=== PATIENT | female | born 1935 | race Caucasian/White ===

== ENCOUNTER 2021-04-06 20:44 | Inpatient (IN) ==
--- NOTE | 2021-04-06 21:02 | Emergency Department Note ---
History of Present Illness General Chief complaint: Cardiac Assessment Stated complaint: SHAKING,STOMACH PAINS,WEIGHT ON CHEST,ARMS TINGLIN Time Seen by Provider: 04/06/21 21:01 Source: patient Mode of arrival: ambulatory Limitations: no limitations History of Present Illness Provider Complaint: + generalized weakness (Associated chest pressure) Onset (ago): day(s) Duration: + constant Migration: + none Severity: moderate Current Pain Intensity: 5 Quality: + other (Pressure) Relieved By: + none Exacerbated By: + none Context: + new medication (Lexapro started 3 days prior) and + depression (Patient has been feeling slightly depressed and it is almost the anniversary of her eldest son passing away last April.) Associated symptoms: + chest pain and + nausea/vomiting; no dark stools, no diaphoresis, no fever/chills or no shortness of breath Home Medications Medication Instructions Recorded Confirmed Type aspirin 81 mg tablet,delayed 81 mg PO 03/13/21 04/06/21 History release (Aspirin Low Dose) calcium carbonate 600 mg calcium 600 mg PO [facility] 03/13/21 04/06/21 History (1,500 mg) tablet (Calcium) cholecalciferol (vitamin D3) 25 25 mcg PO DAILY 03/13/21 04/06/21 History mcg (1,000 unit) tablet (Vitamin D3) cyanocobalamin (vitamin B-12) 1,000 mcg PO DAILY 03/13/21 04/06/21 History 1,000 mcg tablet (Vitamin B-12) fenofibrate micronized 134 mg 134 mg PO DAILY 03/13/21 04/06/21 History capsule hydralazine 50 mg tablet 75 mg PO TID 03/13/21 04/06/21 History hydrochlorothiazide 25 mg tablet 25 mg PO DAILY 03/13/21 04/06/21 History magnesium oxide 400 mg PO DAILY 03/13/21 04/06/21 History omega 6-vjw-cnu-fish oil 1,000 mg 1 cap PO DAILY 03/13/21 04/06/21 History (120 mg-180 mg) capsule (Fish Oil) psyllium seed (sugar) oral powder 1 ea PO DAILY 03/13/21 04/06/21 History (Metamucil (sugar)) olopatadine 0.2 % eye drops 1 drp OPHTHALMIC (EYE) 03/15/21 04/06/21 History escitalopram oxalate 10 mg tablet 10 mg PO DAILY 04/06/21 04/06/21 History levothyroxine 137 mcg tablet 137 mcg PO DAILYBB 04/06/21 04/06/21 History Allergies Allergy/AdvReac Type Severity Reaction Status Date / Time oxycodone Allergy Unknown UKN Verified 04/06/21 21:05 simvastatin Allergy Unknown UKN Verified 04/06/21 21:05 rosuvastatin AdvReac Unknown upset Verified 04/06/21 21:05 stomach Past Med/Surg History Medical History (Updated 04/07/21 @ 00:35 by Eliseo Lopez MD) Deep venous thrombosis (11/15/12) Hx of blood clots Hypertension Hypothyroidism (11/15/12) Hysterectomy (11/15/12) Social History Smoking Status: Never smoker Preferred Language: Ivorian Feels Safe at Home: Yes Review of Systems See HPI for pertinent positives & negatives. and A total of 10 systems reviewed and were otherwise negative Physical Exam Vital Signs Vital Signs - 24 hr 04/06/21 20:48 04/06/21 21:16 04/06/21 21:22 Temperature 36.5 C Temperature Source Temporal Artery Scan Pulse Rate 78 76 Pulse Rate [Apical] 71 Pulse Rate from SpO2 Sensor 72 Pulse Rhythm Pulse Rhythm [Apical] Regular Pulse Strength [Apical] Normal Respiratory Rate 18 18 18 Respiratory Effort / Characteristics Non-Labored Spontaneous Respiratory Depth Normal Respiratory Pattern Regular Blood Pressure 162/82 H 174/77 H Blood Pressure [Left Arm] 174/77 H Blood Pressure Mean 108 109 Blood Pressure Mean [Left Arm] 109 Blood Pressure Position [Left Arm] Lying Pulse Oximetry 94 96 97 Oxygen Delivery Method Room Air Room Air Sepsis Recent Fever Within 48 Hours No Sepsis New/Unexplained Change in Mental Status No Sepsis Action Taken by Nursing No Action Required 04/06/21 21:30 04/06/21 21:35 04/06/21 21:47 Temperature Temperature Source Pulse Rate 71 71 74 Pulse Rate [Apical] Pulse Rate from SpO2 Sensor 70 72 Pulse Rhythm Regular Pulse Rhythm [Apical] Pulse Strength [Apical] Respiratory Rate 16 18 20 Respiratory Effort / Characteristics Respiratory Depth Respiratory Pattern Blood Pressure 171/81 H 157/84 H Blood Pressure [Left Arm] Blood Pressure Mean 111 108 Blood Pressure Mean [Left Arm] Blood Pressure Position [Left Arm] Pulse Oximetry 96 96 95 Oxygen Delivery Method Room Air Sepsis Recent Fever Within 48 Hours Sepsis New/Unexplained Change in Mental Status Sepsis Action Taken by Nursing 04/06/21 21:51 04/06/21 22:00 04/06/21 22:30 Temperature Temperature Source Pulse Rate 74 66 72 Pulse Rate [Apical] Pulse Rate from SpO2 Sensor 73 71 72 Pulse Rhythm Pulse Rhythm [Apical] Pulse Strength [Apical] Respiratory Rate 20 20 19 Respiratory Effort / Characteristics Respiratory Depth Respiratory Pattern Blood Pressure 151/98 H 165/74 H 172/101 H Blood Pressure [Left Arm] Blood Pressure Mean 115 104 124 Blood Pressure Mean [Left Arm] Blood Pressure Position [Left Arm] Pulse Oximetry 95 95 96 Oxygen Delivery Method Sepsis Recent Fever Within 48 Hours Sepsis New/Unexplained Change in Mental Status Sepsis Action Taken by Nursing 04/06/21 23:00 04/07/21 00:10 Temperature Temperature Source Pulse Rate 66 60 Pulse Rate [Apical] Pulse Rate from SpO2 Sensor 67 66 Pulse Rhythm Pulse Rhythm [Apical] Pulse Strength [Apical] Respiratory Rate 19 14 Respiratory Effort / Characteristics Respiratory Depth Respiratory Pattern Blood Pressure 171/83 H 142/73 H Blood Pressure [Left Arm] Blood Pressure Mean 112 96 Blood Pressure Mean [Left Arm] Blood Pressure Position [Left Arm] Pulse Oximetry 96 96 Oxygen Delivery Method Sepsis Recent Fever Within 48 Hours Sepsis New/Unexplained Change in Mental Status Sepsis Action Taken by Nursing GENERAL: Wearing a mask. NAD, non-toxic. EYE EXAM: Normal conjunctiva. PERRL, no anisocoria and EOM's grossly intact w/o pain. NECK: Supple, no nuchal rigidity, no adenopathy, non-tender. No signs of meni ngismus. LUNGS: Clear to auscultation. Normal chest wall mechanics. HEART: NSR, no MRG. ABDOMEN: Abdomen soft, non-tender, normo-active bowel sounds, no masses, no rebound or guarding. BACK: No CVA TTP. SKIN: No rashes and no bruising. UPPER EXTREMITIES: Upper extremities are grossly normal. LOWER EXTREMITIES: Grossly normal, no edema. Negative Homans' sign bilaterally. NEURO EXAM: A&O x3, cranial nerves II-XII grossly intact, normal speech, moves all 4 extremities on command w/o issue. Course Course Cardiac monitoring: An order was placed for continuous cardiac monitoring. The monitor shows a rate of 60 with sinus rhythm. Administered Medications Discontinued Medications Acetaminophen (Acetaminophen 325 Mg Tab) 650 mg PO NOW STA Stop: 04/06/21 21:19 Last Admin: 04/06/21 21:36 Dose: 650 mg Documented by: [id number] Aspirin (Aspirin Chew 324 Mg) 324 mg PO NOW STA Stop: 04/06/21 21:19 Last Admin: 04/06/21 21:36 Dose: 324 mg Documented by: [id number] Hydralazine HCl (Hydralazine Hcl 25 Mg Tab) 75 mg PO NOW STA Stop: 04/06/21 22:58 Last Admin: 04/06/21 23:46 Dose: 75 mg Documented by: [id number] Sodium Chloride (Nss) 500 mls @ 999 mls/hr IV .Q31M SHILOH Stop: 04/06/21 22:00 Last Infusion: 04/06/21 22:09 Dose: 0 mls/hr Documented by: [id number] Admin: 04/06/21 21:37 Dose: 999 mls/hr Documented by: [id number] Lorazepam (Ativan) 0.25 mg in 0.5 mls @ 0.5 mls/min IV NOW STA Stop: 04/06/21 22:58 Last Admin: 04/06/21 23:45 Dose: 0.5 mls/min Documented by: [id number] Ioversol (Optiray 320 100ml) 93 ml IV ONCE ONE Stop: 04/06/21 23:23 Last Admin: 04/06/21 23:22 Dose: 93 ml Documented by: [id number] Nitroglycerin (Nitroglycerin Sl 0.4 Mg/Tab Tab) 0.4 mg SL NOW STA Stop: 04/06/21 21:19 Last Admin: 04/06/21 21:37 Dose: 0.4 mg Documented by: [id number] Medical Decision Making Differential Diagnosis Cardiac ischemia, aortic dissection, pulmonary embolism, pneumothorax, pneumonia, pericarditis, myocarditis, esophageal rupture, GERD, cholecystitis, pancreatitis, musculoskeletal, as well as other pathologies. Medical Records Attestation: I reviewed the patient's medical records. Home Medications Current Medication List: was personally reviewed by me Laboratory Data Attestation: I reviewed the patient's lab results. Result diagrams: 04/06/21 21:35 04/06/21 21:35 Lab Results 04/06/21 04/06/21 04/06/21 Range/Units 21:35 21:35 21:35 WBC 7.08 (4.8-10.8) K/uL RBC 4.80 (4.2-5.4) M/uL Hgb 14.9 (12.0-16.0) g/dL Hct 43.0 (37-47) % MCV 89.6 (80-100) fL MCH 31.0 (25-34) pg MCHC 34.7 (32-36) g/dL RDW Std Deviation 41.4 (36.4-46.3) fL RDW Coeff of Valdo 12.7 (11.5-14.5) % Plt Count 277 (130-400) K/uL MPV 9.3 (7.4-10.4) fL Immature Gran % (Auto) 0.1 % Neut % (Auto) 65.2 % Lymph % (Auto) 23.6 % [place] % (Auto) 10.0 % Eos % (Auto) 0.7 % Baso % (Auto) 0.4 % Neut # (Auto) 4.61 (1.4-6.5) K/uL Lymph # (Auto) 1.67 (1.2-3.4) K/uL [place] # (Auto) 0.71 H (0.11-0.59) K/uL Eos # (Auto) 0.05 (0-0.5) K/uL Baso # (Auto) 0.03 (0-0.2) K/uL Immature Gran # (Auto) 0.01 (0.00-0.02) K/uL PT 10.3 (9.0-12.0) Seconds INR 1.0 (0.9-1.1) Sodium 129 L (136-145) mmol/L Potassium (3.5-5.1) mmol/L Chloride 94 L (98-107) mmol/L Carbon Dioxide 28 (21-32) mmol/L Anion Gap 7.0 (3-11) BUN 14 (7-18) mg/dl Creatinine 0.68 (0.6-1.2) mg/dl Est Cr Clr Drug Dosing 55.5 ml/min Est GFR ( Amer) 93.1 ml/min Est GFR (Non-Af Amer) 80.3 ml/min BUN/Creatinine Ratio 21.1 H (10-20) Glucose 93 (70-99) mg/dl Calcium 9.3 (8.5-10.1) mg/dl Magnesium (1.8-2.4) mg/dl Total Bilirubin 0.8 (0.2-1) mg/dl AST (15-37) U/L ALT 22 (12-78) U/L Alkaline Phosphatase 33 L (45-117) U/L Troponin I < 0.015 (0-0.045) ng/ml Total Protein 7.4 (6.4-8.2) gm/dl Albumin 3.9 (3.4-5.0) gm/dl Globulin 3.5 (2.5-4.0) gm/dl Albumin/Globulin Ratio 1.1 (0.9-2) TSH 11.000 H (0.300-4.500) uIu/ml Free T4 1.67 H (0.8-1.6) ng/dl Imaging Data Radiologist's Impression: Abdomen/Pelvis CT 04/06/21 21:18 CT SCAN OF THE ABDOMEN AND PELVIS WITH IV CONTRAST CLINICAL HISTORY: Upper abdominal pain. COMPARISON STUDY: Abdominal CT dated 11/15/2012. TECHNIQUE: Following the IV administration of 93 cc of Optiray 320, CT scan of the abdomen and pelvis is performed from the lung bases to the proximal femora. Images are reviewed in the axial, sagittal, and coronal planes. IV contrast was administered without complication. A dose lowering technique was utilized adhering to the principles of ALARA. CT DOSE: 683.71 mGycm FINDINGS: Lung bases: The heart is enlarged and without pericardial effusion. There are coronary artery calcifications. The lung bases are clear noting bibasilar scarring/atelectasis. There is a small to moderate hiatal hernia. Liver: The contrast-enhanced liver is normal in size, contour, and attenuation. There is no intrahepatic biliary ductal dilatation. The hepatic veins and portal veins are patent. Calcifications are noted in the right lobe at the site of previously characterized hepatic cysts. The cysts have resolved. Calcified granulomas noted in the left lobe. Gallbladder: Unremarkable. Spleen: Normal in size and attenuation. 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 Pancreas: Moderately atrophic and grossly unremarkable. Adrenal glands: Unremarkable. Kidneys: The contrast enhanced kidneys demonstrate cortical atrophy and are w ithout hydronephrosis. The kidneys enhance symmetrically. Bilateral renal cysts measure up to 6.6 cm. Additional subcentimeter cortical hypodensities likely represent cysts but are too small for definitive characterization. There is a 1.0 cm indeterminant and possibly enhancing lesion in the right lower pole and image #181. Abdominal vasculature: The abdominal aorta is normal in course and caliber noting moderate atherosclerotic calcification. Bowel: There is mild colonic diverticulosis without CT evidence of acute diverticulitis. No bowel obstruction is seen. There is a tiny duodenal dive rticulum. The appendix is well-visualized and normal. Peritoneum: No intraperitoneal free air is identified. There is trace pelvic ascites. Lymphadenopathy: None. Pelvic viscera: The bladder is normal as visualized. The uterus is surgically absent. No adnexal lesion is seen. Skeletal structures: The skeletal structures are osteopenic. There is moderate lumbosacral spondylosis. Arthritic change is seen in the hips. No lytic or blastic lesions are seen. IMPRESSION: 1. There is trace nonspecific free fluid in the pelvis. 2. Cardiomegaly. 3. There is a 1.0 cm indeterminant and possibly enhancing lesion in the lower pole of the right kidney, which is new from the 2013 examination. Although this could represent a complex cyst, a small renal neoplasm is not excluded. Nonemergent follow-up with a contrast-enhanced renal protocol CT or MRI is recommended for further assessment. 4. Hiatal hernia. 5. Additional findings as above. ACT 112: Positive. There are findings on this exam that require communication between the performing entity and the patient following Patient Test Result Information Act ([place] Act 112) guidelines. Electronically signed by: Nuno Bennett M.D. 04/06/2021 11:47 PM Chest X-Ray 04/06/21 21:18 SINGLE VIEW CHEST CLINICAL HISTORY: Generalized weakness. FINDINGS: An AP, portable, upright chest radiograph is compared to study dated 03/15/2021 and correlated with chest CT dated 11/17/2012. The heart is enlarged noting atherosclerotic calcification of the thoracic aorta. The pulmonary vasculature is noncongested. There is mild bibasilar atelectasis. The lungs and pleural spaces are otherwise clear. No pneumothorax is seen. The skeletal structures are osteopenic. The bony thorax is grossly intact. Calcified joint bodies are seen in both shoulders. IMPRESSION: Cardiomegaly with no active disease in the chest. ACT 112: Negative or not required by law. Electronically signed by: Nuno Bennett M.D. 04/06/2021 10:32 PM ECG Data Additional Comments: Sinus, rate of 72, normal intervals, normal axis, slight de pression in 1 and aVL, PVC noted. Q-wave anteriorly and inferiorly. MDM Narrative Patient was seen due to concern for chest pressure which she describes going to the neck and was 5-10 in nature. The patient also did have some shakiness and strange feeling to the bilateral upper extremities. No recent falls or trauma. The patient has felt increasingly anxious as well as depressed over the anniversary of her son's eldest son which is within the next month. The patient was recently started on Lexapro 3 days prior. Blood work was obtained. The patient did have upper abdominal pain so CT abdomen pelvis was ordered. Patient does have a normal white count H&H and platelet count. Kidney function is unremarkable but the patient does have hyponatremia. TSH and free T4 are elevated. Patient does have a known history of hypothyroidism. Patient CT shows possible indeterminate renal lesion but is otherwise unremarkable. Given the patient's atypical chest pain and associated hyponatremia I did speak the on-call hospitalist. The patient was admitted by Dr. Stover. Patient was ordered her home blood pressure medications as well as nitro. Impression & Plan Hyponatremia, Atypical chest pain Discharge Plan Visit Data Chief Complaint: Cardiac Assessment Stated Complaint: SHAKING,STOMACH PAINS,WEIGHT ON CHEST,ARMS TINGLIN ED Provider: Eliseo Lopez Discharge Problem: Hyponatremia, Atypical chest pain Patient Disposition: Admitted As Inpatient Forms Stand Alone Forms: My [facility] Prescriptions Prescriptions: No Action fenofibrate micronized 134 mg capsule 134 mg PO DAILY RF: 0 hydralazine 50 mg tablet 75 mg PO TID RF: 0 hydrochlorothiazide 25 mg tablet 25 mg PO DAILY RF: 0 aspirin [Aspirin Low Dose] 81 mg Tablet,Delayed Release (Dr/Ec) 81 mg PO HS RF: 0 calcium carbonate [Calcium 600] 600 mg calcium (1,500 mg) Tablet 600 mg PO QAM RF: 0 cholecalciferol (vitamin D3) [Vitamin D3] 25 mcg (1,000 unit) Tablet 25 mcg PO DAILY RF: 0 omega 6-nsr-atc-fish oil [Fish Oil] 1,000 mg (120 mg-180 mg) Capsule 1 cap PO DAILY RF: 0 cyanocobalamin (vitamin B-12) [Vitamin B-12] 1,000 mcg Tablet 1,000 mcg PO DAILY RF: 0 Metamucil (sugar) Powder 1 ea PO DAILY RF: 0 magnesium oxide 400 mg magnesium Tablet 400 mg PO DAILY RF: 0 olopatadine [Pataday] 0.2 % Drops 1 drp OPHTHALMIC (EYE) HS RF: 0 levothyroxine 137 mcg tablet 137 mcg PO DAILYBB RF: 0 escitalopram oxalate 10 mg tablet 10 mg PO DAILY RF: 0 Referrals Referrals: Nighat Philip MD [Primary Care Provider] -
[2021-04-06] MEDS ORDERED: NITROGLYCERIN SL 0.4 MG/TAB TAB SL STA (21:18)
[2021-04-06] MEDS ORDERED: ACETAMINOPHEN 325 MG TAB PO STA (21:18)
[2021-04-06] MEDS ORDERED: ASPIRIN CHEW 324 MG PO STA (21:18)
[2021-04-06] MEDS ORDERED: SODIUM CHLORIDE 0.9% 500 ML IV SCH (21:30)
[2021-04-06 22:00] LABS: Basophils # (auto) 0.03 K/uL (0-0.2); Basophils % (auto) 0.4 %; Eosinophils # (auto) 0.05 K/uL (0-0.5); Eosinophils % (auto) 0.7 %; Hemoglobin 14.9 g/dL (12.0-16.0); Immature Granulocytes # (auto) 0.01 K/uL (0.00-0.02); Immature Granulocytes % (auto) 0.1 %; Lymphocytes # (auto) 1.67 K/uL (1.2-3.4); Lymphocytes % (auto) 23.6 %; Mean Corpuscular Hgb Conc 34.7 g/dL (32-36); Mean Corpuscular Volume 89.6 fL (80-100); Mean Platelet Volume 9.3 fL (7.4-10.4); Monocytes # (auto) 0.71 K/uL (0.11-0.59); Neutrophils # (auto) 4.61 K/uL (1.4-6.5); Neutrophils % (auto) 65.2 %; Platelet Count 277 K/uL (130-400); RDW Coefficient of Variation 12.7 % (11.5-14.5); RDW Standard Deviation 41.4 fL (36.4-46.3); White Blood Count 7.08 K/uL (4.8-10.8)
[2021-04-06 22:09] LABS: Prothrombin Time 10.3 Seconds (9.0-12.0)
--- NOTE | 2021-04-06 22:33 | XRay Report ---
SINGLE VIEW CHEST CLINICAL HISTORY: Generalized weakness. FINDINGS: An AP, portable, upright chest radiograph is compared to study dated 03/15/2021 and correlate d with chest CT dated 11/17/2012. The heart is enlarged noting atherosclerotic calcification of the th oracic aorta. The pulmonary vasculature is noncongested. There is mild bibasilar atelectasis. The devorah gs and pleural spaces are otherwise clear. No pneumothorax is seen. The skeletal structures are osteo penic. The bony thorax is grossly intact. Calcified joint bodies are seen in both shoulders. IMPRESSION: Cardiomegaly with no active disease in the chest. ACT 112: Negative or not required by law. Electronically signed by: Nuno Bennett M.D. 04/06/2021 10:32 PM
[2021-04-06 22:48] LABS: Alanine Aminotransferase 22 U/L (12-78); Albumin Globulin Ratio 1.1 (0.9-2); Albumin Level 3.9 gm/dl (3.4-5.0); Alkaline Phosphatase 33 U/L (45-117); BUN Creatinine Ratio 21.1 (10-20); Bilirubin,Total 0.8 mg/dl (0.2-1); Blood Urea Nitrogen 14 mg/dl (7-18); Calcium 9.3 mg/dl (8.5-10.1); Carbon Dioxide 28 mmol/L (21-32); Chloride 94 mmol/L (98-107); Creatinine Clr Calc Pharmacy 55.5 ml/min; Est GFR (African American) 93.1 ml/min; Est GFR (Non-African American) 80.3 ml/min; Globulin 3.5 gm/dl (2.5-4.0); Glucose 93 mg/dl (70-99); Sodium 129 mmol/L (136-145); Total Protein 7.4 gm/dl (6.4-8.2); Troponin I < 0.015 ng/ml (0-0.045)
[2021-04-06] MEDS ORDERED: hydrALAZINE HCL 25 MG TAB PO STA (22:57)
[2021-04-06] MEDS ORDERED: LORazepam 0.25 MG/0.5 ML VIAL IV STA (22:57)
[2021-04-06 23:02] LABS: T4 Free Thyroxine 1.67 ng/dl (0.8-1.6)
[2021-04-06] MEDS ORDERED: OPTIRAY 320 100ml IV ONE (23:22)
--- NOTE | 2021-04-06 23:48 | CT Scan Report ---
CT SCAN OF THE ABDOMEN AND PELVIS WITH IV CONTRAST CLINICAL HISTORY: Upper abdominal pain. COMPARISON STUDY: Abdominal CT dated 11/15/2012. TECHNIQUE: Following the IV administration of 93 cc of Optiray 320, CT scan of the abdomen and pelvi s is performed from the lung bases to the proximal femora. Images are reviewed in the axial, sagittal , and coronal planes. IV contrast was administered without complication. A dose lowering technique wa s utilized adhering to the principles of ALARA. CT DOSE: 683.71 mGycm FINDINGS: Lung bases: The heart is enlarged and without pericardial effusion. There are coronary artery calcifi cations. The lung bases are clear noting bibasilar scarring/atelectasis. There is a small to moderat e hiatal hernia. Liver: The contrast-enhanced liver is normal in size, contour, and attenuation. There is no intrahepa tic biliary ductal dilatation. The hepatic veins and portal veins are patent. Calcifications are note d in the right lobe at the site of previously characterized hepatic cysts. The cysts have resolved. C alcified granulomas noted in the left lobe. Gallbladder: Unremarkable. Spleen: Normal in size and attenuation. There are least 2 peripherally calcified splenic artery aneur ysms which measure up to 9 mm. Pancreas: Moderately atrophic and grossly unremarkable. Adrenal glands: Unremarkable. Kidneys: The contrast enhanced kidneys demonstrate cortical atrophy and are without hydronephrosis. T he kidneys enhance symmetrically. Bilateral renal cysts measure up to 6.6 cm. Additional subcentimete r cortical hypodensities likely represent cysts but are too small for definitive characterization. Th ere is a 1.0 cm indeterminant and possibly enhancing lesion in the right lower pole and image #181. Abdominal vasculature: The abdominal aorta is normal in course and caliber noting moderate atheroscle rotic calcification. Bowel: There is mild colonic diverticulosis without CT evidence of acute diverticulitis. No bowel obs truction is seen. There is a tiny duodenal diverticulum. The appendix is well-visualized and normal. Peritoneum: No intraperitoneal free air is identified. There is trace pelvic ascites. Lymphadenopathy: None. Pelvic viscera: The bladder is normal as visualized. The uterus is surgically absent. No adnexal lesi on is seen. Skeletal structures: The skeletal structures are osteopenic. There is moderate lumbosacral spondylosi s. Arthritic change is seen in the hips. No lytic or blastic lesions are seen. IMPRESSION: 1. There is trace nonspecific free fluid in the pelvis. 2. Cardiomegaly. 3. There is a 1.0 cm indeterminant and possibly enhancing lesion in the lower pole of the right kidne y, which is new from the 2013 examination. Although this could represent a complex cyst, a small blas l neoplasm is not excluded. Nonemergent follow-up with a contrast-enhanced renal protocol CT or MRI i s recommended for further assessment. 4. Hiatal hernia. 5. Additional findings as above. ACT 112: Positive. There are findings on this exam that require communication between the performing entity and the patient following Patient Test Result [place] Act ([place] Act 112) guidelines. Electronically signed by: Nuno Bennett M.D. 04/06/2021 11:47 PM
--- NOTE | 2021-04-07 01:16 | History & Physical Report ---
Date of Service April 07, 2021 Assessment & Plan (1) Chest pain: Plan: Multifactorial : Uncontrolled hypertension Anxiety contributory, suboptimal depression Musculoskeletal component given reproducibility Hyponatremia secondary to diarrheal illness, HCTZ Abdominal pain secondary to gastroenteritis rule out C. difficile Possible UTI, patient not septic Incidental finding of complex R kidney cyst hyperlipidemia, statin intolerance hx PVD as per records hypothyroidism, abnormal TFTs noted hx APRIL (CPAP intolerant) hx post of DVT as per records status post anticoagulation PCU Add lisinopril to current Hydralazine Rx Follow troponin TTE, Cardiology consult Re: Chest pain Aspirin for CAD prevention until ACS ruled out Psychiatry consult Re: Anxiety/depression Careful correction of sodium Hyponatremia work-up Appropriate to hold HCTZ for now Stool C. difficile Urine CS, cefepime Outpatient urology work-up for complex right kidney cyst Recheck TFTs next month DVT prophylaxis. Lovenox subcu Full code Patient requesting updates from providers. Mr. Silas Andres, contact #[phone] Text document was generated using [employer] voice recognition software. It may contain grammatical or spelling errors. Kindly contact undersigned for clarification of any documentation item in question. History of Present Illness Chief Complaint: Chest pain Primary Care Provider: Nighat Philip MD History obtained from patient, family, and records. Medical history significant for hypertension, hyperlipidemia, PVD, moderate mitral regurgitation, hypothyroidism, APRIL (CPAP intolerant), history post of DVT as per records status post anticoagulation. 2 ER visits 3 weeks ago for uncontrolled blood pressure with anxiety component. Approaching 1st year anniversary of a son who from cancer in [place], [place]. Patient unable to travel last year due to pandemic as per . Patient has been depressed since. Lost interest in most things and with decreased appetite. Fleeting statements made to that she " was better off ." Patient has always been a worrier as per . Patient compliant with home BP medications. PCP started Lexapro 2 days ago on follow-up visit. Patient also had a video appointment with a psychologist. Patient was doing well as per until yesterday morning when she started being depressed and anxious again. Patient noted chest tightness going to her neck without shortness of breath, nonpleuritic, not shooting to the back. No unusual cough symptoms. Achy abdominal discomfort with mushy stools and nausea symptoms. No recent antibiotic Rx /sick contacts. No headache symptoms. Blood pressure not checked at home recently. SBP 170s upon arrival at the ER. Chest pain relieved after aspirin, nitroglycerin and Ativan administration at the ER. 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, lives with Allergies Allergy/AdvReac Type Severity Reaction Status Date / Time oxycodone Allergy Unknown UKN Verified 04/06/21 21:05 simvastatin Allergy Unknown UKN Verified 04/06/21 21:05 rosuvastatin AdvReac Unknown upset Verified 04/06/21 21:05 stomach Home Medications Medication Instructions Recorded Confirmed Type aspirin 81 mg tablet,delayed 81 mg PO 03/13/21 04/06/21 History release (Aspirin Low Dose) calcium carbonate 600 mg calcium 600 mg PO QA 03/13/21 04/06/21 History (1,500 mg) tablet (Calcium) cholecalciferol (vitamin D3) 25 25 mcg PO DAILY 03/13/21 04/06/21 History mcg (1,000 unit) tablet (Vitamin D3) cyanocobalamin (vitamin B-12) 1,000 mcg PO DAILY 03/13/21 04/06/21 History 1,000 mcg tablet (Vitamin B-12) fenofibrate micronized 134 mg 134 mg PO DAILY 03/13/21 04/06/21 History capsule hydralazine 50 mg tablet 75 mg PO TID 03/13/21 04/06/21 History hydrochlorothiazide 25 mg tablet 25 mg PO DAILY 03/13/21 04/06/21 History magnesium oxide 400 mg PO DAILY 03/13/21 04/06/21 History omega 3-ldt-hnn-fish oil 1,000 mg 1 cap PO DAILY 03/13/21 04/06/21 History (120 mg-180 mg) capsule (Fish Oil) psyllium seed (sugar) oral powder 1 ea PO DAILY 03/13/21 04/06/21 History (Metamucil (sugar)) olopatadine 0.2 % eye drops 1 drp OPHTHALMIC (EYE) 03/15/21 04/06/21 History escitalopram oxalate 10 mg tablet 10 mg PO DAILY 04/06/21 04/06/21 History levothyroxine 137 mcg tablet 137 mcg PO DAILYBB 04/06/21 04/06/21 History Past Med/Surg History Medical History Deep venous thrombosis (11/15/12) Hx of blood clots Hypertension Hypothyroidism (11/15/12) Hysterectomy (11/15/12) Social History Smoking Status: Never smoker Hx Alcohol Use: Yes Alcohol type: wine Hx Substance Use: No Preferred Language: Ukrainian Communication Ability: Effective Beliefs That Will Affect Care: None marital status: Current Living Situation: Spouse How many Children do You have: 2 Other Information That Helps Us Care for You: No Feels Safe at Home: Yes Safety Concerns: Feels Safe At This Time Assistive Devices: Glasses Review of Systems Review of Systems: As per HPI, all 10 systems reviewed, all other ROS negative Physical Exam Physical Exam: GENERAL: Comfortable, depressed, occasionally tearful no respiratory distress SKIN: Normal color, warm HEENT: [place] palpebral conjunctivae, no ptosis, dry buccal mucosa NECK : Supple, short neck, no tenderness CHEST : CTA, anterior chest wall tenderness HEART : RRR, systolic murmur ABDOMEN: Some distention, minimal hypogastric tenderness EXTREMITIES : Minimal LE swelling, no LE tenderness, no other conspicuous deformities noted NEUROLOGIC : Coherent, no facial asymmetry, no other gross focality Results & Data Results & Data ([facility]) Vital Signs (Past 12 Hours) Vital Signs Temp Pulse Pulse Resp BP BP Pulse Ox 04/07/21 00:30 67 16 150/75 H 97 04/07/21 00:10 60 14 142/73 H 96 04/06/21 23:00 66 19 171/83 H 96 04/06/21 22:30 72 19 172/101 H 96 04/06/21 22:00 66 20 165/74 H 95 04/06/21 21:51 74 20 151/98 H 95 04/06/21 21:47 74 20 157/84 H 95 04/06/21 21:35 71 18 96 04/06/21 21:30 71 16 171/81 H 96 04/06/21 21:22 76 18 174/77 H 97 04/06/21 21:16 71 18 174/77 H 96 04/06/21 20:48 36.5 C 78 18 162/82 H 94 Laboratory Results Laboratory Results WBC 7.08 K/uL (4.8-10.8) 04/06/21 21:35 RBC 4.80 M/uL (4.2-5.4) 04/06/21 21:35 Hgb 14.9 g/dL (12.0-16.0) 04/06/21 21:35 Hct 43.0 % (37-47) 04/06/21 21:35 MCV 89.6 fL (80-100) 04/06/21 21: MCH 31.0 pg (25-34) 04/06/21 21: MCHC 34.7 g/dL (32-36) 04/06/21 21:35 RDW Std Deviation 41.4 fL (36.4-46.3) 04/06/21 21:35 RDW Coeff of Valdo 12.7 % (11.5-14.5) 04/06/21 21:35 Plt Count 277 K/uL (130-400) 04/06/21 21:35 MPV 9.3 fL (7.4-10.4) 04/06/21 21:35 Immature Gran % (Auto) 0.1 % 04/06/21 21:35 Neut % (Auto) 65.2 % 04/06/21 21:35 Lymph % (Auto) 23.6 % 04/06/21 21:35 [place] % (Auto) 10.0 % 04/06/21 21:35 Eos % (Auto) 0.7 % 04/06/21 21:35 Baso % (Auto) 0.4 % 04/06/21 21:35 Neut # (Auto) 4.61 K/uL (1.4-6.5) 04/06/21 21:35 Lymph # (Auto) 1.67 K/uL (1.2-3.4) 04/06/21 21:35 [place] # (Auto) 0.71 K/uL (0.11-0.59) H 04/06/21 21:35 Eos # (Auto) 0.05 K/uL (0-0.5) 04/06/21 21:35 Baso # (Auto) 0.03 K/uL (0-0.2) 04/06/21 21:35 Immature Gran # (Auto) 0.01 K/uL (0.00-0.02) 04/06/21 21:35 PT 10.3 Seconds (9.0-12.0) 04/06/21 21:35 INR 1.0 (0.9-1.1) 04/06/21 21:35 Sodium 129 mmol/L (136-145) L 04/06/21 21:35 Potassium mmol/L (3.5-5.1) 04/06/21 21:35 Chloride 94 mmol/L (98-107) L 04/06/21 21:35 Carbon Dioxide 28 mmol/L (21-32) 04/06/21 21:35 Anion Gap 7.0 (3-11) 04/06/21 21:35 BUN 14 mg/dl (7-18) 04/06/21 21:35 Creatinine 0.68 mg/dl (0.6-1.2) 04/06/21 21:35 Est Cr Clr Drug Dosing 55.5 ml/min 04/06/21 21:35 Est GFR ( Amer) 93.1 ml/min 04/06/21 21:35 Est GFR (Non-Af Amer) 80.3 ml/min 04/06/21 21:35 BUN/Creatinine Ratio 21.1 (10-20) H 04/06/21 21:35 Glucose 93 mg/dl (70-99) 04/06/21 21:35 Osmolality 267 mOsm/kg (280-300) L 04/06/21 21:35 Calcium 9.3 mg/dl (8.5-10.1) 04/06/21 21:35 Magnesium mg/dl (1.8-2.4) 04/06/21 21:35 Total Bilirubin 0.8 mg/dl (0.2-1) 04/06/21 21:35 AST U/L (15-37) 04/06/21 21:35 ALT 22 U/L (12-78) 04/06/21 21:35 Alkaline Phosphatase 33 U/L (45-117) L 04/06/21 21:35 Troponin I < 0.015 ng/ml (0-0.045) 04/06/21 21:35 Total Protein 7.4 gm/dl (6.4-8.2) 04/06/21 21:35 Albumin 3.9 gm/dl (3.4-5.0) 04/06/21 21:35 Globulin 3.5 gm/dl (2.5-4.0) 04/06/21 21:35 Albumin/Globulin Ratio 1.1 (0.9-2) 04/06/21 21:35 TSH 11.000 uIu/ml (0.300-4.500) H 04/06/21 21:35 Free T4 1.67 ng/dl (0.8-1.6) H 04/06/21 21:35 COVID-19 Eval Order Covid19 at [facility] 04/07/21 00:35 Impressions Abdomen/Pelvis CT 04/06/21 21:18 CT SCAN OF THE ABDOMEN AND PELVIS WITH IV CONTRAST CLINICAL HISTORY: Upper abdominal pain. COMPARISON STUDY: Abdominal CT dated 11/15/2012. TECHNIQUE: Following the IV administration of 93 cc of Optiray 320, CT scan of the abdomen and pelvis is performed from the lung bases to the proximal femora. Images are reviewed in the axial, sagittal, and coronal planes. IV contrast was administered without complication. A dose lowering technique was utilized adhering to the principles of ALARA. CT DOSE: 683.71 mGycm FINDINGS: Lung bases: The heart is enlarged and without pericardial effusion. There are coronary artery calcifications. The lung bases are clear noting bibasilar scarring/atelectasis. There is a small to moderate hiatal hernia. Liver: The contrast-enhanced liver is normal in size, contour, and attenuation. There is no intrahepatic biliary ductal dilatation. The hepatic veins and portal veins are patent. Calcifications are noted in the right lobe at the site of previously characterized hepatic cysts. The cysts have resolved. Calcified granulomas noted in the left lobe. Gallbladder: Unremarkable. Spleen: Normal in size and attenuation. 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 Pancreas: Moderately atrophic and grossly unremarkable. Adrenal glands: Unremarkable. Kidneys: The contrast enhanced kidneys demonstrate cortical atrophy and are without hydronephrosis. The kidneys enhance symmetrically. Bilateral renal cysts measure up to 6.6 cm. Additional subcentimeter cortical hypodensities likely represent cysts but are too small for definitive characterization. There is a 1.0 cm indeterminant and possibly enhancing lesion in the right lower pole and image #181. Abdominal vasculature: The abdominal aorta is normal in course and caliber noting moderate atherosclerotic calcification. Bowel: There is mild colonic diverticulosis without CT evidence of acute diverticulitis. No bowel obstruction is seen. There is a tiny duodenal diverticulum. The appendix is well-visualized and normal. Peritoneum: No intraperitoneal free air is identified. There is trace pelvic ascites. Lymphadenopathy: None. Pelvic viscera: The bladder is normal as visualized. The uterus is surgically absent. No adnexal lesion is seen. Skeletal structures: The skeletal structures are osteopenic. There is moderate lumbosacral spondylosis. Arthritic change is seen in the hips. No lytic or blastic lesions are seen. IMPRESSION: 1. There is trace nonspecific free fluid in the pelvis. 2. Cardiomegaly. 3. There is a 1.0 cm indeterminant and possibly enhancing lesion in the lower pole of the right kidney, which is new from the 2013 examination. Although this could represent a complex cyst, a small renal neoplasm is not excluded. Nonemergent follow-up with a contrast-enhanced renal protocol CT or MRI is recommended for further assessment. 4. Hiatal hernia. 5. Additional findings as above. ACT 112: Positive. There are findings on this exam that require communication between the performing entity and the patient following Patient Test Result Information Act ([place] Act 112) guidelines. Electronically signed by: Nuno Bennett M.D. 04/06/2021 11:47 PM Chest X-Ray 04/06/21 21:18 SINGLE VIEW CHEST CLINICAL HISTORY: Generalized weakness. FINDINGS: An AP, portable, upright chest radiograph is compared to study dated 03/15/2021 and correlated with chest CT dated 11/17/2012. The heart is enlarged noting atherosclerotic calcification of the thoracic aorta. The pulmonary vasculature is noncongested. There is mild bibasilar atelectasis. The lungs and pleural spaces are otherwise clear. No pneumothorax is seen. The skeletal structures are osteopenic. The bony thorax is grossly intact. Calcified joint bodies are seen in both shoulders. IMPRESSION: Cardiomegaly with no active disease in the chest. ACT 112: Negative or not required by law. Electronically signed by: Nuno Bennett M.D. 04/06/2021 10:32 PM Diagnostic Findings EKG as per my interpretation rate 70, NSR, 1 AVB, anteroseptal infarct
[2021-04-07 01:55] LABS: Appearance Urine Clear (Clear); Bacteria Urine Automated 2+ (Negative); Bilirubin Urine Negative (Negative); Blood Urine Negative (Negative); Color Urine Yellow; Epithelial Cell Urine Auto 0-5 /lpf (0-5); Glucose Urine UA Negative (Negative); Ketones Urine Negative (Negative); Leukocyte Esterase Urine 2+ (Negative); Nitrite Urine Negative (Negative); Protein Urine Negative (Negative); RBC Urine Automated 0-4 /hpf (0-4); Specific Gravity Urine 1.028 (1.000-1.030); Urobilinogen Urine Negative (Negative); WBC Urine Automated >30 /hpf (0-5)
[2021-04-07 02:33] LABS: BUN Creatinine Ratio 19.6 (10-20); Calcium 8.5 mg/dl (8.5-10.1); Creatinine Clr Calc Pharmacy 62.9 ml/min; Est GFR (Non-African American) 83.7 ml/min; Potassium 3.3 mmol/L (3.5-5.1)
[2021-04-07] MEDS ORDERED: lisinopril 2.5 MG TAB PO ONE (02:34)
[2021-04-07 02:37] LABS: Troponin I 0.02 ng/ml (0-0.045)
[2021-04-07] MEDS ORDERED: POTASSIUM CHLORIDE CRTAB 20 MEQ TABCR PO STA (02:37)
[2021-04-07] MEDS ORDERED: POTASSIUM CHLORIDE 40 MEQ in SODIUM CHLORIDE 0.9% 1000ML 1,000 ML IV STA (02:44)
[2021-04-07] MEDS ORDERED: LORazepam 0.25 MG/0.5 ML VIAL IV PRN (02:51)
[2021-04-07] MEDS ORDERED: ACETAMINOPHEN 325 MG TAB PO PRN ×2 (02:51)
[2021-04-07] MEDS ORDERED: MoRPHine SULFATE 4 MG/ML 1 ML CARP\\VIAL IV PRN (02:51)
[2021-04-07] MEDS ORDERED: NITROGLYCERIN SL 0.4 MG/TAB TAB SL PRN (02:51)
[2021-04-07] MEDS ORDERED: PROMETHAZINE HCL 12.5 MG in SODIUM CHLORIDE 0.9% 50 ML IV PRN (02:51)
[2021-04-07] MEDS ORDERED: ACETAMINOPHEN W/CODEINE #3 1 TAB PO PRN (02:51)
[2021-04-07] MEDS: LEVOTHYROXINE SODIUM 137 MCG TABLET PO SCH (04:19)
[2021-04-07] MEDS: CYANOCOBALAMIN 500 MCG TABLET (VITAMIN B-12) PO SCH (08:05)
[2021-04-07] MEDS: hydrALAZINE HCL 25 MG TAB PO SCH ×3 (08:05→20:34)
[2021-04-07] MEDS: FENOFIBRATE NANOCRYSTALLIZED 145 MG TABLET PO SCH (08:05)
[2021-04-07] MEDS: ENOXAPARIN INJ 40 MG/0.4 ML SYR SQ SCH (08:06)
[2021-04-07] MEDS ORDERED: ESCITALOPRAM OXALATE 10 MG TAB PO SCH (09:00)
[2021-04-07] MEDS ORDERED: CEFEPIME CONSULT ACTIVE SCH (09:28)
[2021-04-07 09:30] LABS: Basophils # (auto) 0.03 K/uL (0-0.2); Basophils % (auto) 0.5 %; Eosinophils # (auto) 0.04 K/uL (0-0.5); Eosinophils % (auto) 0.7 %; Hematocrit (blood only) 42.6 % (37-47); Hemoglobin 14.5 g/dL (12.0-16.0); Immature Granulocytes # (auto) 0.02 K/uL (0.00-0.02); Immature Granulocytes % (auto) 0.3 %; Lymphocytes # (auto) 1.04 K/uL (1.2-3.4); Mean Corpuscular Hemoglobin 30.7 pg (25-34); Mean Corpuscular Volume 90.1 fL (80-100); Mean Platelet Volume 9.1 fL (7.4-10.4); Monocytes # (auto) 0.46 K/uL (0.11-0.59); Neutrophils # (auto) 4.18 K/uL (1.4-6.5); Neutrophils % (auto) 72.5 %; Platelet Count 272 K/uL (130-400); RDW Coefficient of Variation 12.9 % (11.5-14.5); RDW Standard Deviation 42.2 fL (36.4-46.3); Red Blood Count 4.73 M/uL (4.2-5.4); White Blood Count 5.77 K/uL (4.8-10.8)
[2021-04-07 09:39] LABS: Partial Thromboplastin Ratio 1.1; Partial Thromboplastin Time 29.1 Seconds (21.0-31.0)
[2021-04-07 10:06] LABS: BUN Creatinine Ratio 16.9 (10-20); Blood Urea Nitrogen 10 mg/dl (7-18); Calcium 8.8 mg/dl (8.5-10.1); Carbon Dioxide 28 mmol/L (21-32); Chloride 96 mmol/L (98-107); Creatinine Clr Calc Pharmacy 61.8 ml/min; Est GFR (African American) 96.5 ml/min; Est GFR (Non-African American) 83.2 ml/min; Glucose 121 mg/dl (70-99); Potassium 3.7 mmol/L (3.5-5.1); Sodium 130 mmol/L (136-145)
[2021-04-07 10:11] LABS: Troponin I < 0.015 ng/ml (0-0.045)
[2021-04-07] MEDS: CEFEPIME 2,000 MG/20 ML VIAL IV SCH ×2 (10:45→21:25)
--- NOTE | 2021-04-07 11:20 | Cardiology Consultation ---
Date of Consultation April 07, 2021 Assessment & Plan (1) Atypical chest pain: 85-year-old female admitted with hypertension chest pressure and multiple complaints in association with recent medication changes for emotional lability and depression. Initial evaluations do not reflect acute coronary syndrome and chest discomfort atypical for angina. EKG without change cardiac enzymes negative for injury. Echocardiogram is pending. Would continue usual medications and I agree adding low-dose lisinopril to her regimen for further blood pressure control given marked lability recently. Will need to follow hyponatremia We will continue to track in hospital (2) Hypertension: History of Present Illness Reason for Consultation: Atypical chest pain, hypertensive urgency Requesting Physician: Dr. Arredondo Attending Physician: Benton Bills MD History of Present Illness Patient is an 85-year-old female with complex history which includes 1. Long-standing labile hypertension. 2. Hyperlipidemia with statin intolerance. On fenofibrate 3. Mild aortic root dilatation. 4. Chronic venous insufficiency remotely status post left greater vein saphenous vein ablation with complicated DVT. 5. Hypothyroidism 6. Obstructive sleep apnea 7. Mild carotid artery disease. Patient is referred for evaluation. Clinical history is notable for difficulties with labile hypertension and emotional lability/depression over the past several weeks. She has had 2 ER visits for elevated blood pressures in early March. Recently was placed on Lexapro due to worsening depression and emotional lability. Patient notes complaints of chest tightness and shoulder tightness nausea vomiting and diarrhea. Blood pressure is elevated on ER presentation. No fevers or chills. No bleeding difficulties. No overall change in exercise capacity. No headaches or visual changes. Initial evaluation reveals no acute changes on EKG and no cardiac enzyme evolution. Echocardiogram is pending. Blood pressures improved this morning Allergies Allergy/AdvReac Type Severity Reaction Status Date / Time oxycodone Allergy Unknown UKN Verified 04/06/21 21:05 simvastatin Allergy Unknown UKN Verified 04/06/21 21:05 rosuvastatin AdvReac Unknown upset Verified 04/06/21 21:05 stomach Home Medications Medication Instructions Recorded Confirmed Type aspirin 81 mg tablet,delayed 81 mg PO HS 03/13/21 04/06/21 History release (Aspirin Low Dose) calcium carbonate 600 mg calcium 600 mg PO QAM 03/13/21 04/06/21 History (1,500 mg) tablet (Calcium) cholecalciferol (vitamin D3) 25 25 mcg PO DAILY 03/13/21 04/06/21 History mcg (1,000 unit) tablet (Vitamin D3) cyanocobalamin (vitamin B-12) 1,000 mcg PO DAILY 03/13/21 04/06/21 History 1,000 mcg tablet (Vitamin B-12) fenofibrate micronized 134 mg 134 mg PO DAILY 03/13/21 04/06/21 History capsule hydralazine 50 mg tablet 75 mg PO TID 03/13/21 04/06/21 History hydrochlorothiazide 25 mg tablet 25 mg PO DAILY 03/13/21 04/06/21 History magnesium oxide 400 mg PO DAILY 03/13/21 04/06/21 History omega 4-qlo-jgj-fish oil 1,000 mg 1 cap PO DAILY 03/13/21 04/06/21 History (120 mg-180 mg) capsule (Fish Oil) psyllium seed (sugar) oral powder 1 ea PO DAILY 03/13/21 04/06/21 History (Metamucil (sugar)) olopatadine 0.2 % eye drops 1 drp OPHTHALMIC (EYE) HS 03/15/21 04/06/21 History escitalopram oxalate 10 mg tablet 10 mg PO DAILY 04/06/21 04/06/21 History levothyroxine 137 mcg tablet 137 mcg PO DAILYBB 04/06/21 04/06/21 History Patient History Medical History (Updated 04/07/21 @ 09:33 by Rommel Jimenez MD) Deep venous thrombosis (11/15/12) Hx of blood clots Hypertension Hypothyroidism (11/15/12) Hysterectomy (11/15/12) Social History Smoking Status: Never smoker Hx Alcohol Use: Yes Alcohol type: wine Hx Substance Use: No Preferred Language: Serbian Communication Ability: Effective Beliefs That Will Affect Care: None marital status: Current Living Situation: Spouse How many Children do You have: 2 Other Information That Helps Us Care for You: No Feels Safe at Home: Yes Safety Concerns: Feels Safe At This Time Assistive Devices: Glasses Physical Exam Constitutional: WD/WN, vitals as above no acute distress Eyes: PERRL, conjunctivae normal, anicteric sclerae ENMT: external ear and nose normal, oropharynx normal Neck: trachea midline, no thyromegaly Respiratory: normal respiratory effort, lungs clear to auscultation Cardiovascular: Rate/Rhythm: regular rate and regular rhythm Heart Sounds: normal S1, normal S2 and + murmur (Grade 1/6 systolic murmur); no gallop Palpation: normal PMI Vessels: normal carotid upstroke and radial pulses present; no JVD and no carotid bruit Extremities: no edema Gastrointestinal (Abdomen): normal bowel sounds, soft, nontender, no hepatosplenomegaly Musculoskeletal: no cyanosis or clubbing, extremities motor strength 5/5 Skin: no rashes, warm and dry Neurologic: PERRL, EOMI, accommodation nl, no face palsy, no dysarthria Psychiatric: A+Ox3, euthymic affect Results & Data ([facility]) Vital Signs (Past 12 Hours) Vital Signs Temp Pulse Pulse Resp BP BP BP 04/07/21 10:30 36.6 C 63 20 128/64 04/07/21 08:00 56 L 04/07/21 06:58 36.5 C 57 L 18 147/72 H 04/07/21 04:23 36.8 C 58 L 20 156/90 H 04/07/21 04:15 56 L 04/07/21 02:30 36.7 C 58 L 63 20 152/65 H 181/75 H 04/07/21 02:00 58 L 14 165/73 H 04/07/21 01:31 63 14 157/68 H 04/07/21 01:00 63 15 147/77 H 04/07/21 00:30 67 16 150/75 H 04/07/21 00:10 60 14 142/73 H Pulse Ox 04/07/21 10:30 95 04/07/21 08:00 04/07/21 06:58 96 04/07/21 04:23 96 04/07/21 04:15 04/07/21 02:30 95 04/07/21 02:00 95 04/07/21 01:31 96 04/07/21 01:00 97 04/07/21 00:30 97 04/07/21 00:10 96 Laboratory Results Laboratory Results - last 24 hr 04/06/21 04/06/21 04/06/21 21:35 21:35 21:35 WBC 7.08 RBC 4.80 Hgb 14.9 Hct 43.0 MCV 89.6 MCH 31.0 MCHC 34.7 RDW Std Deviation 41.4 RDW Coeff of Valdo 12.7 Plt Count 277 MPV 9.3 Immature Gran % (Auto) 0.1 Neut % (Auto) 65.2 Lymph % (Auto) 23.6 [place] % (Auto) 10.0 Eos % (Auto) 0.7 Baso % (Auto) 0.4 Neut # (Auto) 4.61 Lymph # (Auto) 1.67 [place] # (Auto) 0.71 H Eos # (Auto) 0.05 Baso # (Auto) 0.03 Immature Gran # (Auto) 0.01 PT 10.3 INR 1.0 APTT PTT Ratio Sodium 129 L Potassium Chloride 94 L Carbon Dioxide 28 Anion Gap 7.0 BUN 14 Creatinine 0.68 Est Cr Clr Drug Dosing 55.5 Est GFR ( Amer) 93.1 Est GFR (Non-Af Amer) 80.3 BUN/Creatinine Ratio 21.1 H Glucose 93 Osmolality Calcium 9.3 Magnesium Total Bilirubin 0.8 AST ALT 22 Alkaline Phosphatase 33 L Troponin I < 0.015 Total Protein 7.4 Albumin 3.9 Globulin 3.5 Albumin/Globulin Ratio 1.1 Lipase TSH 11.000 H Free T4 1.67 H Urine Color Urine Appearance Urine pH Ur Specific [place] Urine Protein Urine Glucose (UA) Urine Ketones Urine Blood Urine Nitrite Urine Bilirubin Urine Urobilinogen Ur Leukocyte Esterase Urine WBC (Auto) Urine RBC (Auto) U Hyaline Cast (Auto) U Epithel Cells (Auto) Urine Bacteria (Auto) Urine Osmolality Ur Random Sodium COVID-19 Eval Order SARS-CoV-2 (PCR) 04/06/21 04/07/21 04/07/21 21:35 00:35 00:35 WBC RBC Hgb Hct MCV MCH MCHC RDW Std Deviation RDW Coeff of Valdo Plt Count MPV Immature Gran % (Auto) Neut % (Auto) Lymph % (Auto) [place] % (Auto) Eos % (Auto) Baso % (Auto) Neut # (Auto) Lymph # (Auto) [place] # (Auto) Eos # (Auto) Baso # (Auto) Immature Gran # (Auto) PT INR APTT PTT Ratio Sodium Potassium Chloride Carbon Dioxide Anion Gap BUN Creatinine Est Cr Clr Drug Dosing Est GFR ( Amer) Est GFR (Non-Af Amer) BUN/Creatinine Ratio Glucose Osmolality 267 L Calcium Magnesium Total Bilirubin AST ALT Alkaline Phosphatase Troponin I Total Protein Albumin Globulin Albumin/Globulin Ratio Lipase TSH Free T4 Urine Color Urine Appearance Urine pH Ur Specific [place] Urine Protein Urine Glucose (UA) Urine Ketones Urine Blood Urine Nitrite Urine Bilirubin Urine Urobilinogen Ur Leukocyte Esterase Urine WBC (Auto) Urine RBC (Auto) U Hyaline Cast (Auto) U Epithel Cells (Auto) Urine Bacteria (Auto) Urine Osmolality Ur Random Sodium COVID-19 Eval Order Covid19 at [facility] SARS-CoV-2 (PCR) NEGATIVE 04/07/21 04/07/21 04/07/21 01:33 01:33 01:33 WBC RBC Hgb Hct MCV MCH MCHC RDW Std Deviation RDW Coeff of Valdo Plt Count MPV Immature Gran % (Auto) Neut % (Auto) Lymph % (Auto) [place] % (Auto) Eos % (Auto) Baso % (Auto) Neut # (Auto) Lymph # (Auto) [place] # (Auto) Eos # (Auto) Baso # (Auto) Immature Gran # (Auto) PT INR APTT PTT Ratio Sodium Potassium Chloride Carbon Dioxide Anion Gap BUN Creatinine Est Cr Clr Drug Dosing Est GFR ( Amer) Est GFR (Non-Af Amer) BUN/Creatinine Ratio Glucose Osmolality Calcium Magnesium Total Bilirubin AST ALT Alkaline Phosphatase Troponin I Total Protein Albumin Globulin Albumin/Globulin Ratio Lipase TSH Free T4 Urine Color Yellow Urine Appearance Clear Urine pH 7.0 Ur Specific [place] 1.028 Urine Protein Negative Urine Glucose (UA) Negative Urine Ketones Negative Urine Blood Negative Urine Nitrite Negative Urine Bilirubin Negative Urine Urobilinogen Negative Ur Leukocyte Esterase 2+ H Urine WBC (Auto) >30 H Urine RBC (Auto) 0-4 U Hyaline Cast (Auto) 1-5 U Epithel Cells (Auto) 0-5 Urine Bacteria (Auto) 2+ H Urine Osmolality 367 L Ur Random Sodium 86 COVID-19 Eval Order SARS-CoV-2 (PCR) 04/07/21 04/07/21 04/07/21 01:59 08:50 08:50 WBC 5.77 RBC 4.73 Hgb 14.5 Hct 42.6 MCV 90.1 MCH 30.7 MCHC 34.0 RDW Std Deviation 42.2 RDW Coeff of Valdo 12.9 Plt Count 272 MPV 9.1 Immature Gran % (Auto) 0.3 Neut % (Auto) 72.5 Lymph % (Auto) 18.0 [place] % (Auto) 8.0 Eos % (Auto) 0.7 Baso % (Auto) 0.5 Neut # (Auto) 4.18 Lymph # (Auto) 1.04 L [place] # (Auto) 0.46 Eos # (Auto) 0.04 Baso # (Auto) 0.03 Immature Gran # (Auto) 0.02 PT INR APTT PTT Ratio Sodium 128 L 130 L Potassium 3.3 L 3.7 Chloride 96 L 96 L Carbon Dioxide 28 28 Anion Gap 4.0 6.0 BUN 12 10 Creatinine 0.60 0.61 Est Cr Clr Drug Dosing 62.9 61.8 Est GFR ( Amer) 97.0 96.5 Est GFR (Non-Af Amer) 83.7 83.2 BUN/Creatinine Ratio 19.6 16.9 Glucose 97 121 H Osmolality Calcium 8.5 8.8 Magnesium Total Bilirubin AST ALT Alkaline Phosphatase Troponin I 0.020 < 0.015 Total Protein Albumin Globulin Albumin/Globulin Ratio Lipase 168 TSH Free T4 Urine Color Urine Appearance Urine pH Ur Specific [place] Urine Protein Urine Glucose (UA) Urine Ketones Urine Blood Urine Nitrite Urine Bilirubin Urine Urobilinogen Ur Leukocyte Esterase Urine WBC (Auto) Urine RBC (Auto) U Hyaline Cast (Auto) U Epithel Cells (Auto) Urine Bacteria (Auto) Urine Osmolality Ur Random Sodium COVID-19 Eval Order SARS-CoV-2 (PCR) 04/07/21 08:50 WBC RBC Hgb Hct MCV MCH MCHC RDW Std Deviation RDW Coeff of Valdo Plt Count MPV Immature Gran % (Auto) Neut % (Auto) Lymph % (Auto) [place] % (Auto) Eos % (Auto) Baso % (Auto) Neut # (Auto) Lymph # (Auto) [place] # (Auto) Eos # (Auto) Baso # (Auto) Immature Gran # (Auto) PT INR APTT 29.1 PTT Ratio 1.1 Sodium Potassium Chloride Carbon Dioxide Anion Gap BUN Creatinine Est Cr Clr Drug Dosing Est GFR ( Amer) Est GFR (Non-Af Amer) BUN/Creatinine Ratio Glucose Osmolality Calcium Magnesium Total Bilirubin AST ALT Alkaline Phosphatase Troponin I Total Protein Albumin Globulin Albumin/Globulin Ratio Lipase TSH Free T4 Urine Color Urine Appearance Urine pH Ur Specific [place] Urine Protein Urine Glucose (UA) Urine Ketones Urine Blood Urine Nitrite Urine Bilirubin Urine Urobilinogen Ur Leukocyte Esterase Urine WBC (Auto) Urine RBC (Auto) U Hyaline Cast (Auto) U Epithel Cells (Auto) Urine Bacteria (Auto) Urine Osmolality Ur Random Sodium COVID-19 Eval Order SARS-CoV-2 (PCR) Diagnostic Findings Echocardiogram 04/03/2020 The left ventricular cavity size is normal. The LV wall thickness is borderline increased (concentric). There is isolated basal septal hypertrophy with maximal thickness of 1.2 cm. The left ventricular wall motion is normal. The qualitative LV ejection fraction is 60-64% (normal). The left ventricular diastolic function is moderately abnormal (grade II). Moderate aortic valve sclerosis is present. There is trace aortic insufficiency Moderate mitral regurgitation is present. The left atrium is severely enlarged. The proximal ascending thoracic aorta is mildly enlarged., (4.3 cm) Possible persistent left SVC Medications Administered Current Medications Acetaminophen (Acetaminophen 325 Mg Tab) 650 mg PO Q4H PRN PRN Reason: Pain or Fever Stop: 05/07/21 02:50 Acetaminophen/Codeine Phosphate (Acetaminophen W/Codeine #3 1 Tab) 1 tab PO QID PRN PRN Reason: pain not relieved by tylenol Stop: 05/07/21 02:50 Aspirin (Aspirin 81 Mg Ectab) 81 mg PO QAM [facility] Stop: 05/08/21 08:59 Aspirin (Aspirin 81 Mg Ectab) 81 mg PO HS [facility] Stop: 05/07/21 20:59 Cyanocobalamin (Cyanocobalamin 500 Mcg Tablet (Vitamin B-12)) 1,000 mcg PO DAILY [facility] Stop: 05/07/21 08:59 Last Admin: 04/07/21 08:05 Dose: 1,000 mcg Documented by: Enoxaparin Sodium (Enoxaparin Inj 40 Mg/0.4 Ml Syr) 40 mg SQ QAM [facility] Stop: 05/07/21 08:59 Last Admin: 04/07/21 08:06 Dose: 40 mg Documented by: Fenofibrate (Fenofibrate Nanocrystallized 145 Mg Tablet) 145 mg PO DAILY [facility] Stop: 05/07/21 08:59 Last Admin: 04/07/21 08:05 Dose: 145 mg Documented by: Hydralazine HCl (Hydralazine Hcl 25 Mg Tab) 75 mg PO TID [facility] Stop: 05/07/21 08:59 Last Admin: 04/07/21 08:05 Dose: 75 mg Documented by: Potassium Chloride 40 meq/ (Sodium Chloride) 1,020 mls @ 40 mls/hr IV .Q24H STA Stop: 04/08/21 02:43 Last Admin: 04/07/21 04:55 Dose: 40 mls/hr Documented by: Lorazepam (Ativan) 0.25 mg in 0.5 mls @ 0.5 mls/min IV Q4H PRN PRN Reason: Anxiety Stop: 05/07/21 02:50 Promethazine HCl 12.5 mg/ (Sodium Chloride) 50.5 mls @ 202 mls/hr IV Q6H PRN PRN Reason: Nausea And Vomiting Stop: 05/07/21 02:50 Cefepime HCl (Maxipime) 2,000 mg in 20 mls @ 5 mls/min IV Q12H [facility]; Protocol Stop: 04/17/21 10:29 Last Admin: 04/07/21 10:45 Dose: 5 mls/min Documented by: Levothyroxine Sodium (Levothyroxine Sodium 137 Mcg Tablet) 137 mcg PO DAILYBB [facility] Stop: 05/07/21 06:29 Last Admin: 04/07/21 04:19 Dose: 137 mcg Documented by: Lisinopril (Lisinopril 2.5 Mg Tab) 2.5 mg PO QAM [facility] Stop: 05/08/21 08:59 Miscellaneous (Oloptodine~Order Awaiting Action) 1 ea N/A QS [facility] Stop: 05/07/21 07:59 Last Admin: 04/07/21 08:05 Dose: 1 ea Documented by: Miscellaneous Information (Cefepime Consult Active) 1 ea N/A UD [facility] Stop: 05/07/21 09:27 Morphine Sulfate (Morphine Sulfate 4 Mg/Ml 1 Ml Carp\Vial) 4 mg IV Q4H PRN PRN Reason: Pain Stop: 04/21/21 02:50 Nitroglycerin (Nitroglycerin Sl 0.4 Mg/Tab Tab) 0.4 mg SL UD PRN PRN Reason: Chest Pain Stop: 05/07/21 02:50 ECG Additional Comments: 13-MAR-2021 20:25:35 [facility]-EDSTAT ROUTINE RETRIEVAL Sinus rhythm with 1st degree A-V block with Premature atrial complexes Anteroseptal infarct , age undetermined Abnormal ECG When compared to outpatient study of 04/23/2020, no change
--- NOTE | 2021-04-07 12:13 | Psychiatric Consultation ---
Date of Consultation April 07, 2021 Impression / Recommendations Impression 85 yo female, seems to have some generalized anxiety at baseline, has always coped well until pandemic. Appropriate grief reaction to loss of son. Imp: adjustment disorder with mixed anxious and depressed mood Plan: I do not see an immediate need to restart Lexapro given hyponatremia, she is agreeable to follow up as planned with [facility] and will be given additional resources for grief. When hyponatremia resolved, could restart Lexapro 5 mg as an outpatient and repeat Na after 1-2 weeks before retitrating (if mood dx warrant). Risk Factors Assessment Do You Have Access To A Gun?: No Psych History Identifying Data 85 yo female admit from [place], seen with at bedside. On panel monitor for cardiac w/u, presented with CP and HTN. Consult is by Dr. Roberto for depression. Chief Complaint "just so much as happened, I wasn't feeling the same". History of Present Illness lots of changes for them since 10/27 when they moved from their home abruptly. Soon after COVID pandemic limited their ability to socialize and by April 2020 their son . He was living in [place] and they were unable to travel/attend the services. He had been in the [employer] so another child recording the honors at the service has been some comfort to them. With the anniversary of his coming, hadn't been as interested in things like eating, wearing makeup, or sewing and was started on Lexapro 10 mg just 3 days prior to admission. This is first trial of an antidepressant. She denies anything she would attribute to a side effect of medication. She denies prior issues with hyponatremia. Feels better on tinaa days. PHQ-9 score 4 , mainly scored for difficulties staying asleep. when she felt acutely ill she had a fleeting passive wish (scored 1 on #9). She is clear that these thoughts have never persisted and "would never do anything to harm myself". confirmed patient's report. She is up and ready to eat lunch and has earrings and make up done. Past Psychiatric History Previous Psych History: no formal Outpatient Services: is referred to [facility] psychiatry Do You Have Access To A Gun?: No Past Medication Trials: none Allergies Allergy/AdvReac Type Severity Reaction Status Date / Time oxycodone Allergy Unknown UKN Verified 04/06/21 21:05 simvastatin Allergy Unknown UKN Verified 04/06/21 21:05 rosuvastatin AdvReac Unknown upset Verified 04/06/21 21:05 stomach Home Medications Medication Instructions Recorded Confirmed Type aspirin 81 mg tablet,delayed 81 mg PO HS 03/13/21 04/06/21 History release (Aspirin Low Dose) calcium carbonate 600 mg calcium 600 mg PO QAM 03/13/21 04/06/21 History (1,500 mg) tablet (Calcium) cholecalciferol (vitamin D3) 25 25 mcg PO DAILY 03/13/21 04/06/21 History mcg (1,000 unit) tablet (Vitamin D3) cyanocobalamin (vitamin B-12) 1,000 mcg PO DAILY 03/13/21 04/06/21 History 1,000 mcg tablet (Vitamin B-12) fenofibrate micronized 134 mg 134 mg PO DAILY 03/13/21 04/06/21 History capsule hydralazine 50 mg tablet 75 mg PO TID 03/13/21 04/06/21 History hydrochlorothiazide 25 mg tablet 25 mg PO DAILY 03/13/21 04/06/21 History magnesium oxide 400 mg PO DAILY 03/13/21 04/06/21 History omega 7-cfr-hsd-fish oil 1,000 mg 1 cap PO DAILY 03/13/21 04/06/21 History (120 mg-180 mg) capsule (Fish Oil) psyllium seed (sugar) oral powder 1 ea PO DAILY 03/13/21 04/06/21 History (Metamucil (sugar)) olopatadine 0.2 % eye drops 1 drp OPHTHALMIC (EYE) HS 03/15/21 04/06/21 History escitalopram oxalate 10 mg tablet 10 mg PO DAILY 04/06/21 04/06/21 History levothyroxine 137 mcg tablet 137 mcg PO DAILYBB 04/06/21 04/06/21 History Family History denies family hx of psych issues or suicide Substance Abuse History denied Personal History Living Arrangements Comments: with Employment Status: Retired Marital Status: Beliefs That Will Affect Care: None History of Legal Problems: denied Psychological Trauma History Comment: loss of son Patient History Medical History Deep venous thrombosis (11/15/12) Hx of blood clots Hypertension Hypothyroidism (11/15/12) Hysterectomy (11/15/12) Social History Smoking Status: Never smoker Hx Alcohol Use: Yes Alcohol type: wine Hx Substance Use: No Preferred Language: Malay Communication Ability: Effective Beliefs That Will Affect Care: None marital status: Current Living Situation: Spouse How many Children do You have: 2 Other Information That Helps Us Care for You: No Feels Safe at Home: Yes Safety Concerns: Feels Safe At This Time Assistive Devices: Glasses Physical Exam Psychiatric: Orientation: alert and oriented x 3 Apperance: appropriately dressed and appropriately groomed Eye Contact: good eye contact Motor Behavior: no abnormal motor movements Speech: normal rate/rhythm/volume of speech Affect: euthymic affect Mood: + depressed mood Thought Process: goal directed thought process Thought Content: reality based without delusions Suicidal Thoughts: denies suicidal thoughts Homicidal Thoughts: denies homicidal thoughts Hallucinations: no auditory hallucinations and no visual hallucinations Cognition: attention grossly intact and language grossly intact Estimated Intelligence: consistent with education level Insight: + limited insight Judgement: + limited judgement Vital Signs (Past 24 Hours): Last Vital Signs Temp 36.6 C 04/07/21 10:30 Pulse 63 04/07/21 10:30 Resp 20 04/07/21 10:30 BP 128/64 04/07/21 10:30 Pulse Ox 95 04/07/21 10:30 Review of Systems All systems reviewed & are unremarkable except as noted in HPI & below Results & Data (PSY) Medications Administered Cyanocobalamin (Cyanocobalamin 500 Mcg Tablet (Vitamin B-12)) 1,000 mcg PO DAILY [facility] Stop: 05/07/21 08:59 Last Admin: 04/07/21 08:05 Dose: 1,000 mcg Documented by: [id number] Enoxaparin Sodium (Enoxaparin Inj 40 Mg/0.4 Ml Syr) 40 mg SQ QAM [facility] Stop: 05/07/21 08:59 Last Admin: 04/07/21 08:06 Dose: 40 mg Documented by: [id number] Fenofibrate (Fenofibrate Nanocrystallized 145 Mg Tablet) 145 mg PO DAILY [facility] Stop: 05/07/21 08:59 Last Admin: 04/07/21 08:05 Dose: 145 mg Documented by: [id number] Hydralazine HCl (Hydralazine Hcl 25 Mg Tab) 75 mg PO TID [facility] Stop: 05/07/21 08:59 Last Admin: 04/07/21 08:05 Dose: 75 mg Documented by: [id number] Potassium Chloride 40 meq/ (Sodium Chloride) 1,020 mls @ 40 mls/hr IV .Q24H STA Stop: 04/08/21 02:43 Last Admin: 04/07/21 04:55 Dose: 40 mls/hr Documented by: [id number] Cefepime HCl (Maxipime) 2,000 mg in 20 mls @ 5 mls/min IV Q12H [facility]; Protocol Stop: 04/17/21 10:29 Last Admin: 04/07/21 10:45 Dose: 5 mls/min Documented by: [id number] Levothyroxine Sodium (Levothyroxine Sodium 137 Mcg Tablet) 137 mcg PO DAILYBB [facility] Stop: 05/07/21 06:29 Last Admin: 04/07/21 04:19 Dose: 137 mcg Documented by: [id number] Miscellaneous (Oloptodine~Order Awaiting Action) 1 ea N/A QS [facility] Stop: 05/07/21 07:59 Last Admin: 04/07/21 08:05 Dose: 1 ea Documented by: [id number] Coding Level of Care Code 82805 [facility] Intl Hosp Care Lvl 2
--- NOTE | 2021-04-07 14:53 | Hospitalist Progress Note ---
Date of Service April 07, 2021 Assessment & Plan (1) Chest pain: Plan: Atypical Chest Pain -CXR:Cardiomegaly with no active disease in the chest. -EKG:Nonspecific T wave changes -ECHO pending -Negative Troponin Currently chest pain resolved Continue Aspirin Uncontrolled hypertension Anxiety/Grief contributory Continue hydralazine Started on low-dose lisinopril Monitor Hyponatremia secondary to diarrheal illness, HCTZ DD: SIADH, Due to Hypothyroidism Hold HCTZ Received IV fluids Monitor Sodium levels Diarrhea Obtain stool studies if recurrent Abnormal UA Suspected UTI Urine Cx pending Empirically on Cefepime Adjustment disorder with mixed anxious and depressed mood Grief Consider starting Lexapro if Hyponatremia resolves Appreciate Psychiatry Input Right kidney lesion Incidental finding on CT -CT ABD:There is a 1.0 cm indeterminant and possibly enhancing lesion in the lower pole of the right kidney, which is new from the 2012 examination. Although this could represent a complex cyst, a small renal neoplasm is not excluded. Nonemergent follow-up with a contrast-enhanced renal protocol CT or MRI is recommended for further assessment. -Advised to follow up as outpatient Hyperlipidemia H/O statin intolerance H/O PVD Continue aspirin, fenofibrate Hypothyroidism Elevated TSH Near normal free T4 Continue levothyroxine Needs repeat thyroid function tests as outpatient H/O APRIL H/O Intolerance to CPAP H/O DVT Completed anticoagulation therapy DVT Px: Lovenox SQ Code Status Full code Admission and Anticipated Discharge Date Admission Date: April 07, 2021 Subjective Patient is seen and examined at bedside Chest pain, dizziness resolved Denies shortness of breath, dysuria, nausea, vomiting, abdominal pain States feeling better today Offers no other complaints Review of Systems Review of Systems: All systems reviewed & are unremarkable except as noted in Subjective Physical Exam Physical Exam: Physical Exam: Vitals signs as noted above General Appearance:Moderately built and nourished, no apparent distress Head: normocephalic, Atraumatic Eyes: normal inspection, EOMI Neck: supple, Trachea midline Respiratory/Chest: Normal breath sounds, CTA Cardiovascular: S1, S2, + murmur Abdomen/GI:Soft, Non tender, Bowel sounds present Extremities/Musculoskeletal:normal inspection, Trace pedal edema Neurologic/Psych:AAOX3, grossly no focal neurological deficits Skin: normal color, warm Results & Data Results & Data ([facility]) Vital Signs (Past 12 Hours) Vital Signs Temp Pulse Pulse Resp BP BP Pulse Ox 04/07/21 10:30 36.6 C 63 20 128/64 95 04/07/21 08:00 56 L 04/07/21 06:58 36.5 C 57 L 18 147/72 H 96 04/07/21 04:23 36.8 C 58 L 20 156/90 H 96 04/07/21 04:15 56 L Laboratory Results Short CBC 04/06/21 04/07/21 Range/Units 21:35 08:50 WBC 7.08 5.77 (4.8-10.8) K/uL Hgb 14.9 14.5 (12.0-16.0) g/dL Hct 43.0 42.6 (37-47) % Plt Count 277 272 (130-400) K/uL BMP 04/06/21 04/07/21 04/07/21 21:35 01:59 08:50 Sodium 129 L 128 L 130 L Potassium 3.3 L 3.7 Chloride 94 L 96 L 96 L Carbon Dioxide 28 28 28 BUN 14 12 10 Creatinine 0.68 0.60 0.61 Glucose 93 97 121 H Calcium 9.3 8.5 8.8 04/07/21 11:59 Sodium 129 L Potassium Chloride Carbon Dioxide BUN Creatinine Glucose Calcium Cardiac Enzymes 04/06/21 04/07/21 04/07/21 Range/Units 21:35 01:59 08:50 Troponin I < 0.015 0.020 < 0.015 (0-0.045) ng/ml Liver Function 04/06/21 Range/Units 21:35 Total Bilirubin 0.8 (0.2-1) mg/dl AST (15-37) U/L ALT 22 (12-78) U/L Alkaline Phosphatase 33 L (45-117) U/L Albumin 3.9 (3.4-5.0) gm/dl Urine 04/07/21 Range/Units 01:33 Urine Color Yellow Urine Appearance Clear (Clear) Urine pH 7.0 (4.5-7.5) Ur Specific [employer] 1.028 (1.000-1.030) Urine Protein Negative (Negative) Urine Glucose (UA) Negative (Negative)
[2021-04-07] MEDS: ASPIRIN 81 MG ECTAB PO SCH (20:35)
[2021-04-08] MEDS: LEVOTHYROXINE SODIUM 137 MCG TABLET PO SCH (04:26)
[2021-04-08 06:07] LABS: Hematocrit (blood only) 39.4 % (37-47); Hemoglobin 13.6 g/dL (12.0-16.0); Mean Corpuscular Hemoglobin 31.1 pg (25-34); Mean Corpuscular Hgb Conc 34.5 g/dL (32-36); Mean Platelet Volume 8.8 fL (7.4-10.4); Platelet Count 239 K/uL (130-400); RDW Standard Deviation 42.3 fL (36.4-46.3); Red Blood Count 4.38 M/uL (4.2-5.4); White Blood Count 5.91 K/uL (4.8-10.8)
[2021-04-08 06:45] LABS: BUN Creatinine Ratio 21.4 (10-20); Calcium 8.4 mg/dl (8.5-10.1); Creatinine Clr Calc Pharmacy 55.6 ml/min; Est GFR (African American) 93.1 ml/min; Est GFR (Non-African American) 80.3 ml/min; Magnesium 1.8 mg/dl (1.8-2.4); Potassium 4.1 mmol/L (3.5-5.1)
[2021-04-08] MEDS: ASPIRIN 81 MG ECTAB PO SCH ×2 (07:40→20:49)
[2021-04-08] MEDS: FENOFIBRATE NANOCRYSTALLIZED 145 MG TABLET PO SCH (07:40)
[2021-04-08] MEDS: ENOXAPARIN INJ 40 MG/0.4 ML SYR SQ SCH (07:40)
[2021-04-08] MEDS: hydrALAZINE HCL 25 MG TAB PO SCH ×3 (07:40→20:50)
[2021-04-08] MEDS: CYANOCOBALAMIN 500 MCG TABLET (VITAMIN B-12) PO SCH (07:40)
--- NOTE | 2021-04-08 08:28 | Electrocardiogram Report ---
Test Reason : Blood Pressure : / mmHG Vent. 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
[2021-04-08] MEDS ORDERED: lisinopril 2.5 MG TAB PO SCH (09:00)
[2021-04-08] MEDS ORDERED: lisinopril 2.5 MG TAB PO ONE (09:15)
[2021-04-08] MEDS: CEFEPIME 2,000 MG/20 ML VIAL IV SCH ×2 (09:20→22:17)
--- NOTE | 2021-04-08 13:18 | Cardiology Progress Note ---
Date of Service April 08, 2021 Assessment & Plan (1) Atypical chest pain: Plan: 85-year-old female admitted with hypertension chest pressure and multiple complaints in association with recent medication changes for emotional lability and depression. Initial evaluations do not reflect acute coronary syndrome and chest discomfort atypical for angina. EKG without change cardiac enzymes negative for injury. Echocardiogram left hypertrophy with normal left her function and no wall motion abnormalities or significant valvular disease. Plan: Increase lisinopril to 5 mg/day continue all other medications. Current complaints do not appear cardiac in nature (2) Hypertension: Admission and Anticipated Discharge Date Admission Date: April 07, 2021 Subjective Patient was seen and examined, chart, medications, telemetry reviewed. Patient feels well this morning. No chest pains or shortness of breath. Blood pressure trending toward slightly better control No headache or visual changes. Review of Systems Review of Systems: All systems reviewed & are unremarkable except as noted in Subjective Physical Exam Constitutional: WD/WN, vitals as above no acute distress Eyes: PERRL, conjunctivae normal, anicteric sclerae ENMT: external ear and nose normal, oropharynx normal Neck: trachea midline, no thyromegaly Respiratory: normal respiratory effort, lungs clear to auscultation Cardiovascular: Rate/Rhythm: regular rate and regular rhythm Heart Sounds: normal S1, normal S2 and + murmur (Grade 1/6 systolic murmur); no gallop Palpation: normal PMI Vessels: normal carotid upstroke and radial pulses present; no JVD and no carotid bruit Extremities: no edema Gastrointestinal (Abdomen): normal bowel sounds, soft, nontender, no hepatosplenomegaly Musculoskeletal: no cyanosis or clubbing, extremities motor strength 5/5 Skin: no rashes, warm and dry Neurologic: PERRL, EOMI, accommodation nl, no face palsy, no dysarthria Psychiatric: A+Ox3, euthymic affect Results & Data ([facility]) Vital Signs (Past 12 Hours) Vital Signs Temp Pulse Pulse Resp BP BP Pulse Ox 04/08/21 11:28 36.5 C 64 15 159/67 H 95 04/08/21 08:00 54 L 04/08/21 07:46 36.5 C 63 19 165/83 H 97 04/08/21 04:25 36.7 C 58 L 18 140/57 L 96 Laboratory Results Laboratory Results - last 24 hr 04/07/21 04/08/21 04/08/21 17:55 05:53 05:53 WBC 5.91 RBC 4.38 Hgb 13.6 Hct 39.4 MCV 90.0 MCH 31.1 MCHC 34.5 RDW Std Deviation 42.3 RDW Coeff of Valdo 13.0 Plt Count 239 MPV 8.8 Sodium 131 L 131 L Potassium 4.1 Chloride 100 Carbon Dioxide 26 Anion Gap 5.0 BUN 15 Creatinine 0.68 Est Cr Clr Drug Dosing 55.6 Est GFR ( Amer) 93.1 Est GFR (Non-Af Amer) 80.3 BUN/Creatinine Ratio 21.4 H Glucose 92 Calcium 8.4 L Magnesium 1.8
--- NOTE | 2021-04-08 14:55 | Hospitalist Progress Note ---
Date of Service April 08, 2021 Assessment & Plan (1) Chest pain: Plan: Atypical Chest Pain -CXR:Cardiomegaly with no active disease in the chest. -EKG:Nonspecific T wave changes -ECHO: Mild concentric LVH. Basal septum is thickened and angulated consistent with sigmoid septum. Left ventricle wall motion is normal. EF 65 to 70%. -Negative Troponin Chest pain resolved Continue Aspirin Appreciate Cardiology Input Uncontrolled hypertension Anxiety/Grief contributory Continue hydralazine Increased lisinopril 5mg daily Monitor Hyponatremia secondary to diarrheal illness, HCTZ DD: SIADH, Due to Hypothyroidism Hold HCTZ Received IV fluids Monitor Sodium levels Sodium:131 Likely to DC HCTZ upon discharge due to hyponatremia Diarrhea Obtain stool studies if recurrent UTI-POA Urine Cx: Gram Negative bacilli Continue Cefepime for now Adjustment disorder with mixed anxious and depressed mood Grief Consider starting Lexapro if Hyponatremia resolves Appreciate Psychiatry Input Right kidney lesion Incidental finding on CT -CT ABD:There is a 1.0 cm indeterminant and possibly enhancing lesion in the lower pole of the right kidney, which is new from the 2012 examination. Although this could represent a complex cyst, a small renal neoplasm is not excluded. Nonemergent follow-up with a contrast-enhanced renal protocol CT or MRI is recommended for further assessment. -Advised to follow up as outpatient Hyperlipidemia H/O statin intolerance H/O PVD Continue aspirin, fenofibrate Hypothyroidism Elevated TSH Near normal free T4 Continue levothyroxine Needs repeat thyroid function tests as outpatient H/O APRIL H/O Intolerance to CPAP H/O DVT Completed anticoagulation therapy DVT Px: Lovenox SQ Code Status Full code Admission and Anticipated Discharge Date Admission Date: April 07, 2021 Subjective Patient is seen and examined at bedside States feeling well No new complaints Denies chest pain, dizziness, dyspnea, dysuria, nausea, vomiting, abdominal pain Urine Culture pending Review of Systems Review of Systems: All systems reviewed & are unremarkable except as noted in Subjective Physical Exam Physical Exam: Physical Exam: Vitals signs as noted above General Appearance:Moderately built and nourished, no apparent distress Head: normocephalic, Atraumatic Eyes: normal inspection, EOMI Neck: supple, Trachea midline Respiratory/Chest: Normal breath sounds, CTA Cardiovascular: S1, S2, + murmur Abdomen/GI:Soft, Non tender, Bowel sounds present Extremities/Musculoskeletal:normal inspection, Trace pedal edema Neurologic/Psych:AAOX3, grossly no focal neurological deficits Skin: normal color, warm Results & Data Results & Data ([facility]) Vital Signs (Past 12 Hours) Vital Signs Temp Pulse Pulse Resp BP BP Pulse Ox 04/08/21 11:28 36.5 C 64 15 159/67 H 95 04/08/21 08:00 54 L 04/08/21 07:46 36.5 C 63 19 165/83 H 97 04/08/21 04:25 36.7 C 58 L 18 140/57 L 96 Laboratory Results Short CBC 04/08/21 Range/Units 05:53 WBC 5.91 (4.8-10.8) K/uL Hgb 13.6 (12.0-16.0) g/dL Hct 39.4 (37-47) % Plt Count 239 (130-400) K/uL BMP 04/07/21 04/08/21 17:55 05:53 Sodium 131 L 131 L Potassium 4.1 Chloride 100 Carbon Dioxide 26 BUN 15 Creatinine 0.68 Glucose 92 Calcium 8.4 L
[2021-04-09] MEDS: LEVOTHYROXINE SODIUM 137 MCG TABLET PO SCH (05:53)
[2021-04-09 06:55] LABS: BUN Creatinine Ratio 25.8 (10-20); Calcium 8.8 mg/dl (8.5-10.1); Est GFR (African American) 95.5 ml/min; Est GFR (Non-African American) 82.4 ml/min; Magnesium 1.8 mg/dl (1.8-2.4)
[2021-04-09] MEDS: hydrALAZINE HCL 25 MG TAB PO SCH ×2 (08:22→13:30)
[2021-04-09] MEDS: ASPIRIN 81 MG ECTAB PO SCH (08:22)
[2021-04-09] MEDS: ENOXAPARIN INJ 40 MG/0.4 ML SYR SQ SCH (08:23)
[2021-04-09] MEDS: FENOFIBRATE NANOCRYSTALLIZED 145 MG TABLET PO SCH (08:23)
[2021-04-09] MEDS: CYANOCOBALAMIN 500 MCG TABLET (VITAMIN B-12) PO SCH (08:23)
[2021-04-09] MEDS ORDERED: lisinopril 5 MG TAB PO SCH (09:00)
[2021-04-09] MEDS: CEFEPIME 2,000 MG/20 ML VIAL IV SCH (10:57)
--- NOTE | 2021-04-09 14:17 | Hospitalist Progress Note ---
Date of Service April 09, 2021 Assessment & Plan (1) Chest pain: Plan: Atypical Chest Pain -CXR:Cardiomegaly with no active disease in the chest. -EKG:Nonspecific T wave changes -ECHO: Mild concentric LVH. Basal septum is thickened and angulated consistent with sigmoid septum. Left ventricle wall motion is normal. EF 65 to 70%. -Negative Troponin Chest pain resolved Continue Aspirin Appreciate Cardiology Input Uncontrolled hypertension Anxiety/Grief contributory Continue hydralazine Continue lisinopril 5mg daily Monitor Hyponatremia secondary to diarrheal illness, HCTZ DD: SIADH, Due to Hypothyroidism Hold HCTZ Received IV fluids Monitor Sodium levels Sodium:132 Likely to DC HCTZ upon discharge due to hyponatremia Diarrhea Obtain stool studies if recurrent UTI-POA Urine Cx: E.Coli Cefepime transitioned to Keflex to complete the course Adjustment disorder with mixed anxious and depressed mood Grief Consider starting Lexapro if Hyponatremia resolves Appreciate Psychiatry Input Advised to follow-up with psychiatry as outpatient Right kidney lesion Incidental finding on CT -CT ABD:There is a 1.0 cm indeterminant and possibly enhancing lesion in the lower pole of the right kidney, which is new from the 2013 examination. Although this could represent a complex cyst, a small renal neoplasm is not excluded. Nonemergent follow-up with a contrast-enhanced renal protocol CT or MRI is recommended for further assessment. -Advised to follow up as outpatient Hyperlipidemia H/O statin intolerance H/O PVD Continue aspirin, fenofibrate Hypothyroidism Elevated TSH Near normal free T4 Continue levothyroxine Needs repeat thyroid function tests as outpatient H/O APRIL H/O Intolerance to CPAP H/O DVT Completed anticoagulation therapy DVT Px: Lovenox SQ Code Status Full code Admission and Anticipated Discharge Date Admission Date: April 07, 2021 Subjective Patient is seen and examined at bedside Discussed with patient's family in detail at bedside Eager to get discharged No new complaints Urine culture growing E.Coli Denies chest pain, dizziness, dyspnea, dysuria, nausea, vomiting, abdominal pain Review of Systems Review of Systems: All systems reviewed & are unremarkable except as noted in Subjective Physical Exam Physical Exam: Physical Exam: Vitals signs as noted above General Appearance:Moderately built and nourished, no apparent distress Head: normocephalic, Atraumatic Eyes: normal inspection, EOMI Neck: supple, Trachea midline Respiratory/Chest: Normal breath sounds, CTA Cardiovascular: S1, S2, + murmur Abdomen/GI:Soft, Non tender, Bowel sounds present Extremities/Musculoskeletal:normal inspection, Trace pedal edema Neurologic/Psych:AAOX3, grossly no focal neurological deficits Skin: normal color, warm Results & Data Results & Data ([facility]) Vital Signs (Past 12 Hours) Vital Signs Temp Pulse Resp BP Pulse Ox 04/09/21 08:12 36.5 C 61 17 168/76 H 96 Laboratory Results [facility] 04/09/21 06:16 Sodium 132 L Potassium 4.0 Chloride 100 Carbon Dioxide 27 BUN 16 Creatinine 0.63 Glucose 92 Calcium 8.8
--- NOTE | 2021-04-09 14:22 | Discharge Summary ---
Date of Service April 09, 2021 Admission HPI Per Admitting Provider History obtained from patient, family, and records. Medical history significant for hypertension, hyperlipidemia, PVD, moderate mitral regurgitation, hypothyroidism, APRIL (CPAP intolerant), history post of DVT as per records status post anticoagulation. 2 ER visits 3 weeks ago for uncontrolled blood pressure with anxiety component. Approaching 1st year anniversary of a son who from cancer in [place], [place]. Patient unable to travel last year due to pandemic as per . Patient has been depressed since. Lost interest in most things and with decreased appetite. Fleeting statements made to that she " was better off ." Patient has always been a worrier as per . Patient compliant with home BP medications. PCP started Lexapro 2 days ago on follow-up visit. Patient also had a video appointment with a psychologist. Patient was doing well as per until yesterday morning when she started being depressed and anxious again. Patient noted chest tightness going to her neck without shortness of breath, nonpleuritic, not shooting to the back. No unusual cough symptoms. Achy abdominal discomfort with mushy stools and nausea symptoms. No recent antibiotic Rx /sick contacts. No headache symptoms. Blood pressure not checked at home recently. SBP 170s upon arrival at the ER. Chest pain relieved after aspirin, nitroglycerin and Ativan administration at the ER. 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, lives with Admission Exam Per Admitting Provider Physical Exam Physical Exam: GENERAL: Comfortable, depressed, occasionally tearful no respiratory distress SKIN: Normal color, warm HEENT: [place] palpebral conjunctivae, no ptosis, dry buccal mucosa NECK : Supple, short neck, no tenderness CHEST : CTA, anterior chest wall tenderness HEART : RRR, systolic murmur ABDOMEN: Some distention, minimal hypogastric tenderness EXTREMITIES : Minimal LE swelling, no LE tenderness, no other conspicuous deformities noted NEUROLOGIC : Coherent, no facial asymmetry, no other gross focality Principal Diagnosis Atypical Chest Pain Hypertension Urinary tract infection Hyponatremia Adjustment disorder Discharge Data Allergies Allergy/AdvReac Type Severity Reaction Status Date / Time oxycodone Allergy Unknown UKN Verified 07/31/21 21:05 simvastatin Allergy Unknown UKN Verified 04/06/21 21:05 rosuvastatin AdvReac Unknown upset Verified 04/06/21 21:05 stomach Consultations 04/07/21 00:27 ED Decision to Admit Stat 04/07/21 02:51 Consult Cardiology Routine Consult Psychiatry Routine Ordered Studies 04/06/21 21:18 CT abd pelvis IV con only Stat Hospital Course (1) Chest pain: Atypical Chest Pain -CXR:Cardiomegaly with no active disease in the chest. -EKG:Nonspecific T wave changes -ECHO: Mild concentric LVH. Basal septum is thickened and angulated consistent with sigmoid septum. Left ventricle wall motion is normal. EF 65 to 70%. -Negative Troponin Chest pain resolved Continue Aspirin Appreciate Cardiology Input Uncontrolled hypertension Anxiety/Grief contributory Continue hydralazine Continue lisinopril 5mg daily Monitor Hyponatremia secondary to diarrheal illness, HCTZ DD: SIADH, Due to Hypothyroidism Hold HCTZ Received IV fluids Monitor Sodium levels Sodium:132 Likely to DC HCTZ upon discharge due to hyponatremia Diarrhea Obtain stool studies if recurrent UTI-POA Urine Cx: E.Coli Cefepime transitioned to Keflex to complete the course Adjustment disorder with mixed anxious and depressed mood Grief Consider starting Lexapro if Hyponatremia resolves Appreciate Psychiatry Input Advised to follow-up with psychiatry as outpatient Right kidney lesion Incidental finding on CT -CT ABD:There is a 1.0 cm indeterminant and possibly enhancing lesion in the lower pole of the right kidney, which is new from the 2013 examination. Although this could represent a complex cyst, a small renal neoplasm is not excluded. Nonemergent follow-up with a contrast-enhanced renal protocol CT or MRI is recommended for further assessment. -Advised to follow up as outpatient Hyperlipidemia H/O statin intolerance H/O PVD Continue aspirin, fenofibrate Hypothyroidism Elevated TSH Near normal free T4 Continue levothyroxine Needs repeat thyroid function tests as outpatient H/O APRIL H/O Intolerance to CPAP H/O DVT Completed anticoagulation therapy DVT Px: Lovenox SQ Code Status Full code Total Time Total Time Spent Total Time Spent (In Minutes): 40 minutes Discharge Plan Discharge Items Patient Disposition: Home - Self-Care Reason For Visit: CP, HYPONATREMIA Discharge Diagnosis: Atypical Chest Pain Hypertension Urinary tract infection Hyponatremia Adjustment disorder Activity: Per Instructions section Exercise/Sports: Gradually increase as tolerated Non-emergency contact: Primary Care Provider and Psychiatrist Call non-emergency contact if: you have any medication questions, your symptoms worsen, your pain is concerning for you and you have a fever Follow-up/Referrals: [facility] [Outside] - 04/20/21 10:40 am (psychology appt via telehealth with Matilde Cyr) Nighat Philip MD [Primary Care Provider] - Diet: Heart Healthy Addtl Attending Provider Instructions: Follow-up with your primary care physician on April 16, 2021 at 11:20 AM Follow-up with your psychiatrist as recommended Complete the course of antibiotic Keflex as prescribed for urinary tract infection Seek immediate medical attention if your symptoms reoccur or worsen Please take all medications as instructed on discharge list below. Please call if you have any questions or problems. You can reach a [facility] hospitalist on duty at [facility] 24 hours a day by calling [phone] Pending Studies at Discharge: No Stand-Alone Forms: [facility], Smoking Cessation Medications and DC Order Prescriptions: New cephalexin 500 mg Capsule 500 mg PO Q12H Qty: 10 RF: 0 lisinopril [Zestril] 5 mg Tablet 5 mg PO QAM Qty: 30 RF: 1 Continued fenofibrate micronized 134 mg capsule 134 mg PO DAILY RF: 0 hydralazine 50 mg tablet 75 mg PO TID RF: 0 aspirin [Aspirin Low Dose] 81 mg Tablet,Delayed Release (Dr/Ec) 81 mg PO HS RF: 0 calcium carbonate [Calcium 600] 600 mg calcium (1,500 mg) Tablet 600 mg PO QAM RF: 0 cholecalciferol (vitamin D3) [Vitamin D3] 25 mcg (1,000 unit) Tablet 25 mcg PO DAILY RF: 0 omega [id number] oil [Fish Oil] 1,000 mg (120 mg-180 mg) Capsule 1 cap PO DAILY RF: 0 cyanocobalamin (vitamin B-12) [Vitamin B-12] 1,000 mcg Tablet 1,000 mcg PO DAILY RF: 0 Metamucil (sugar) Powder 1 ea PO DAILY RF: 0 magnesium oxide 400 mg magnesium Tablet 400 mg PO DAILY RF: 0 olopatadine 0.2 % Drops 1 drp OPHTHALMIC (EYE) HS RF: 0 levothyroxine 137 mcg tablet 137 mcg PO DAILYBB RF: 0 escitalopram oxalate 10 mg tablet 10 mg PO DAILY RF: 0 Discontinued hydrochlorothiazide 25 mg tablet 25 mg PO DAILY RF: 0 Discharge Orders: Discharge Order (Routine); Ordered 04/09/21 Ordered By: Benton Seaman/Other Patient Handouts: ED Hyponatremia Admission Data Admit Date/Time: 04/07/21 02:00 Attending Provider: Benton Bills Admit Provider: Rommel Jimenez Primary Care Provider: Nighat Philip Other Providers: Rommel Jimenez ; Billy Bangura ; Siva García ; Gene Gómez ; Collin Kennedy ; Jason Bolanos ; Mika Harris ; Jocelyn De Los Santos ; Paola Shore ; Matilde Goins ; Pelon Waddell ; Katrin Weiss ; Dr Casa ; Janelle Holland ; Haris Tenorio Other Interventions: Discharge Summary Assessment (RN) Last Done: 04/09/21 14:37
[2021-04-09] MEDS ORDERED: cephALEXin 500 MG CAP PO SCH (21:00)
--- NOTE | 2021-04-10 10:41 | Electrocardiogram Report ---
Test Reason : Blood Pressure : / mmHG Vent. Rate : 072 BPM Atrial Rate : 072 BPM P-R Int : 190 ms QRS Dur : 100 ms QT Int : 368 ms P-R-T Axes : 065 -04 094 degrees QTc Int : 402 ms Sinus rhythm with occasional Premature ventricular complexes and Premature atrial complexes Septal infarct (cited on or before 06-APR-2021) Nonspecific T wave abnormality Abnormal ECG When compared with ECG of 15-MAR-2021 19:29, Premature ventricular complexes are now Present Confirmed by Kenyon Ford ([id number]) on 04/10/2021 10:40:56 AM Referred By: REFERRED SELF Confirmed By:Kenyon Ford
== END 2021-04-09 15:58 | disposition home or self-care (01) | DRG 313 ==
LOC: ED 20:44 → 2E 04-07 02:00 → 3W 04-08 14:46

== ENCOUNTER 2022-05-09 16:18 | Inpatient (IN) ==
[2022-05-09 17:27] LABS: Basophils # (auto) 0.04 K/uL (0-0.2); Basophils % (auto) 0.6 %; Eosinophils # (auto) 0.02 K/uL (0-0.50); Eosinophils % (auto) 0.3 %; Hematocrit (blood only) 37.7 % (34.1-44.9); Hemoglobin 12.6 g/dl (12.0-16.0); Immature Granulocytes # (auto) 0.04 K/uL (0.00-0.02); Immature Granulocytes % (auto) 0.6 %; Lymphocytes # (auto) 0.84 K/uL (1.2-3.4); Lymphocytes % (auto) 12.1 %; Mean Corpuscular Hemoglobin 28.8 pg (25.0-34.0); Mean Corpuscular Hgb Conc 33.4 g/dL (32.0-36.0); Mean Corpuscular Volume 86.1 fL (80.0-100.0); Mean Platelet Volume 9.2 fL (9.4-12.3); Monocytes # (auto) 0.41 K/uL (0.24-0.82); Monocytes % (auto) 5.9 %; Neutrophils % (auto) 80.5 %; Platelet Count 217 K/uL (130-400); RDW Coefficient of Variation 13.2 % (11.5-14.5); RDW Standard Deviation 41.6 fL (36.4-46.3); Red Blood Count 4.38 M/uL (3.93-5.22); White Blood Count 6.95 K/ul (4.8-10.8)
[2022-05-09 17:47] LABS: INR 1.1 (0.9-1.1); Partial Thromboplastin Ratio 1.2; Partial Thromboplastin Time 34.2 Seconds (21.0-31.0); Prothrombin Time 11.9 Seconds (9.0-12.0)
[2022-05-09 17:55] LABS: Alanine Aminotransferase 13 U/L (7-52); Albumin Globulin Ratio 1.2 (0.9-2); Albumin Level 3.5 gm/dl (3.4-5.0); Alkaline Phosphatase 39 U/L (34-104); Anion Gap 8 (3-11); Aspartate Aminotransferase 33 U/L (13-39); BUN Creatinine Ratio 20.7 (10-20); Bilirubin,Total 0.7 mg/dl (0.2-1.0); Blood Urea Nitrogen 18 mg/dl (6-23); Calcium 8.9 mg/dl (8.5-10.1); Carbon Dioxide 25 mmol/L (21-32); Chloride 94 mmol/L (98-107); Est GFR (African American) 70.4 ml/min; Est GFR (Non-African American) 60.7 ml/min; Glucose 95 mg/dl (70-99(Fasting)); Potassium 4.2 mmol/L (3.5-5.1); Sodium 127 mmol/L (136-145); Total Protein 6.5 gm/dl (6.0-8.3)
[2022-05-09 18:01] LABS: Troponin I High Sensitivity 20.2 pg/ml (0-14)
--- NOTE | 2022-05-09 19:17 | XRay Report ---
XR chest 1V portable CLINICAL HISTORY: chest pain TECHNIQUE: Single frontal radiograph of the chest was obtained. Comparison: Comparison is made to chest radiograph 04/06/2021 FINDINGS: No lines and tubes are seen. Cardiomegaly is noted. Crossfire aortic knob is seen. The lungs are johanne r. No evidence of pleural effusion or pneumothorax. IMPRESSION: No acute chest disease. ACT 112: Negative or not required by law. Electronically signed by: Scott Nur M.D. 05/09/2022 7:16 PM
[2022-05-09] MEDS ORDERED: ASPIRIN CHEW 324 MG PO STA (19:19)
[2022-05-09] MEDS ORDERED: NITROGLYCERIN 2% OINTMENT 30GM TUBE EXT STA (19:19)
[2022-05-09] MEDS ORDERED: ACETAMINOPHEN 325 MG TAB PO PRN (20:22)
[2022-05-09] MEDS ORDERED: NITROGLYCERIN SL 0.4 MG/TAB TAB SL PRN (20:22)
--- NOTE | 2022-05-09 20:26 | Emergency Department Note ---
Impression & Plan Substernal chest pain, Elevated troponin, Acute hyponatremia ED Provider Note INFORMANT: Patient and ED PROVIDER(S): Rodrick Jeff MD CHIEF COMPLAINT: Chest pain PLAN: Disposition: Admitted Condition: Good Outpatient prescription management: none Referral: None MEDICAL DECISION MAKING: patient presented with complaints of chest pain. Work-up was initiated. Patient's ECG did not show any ST elevation or depression. Her CBC and chemistry panel revealed hyponatremia. The patient did have a mildly elevated troponin. The patient noted improvement before medications. Aspirin and Nitropaste was ordered. Chest x-ray did not reveal any acute findings. Further management in the hospital be necessary due to the hyponatremia and elevated troponin. Consultation was made with the [facility] service. Patient was evaluated in the ER and admitted for further management. Triage Nursing notes reviewed and agree them. Vital Signs: reviewed and remarkable for no significant abnormalities Differential diagnosis: Cardiac ischemia, aortic dissection, pulmonary embolism, pneumothorax, pneumonia, pericarditis, myocarditis, esophageal rupture, GERD, cholecystitis, pancreatitis, musculoskeletal, as well as other pathologies. Diagnostics interpreted by me: ECG: Lead ECG reveals a normal sinus rhythm at 4 bpm. There is septal Q wave present. No ST elevation or depression. Normal axis Cardiac Monitoring: Cardiac monitoring ordered by me: The patient was placed on continuous cardiac monitoring and observed. It revealed a normal sinus rhythm at 76 beats per minute without ectopy or evidence of dysrhythmia. Imaging studies: Chest x-ray HPI: The patient is a 86year old female who presents to the Emergency Room with complaints of chest pain. This started last and is fluctuating. The patient also notes the following associated symptoms, shortness of breath, poor p.o. intake occasional chills. The patient has found no relieving factors. Patient noted pain on arrival was 7/10. Current pain is rated as 3/10. Pt denies LOC, headache, fevers, diaphoresis, visual changes, neck pain, nausea, vomiting, abdominal pain, back pain, melena, hematochezia, urinary symptoms, numbness, weakness, lymphadenopathy, rash, or other complaints. ROS: See above HPI for pertinent positives & negatives. A total of 10 systems reviewed and were otherwise negative. PAST MEDICAL HISTORY:See Below , hypertension PAST SURGICAL HISTORY:See Below, FAMILY HISTORY:See Below SOCIAL HISTORY:See Below, HOME MEDICATIONS:See Below ALLERGIES:See Below VITALS:See Below PHYSICAL EXAMINATION: GENERAL: Awake, alert, mildly anxious-appearing, in no distress HENT: Normocephalic, atraumatic. Oropharynx unremarkable. EYES: Normal conjunctiva. Sclera non-icteric. NECK: Inspection normal. Non-tender. Supple. No nuchal rigidity. FROM. No masses. RESPIRATORY: Clear to auscultation. No wheezes. No rales. Normal respiratory effort. CARDIAC: Normal rate. Normal rhythm. No murmurs. No rubs. Extremities warm and well perfused. Pulses equal. No JVD. GI: Soft, non-distended. No tenderness to palpation. No rebound or guarding. No masses. RECTAL: Deferred. MUSCULOSKELETAL: Atraumatic. Chest examination reveals no tenderness. The back is symmetrical on inspection without obvious abnormality. There is no CVA tenderness to palpation. No joint edema. LOWER EXTREMITIES: Calves are equal size bilaterally and non-tender. Trace edema. No discoloration. NEURO: Normal sensorium. No sensory or motor deficits noted. SKIN: No rash or jaundice noted. Rodrick Jeff MD Past Med/Surg History Medical History Deep venous thrombosis (11/15/12) Hx of blood clots Hypertension Hypothyroidism (11/15/12) Hysterectomy (11/15/12) Social History Smoking Status: Never smoker Hx Alcohol Use: Yes Alcohol type: wine Hx Substance Use: No Preferred Language: [place] Communication Ability: Effective Beliefs That Will Affect Care: None marital status: Current Living Situation: Spouse How many Children do You have: 2 Feels Safe at Home: Yes Assistive Devices: Glasses Allergies Allergies Allergy/AdvReac Type Severity Reaction Status Date / Time oxycodone Allergy Unknown UKN Verified 04/06/21 21:05 simvastatin Allergy Unknown UKN Verified 04/06/21 21:05 rosuvastatin AdvReac Unknown upset Verified 04/06/21 21:05 stomach Home Meds Home Medications Medication Instructions Recorded Confirmed aspirin 81 mg tablet,delayed 81 mg PO HS 03/13/21 04/06/21 release (Marciano Low Dose Aspirin) calcium carbonate 600 mg calcium 600 mg PO QAM 03/13/21 04/06/21 (1,500 mg) tablet (Calcium) cholecalciferol (vitamin D3) 25 25 mcg PO DAILY 03/13/21 04/06/21 mcg (1,000 unit) tablet (Vitamin D3) cyanocobalamin (vitamin B-12) 1,000 mcg PO DAILY 03/13/21 04/06/21 1,000 mcg tablet (Vitamin B-12) fenofibrate micronized 134 mg 134 mg PO DAILY 03/13/21 04/06/21 capsule hydralazine 50 mg tablet 75 mg PO TID 03/13/21 04/06/21 magnesium oxide 400 mg PO DAILY 03/13/21 04/06/21 omega 4-rjm-bkz-fish oil 1,000 mg 1 cap PO DAILY 03/13/21 04/06/21 (120 mg-180 mg) capsule (Fish Oil) psyllium seed (sugar) oral powder 1 ea PO DAILY 03/13/21 04/06/21 (Metamucil (sugar) oral powder) olopatadine 0.2 % eye drops 1 drp ophthalmic (eye) HS 03/15/21 04/06/21 escitalopram oxalate 10 mg tablet 10 mg PO DAILY 04/06/21 04/06/21 levothyroxine 137 mcg tablet 137 mcg PO DAILYBB 04/06/21 04/06/21 Previous Rx's Medication Instructions Recorded cephalexin 500 mg capsule 500 mg PO Q12H #10 caps 04/09/21 lisinopril 5 mg tablet (Zestril) 5 mg PO QAM #30 tabs 04/09/21 Results & Data (ED) Vital Signs Vital Signs - 24 hr 05/09/22 16:23 05/09/22 19:11 05/09/22 19:13 Temperature 37.1 C Temperature Source Oral Pulse Rate 83 76 Pulse Rate [Apical] 76 Pulse Rhythm Regular Pulse Strength Normal Respiratory Rate 16 22 24 Respiratory Effort / Characteristics Non-Labored Spontaneous Respiratory Depth Normal Respiratory Pattern Regular Blood Pressure 170/89 H Blood Pressure [Right Arm] 160/83 H Blood Pressure Mean 116 Blood Pressure Mean [Right Arm] 108 Blood Pressure Position Sitting Pulse Oximetry 98 95 95 Oxygen Delivery Method Room Air Room Air Room Air Sepsis Recent Fever Within 48 Hours No Sepsis New/Unexplained Change in Mental Status No Sepsis Action Taken by Nursing No Action Required Laboratory Data Result diagrams: 05/09/22 17:10 05/09/22 17:10 Lab Results 05/09/22 05/09/22 05/09/22 Range/Units 17:10 17:10 17:10 WBC 6.95 (4.8-10.8) K/ul RBC 4.38 (3.93-5.22) M/uL Hgb 12.6 (12.0-16.0) g/dl Hct 37.7 (34.1-44.9) % MCV 86.1 (80.0-100.0) fL MCH 28.8 (25.0-34.0) pg MCHC 33.4 (32.0-36.0) g/dL RDW Std Deviation 41.6 (36.4-46.3) fL RDW Coeff of Valdo 13.2 (11.5-14.5) % Plt Count 217 (130-400) K/uL MPV 9.2 L (9.4-12.3) fL Immature Gran % (Auto) 0.6 % Neut % (Auto) 80.5 % Lymph % (Auto) 12.1 % Calhoun % (Auto) 5.9 % Eos % (Auto) 0.3 % Baso % (Auto) 0.6 % Neut # (Auto) 5.60 (1.4-6.5) K/uL Lymph # (Auto) 0.84 L (1.2-3.4) K/uL Calhoun # (Auto) 0.41 (0.24-0.82) K/uL Eos # (Auto) 0.02 (0-0.50) K/uL Baso # (Auto) 0.04 (0-0.2) K/uL Immature Gran # (Auto) 0.04 H (0.00-0.02) K/uL PT 11.9 (9.0-12.0) Seconds INR 1.1 (0.9-1.1) APTT 34.2 H (21.0-31.0) Seconds PTT Ratio 1.2 Sodium 127 L (136-145) mmol/L Potassium 4.2 (3.5-5.1) mmol/L Chloride 94 L (98-107) mmol/L Carbon Dioxide 25 (21-32) mmol/L Anion Gap 8 (3-11) BUN 18 (6-23) mg/dl Creatinine 0.87 (0.6-1.2) mg/dl Est Cr Clr Drug Dosing Not Reportable Est GFR ( Amer) 70.4 ml/min Est GFR (Non-Af Amer) 60.7 ml/min BUN/Creatinine Ratio 20.7 H (10-20) Glucose 95 (70-99(Fasting)) mg/dl Calcium 8.9 (8.5-10.1) mg/dl Total Bilirubin 0.7 (0.2-1.0) mg/dl AST 33 (13-39) U/L ALT 13 (7-52) U/L Alkaline Phosphatase 39 (34-104) U/L Troponin I High Sens 20.2 H (0-14) pg/ml Total Protein 6.5 (6.0-8.3) gm/dl Albumin 3.5 (3.4-5.0) gm/dl Globulin 3.0 (2.5-4.0) gm/dl Albumin/Globulin Ratio 1.2 (0.9-2) TSH (0.300-4.500) uIu/ml Free T4 (0.61-1.60) ng/dl SARS-CoV-2, RNA, NAAT (NEGATIVE) 05/09/22 05/09/22 05/09/22 Range/Units 17:10 19:15 21:18 WBC (4.8-10.8) K/ul RBC (3.93-5.22) M/uL Hgb (12.0-16.0) g/dl Hct (34.1-44.9) % MCV (80.0-100.0) fL MCH (25.0-34.0) pg MCHC (32.0-36.0) g/dL RDW Std Deviation (36.4-46.3) fL RDW Coeff of Valdo (11.5-14.5) % Plt Count (130-400) K/uL MPV (9.4-12.3) fL Immature Gran % (Auto) % Neut % (Auto) % Lymph % (Auto) % Calhoun % (Auto) % Eos % (Auto) % Baso % (Auto) % Neut # (Auto) (1.4-6.5) K/uL Lymph # (Auto) (1.2-3.4) K/uL Calhoun # (Auto) (0.24-0.82) K/uL Eos # (Auto) (0-0.50) K/uL Baso # (Auto) (0-0.2) K/uL Immature Gran # (Auto) (0.00-0.02) K/uL PT (9.0-12.0) Seconds INR (0.9-1.1) APTT (21.0-31.0) Seconds PTT Ratio Sodium (136-145) mmol/L Potassium (3.5-5.1) mmol/L Chloride (98-107) mmol/L Carbon Dioxide (21-32) mmol/L Anion Gap (3-11) BUN (6-23) mg/dl Creatinine (0.6-1.2) mg/dl Est Cr Clr Drug Dosing Est GFR ( Amer) ml/min Est GFR (Non-Af Amer) ml/min BUN/Creatinine Ratio (10-20) Glucose (70-99(Fasting)) mg/dl Calcium (8.5-10.1) mg/dl Total Bilirubin (0.2-1.0) mg/dl AST (13-39) U/L ALT (7-52) U/L Alkaline Phosphatase (34-104) U/L Troponin I High Sens 36.6 H D (0-14) pg/ml Total Protein (6.0-8.3) gm/dl Albumin (3.4-5.0) gm/dl Globulin (2.5-4.0) gm/dl Albumin/Globulin Ratio (0.9-2) TSH 4.532 H (0.300-4.500) uIu/ml Free T4 1.50 (0.61-1.60) ng/dl SARS-CoV-2, RNA, NAAT NEGATIVE (NEGATIVE) Administered Medications Sodium Chloride (Nss 1000ml) 1,000 mls @ 100 mls/hr IV .Q10H SHILOH Stop: 05/10/22 06:29 Last Admin: 05/09/22 21:54 Dose: 100 mls/hr Documented By: MED Discontinued Medications Aspirin (Aspirin Chew 324 Mg) 324 mg PO NOW STA Stop: 05/09/22 19:20 Last Admin: 05/09/22 19:46 Dose: 324 mg Documented By: MED Atorvastatin Calcium (Atorvastatin 40 Mg Tab) 40 mg PO NOW ONE Stop: 05/09/22 20:32 Last Admin: 05/09/22 21:54 Dose: 40 mg Documented By: ANUJA Nitroglycerin (Nitroglycerin 2% Ointment 30gm Tube) 0.5 inch EXT NOW STA Stop: 05/09/22 19:20 Last Admin: 05/09/22 19:46 Dose: 0.5 inch Documented By: MED Imaging Data Radiologist's Impression: Chest X-Ray 05/09/22 18:41 XR chest 1V portable CLINICAL HISTORY: chest pain TECHNIQUE: Single frontal radiograph of the chest was obtained. Comparison: Comparison is made to chest radiograph 04/06/2021 FINDINGS: No lines and tubes are seen. Cardiomegaly is noted. Crossfire aortic knob is seen. The lungs are clear. No evidence of pleural effusion or pneumothorax. IMPRESSION: No acute chest disease. ACT 112: Negative or not required by law. Electronically signed by: Scott Nur M.D. 05/09/2022 7:16 PM Discharge Plan Visit Data Chief Complaint: Chest Pain Stated Complaint: CHEST PAINS, SOB ED Provider: Rodrick Jeff Discharge Problem: Substernal chest pain, Elevated troponin, Acute hyponatremia Forms Stand Alone Forms: My [facility] [place] [facility] Prescriptions Prescriptions: No Action fenofibrate micronized 134 mg capsule 134 mg PO DAILY hydralazine 50 mg tablet 75 mg PO TID aspirin [Marciano Low Dose Aspirin] 81 mg Tablet,Delayed Release (Dr/Ec) 81 mg PO HS calcium carbonate [Calcium 600] 600 mg calcium (1,500 mg) Tablet 600 mg PO QAM cholecalciferol (vitamin D3) [Vitamin D3] 25 mcg (1,000 unit) Tablet 25 mcg PO DAILY omega 2-lsc-gje-fish oil [Fish Oil] 1,000 mg (120 mg-180 mg) Capsule 1 cap PO DAILY cyanocobalamin (vitamin B-12) [Vitamin B-12] 1,000 mcg Tablet 1,000 mcg PO DAILY Metamucil (sugar) Powder 1 ea PO DAILY Rx Instructions: mix 1 scoop in 8 oz of fluid and drink magnesium oxide 400 mg magnesium Tablet 400 mg PO DAILY olopatadine 0.2 % Drops 1 drp OPHTHALMIC (EYE) HS levothyroxine 137 mcg tablet 137 mcg PO DAILYBB escitalopram oxalate 10 mg tablet 10 mg PO DAILY cephalexin 500 mg Capsule 500 mg PO Q12H Qty: 10 0RF lisinopril [Zestril] 5 mg Tablet 5 mg PO QAM Qty: 30 1RF Referrals Referrals: Saturnino Keene, [Primary Care Provider] -
[2022-05-09] MEDS ORDERED: SODIUM CHLORIDE 0.9% 1000ML 1,000 ML IV SCH (20:30)
[2022-05-09] MEDS ORDERED: ATORVASTATIN 40 MG TAB PO ONE (20:31)
--- NOTE | 2022-05-09 20:57 | History & Physical Report ---
Date of Service May 09, 2022 Assessment & Plan (1) Substernal chest pain: Plan: - not associated with exertion, described as pressure, no LOC, shortness of breath, n/v - denies personal history of MO, CVA - troponin mildly elevated at 20, ECG without ischemic changes - cycle troponin and ECG - s/p ASA in ED, will continue 81mg daily - continue statin, fenofibrate (home med) - telemetry monitoring - if ACS negative, can likely follow up with Managing Manager as outpatient for further work up (2) Dizziness: Plan: - present for several months, does not appear to be cardiac related - no LOC but presyncopal feelings - not room spinning - has adjusted BP meds outpatient - will hold for now as patient is normotensive - IVF resusication in setting of hyponatremia to 127 - monitor Na - possibly related to ?thyroid - TSH pending - orthostatics mildly positive per BP criteria - telemetry monitoring - ACS rule out as above - CTH without contrast - consider neurology consult if unrevealing (3) Hypothyroidism: Plan: - recent medication adjustment about 1 week ago - reports cold intolerance for past several months which prompted investigation and reportedly abnormal TSH causing increase in dose - TSH pending - continue home dose - will likely not make adjustments to meds as her dose was just recently changed (~1 week) (4) Hyponatremia: Plan: - unclear etiology but patient reports poor intake - also with recent thyroid medication adjustment - if patient was hypothyroid, could be cause - also on SSRI - has had similar Na levels 1 year ago here 04/2021 - HCTZ was discontinued at that time - 1L NS overnight - monitor Na on morning labs (5) Hypertension: Plan: - BP was elevated on admission but on my exam was 120s-130s/80s - takes lisinopril 5mg and hydralazine at home reportedly - will hold given dizziness and being normotensive at this time - add home medications as needed (6) Anxiety: Plan: - holding SSRI for now - if low Na levels determined to be related and patient is symptomatic, will need medication adjustment Plan DVT ppx: Lovenox Code Status: Full Code Dispo: aleta Murcia MD Hospital Medicine Admission and Anticipated Discharge Date Admission Date: 05/09/2022 History of Present Illness Chief Complaint: chest pain, dizziness Primary Care Provider: Saturnino Keene, DO The patient is an 86 year old woman with pmh anxiety, HTN, hypothyroidism who presents with 1 day of chest discomfort and several months of dizziness and feeling light headed on standing. She reports that over the past several months, she has had issues of feeling dizzy almost constantly, but esepecially on standing from lying/sitting and prolonged standing. She does not describe the dizziness as the room spinning but more light headed. During these times she inconsistently feels chest discomfort. Denies n/v, LOC, cough, shortness of b reath. She reports loss of appetite over the last several months as well and says that food just does not taste good. She has tried reducing her blood pressure medications in conjunction with her PCP with minimal improvement. She reports having an abnormal TSH recently and there were recent adjustments to her levothyroxine about 1 week ago. She also reports cold intolerance over this period. In regards to the chest pain, she reports chest heaviness. It is not associated with exertion and comes and goes spontaneously. She denies shortness of breath, n/v with these episodes. She is usually dizzy throughout the day and so it is difficult to determine if these are related as she was having dizziness prior to her chest discomfort complaints by several months. Denies personal history of MO or CVA. Denies history of tobacco use, alcohol use, drug use. In the ED, vitals were stable. Labs were significant for Na 127, Cl 94, trop 20. ECG without ischemic changes. CXR unremarkable. She was given aspirin and admitted to medicine. Allergies Allergy/AdvReac Type Severity Reaction Status Date / Time oxycodone Allergy Unknown UKN Verified 04/06/21 21:05 simvastatin Allergy Unknown UKN Verified 04/06/21 21:05 rosuvastatin AdvReac Unknown upset Verified 04/06/21 21:05 stomach Home Medications Medication Instructions Recorded Confirmed Type aspirin 81 mg tablet,delayed 81 mg PO HS 03/13/21 04/06/21 History release (Marciano Low Dose Aspirin) calcium carbonate 600 mg calcium 600 mg PO QAM 03/13/21 04/06/21 History (1,500 mg) tablet (Calcium) cholecalciferol (vitamin D3) 25 25 mcg PO DAILY 03/13/21 04/06/21 History mcg (1,000 unit) tablet (Vitamin D3) cyanocobalamin (vitamin B-12) 1,000 mcg PO DAILY 03/13/21 04/06/21 History 1,000 mcg tablet (Vitamin B-12) fenofibrate micronized 134 mg 134 mg PO DAILY 03/13/21 04/06/21 History capsule hydralazine 50 mg tablet 75 mg PO TID 03/13/21 04/06/21 History magnesium oxide 400 mg PO DAILY 03/13/21 04/06/21 History omega 8-hiq-ugi-fish oil 1,000 mg 1 cap PO DAILY 03/13/21 04/06/21 History (120 mg-180 mg) capsule (Fish Oil) psyllium seed (sugar) oral powder 1 ea PO DAILY 03/13/21 04/06/21 History (Metamucil (sugar) oral powder) olopatadine 0.2 % eye drops 1 drp ophthalmic (eye) HS 03/15/21 04/06/21 History escitalopram oxalate 10 mg tablet 10 mg PO DAILY 04/06/21 04/06/21 History levothyroxine 137 mcg tablet 137 mcg PO DAILYBB 04/06/21 04/06/21 History cephalexin 500 mg capsule 500 mg PO Q12H #10 caps 04/09/21 Rx lisinopril 5 mg tablet (Zestril) 5 mg PO QAM #30 tabs 04/09/21 Rx Past Med/Surg History Medical History Deep venous thrombosis (11/15/12) Hx of blood clots Hypertension Hypothyroidism (11/15/12) Hysterectomy (11/15/12) Social History Smoking Status: Never smoker Hx Alcohol Use: Yes Alcohol type: wine Hx Substance Use: No Preferred Language: [place] Communication Ability: Effective Beliefs That Will Affect Care: None marital status: Current Living Situation: Spouse How many Children do You have: 2 Feels Safe at Home: Yes Assistive Devices: Glasses Review of Systems Review of Systems: All systems reviewed & are unremarkable except as noted in Subjective Physical Exam Constitutional: WD/WN, vitals as above well developed and well nourished; no acute distress and not ill appearing Eyes: PERRL, conjunctivae normal, anicteric sclerae ENMT: external ear and nose normal, oropharynx normal Neck: trachea midline, no thyromegaly Respiratory: normal respiratory effort, lungs clear to auscultation Cardiovascular: RRR, no murmur, no edema orthostatics performed at bedside with HR from 74-->85, BP from 132/80s -->121/80s. Gastrointestinal (Abdomen): normal bowel sounds, soft, nontender, no hepatosplenomegaly Musculoskeletal: no cyanosis or clubbing, extremities motor strength 5/5 Skin: no rashes, warm and dry Neurologic: patellar DTR's 2+ bilat, sensation intact and PERRL, EOMI, accommodation nl, no face palsy, no dysarthria Psychiatric: A+Ox3, euthymic affect Results & Data Results & Data ([facility]) Vital Signs (Past 12 Hours) Vital Signs Temp Pulse Pulse Resp BP BP Pulse Ox 05/09/22 19:13 76 24 95 05/09/22 19:11 76 22 160/83 H 95 05/09/22 16:23 37.1 C 83 16 170/89 H 98 O2 Del Method 05/09/22 19:13 Room Air 05/09/22 19:11 Room Air 05/09/22 16:23 Room Air Laboratory Results Short CBC 05/09/22 Range/Units 17:10 WBC 6.95 (4.8-10.8) K/ul Hgb 12.6 (12.0-16.0) g/dl Hct 37.7 (34.1-44.9) % Plt Count 217 (130-400) K/uL BMP 05/09/22 17:10 Sodium 127 L Potassium 4.2 Chloride 94 L Carbon Dioxide 25 BUN 18 Creatinine 0.87 Glucose 95 Calcium 8.9 Liver Function 05/09/22 Range/Units 17:10 Total Bilirubin 0.7 (0.2-1.0) mg/dl AST 33 (13-39) U/L ALT 13 (7-52) U/L Alkaline Phosphatase 39 (34-104) U/L Albumin 3.5 (3.4-5.0) gm/dl Diagnostic Findings Chest X-Ray 05/09/22 18:41 XR chest 1V portable CLINICAL HISTORY: chest pain TECHNIQUE: Single frontal radiograph of the chest was obtained. Comparison: Comparison is made to chest radiograph 04/06/2021 FINDINGS: No lines and tubes are seen. Cardiomegaly is noted. Crossfire aortic knob is seen. The lungs are clear. No evidence of pleural effusion or pneumothorax. IMPRESSION: No acute chest disease. ACT 112: Negative or not required by law. Electronically signed by: Scott Nur M.D. 05/09/2022 7:16 PM Medications Administered Current Inpatient Medications Acetaminophen (Acetaminophen 325 Mg Tab) 650 mg PO Q4H PRN PRN Reason: Pain or Fever Stop: 06/08/22 20:21 Aspirin (Aspirin 81 Mg Ectab) 81 mg PO QAM SHILOH Stop: 06/09/22 08:59 Atorvastatin Calcium (Atorvastatin 40 Mg Tab) 40 mg PO QAM SHILOH Stop: 06/09/22 08:59 Enoxaparin Sodium (Enoxaparin Inj 40 Mg/0.4 Ml Syr) 40 mg SQ Q24H SHILOH Stop: 06/08/22 20:29 Sodium Chloride (Nss 1000ml) 1,000 mls @ 100 mls/hr IV .Q10H SHILOH Stop: 05/10/22 06:29 Nitroglycerin (Nitroglycerin Sl 0.4 Mg/Tab Tab) 0.4 mg SL UD PRN PRN Reason: Chest Pain Stop: 06/08/22 20:21 Code Status & VTE Plan Code Status Full Code VTE Prophylaxis Plan VTE Prophylaxis will be ordered: Yes
[2022-05-09 21:24] LABS: Thyroid Stimulating Hormone 4.532 uIu/ml (0.300-4.500)
[2022-05-09 21:54] LABS: T4 Free Thyroxine 1.5 ng/dl (0.61-1.60)
--- NOTE | 2022-05-09 22:16 | CT Scan Report ---
CT head/brain wo con CLINICAL HISTORY: dizziness Technique: Contiguous axial CT images of the head were acquired from the base of the skull to the jose maye without intravenous contrast administration. Images were viewed in brain, subdural and bone [facility]. Automated dose lowering techniques and/or adjustment according to patient size were utilized for this exam. Comparison: None available at the time of this dictation. Findings: The ventricles, basal cisterns, and cerebral sulci are normal. There is no acute intracranial hemorrh age or evidence of acute territorial infarction. Neither mass effect, shift of the midline structures , nor abnormal extra-axial fluid collections are shown. Imaged portions of the paranasal sinuses and mastoid air cells are clear. The orbits appear normal. There are no acute fractures of the calvaria or scalp swelling. Impression: No acute intracranial hemorrhage, no evidence of acute territorial infarction or other acute intracra nial disease process. ACT 112: Negative or not required by law. Electronically signed by: Scott Nur M.D. 05/09/2022 10:13 PM
[2022-05-10] MEDS: ASPIRIN 81 MG ECTAB PO SCH ×2 (01:31→20:00)
[2022-05-10 02:25] LABS: Basophils # (auto) 0.03 K/uL (0-0.2); Basophils % (auto) 0.6 %; Eosinophils # (auto) 0.02 K/uL (0-0.50); Eosinophils % (auto) 0.4 %; Hematocrit (blood only) 37.2 % (34.1-44.9); Hemoglobin 12.3 g/dl (12.0-16.0); Immature Granulocytes # (auto) 0.02 K/uL (0.00-0.02); Immature Granulocytes % (auto) 0.4 %; Lymphocytes # (auto) 0.85 K/uL (1.2-3.4); Lymphocytes % (auto) 16.3 %; Mean Corpuscular Hemoglobin 28.4 pg (25.0-34.0); Mean Corpuscular Hgb Conc 33.1 g/dL (32.0-36.0); Mean Corpuscular Volume 85.9 fL (80.0-100.0); Mean Platelet Volume 8.9 fL (9.4-12.3); Monocytes # (auto) 0.39 K/uL (0.24-0.82); Monocytes % (auto) 7.5 %; Neutrophils # (auto) 3.91 K/uL (1.4-6.5); Neutrophils % (auto) 74.8 %; Platelet Count 203 K/uL (130-400); RDW Standard Deviation 40.7 fL (36.4-46.3); Red Blood Count 4.33 M/uL (3.93-5.22); White Blood Count 5.22 K/ul (4.8-10.8)
[2022-05-10 02:51] LABS: Alanine Aminotransferase 12 U/L (7-52); Albumin Globulin Ratio 1.1 (0.9-2); Albumin Level 3.1 gm/dl (3.4-5.0); Alkaline Phosphatase 29 U/L (34-104); Anion Gap 7 (3-11); Aspartate Aminotransferase 30 U/L (13-39); BUN Creatinine Ratio 20.5 (10-20); Bilirubin,Total 0.8 mg/dl (0.2-1.0); Blood Urea Nitrogen 16 mg/dl (6-23); Calcium 8.4 mg/dl (8.5-10.1); Carbon Dioxide 26 mmol/L (21-32); Chloride 96 mmol/L (98-107); Est GFR (African American) 80.3 ml/min; Est GFR (Non-African American) 69.3 ml/min; Globulin 2.7 gm/dl (2.5-4.0); Glucose 94 mg/dl (70-99(Fasting)); Magnesium 1.6 mg/dl (1.7-2.4); Phosphorus 2.8 mg/dl (2.5-4.9); Sodium 129 mmol/L (136-145); Total Protein 5.8 gm/dl (6.0-8.3)
[2022-05-10] MEDS: Patient's HEIGHT &/or WEIGHT Needed SCH ×2 (04:46→05:05)
[2022-05-10] MEDS ORDERED: Patient's HEIGHT &/or WEIGHT Needed STA (05:02)
[2022-05-10] MEDS: LEVOTHYROXINE SODIUM 137 MCG TABLET PO SCH (06:45)
[2022-05-10] MEDS: ATORVASTATIN 40 MG TAB PO SCH (07:45)
[2022-05-10] MEDS: CHOLECALCIFEROL 1,000 UNITS 25 MCG TAB PO SCH (07:45)
[2022-05-10] MEDS: CYANOCOBALAMIN (B-12) 500 MCG TABLET PO SCH (07:45)
[2022-05-10] MEDS: CALCIUM 600MG + VIT D 400 IU TAB PO SCH (07:45)
[2022-05-10] MEDS: FENOFIBRATE NANOCRYSTALLIZED 145 MG TABLET PO SCH (07:45)
[2022-05-10] MEDS: MAGNESIUM OXIDE 400 MG TAB PO SCH (07:46)
[2022-05-10] MEDS: ENOXAPARIN INJ 40 MG/0.4 ML SYR SQ SCH (07:52)
[2022-05-10] MEDS ORDERED: MAGNESIUM SULFATE / D5W 1 GM/100 ML BAG IV ONE (07:57)
[2022-05-10] MEDS: MAGNESIUM SULFATE / D5W 1 GM/100 ML BAG IV SCH ×2 (07:59→10:16)
[2022-05-10] MEDS ORDERED: ASPIRIN 81 MG ECTAB PO SCH (09:00)
--- NOTE | 2022-05-10 09:16 | Cardiology Consultation ---
Date of Consultation May 10, 2022 Assessment & Plan (1) Dizziness: (2) Anxiety: (3) Elevated troponin: (4) Acute hyponatremia: (5) Substernal chest pain: Plan I think the patient's chest pain is atypical. I am going to order a resting echocardiogram on this patient. If that does not show any significant wall motion abnormalities then I believe that can be the extent of our inpatient work-up from a cardiac standpoint. According to our office records the patient is very anxious and may have contributed to her symptoms. I would correct her electrolytes as you are doing. So far telemetry she has had no arrhythmias. History of Present Illness Attending Physician: Hien Baig MD History of Present Illness This is an anxious 86-year-old female who is followed through our clinic by Mika Harris. She has a previous history as outlined below. 2 days ago she had some chest pressure and did not really think much of it and then yesterday she felt dizzy and weak. She decided to present to the emergency department where she has been admitted. She has some electrolyte abnormalities including hyponatremia and hypomagnesemia which are being corrected by the medicine service. Her high-sensitivity troponins are borderline elevated with no significant delta. EKG on admission shows nonspecific changes and poor R wave progression due to lead placement. She currently is pain-free and has no cardiac complaints. Past medical history: 1.Longstanding hypertension. Blood pressure acceptably controlled today. 2.Diastolic dysfunction. History of mitral regurgitation. Chronic venous insufficiency status post left greater saphenous vein ablation in October 2016 complicated by DVT. Volume status: Compensated. 3.Enlarged proximal ascending thoracic aorta. 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 5.Carotid artery disease, asymptomatic, followed by [facility]. 6.Hyperlipidemia with statin intolerance. On fenofibrate 7.History of hepatic abscess, status post percutaneous drain and prolonged IV antibiotics. 8.Sleep apnea, untreated 9.Hypothyroidism Allergies Allergy/AdvReac Type Severity Reaction Status Date / Time oxycodone Allergy Unknown UKN Verified 04/06/21 21:05 simvastatin Allergy Unknown UKN Verified 04/06/21 21:05 rosuvastatin AdvReac Unknown upset Verified 04/06/21 21:05 stomach Home Medications Medication Instructions Recorded Confirmed Type aspirin 81 mg tablet,delayed 81 mg PO HS 03/13/21 04/06/21 History release (Marciano Low Dose Aspirin) calcium carbonate 600 mg calcium 600 mg PO QAM 03/13/21 04/06/21 History (1,500 mg) tablet (Calcium) cholecalciferol (vitamin D3) 25 25 mcg PO DAILY 03/13/21 04/06/21 History mcg (1,000 unit) tablet (Vitamin D3) cyanocobalamin (vitamin B-12) 1,000 mcg PO DAILY 03/13/21 04/06/21 History 1,000 mcg tablet (Vitamin B-12) fenofibrate micronized 134 mg 134 mg PO DAILY 03/13/21 04/06/21 History capsule hydralazine 50 mg tablet 75 mg PO TID 03/13/21 04/06/21 History magnesium oxide 400 mg PO DAILY 03/13/21 04/06/21 History omega 0-xbg-sxt-fish oil 1,000 mg 1 cap PO DAILY 03/13/21 04/06/21 History (120 mg-180 mg) capsule (Fish Oil) psyllium seed (sugar) oral powder 1 ea PO DAILY 03/13/21 04/06/21 History (Metamucil (sugar) oral powder) olopatadine 0.2 % eye drops 1 drp ophthalmic (eye) HS 03/15/21 04/06/21 History escitalopram oxalate 10 mg tablet 10 mg PO DAILY 04/06/21 04/06/21 History levothyroxine 137 mcg tablet 137 mcg PO DAILYBB 04/06/21 04/06/21 History cephalexin 500 mg capsule 500 mg PO Q12H #10 caps 04/09/21 Rx lisinopril 5 mg tablet (Zestril) 5 mg PO QAM #30 tabs 04/09/21 Rx Patient History Medical History Deep venous thrombosis (11/15/12) Hx of blood clots Hypertension Hypothyroidism (11/15/12) Hysterectomy (11/15/12) Social History Smoking Status: Never smoker Hx Alcohol Use: Yes Alcohol type: wine Hx Substance Use: No Preferred Language: Kinyarwanda Communication Ability: Effective Inside Sales Trainer Required: No Beliefs That Will Affect Care: None marital status: Current Living Situation: Spouse How many Children do You have: 2 Other Information That Helps Us Care for You: No Feels Safe at Home: Yes Safety Concerns: Feels Safe At This Time Assistive Devices: None Review of Systems Review of Systems: Review of Systems: See HPI for pertinent positives. All other 10 point review of systems are negative. Physical Exam Physical Exam: General: no acute distress and stated age Head: normocephalic, no masses, lesions, tenderness or abnormalities Eyes: conjunctiva are pink and non-injected, sclera clear Neck: supple, no adenopathy, no bruits, normal jugular venous pulse, no hepatojugular reflux Chest: normal shape and normal respiratory effort Lungs: clear to auscultation and percussion Cardiac Exam: - regular rate & rhythm, no murmurs gallops or rubs - normal S1, normal S2 Pulses: 2(+) throughout Abdomen: abdomen soft, non-tender, no abnormal masses and no hepatosplenomegaly Musculoskeletal: no gait disturbance, no joint inflammation, no deforming arthritis Extremities: no edema and no cyanosis Neuro: grossly normal exam Results & Data ([facility]) Vital Signs (Past 12 Hours) Vital Signs Temp Pulse Pulse Resp BP Pulse Ox O2 Del Method 05/10/22 07:34 37.7 C H 77 143/70 H 91 Room Air 05/10/22 07:24 67 05/10/22 00:25 73 05/10/22 03:48 37 C 75 16 157/69 H 93 Room Air 05/10/22 00:10 Room Air 05/10/22 00:10 36.3 C L 69 18 174/72 H 93 Room Air 05/10/22 00:15 20 122/63 95 Room Air Laboratory Results Laboratory Results - last 24 hr 05/09/22 05/09/22 05/09/22 17:10 17:10 17:10 WBC 6.95 RBC 4.38 Hgb 12.6 Hct 37.7 MCV 86.1 MCH 28.8 MCHC 33.4 RDW Std Deviation 41.6 RDW Coeff of Valdo 13.2 Plt Count 217 MPV 9.2 L Immature Gran % (Auto) 0.6 Neut % (Auto) 80.5 Lymph % (Auto) 12.1 [place] % (Auto) 5.9 Eos % (Auto) 0.3 Baso % (Auto) 0.6 Neut # (Auto) 5.60 Lymph # (Auto) 0.84 L [place] # (Auto) 0.41 Eos # (Auto) 0.02 Baso # (Auto) 0.04 Immature Gran # (Auto) 0.04 H PT 11.9 INR 1.1 APTT 34.2 H PTT Ratio 1.2 Sodium 127 L Potassium 4.2 Chloride 94 L Carbon Dioxide 25 Anion Gap 8 BUN 18 Creatinine 0.87 Est Cr Clr Drug Dosing Not Reportable Est GFR ( Amer) 70.4 Est GFR (Non-Af Amer) 60.7 BUN/Creatinine Ratio 20.7 H Glucose 95 Osmolality Calcium 8.9 Phosphorus Magnesium Total Bilirubin 0.7 AST 33 ALT 13 Alkaline Phosphatase 39 Troponin I High Sens 20.2 H Total Protein 6.5 Albumin 3.5 Globulin 3.0 Albumin/Globulin Ratio 1.2 TSH Free T4 Urine Osmolality Ur Random Sodium SARS-CoV-2, RNA, NAAT 05/09/22 05/09/22 05/09/22 17:10 19:15 21:18 WBC RBC Hgb Hct MCV MCH MCHC RDW Std Deviation RDW Coeff of Valdo Plt Count MPV Immature Gran % (Auto) Neut % (Auto) Lymph % (Auto) [place] % (Auto) Eos % (Auto) Baso % (Auto) Neut # (Auto) Lymph # (Auto) [place] # (Auto) Eos # (Auto) Baso # (Auto) Immature Gran # (Auto) PT INR APTT PTT Ratio Sodium Potassium Chloride Carbon Dioxide Anion Gap BUN Creatinine Est Cr Clr Drug Dosing Est GFR ( Amer) Est GFR (Non-Af Amer) BUN/Creatinine Ratio Glucose Osmolality Calcium Phosphorus Magnesium Total Bilirubin AST ALT Alkaline Phosphatase Troponin I High Sens 36.6 H D Total Protein Albumin Globulin Albumin/Globulin Ratio TSH 4.532 H Free T4 1.50 Urine Osmolality Ur Random Sodium SARS-CoV-2, RNA, NAAT NEGATIVE 05/10/22 05/10/22 05/10/22 02:08 02:08 02:08 WBC 5.22 RBC 4.33 Hgb 12.3 Hct 37.2 MCV 85.9 MCH 28.4 MCHC 33.1 RDW Std Deviation 40.7 RDW Coeff of Valdo 13.0 Plt Count 203 MPV 8.9 L Immature Gran % (Auto) 0.4 Neut % (Auto) 74.8 Lymph % (Auto) 16.3 [place] % (Auto) 7.5 Eos % (Auto) 0.4 Baso % (Auto) 0.6 Neut # (Auto) 3.91 Lymph # (Auto) 0.85 L [place] # (Auto) 0.39 Eos # (Auto) 0.02 Baso # (Auto) 0.03 Immature Gran # (Auto) 0.02 PT INR APTT PTT Ratio Sodium 129 L Potassium 4.0 Chloride 96 L Carbon Dioxide 26 Anion Gap 7 BUN 16 Creatinine 0.78 Est Cr Clr Drug Dosing Not Reportable Est GFR ( Amer) 80.3 Est GFR (Non-Af Amer) 69.3 BUN/Creatinine Ratio 20.5 H Glucose 94 Osmolality Calcium 8.4 L Phosphorus 2.8 Magnesium 1.6 L Total Bilirubin 0.8 AST 30 ALT 12 Alkaline Phosphatase 29 L Troponin I High Sens 33.9 H Total Protein 5.8 L Albumin 3.1 L Globulin 2.7 Albumin/Globulin Ratio 1.1 TSH Free T4 Urine Osmolality Ur Random Sodium SARS-CoV-2, RNA, NAAT 05/10/22 05/10/22 05/10/22 08:17 Unknown Unknown WBC RBC Hgb Hct MCV MCH MCHC RDW Std Deviation RDW Coeff of Valdo Plt Count MPV Immature Gran % (Auto) Neut % (Auto) Lymph % (Auto) [place] % (Auto) Eos % (Auto) Baso % (Auto) Neut # (Auto) Lymph # (Auto) [place] # (Auto) Eos # (Auto) Baso # (Auto) Immature Gran # (Auto) PT INR APTT PTT Ratio Sodium Potassium Chloride Carbon Dioxide Anion Gap BUN Creatinine Est Cr Clr Drug Dosing Est GFR ( Amer) Est GFR (Non-Af Amer) BUN/Creatinine Ratio Glucose Osmolality 269 L Calcium Phosphorus Magnesium Total Bilirubin AST ALT Alkaline Phosphatase Troponin I High Sens Total Protein Albumin Globulin Albumin/Globulin Ratio TSH Free T4 Urine Osmolality Pending Ur Random Sodium 64 SARS-CoV-2, RNA, NAAT Medications Administered Current Inpatient Medications Acetaminophen (Acetaminophen 325 Mg Tab) 650 mg PO Q4H PRN PRN Reason: Pain or Fever Stop: 06/08/22 20:21 Aspirin (Aspirin 81 Mg Ectab) 81 mg PO HS SHILOH Stop: 06/09/22 00:17 Last Admin: 05/10/22 01:31 Dose: 81 mg Atorvastatin Calcium (Atorvastatin 40 Mg Tab) 40 mg PO QAM SHILOH Stop: 06/09/22 08:59 Last Admin: 05/10/22 07:45 Dose: 40 mg Cyanocobalamin (Cyanocobalamin (B-12) 500 Mcg Tablet) 1,000 mcg PO DAILY SHILOH Stop: 06/09/22 08:59 Last Admin: 05/10/22 07:45 Dose: 1,000 mcg Enoxaparin Sodium (Enoxaparin Inj 40 Mg/0.4 Ml Syr) 40 mg SQ Q24H SHILOH Stop: 06/09/22 08:59 Last Admin: 05/10/22 07:52 Dose: 40 mg Fenofibrate (Fenofibrate Nanocrystallized 145 Mg Tablet) 145 mg PO DAILY SHILOH Stop: 06/09/22 08:59 Last Admin: 05/10/22 07:45 Dose: 145 mg Levothyroxine Sodium (Levothyroxine Sodium 137 Mcg Tablet) 137 mcg PO DAILYBB SHILOH Stop: 06/09/22 06:29 Last Admin: 05/10/22 06:45 Dose: 137 mcg Magnesium Oxide (Magnesium Oxide 400 Mg Tab) 400 mg PO DAILY SHILOH Stop: 06/09/22 08:59 Last Admin: 05/10/22 07:46 Dose: 400 mg Miscellaneous (Olopatadine 0.2 % Op: Order Awaiting Action) 1 each N/A QS [facility] Stop: 06/09/22 07:59 Last Admin: 05/10/22 07:47 Dose: Not Given Multivitamins/Minerals (Calcium 600mg + Vit D 400 Iu Tab) 1 tab PO QAM SHILOH Stop: 06/09/22 08:59 Last Admin: 05/10/22 07:45 Dose: 1 tab Nitroglycerin (Nitroglycerin Sl 0.4 Mg/Tab Tab) 0.4 mg SL UD PRN PRN Reason: Chest Pain Stop: 06/08/22 20:21 Vitamin D (Cholecalciferol 1,000 Units 25 Mcg Tab) 1,000 units PO DAILY SHILOH Stop: 06/09/22 08:59 Last Admin: 05/10/22 07:45 Dose: 1,000 units
--- NOTE | 2022-05-10 13:03 | Electrocardiogram Report ---
Test Reason : Blood Pressure : / mmHG Vent. Rate : 084 BPM Atrial Rate : 084 BPM P-R Int : 200 ms QRS Dur : 086 ms QT Int : 308 ms P-R-T Axes : 075 030 079 degrees QTc Int : 363 ms Normal sinus rhythm with 1st degree AV block Abnormal ECG When compared with ECG of 08-APR-2021 04:30, Premature ventricular complexes are no longer Present Confirmed by Denver Prajapati ([id number]) on 05/10/2022 1:03:27 PM Referred By: Saturnino Keene Confirmed By:Lorenzo Prajapati
--- NOTE | 2022-05-10 13:05 | Electrocardiogram Report ---
Test Reason : Blood Pressure : / mmHG Vent. Rate : 063 BPM Atrial Rate : 063 BPM P-R Int : 216 ms QRS Dur : 090 ms QT Int : 376 ms P-R-T Axes : 047 -08 086 degrees QTc Int : 384 ms Sinus rhythm with marked sinus arrhythmia with 1st degree A-V block Nonspecific ST abnormality Abnormal ECG Confirmed by Denver Prajapati ([id number]) on 05/10/2022 1:04:46 PM Referred By: Saturnino Keene Confirmed By:Lorenzo Prajapati
--- NOTE | 2022-05-10 15:22 | Hospitalist Progress Note ---
Date of Service May 10, 2022 Assessment & Plan (1) Substernal chest pain: Plan: Not associated with exertion, described as pressure, no LOC, shortness of breath, n/v Mildly elevated troponin ECG without ischemic changes Chest pain is atypical Discussed with Warp Trucker. Get TTE (2) Dizziness: Plan: This is chronic Denied vertigo PCP has adjusted BP meds outpatient Continue to hold antihypertensive for now Orthostatics VS today - Supine 150/71, 71; Sitting 160/66, 79; Standing 145/69, 81 Hyponatremia may be contributing to this (3) Hypothyroidism: Plan: Recent medication adjustment about 1 week ago Reports cold intolerance for past several months which prompted investigation and reportedly abnormal TSH causing increase in dose TSH 4.532 (Better than one from 1 year ago which was 11) Since med was adjusted recently. PCP can repeat thyroid function test in 6-8 weeks from adjustment Continue home dose (4) Hyponatremia: Plan: Serum osmolality 269 Uosm 390 Eda 64 Hypotonic hyponatremia Likely due excessive fluid intake and low solute diet Counseled regarding diet Fluid restriction Stop IVF Monitor Na (5) Hypertension: Plan: Takes lisinopril 5mg and hydralazine at home reportedly Hold for now and monitor (6) Anxiety: Plan: Continue home lexapro Plan DVT ppx: Lovenox Code Status: Full Code Dispo: tele Admission and Anticipated Discharge Date Admission Date: May 09, 2022 Subjective Patient seen and examined Reported substernal chest pressure on presentation. None now Reports chronic dizziness that worsened over the past few days with her chest pressure Reports chronic exertional dyspnea. Denied cough, orthopnea, PND, leg swelling Denied fevers, chills, nausea, vomiting, abd pain Reports poor appetite Denied dysuria, hematuria, urgency. Reports chronic freq and reported she drinks a good amount of water. Physical Exam Constitutional: + well hydrated; no acute distress Eyes: PERRL, conjunctivae normal, anicteric sclerae ENMT: external ear and nose normal, oropharynx normal Respiratory: normal respiratory effort, lungs clear to auscultation Cardiovascular: Rate/Rhythm: regular rate and regular rhythm S1 S2 Gastrointestinal (Abdomen): normal bowel sounds, soft, nontender, no hepatosplenomegaly Musculoskeletal: no cyanosis or clubbing, extremities motor strength 5/5 Neurologic: PERRL, EOMI, accommodation nl, no face palsy, no dysarthria Psychiatric: A+Ox3, euthymic affect Results & Data Results & Data ([facility]) Vital Signs (Past 12 Hours) Vital Signs Temp Pulse Pulse Resp BP Pulse Ox O2 Del Method 05/10/22 11:50 36.6 C 66 18 127/72 95 Room Air 05/10/22 07:34 37.7 C H 77 143/70 H 91 Room Air 05/10/22 07:24 67 05/10/22 03:48 37 C 75 16 157/69 H 93 Room Air Laboratory Results Abnormal lab results 05/09/22 05/09/22 05/09/22 Range/Units 17:10 17:10 17:10 MPV 9.2 L (9.4-12.3) fL Lymph # (Auto) 0.84 L (1.2-3.4) K/uL Immature Gran # (Auto) 0.04 H (0.00-0.02) K/uL APTT 34.2 H (21.0-31.0) Seconds Sodium 127 L (136-145) mmol/L Chloride 94 L (98-107) mmol/L BUN/Creatinine Ratio 20.7 H (10-20) Osmolality (280-300) mOsm/kg Calcium (8.5-10.1) mg/dl Magnesium (1.7-2.4) mg/dl Alkaline Phosphatase (34-104) U/L Troponin I High Sens 20.2 H (0-14) pg/ml Total Protein (6.0-8.3) gm/dl Albumin (3.4-5.0) gm/dl TSH (0.300-4.500) uIu/ml Urine Osmolality (500-800) mOsm/kg 05/09/22 05/09/22 05/10/22 Range/Units 17:10 21:18 02:08 MPV 8.9 L (9.4-12.3) fL Lymph # (Auto) 0.85 L (1.2-3.4) K/uL Immature Gran # (Auto) (0.00-0.02) K/uL APTT (21.0-31.0) Seconds Sodium (136-145) mmol/L Chloride (98-107) mmol/L BUN/Creatinine Ratio (10-20) Osmolality (280-300) mOsm/kg Calcium (8.5-10.1) mg/dl Magnesium (1.7-2.4) mg/dl Alkaline Phosphatase (34-104) U/L Troponin I High Sens 36.6 H D (0-14) pg/ml Total Protein (6.0-8.3) gm/dl Albumin (3.4-5.0) gm/dl TSH 4.532 H (0.300-4.500) uIu/ml Urine Osmolality (500-800) mOsm/kg 05/10/22 05/10/22 05/10/22 Range/Units 02:08 02:08 08:17 MPV (9.4-12.3) fL Lymph # (Auto) (1.2-3.4) K/uL Immature Gran # (Auto) (0.00-0.02) K/uL APTT (21.0-31.0) Seconds Sodium 129 L (136-145) mmol/L Chloride 96 L (98-107) mmol/L BUN/Creatinine Ratio 20.5 H (10-20) Osmolality 269 L (280-300) mOsm/kg Calcium 8.4 L (8.5-10.1) mg/dl Magnesium 1.6 L (1.7-2.4) mg/dl Alkaline Phosphatase 29 L (34-104) U/L Troponin I High Sens 33.9 H (0-14) pg/ml Total Protein 5.8 L (6.0-8.3) gm/dl Albumin 3.1 L (3.4-5.0) gm/dl TSH (0.300-4.500) uIu/ml Urine Osmolality (500-800) mOsm/kg 05/10/22 Range/Units Unknown MPV (9.4-12.3) fL Lymph # (Auto) (1.2-3.4) K/uL Immature Gran # (Auto) (0.00-0.02) K/uL APTT (21.0-31.0) Seconds Sodium (136-145) mmol/L Chloride (98-107) mmol/L BUN/Creatinine Ratio (10-20) Osmolality (280-300) mOsm/kg Calcium (8.5-10.1) mg/dl Magnesium (1.7-2.4) mg/dl Alkaline Phosphatase (34-104) U/L Troponin I High Sens (0-14) pg/ml Total Protein (6.0-8.3) gm/dl Albumin (3.4-5.0) gm/dl TSH (0.300-4.500) uIu/ml Urine Osmolality 390 L (500-800) mOsm/kg
[2022-05-11] MEDS: LEVOTHYROXINE SODIUM 137 MCG TABLET PO SCH (05:30)
[2022-05-11] MEDS: ESCITALOPRAM OXALATE 10 MG TAB PO SCH (07:34)
[2022-05-11] MEDS: CYANOCOBALAMIN (B-12) 500 MCG TABLET PO SCH (07:34)
[2022-05-11] MEDS: CHOLECALCIFEROL 1,000 UNITS 25 MCG TAB PO SCH (07:34)
[2022-05-11] MEDS: CALCIUM 600MG + VIT D 400 IU TAB PO SCH (07:35)
[2022-05-11] MEDS: ENOXAPARIN INJ 40 MG/0.4 ML SYR SQ SCH (07:35)
[2022-05-11] MEDS: MAGNESIUM OXIDE 400 MG TAB PO SCH ×2 (07:35→19:59)
[2022-05-11 07:52] LABS: Hematocrit (blood only) 33.7 % (34.1-44.9); Hemoglobin 11.2 g/dl (12.0-16.0); Mean Corpuscular Hemoglobin 28.4 pg (25.0-34.0); Mean Corpuscular Hgb Conc 33.2 g/dL (32.0-36.0); Mean Corpuscular Volume 85.5 fL (80.0-100.0); Mean Platelet Volume 9.2 fL (9.4-12.3); Platelet Count 224 K/uL (130-400); RDW Coefficient of Variation 12.9 % (11.5-14.5); Red Blood Count 3.94 M/uL (3.93-5.22); White Blood Count 5.81 K/ul (4.8-10.8)
[2022-05-11 08:23] LABS: BUN Creatinine Ratio 18.6 (10-20); Calcium 8.1 mg/dl (8.5-10.1); Creatinine Clr Calc Pharmacy 50.9 ml/min; Est GFR (African American) 91.6 ml/min; Potassium 4.1 mmol/L (3.5-5.1)
[2022-05-11] MEDS: FENOFIBRATE NANOCRYSTALLIZED 145 MG TABLET PO SCH (08:35)
[2022-05-11] MEDS: ATORVASTATIN 40 MG TAB PO SCH (08:35)
[2022-05-11] MEDS ORDERED: lisinopril 5 MG TAB PO SCH (09:00)
[2022-05-11 09:02] LABS: Magnesium 1.5 mg/dl (1.7-2.4); Phosphorus 2.6 mg/dl (2.5-4.9)
--- NOTE | 2022-05-11 10:00 | Hospitalist Progress Note ---
Date of Service May 11, 2022 Assessment & Plan (1) Substernal chest pain: Plan: Not associated with exertion, described as pressure, no LOC, shortness of breath, n/v Mildly elevated troponin ECG without ischemic changes Chest pain is atypical Discussed with French Folder. Get TTE (2) Dizziness: Plan: This is chronic Denied vertigo PCP had adjusted BP meds outpatient BP meds had been on hold. May be beneficial to allow BP to trend a bit higher than normal considering age Continue to hold hydralazine Resume home lisinopril and change to HS since patient reported her dizziness gets worse usually after taking her AM lisinopril and hydralazine Hyponatremia may be contributing to this as well (3) Hypothyroidism: Plan: Recent medication adjustment about 1 week ago Reports cold intolerance for past several months which prompted investigation and reportedly abnormal TSH causing increase in dose TSH 4.532 (Better than one from 1 year ago which was 11) Since med was adjusted recently. 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 He recommends continuing fluid restriction and add salt tabs while inpatient Fluid restriction 1200cc/day NaCl 1g bid Monitor Na Hypomagnesemia. Replete and monitor (5) Hypertension: Plan: Takes lisinopril 5mg and hydralazine at home reportedly Had been on hold Resume lisinopril and change to HS dosing (6) Anxiety: Plan: Continue home lexapro Plan DVT ppx: Lovenox Code Status: Full Code Dispo: tele Called and updated Admission and Anticipated Discharge Date Admission Date: May 09, 2022 Subjective Patient seen and examined Reports chest pain is resolved Reports chronic dizziness is mildly improved Denied cough, orthopnea, PND, leg swelling Denied fevers, chills, nausea, vomiting, abd pain Reports poor appetite Denied dysuria, hematuria, urgency. Physical Exam Constitutional: + well hydrated; no acute distress Eyes: PERRL, conjunctivae normal, anicteric sclerae ENMT: external ear and nose normal, oropharynx normal Respiratory: normal respiratory effort, lungs clear to auscultation Cardiovascular: Rate/Rhythm: regular rate and regular rhythm S1 S2 Gastrointestinal (Abdomen): normal bowel sounds, soft, nontender, no hepatosplenomegaly Musculoskeletal: no cyanosis or clubbing, extremities motor strength 5/5 Neurologic: PERRL, EOMI, accommodation nl, no face palsy, no dysarthria Psychiatric: A+Ox3, euthymic affect Results & Data Results & Data ([facility]) Vital Signs (Past 12 Hours) Vital Signs Temp Pulse Pulse Resp BP Pulse Ox O2 Del Method 05/11/22 08:53 65 05/11/22 07:25 36.4 C L 83 16 159/73 H 93 Room Air 05/11/22 03:49 36.6 C 69 16 153/68 H 93 Room Air 05/11/22 01:41 66 05/10/22 23:32 37 C 66 18 135/67 92 Room Air Laboratory Results Abnormal lab results 05/10/22 05/10/22 05/11/22 Range/Units 21:03 Unknown 07:11 Hgb 11.2 L (12.0-16.0) g/dl Hct 33.7 L (34.1-44.9) % MPV 9.2 L (9.4-12.3) fL Sodium 126 L (136-145) mmol/L Chloride (98-107) mmol/L Calcium (8.5-10.1) mg/dl Magnesium (1.7-2.4) mg/dl Urine Osmolality 390 L (500-800) mOsm/kg 05/11/22 05/11/22 Range/Units 07:11 07:11 Hgb (12.0-16.0) g/dl Hct (34.1-44.9) % MPV (9.4-12.3) fL Sodium 127 L (136-145) mmol/L Chloride 96 L (98-107) mmol/L Calcium 8.1 L (8.5-10.1) mg/dl Magnesium 1.5 L (1.7-2.4) mg/dl Urine Osmolality (500-800) mOsm/kg
[2022-05-11] MEDS ORDERED: MAGNESIUM SULFATE / D5W 1 GM/100 ML BAG IV ONE (10:05)
[2022-05-11] MEDS: SODIUM CHLORIDE 1 GM TABLET PO SCH ×2 (11:57→19:59)
[2022-05-11] MEDS: ASPIRIN 81 MG ECTAB PO SCH (19:58)
[2022-05-11] MEDS: lisinopril 5 MG TAB PO SCH (20:00)
[2022-05-12] MEDS: LEVOTHYROXINE SODIUM 137 MCG TABLET PO SCH (05:31)
--- NOTE | 2022-05-12 06:48 | XRay Report ---
XR chest 1V portable CLINICAL HISTORY: Fever. COMPARISON STUDY: Chest radiograph May 09, 2022. FINDINGS: There is no pneumothorax. Suspected small bilateral pleural effusions. Left basilar opacity has developed. Cardiomegaly is unchanged. There is no evidence for overt pulmonary edema. IMPRESSION: 1. Increase in left basilar opacity. This could reflect pneumonia or atelectasis. Radiographic follow -up is recommended. 2. Small bilateral pleural effusions. 3. Cardiomegaly. ACT 112: Negative or not required by law. Electronically signed by: Rogelio Prescott M.D. 05/12/2022 6:46 AM
[2022-05-12 06:54] LABS: Hematocrit (blood only) 34.2 % (34.1-44.9); Hemoglobin 11.5 g/dl (12.0-16.0); Mean Corpuscular Hemoglobin 28.8 pg (25.0-34.0); Mean Corpuscular Hgb Conc 33.6 g/dL (32.0-36.0); Mean Corpuscular Volume 85.7 fL (80.0-100.0); Mean Platelet Volume 9.2 fL (9.4-12.3); Platelet Count 232 K/uL (130-400); RDW Coefficient of Variation 12.9 % (11.5-14.5); RDW Standard Deviation 40.4 fL (36.4-46.3); Red Blood Count 3.99 M/uL (3.93-5.22); White Blood Count 6.13 K/ul (4.8-10.8)
[2022-05-12 07:16] LABS: BUN Creatinine Ratio 17.1 (10-20); Calcium 8.1 mg/dl (8.5-10.1); Creatinine Clr Calc Pharmacy 51.1 ml/min; Est GFR (African American) 91.6 ml/min; Potassium 3.9 mmol/L (3.5-5.1)
[2022-05-12 07:51] LABS: Appearance Urine Clear (Clear); Bacteria Urine Automated Negative (Negative); Bilirubin Urine Negative (Negative); Blood Urine Trace (Negative); Cast Urine Automated 0 /lpf (0-5); Color Urine Yellow; Epithelial Cell Urine Auto 20-30 /lpf (0-5); Glucose Urine UA Negative (Negative); Ketones Urine Negative (Negative); Leukocyte Esterase Urine 2+ (Negative); Nitrite Urine Negative (Negative); Protein Urine Negative (Negative); RBC Urine Automated 0-4 /hpf (0-4); Specific Gravity Urine 1.011 (1.000-1.030); Urobilinogen Urine Negative (Negative)
[2022-05-12] MEDS: ENOXAPARIN INJ 40 MG/0.4 ML SYR SQ SCH (08:06)
[2022-05-12] MEDS: FENOFIBRATE NANOCRYSTALLIZED 145 MG TABLET PO SCH (08:06)
[2022-05-12] MEDS: CHOLECALCIFEROL 1,000 UNITS 25 MCG TAB PO SCH (08:06)
[2022-05-12] MEDS: SODIUM CHLORIDE 1 GM TABLET PO SCH ×2 (08:06→20:04)
[2022-05-12] MEDS: ATORVASTATIN 40 MG TAB PO SCH (08:06)
[2022-05-12] MEDS: MAGNESIUM OXIDE 400 MG TAB PO SCH ×2 (08:06→20:04)
[2022-05-12] MEDS: CYANOCOBALAMIN (B-12) 500 MCG TABLET PO SCH (08:06)
[2022-05-12] MEDS: CALCIUM 600MG + VIT D 400 IU TAB PO SCH (08:06)
[2022-05-12] MEDS: ESCITALOPRAM OXALATE 10 MG TAB PO SCH (08:07)
[2022-05-12] MEDS: CEFDINIR 300 MG CAP PO SCH ×2 (10:34→20:05)
--- NOTE | 2022-05-12 11:45 | Hospitalist Progress Note ---
Date of Service May 12, 2022 Assessment & Plan (1) Substernal chest pain: Plan: Not associated with exertion, described as pressure, no LOC, shortness of breath, n/v Mildly elevated troponin ECG without ischemic changes Chest pain is atypical Cardiology eval noted. TTE showed mod conc LVH, LA mildly dilated, EF 60-65% (2) Dizziness: Plan: This is chronic Denied vertigo PCP had adjusted BP meds outpatient BP meds had been on hold. 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 He recommends continuing fluid restriction and add salt tabs while inpatient Continue fluid restriction 1200cc/day Continue NaCl 1g bid Monitor Na Encourage po intake Hypomagnesemia. Continue to replete and monitor (4) Fever: Plan: Fever last night UA suggestive of possible UTI Though patient denies urinary symptoms, will start cefdinir while awaiting urine culture sent No leukocytosis. No resp symptoms. Neg CXR Get tick borne labs Follow up cultures (5) Hypothyroidism: Plan: Recent medication adjustment about 1 week ago Reports cold intolerance for past several months which prompted investigation and reportedly abnormal TSH causing increase in dose TSH 4.532 (Better than one from 1 year ago which was 11) Since med was adjusted recently. PCP can repeat thyroid function test in 6-8 weeks from adjustment Continue home dose (6) Hypertension: Plan: Takes lisinopril 5mg and hydralazine at home reportedly Had been on hold Continue lisinopril home dose now changed to HS dosing (7) Anxiety: Plan: Continue home lexapro Plan DVT ppx: Lovenox Code Status: Full Code Dispo: tele Will keep till tomorrow to aid management of hyponatremia, follow up work up for fever. Admission and Anticipated Discharge Date Admission Date: May 09, 2022 Subjective Patient seen and examined Reported fever and diaphoresis overnight. Temp at the time was 38.6. UA done then showed +leuk esterase, 10-30WBC Patient denied dysuria, freq, urgency, hematuria Denied chills, nausea, vomiting, abd pain, diarrhea Reports chronic dizziness is improved Denied cough, orthopnea, PND, leg swelling Reports appetite is improved Physical Exam Constitutional: + well hydrated; no acute distress Eyes: PERRL, conjunctivae normal, anicteric sclerae ENMT: external ear and nose normal, oropharynx normal Respiratory: normal respiratory effort, lungs clear to auscultation Cardiovascular: Rate/Rhythm: regular rate and regular rhythm S1 S2 Gastrointestinal (Abdomen): normal bowel sounds, soft, nontender, no hepatosplenomegaly Musculoskeletal: no cyanosis or clubbing, extremities motor strength 5/5 Neurologic: PERRL, EOMI, accommodation nl, no face palsy, no dysarthria Psychiatric: A+Ox3, euthymic affect Genitourinary: No CVA tenderness Results & Data Results & Data ([facility]) Vital Signs (Past 12 Hours) Vital Signs Temp Pulse Pulse Pulse Resp BP BP 05/12/22 11:31 36.9 C 75 18 151/66 H 05/12/22 08:00 05/12/22 07:36 58 L 05/12/22 07:33 36.7 C 63 18 144/70 H 05/12/22 03:40 37 C 54 L 16 122/74 05/12/22 01:56 57 L Pulse Ox O2 Del Method 05/12/22 11:31 96 Room Air 05/12/22 08:00 Room Air 05/12/22 07:36 05/12/22 07:33 97 Room Air 05/12/22 03:40 96 Room Air 05/12/22 01:56 Laboratory Results Abnormal lab results 05/11/22 05/11/22 05/12/22 Range/Units 12:41 21:05 06:01 Hgb 11.5 L (12.0-16.0) g/dl MPV 9.2 L (9.4-12.3) fL Sodium 128 L 126 L (136-145) mmol/L Chloride (98-107) mmol/L Calcium (8.5-10.1) mg/dl Magnesium (1.7-2.4) mg/dl Urine Blood (Negative) Ur Leukocyte Esterase (Negative) Urine WBC (Auto) (0-5) /hpf U Epithel Cells (Auto) (0-5) /lpf 05/12/22 05/12/22 05/12/22 Range/Units 06:01 06:01 07:31 Hgb (12.0-16.0) g/dl MPV (9.4-12.3) fL Sodium 128 L (136-145) mmol/L Chloride 96 L (98-107) mmol/L Calcium 8.1 L (8.5-10.1) mg/dl Magnesium 1.6 L (1.7-2.4) mg/dl Urine Blood Trace H (Negative) Ur Leukocyte Esterase 2+ H (Negative) Urine WBC (Auto) 10-30 H (0-5) /hpf U Epithel Cells (Auto) 20-30 H (0-5) /lpf
[2022-05-12 13:24] LABS: Lyme Ab IgG w/WB Rflx Negative (Negative); Lyme Ab IgM w/WB Rflx Negative (Negative)
[2022-05-12] MEDS ORDERED: ANUSOL SUPP 1 EA PR PRN (18:11)
[2022-05-12] MEDS: lisinopril 5 MG TAB PO SCH (20:04)
[2022-05-12] MEDS: ASPIRIN 81 MG ECTAB PO SCH (20:04)
[2022-05-13] MEDS: LEVOTHYROXINE SODIUM 137 MCG TABLET PO SCH (05:31)
[2022-05-13 06:26] LABS: Hematocrit (blood only) 31.7 % (34.1-44.9); Hemoglobin 10.7 g/dl (12.0-16.0); Mean Corpuscular Hemoglobin 28.5 pg (25.0-34.0); Mean Corpuscular Hgb Conc 33.8 g/dL (32.0-36.0); Mean Corpuscular Volume 84.5 fL (80.0-100.0); Mean Platelet Volume 9.3 fL (9.4-12.3); Platelet Count 254 K/uL (130-400); RDW Standard Deviation 39.8 fL (36.4-46.3); Red Blood Count 3.75 M/uL (3.93-5.22); White Blood Count 5.09 K/ul (4.8-10.8)
[2022-05-13 06:54] LABS: BUN Creatinine Ratio 17.1 (10-20); Calcium 8.3 mg/dl (8.5-10.1); Creatinine Clr Calc Pharmacy 50.5 ml/min; Est GFR (African American) 91.6 ml/min; Magnesium 1.5 mg/dl (1.7-2.4); Phosphorus 3.1 mg/dl (2.5-4.9); Potassium 4.5 mmol/L (3.5-5.1)
[2022-05-13] MEDS ORDERED: MAGNESIUM SULFATE / D5W 1 GM/100 ML BAG IV ONE (08:49)
[2022-05-13] MEDS: CALCIUM 600MG + VIT D 400 IU TAB PO SCH (09:25)
[2022-05-13] MEDS: CYANOCOBALAMIN (B-12) 500 MCG TABLET PO SCH (09:25)
[2022-05-13] MEDS: ATORVASTATIN 40 MG TAB PO SCH (09:26)
[2022-05-13] MEDS: CEFDINIR 300 MG CAP PO SCH (09:26)
[2022-05-13] MEDS: FENOFIBRATE NANOCRYSTALLIZED 145 MG TABLET PO SCH (09:26)
[2022-05-13] MEDS: CHOLECALCIFEROL 1,000 UNITS 25 MCG TAB PO SCH (09:26)
[2022-05-13] MEDS: MAGNESIUM OXIDE 400 MG TAB PO SCH (09:27)
[2022-05-13] MEDS: SODIUM CHLORIDE 1 GM TABLET PO SCH (09:27)
[2022-05-13] MEDS: ESCITALOPRAM OXALATE 10 MG TAB PO SCH (09:27)
[2022-05-13] MEDS: ENOXAPARIN INJ 40 MG/0.4 ML SYR SQ SCH (09:27)
--- NOTE | 2022-05-13 11:29 | Discharge Summary ---
Date of Service May 13, 2022 Admission HPI Per Admitting Provider The patient is an 86 year old woman with pmh anxiety, HTN, hypothyroidism who presents with 1 day of chest discomfort and several months of dizziness and feeling light headed on standing. She reports that over the past several months, she has had issues of feeling dizzy almost constantly, but esepecially on standing from lying/sitting and prolonged standing. She does not describe the dizziness as the room spinning but more light headed. During these times she inconsistently feels chest discomfort. Denies n/v, LOC, cough, shortness of breath. She reports loss of appetite over the last several months as well and says that food just does not taste good. She has tried reducing her blood pressure medications in conjunction with her PCP with minimal improvement. She reports having an abnormal TSH recently and there were recent adjustments to her levothyroxine about 1 week ago. She also reports cold intolerance over this period. In regards to the chest pain, she reports chest heaviness. It is not associated with exertion and comes and goes spontaneously. She denies shortness of breath, n/v with these episodes. She is usually dizzy throughout the day and so it is difficult to determine if these are related as she was having dizziness prior to her chest discomfort complaints by several months. Denies personal history of TX or CVA. Denies history of tobacco use, alcohol use, drug use. In the ED, vitals were stable. Labs were significant for Na 127, Cl 94, trop 20. ECG without ischemic changes. CXR unremarkable. She was given aspirin and admitted to medicine. Admission Exam Per Admitting Provider Constitutional: WD/WN, vitals as above well developed and well nourished; no acute distress and not ill appearing Eyes: PERRL, conjunctivae normal, anicteric sclerae ENMT: external ear and nose normal, oropharynx normal Neck: trachea midline, no thyromegaly Respiratory: normal respiratory effort, lungs clear to auscultation Cardiovascular: RRR, no murmur, no edema orthostatics performed at bedside with HR from 74-->85, BP from 132/80s -->121/80s. Gastrointestinal (Abdomen): normal bowel sounds, soft, nontender, no hepatosplenomegaly Musculoskeletal: no cyanosis or clubbing, extremities motor strength 5/5 Skin: no rashes, warm and dry Neurologic: patellar DTR's 2+ bilat, sensation intact and PERRL, EOMI, accommodation nl, no face palsy, no dysarthria Psychiatric: A+Ox3, euthymic affect Principal Diagnosis Chest pain Hyponatremia Dizziness Discharge Exam Constitutional + well hydrated; no acute distress Eyes PERRL, conjunctivae normal, anicteric sclerae ENMT external ear and nose normal, oropharynx normal Respiratory normal respiratory effort, lungs clear to auscultation Cardiovascular Rate/Rhythm: regular rate and regular rhythm S1 S2 Gastrointestinal (Abdomen) normal bowel sounds, soft, nontender, no hepatosplenomegaly Musculoskeletal no cyanosis or clubbing, extremities motor strength 5/5 Neurologic PERRL, EOMI, accommodation nl, no face palsy, no dysarthria Psychiatric A+Ox3, euthymic affect Discharge Data Allergies Allergy/AdvReac Type Severity Reaction Status Date / Time oxycodone Allergy Unknown UKN Verified 04/06/21 21:05 simvastatin Allergy Unknown UKN Verified 04/06/21 21:05 rosuvastatin AdvReac Unknown upset Verified 04/06/21 21:05 stomach Consultations 05/10/22 07:57 Consult Cardiology Routine Ordered Studies 05/09/22 20:[address] [CT head/brain wo con] Stat The ventricles, basal cisterns, and cerebral sulci are normal. There is no acute intracranial hemorrhage or evidence of acute territorial infarction. Neither mass effect, shift of the midline structures, nor abnormal extra-axial fluid collections are shown. Imaged portions of the paranasal sinuses and mastoid air cells are clear. The orbits appear normal. There are no acute fractures of the calvaria or scalp swelling. Impression: No acute intracranial hemorrhage, no evidence of acute territorial infarction or other acute intracranial disease process. Hospital Course (1) Substernal chest pain: Not associated with exertion, described as pressure, no LOC, shortness of breath, n/v Mildly elevated troponin ECG without ischemic changes Chest pain is atypical Cardiology eval noted. TTE showed mod conc LVH, LA mildly dilated, EF 60-65% (2) Dizziness: This is chronic Denied vertigo PCP had adjusted BP meds outpatient Patient reported dizziness worsens after taking her AM meds including lisinopril and hydralazine It may be prudent to allow patient's BP ride at or slightly above normal considering age and comorbidities Hydralazine was discontinued Home lisinopril changed to HS Dizziness improved Patient educated on getting up slowly and avoid sudden changes in position Hyponatremia may be contributing to this as well (3) Hyponatremia: Serum osmolality 269 Uosm 390 Eda 64 Na was 127 on presentation Hypotonic hyponatremia 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 Hypomagnesemia. Repleted. Continue po mag at home PCP to check BMP and mag level on follow up (4) Fever: Fever 2 nights ago Infectious workup negative so far No more fever (5) Hypothyroidism: Recent medication adjustment about 1 week ago Reports cold intolerance for past several months which prompted investigation and reportedly abnormal TSH causing increase in dose TSH 4.532 (Better than one from 1 year ago which was 11) Since med was adjusted recently. PCP can repeat thyroid function test in 6-8 weeks from adjustment Continue home dose (6) Hypertension: Takes lisinopril 5mg and hydralazine at home reportedly Hydralazine discontinued above Patient advised to keep home BP log for PCP Continue lisinopril home dose now changed to HS dosing (7) Anxiety: Continue home lexapro Total Time Total Time Spent Total Time Spent (In Minutes): 40 Total Time Includes: Examination of the Patient, Discharge Planning and Medication Reconciliation Discharge Plan Discharge Items Patient Disposition: Home - Self-Care Reason For Visit: CHEST PAIN Discharge Diagnosis: Chest pain Hyponatremia Dizziness Activity: Resume your previous activity Non-emergency contact: Primary Care Provider Call non-emergency contact if: you have any medication questions and your symptoms worsen Follow-up/Referrals: Saturnino Keene DO [Primary Care Provider] - (Date & Time 05/19/2022 11:20 AM Provider Saturnino Keene DO Department Family [facility] [address], [facility] ) Diet: Heart Healthy Fluids: 1200ml (5 cups) Addtl Attending Provider Instructions: Mrs Andres. You came to the hospital complaining of chest pain and worsening dizziness. You were evaluated extensively. You were found to have low sodium level and low magnesium levels. You were also evaluated by Cardiology. Due to worsening dizziness after taking your blood pressure medicines, some changes were made as follows: - Your hydralazine was discontinued for now - Your lisinopril 5mg was changed to be taken at bedtime. Your dizziness improved and chest pain resolved. Please do not take more than 1200cc of fluids per day. You are being discharged home. Please continue to take your magnesium tablets Please ensure follow up with your Primary Doctor who will repeat lab tests (basic metabolic panel and magnesium levels) and adjust meds as needed. It was a pleasure taking care of you. Pending Studies at Discharge: Yes Stand-Alone Forms: My [facility], Smoking Cessation Medications and DC Order Prescriptions: Continued fenofibrate micronized 134 mg capsule 134 mg PO DAILY aspirin [Marciano Low Dose Aspirin] 81 mg Tablet,Delayed Release (Dr/Ec) 81 mg PO HS calcium carbonate [Calcium 600] 600 mg calcium (1,500 mg) Tablet 600 mg PO QAM cholecalciferol (vitamin D3) [Vitamin D3] 25 mcg (1,000 unit) Tablet 25 mcg PO DAILY omega 1-xkn-lae-fish oil [Fish Oil] 1,000 mg (120 mg-180 mg) Capsule 1 cap PO DAILY cyanocobalamin (vitamin B-12) [Vitamin B-12] 1,000 mcg Tablet 1,000 mcg PO DAILY Metamucil (sugar) Powder 1 ea PO DAILY Rx Instructions: mix 1 scoop in 8 oz of fluid and drink olopatadine 0.2 % Drops 1 drp OPHTHALMIC (EYE) HS levothyroxine 137 mcg tablet 137 mcg PO DAILYBB escitalopram oxalate 10 mg tablet 10 mg PO DAILY magnesium oxide 400 mg magnesium Tablet 400 mg PO DAILY Qty: 30 0RF Changed lisinopril [Zestril] 5 mg Tablet 5 mg PO HS Qty: 30 1RF Discontinued hydralazine 50 mg tablet 75 mg PO TID cephalexin 500 mg Capsule 500 mg PO Q12H Qty: 10 0RF Discharge Orders: Discharge Order (Routine); Ordered 05/13/22 Ordered By: Hien Baig Admission Data Admit Date/Time: 05/09/22 20:23 Attending Provider: Hien Baig I. Admit Provider: Blu Murcia Primary Care Provider: Saturnino Keene Other Providers: Jason Bolanos Other Interventions: Discharge Summary Assessment (RN) Last Done: 05/13/22 11:37
[2022-05-15 15:56] LABS: Babesia microti DNA Not Detected (Not Detected)
== END 2022-05-13 12:50 | disposition home or self-care (01) | DRG 313 ==
LOC: ED 16:18 → 2N 20:23

== ENCOUNTER 2022-08-02 06:05 | Inpatient (IN) ==
[2022-08-02] MEDS ORDERED: METOPROLOL TARTRATE 1 MG/ML VIAL IV PRN (06:40)
[2022-08-02 06:41] LABS: Basophils # (auto) 0.07 K/uL (0-0.2); Basophils % (auto) 0.6 %; Eosinophils # (auto) 0.09 K/uL (0-0.50); Eosinophils % (auto) 0.7 %; Hematocrit (blood only) 38.8 % (34.1-44.9); Hemoglobin 12.7 g/dl (12.0-16.0); Immature Granulocytes # (auto) 0.06 K/uL (0.00-0.02); Immature Granulocytes % (auto) 0.5 %; Lymphocytes # (auto) 1.66 K/uL (1.2-3.4); Lymphocytes % (auto) 13.4 %; Mean Corpuscular Hemoglobin 28.7 pg (25.0-34.0); Mean Corpuscular Hgb Conc 32.7 g/dL (32.0-36.0); Mean Corpuscular Volume 87.8 fL (80.0-100.0); Mean Platelet Volume 9.4 fL (9.4-12.3); Monocytes # (auto) 0.95 K/uL (0.24-0.82); Monocytes % (auto) 7.7 %; Neutrophils # (auto) 9.55 K/uL (1.4-6.5); Neutrophils % (auto) 77.1 %; Platelet Count 493 K/uL (130-400); RDW Coefficient of Variation 14.2 % (11.5-14.5); RDW Standard Deviation 45.6 fL (36.4-46.3); Red Blood Count 4.42 M/uL (3.93-5.22); White Blood Count 12.38 K/ul (4.8-10.8)
--- NOTE | 2022-08-02 06:48 | XRay Report ---
SINGLE VIEW CHEST CLINICAL HISTORY: Atypical chest pain. FINDINGS: An AP, portable, upright chest radiograph is compared to study dated 07/01/2022 and correla yamilka with chest CT dated 11/17/2012. The examination is degraded by portable technique and patient rota tion. A hiatal hernia is suspected and new from previous. The heart is enlarged noting atheroscleroti c calcification of the thoracic aorta. The pulmonary vasculature is noncongested. Chronic interstitia l thickening is similar to previous. There are small pleural effusions, right larger than left with d ependent consolidation. No pneumothorax is seen. The skeletal structures are osteopenic. The bony tho rax is grossly intact. Degenerative change is seen in the shoulders and spine. IMPRESSION: 1. Cardiomegaly without radiographic evidence of congestive failure. 2. A hiatal hernia is suspected and new from previous. 3. Right large left pleural effusions with dependent consolidation. This could represent atelectasis versus pneumonia/aspiration pneumonitis. Clinical correlation will be required and radiographic follo w-up to resolution is recommended. ACT 112: Negative or not required by law. Electronically signed by: Nuno Bennett M.D. 08/02/2022 6:45 AM
[2022-08-02] MEDS ORDERED: SODIUM CHLORIDE 0.9% 1000ML 250 ML IV ONE (06:53)
[2022-08-02 07:06] LABS: Troponin I High Sensitivity 25.2 pg/ml (0-14)
[2022-08-02 07:10] LABS: Albumin Level 3.3 gm/dl (3.4-5.0); Bilirubin,Total 0.4 mg/dl (0.2-1.0); Calcium 8.9 mg/dl (8.5-10.1); Creatinine Clr Calc Pharmacy 37.4 ml/min; Est GFR (African American) 59.5 ml/min; Est GFR (Non-African American) 51.3 ml/min; Globulin 3.4 gm/dl (2.5-4.0); Magnesium 1.6 mg/dl (1.7-2.4); Potassium 4.8 mmol/L (3.5-5.1); Total Protein 6.7 gm/dl (6.0-8.3)
[2022-08-02 07:15] LABS: Thyroid Stimulating Hormone 5.609 uIu/ml (0.300-4.500)
[2022-08-02 07:37] LABS: Partial Thromboplastin Ratio 0.8; Partial Thromboplastin Time 22.6 Seconds (21.0-31.0)
[2022-08-02 07:46] LABS: T4 Free Thyroxine 1.22 ng/dl (0.61-1.60)
[2022-08-02 07:49] LABS: Appearance Urine Clear (Clear); Bilirubin Urine Negative (Negative); Blood Urine Negative (Negative); Color Urine Yellow; Epithelial Cell Urine Auto 20-30 /lpf (0-5); Glucose Urine UA Negative (Negative); Ketones Urine Trace (Negative); Leukocyte Esterase Urine 1+ (Negative); Nitrite Urine Negative (Negative); Protein Urine Trace (Negative); Specific Gravity Urine 1.021 (1.000-1.030); Urobilinogen Urine Negative (Negative)
[2022-08-02] MEDS: MAGNESIUM SULFATE / D5W 1 GM/100 ML BAG IV SCH ×2 (07:49→09:11)
[2022-08-02 08:01] LABS: Bacteria Urine Automated 1+ (Negative); Cast Urine Automated 0 /lpf (0-5); RBC Urine Automated 0-4 /hpf (0-4)
[2022-08-02] MEDS ORDERED: Heparin IV Adult Wt-Based Low-Dose WITH Bolus Protocol IV STA (08:44)
[2022-08-02] MEDS ORDERED: SODIUM CHLORIDE 0.9% 1000ML 1,000 ML IV SCH (08:45)
[2022-08-02] MEDS ORDERED: HEPARIN SOD (PORCINE) 1000 UNIT/ML IV ONE ×2 (08:59→16:52)
[2022-08-02] MEDS: HEPARIN SODIUM/DEXTROSE 25,000 UNITS/500 ML BAG IV SCH (09:11)
[2022-08-02] MEDS ORDERED: DOXYCYCLINE HYCLATE 100 MG CAP PO STA (10:09)
[2022-08-02] MEDS ORDERED: cefTRIAXone SODIUM 1,000 MG in DEXTROSE 5% 50 ML IV SCH (10:15)
[2022-08-02 10:19] LABS: Influenza A virus by PCR Negative (Negative); Influenza B virus by PCR Negative (Negative)
[2022-08-02] MEDS ORDERED: NITROGLYCERIN SL 0.4 MG/TAB TAB SL PRN (10:27)
[2022-08-02] MEDS ORDERED: POLYETHYLENE (MIRALAX) 17 GM PACK PO PRN (10:27)
[2022-08-02] MEDS ORDERED: ACETAMINOPHEN 325 MG TAB PO PRN (10:27)
--- NOTE | 2022-08-02 10:29 | Electrocardiogram Report ---
Test Reason : Blood Pressure : / mmHG Vent. Rate : 124 BPM Atrial Rate : 357 BPM P-R Int : 000 ms QRS Dur : 080 ms QT Int : 320 ms P-R-T Axes : 000 -12 230 degrees QTc Int : 459 ms Atrial fibrillation with rapid ventricular response Nonspecific T wave abnormality Abnormal ECG When compared with ECG of 01-JUL-2022 08:26, Atrial fibrillation has replaced Sinus rhythm Vent. rate has increased BY 65 BPM Confirmed by Denver Prajapati ([id number]) on 08/02/2022 10:29:11 AM Referred By: REFERRED SELF Confirmed By:Lorenzo Prajapati
--- NOTE | 2022-08-02 11:37 | Emergency Department Note ---
Impression & Plan Atrial fibrillation with rapid ventricular response ED Provider Note CHIEF COMPLAINT: Chest discomfort, rapid heartbeat HISTORY OF PRESENT ILLNESS: This 86-year-old female patient presents to the emergency department with complaints of chest heaviness and a rapid heartbeat. Patient states she woke up at about 1 AM feeling uncomfortable in the left side of the chest. Patient states she was diaphoretic and took 2 Tylenol, tramadol for COVID. She did not call her about the situation until 4 AM. Present states she was "soaked" from sweat. called the ambulance. Patient noted to be in rapid atrial fibrillation upon their arrival. Patient did become nauseated but did not vomit. Has been seen to improve nasal cannula oxygen. Patient denies any recent illness, vomiting or diarrhea. She denies a history of atrial fibrillation and coronary artery disease. She has had a history of stroke in the past. REVIEW OF SYSTEMS: A review of systems was performed with positives and pertinent negatives listed in the history of present illness. 10 systems were reviewed and are otherwise negative. ALLERGIES: see below MEDICATIONS: see below PMH: see below SOCIAL HISTORY: see below DDx: Premature contractions, electrolyte abnormality, cardiac dysrhythmia, thyr oid dysfunction, pulmonary embolism, infection, gastrointestinal, as well as other pathologies. PHYSICAL EXAM: Vital signs reviewed. General: Well-appearing 86 yo female, in no significant distress. HEENT: No scleral icterus, PERRLA, neck supple. MMM Cardiovascular: Irregular tachycardic Pulmonary: Clear to auscultation bilaterally, normal work of breathing. Abdomen: Soft, nontender, nondistended, positive bowel sounds. Musculoskeletal: Atraumatic, no peripheral edema. Neurologic: Patient awake alert and oriented x 3. Skin: Warm, dry, no rash EMERGENCY DEPARTMENT COURSE/MDM: This patient was evaluated. No significant distress. IV access was obtained and laboratory work was drawn. Patient was placed on school bus monitor and noted to be in a rapid atrial fibrillation. Initial systolic blood pressure was mildly low around 99, therefore a 250 cc bolus of normal saline solution was given. 5 mg of IV metoprolol were administered for rate control, with good results. Patient did require IV magnesium repletion for a serum magnesium level of 1.6. Heparin drip was ordered. Patient's case was discussed with hospitalist service will evaluate the patient for admission and further management. Patient and family were made aware of plan and agreed. MONITORING: An order for cardiac monitoring was placed and the patient is noted to be in a rapid atrial fibrillation at 127 beats per minute. RADIOLOGY: See below EKG: Atrial fibrillation with RVR at 124 bpm. Nonspecific T wave abnormality, QTC is 459. When compared to previous dated July 01 2022, atrial fibrillation has replaced normal sinus rhythm. DISPOSITION: Admission I have personally spent 35 minutes of critical care time in the direct management of this patient. This was a life/limb threatening event. This 35 m inutes is in excess of all separately billable procedures. Past Med/Surg History Medical History Carotid artery stenosis, asymptomatic Diastolic dysfunction Hyperlipidemia Hypertension Hypothyroidism (11/15/12) Nonrheumatic mitral valve regurgitation Persistent left SVC (superior vena cava) Thoracic aortic aneurysm Thrombophlebitis History of extensive, requiring vein ablation, s/p previous anticoagulation treatment Surgical History History of cataract surgery History of hysterectomy History of repair of rotator cuff Family History Father Hypertension Stroke Mother Hypertension Social History Smoking Status: Never smoker Hx Alcohol Use: Yes Alcohol type: wine Hx Substance Use: No Preferred Language: Greek Communication Ability: Effective Sales Order Administrator Required: No Beliefs That Will Affect Care: None marital status: Current Living Situation: Spouse How many Children do You have: 2 Other Information That Helps Us Care for You: No Feels Safe at Home: Yes Safety Concerns: Feels Safe At This Time Assistive Devices: None Allergies Allergies Allergy/AdvReac Type Severity Reaction Status Date / Time oxycodone Allergy Unknown UKN Verified 08/02/22 08:53 simvastatin Allergy Unknown UKN Verified 08/02/22 08:53 rosuvastatin AdvReac Unknown upset Verified 08/02/22 08:53 stomach Home Meds Home Medications Medication Instructions Recorded Confirmed aspirin 81 mg tablet,delayed 81 mg PO HS 03/13/21 08/02/22 release (Marciano Low Dose Aspirin) cholecalciferol (vitamin D3) 25 25 mcg PO DAILY 03/13/21 08/02/22 mcg (1,000 unit) tablet (Vitamin D3) cyanocobalamin (vitamin B-12) 1,000 mcg PO DAILY 03/13/21 08/02/22 1,000 mcg tablet (Vitamin B-12) psyllium seed (sugar) oral powder 1 ea PO DAILY 03/13/21 08/02/22 (Metamucil (sugar) oral powder) escitalopram oxalate 10 mg tablet 10 mg PO DAILY 04/06/21 08/02/22 levothyroxine 137 mcg tablet 137 mcg PO DAILYBB 04/06/21 08/02/22 hydroxyzine HCl 10 mg tablet 10 mg PO HS 07/01/22 08/02/22 fenofibrate micronized 67 mg 67 mg PO DAILY 08/02/22 08/02/22 capsule Previous Rx's Medication Instructions Recorded lisinopril 5 mg tablet (Zestril) 5 mg PO HS #30 tabs 05/13/22 magnesium oxide 400 mg PO DAILY #30 tabs 05/13/22 apixaban 5 mg tablet (Eliquis) 5 mg PO BID #60 tabs 08/05/22 Results & Data (ED) Vital Signs Vital Signs - 24 hr 08/02/22 05:59 08/02/22 06:07 08/02/22 06:14 Temperature 36.8 C Temperature Source Oral Pulse Rate 124 H 124 H Pulse Rate from SpO2 Sensor Pulse Rhythm Irregular Regular Pulse Strength Normal Respiratory Rate 20 20 Respiratory Effort / Characteristics Non-Labored Respiratory Depth Normal Respiratory Pattern Regular Blood Pressure 99/71 L Blood Pressure Mean 80 Pulse Oximetry 95 94 95 Oxygen Delivery Method Room Air Room Air Room Air Sepsis Recent Fever Within 48 Hours No Sepsis New/Unexplained Change in Mental Status N/A Sepsis Action Taken by Nursing No Action Required 08/02/22 06:16 08/02/22 06:22 08/02/22 06:30 Temperature Temperature Source Pulse Rate 127 H 138 H 124 H Pulse Rate from SpO2 Sensor 105 H 93 H 103 H Pulse Rhythm Pulse Strength Respiratory Rate 17 17 19 Respiratory Effort / Characteristics Respiratory Depth Respiratory Pattern Blood Pressure 99/71 L 94/79 L 103/79 Blood Pressure Mean 80 84 87 Pulse Oximetry 96 94 95 Oxygen Delivery Method Sepsis Recent Fever Within 48 Hours Sepsis New/Unexplained Change in Mental Status Sepsis Action Taken by Nursing 08/02/22 06:45 08/02/22 07:43 08/02/22 07:00 Temperature Temperature Source Pulse Rate 126 H 120 H Pulse Rate from SpO2 Sensor 123 H Pulse Rhythm Pulse Strength Respiratory Rate 24 Respiratory Effort / Characteristics Respiratory Depth Respiratory Pattern Blood Pressure 94/66 L 118/55 L 105/67 Blood Pressure Mean 75 79 Pulse Oximetry 96 Oxygen Delivery Method Sepsis Recent Fever Within 48 Hours Sepsis New/Unexplained Change in Mental Status Sepsis Action Taken by Nursing 08/02/22 07:00 08/02/22 07:15 08/02/22 07:15 Temperature Temperature Source Pulse Rate 136 H 118 H Pulse Rate from SpO2 Sensor 102 H 125 H Pulse Rhythm Pulse Strength Respiratory Rate 23 20 Respiratory Effort / Characteristics Respiratory Depth Respiratory Pattern Blood Pressure 113/76 Blood Pressure Mean 88 Pulse Oximetry 94 95 Oxygen Delivery Method Sepsis Recent Fever Within 48 Hours Sepsis New/Unexplained Change in Mental Status Sepsis Action Taken by Nursing 08/02/22 07:38 08/02/22 07:39 08/02/22 07:39 Temperature Temperature Source Pulse Rate 143 H 142 H Pulse Rate from SpO2 Sensor 142 H Pulse Rhythm Pulse Strength Respiratory Rate 13 Respiratory Effort / Characteristics Respiratory Depth Respiratory Pattern Blood Pressure 118/55 L Blood Pressure Mean 76 Pulse Oximetry 95 Oxygen Delivery Method Sepsis Recent Fever Within 48 Hours Sepsis New/Unexplained Change in Mental Status Sepsis Action Taken by Nursing 08/02/22 07:45 08/02/22 07:46 08/02/22 07:46 Temperature Temperature Source Pulse Rate 117 H 125 H Pulse Rate from SpO2 Sensor 117 H 155 H Pulse Rhythm Pulse Strength Respiratory Rate 17 24 Respiratory Effort / Characteristics Respiratory Depth Respiratory Pattern Blood Pressure 100/75 Blood Pressure Mean 83 Pulse Oximetry 95 93 Oxygen Delivery Method Sepsis Recent Fever Within 48 Hours Sepsis New/Unexplained Change in Mental Status Sepsis Action Taken by Nursing 08/02/22 08:00 08/02/22 08:01 08/02/22 08:03 Temperature Temperature Source Pulse Rate 96 H 107 H 93 H Pulse Rate from SpO2 Sensor 109 H 91 H 88 Pulse Rhythm Pulse Strength Respiratory Rate 0 L 21 17 Respiratory Effort / Characteristics Respiratory Depth Respiratory Pattern Blood Pressure Blood Pressure Mean Pulse Oximetry 95 92 92 Oxygen Delivery Method Sepsis Recent Fever Within 48 Hours Sepsis New/Unexplained Change in Mental Status Sepsis Action Taken by Nursing 08/02/22 08:09 08/02/22 08:12 08/02/22 08:12 Temperature Temperature Source Pulse Rate 108 H 103 H Pulse Rate from SpO2 Sensor 88 Pulse Rhythm Pulse Strength Respiratory Rate 12 21 Respiratory Effort / Characteristics Respiratory Depth Respiratory Pattern Blood Pressure 95/51 L Blood Pressure Mean 65 Pulse Oximetry 93 Oxygen Delivery Method Sepsis Recent Fever Within 48 Hours Sepsis New/Unexplained Change in Mental Status Sepsis Action Taken by Nursing 08/02/22 08:15 08/02/22 08:16 08/02/22 08:16 Temperature Temperature Source Pulse Rate 119 H 96 H Pulse Rate from SpO2 Sensor 82 87 Pulse Rhythm Pulse Strength Respiratory Rate 9 L 21 Respiratory Effort / Characteristics Respiratory Depth Respiratory Pattern Blood Pressure 92/59 L Blood Pressure Mean 70 Pulse Oximetry 94 95 Oxygen Delivery Method Sepsis Recent Fever Within 48 Hours Sepsis New/Unexplained Change in Mental Status Sepsis Action Taken by Nursing 08/02/22 08:30 08/02/22 08:30 08/02/22 09:00 Temperature Temperature Source Pulse Rate 92 H Pulse Rate from SpO2 Sensor 78 Pulse Rhythm Pulse Strength Respiratory Rate 7 L Respiratory Effort / Characteristics Respiratory Depth Respiratory Pattern Blood Pressure 101/61 95/63 L Blood Pressure Mean 74 73 Pulse Oximetry 93 Oxygen Delivery Method Sepsis Recent Fever Within 48 Hours Sepsis New/Unexplained Change in Mental Status Sepsis Action Taken by Nursing 08/02/22 09:00 Temperature Temperature Source Pulse Rate 110 H Pulse Rate from SpO2 Sensor 102 H Pulse Rhythm Pulse Strength Respiratory Rate 18 Respiratory Effort / Characteristics Respiratory Depth Respiratory Pattern Blood Pressure Blood Pressure Mean Pulse Oximetry 93 Oxygen Delivery Method Sepsis Recent Fever Within 48 Hours Sepsis New/Unexplained Change in Mental Status Sepsis Action Taken by Longterm Medications Current Medication List: was personally reviewed by me Laboratory Data Attestation: I reviewed the patient's lab results. Result diagrams: 08/05/22 07:01 08/08/22 08:31 Lab Results 08/02/22 08/02/22 08/02/22 Range/Units 05:50 05:50 05:50 WBC 12.38 H (4.8-10.8) K/ul RBC 4.42 (3.93-5.22) M/uL Hgb 12.7 (12.0-16.0) g/dl Hct 38.8 (34.1-44.9) % MCV 87.8 (80.0-100.0) fL MCH 28.7 (25.0-34.0) pg MCHC 32.7 (32.0-36.0) g/dL RDW Std Deviation 45.6 (36.4-46.3) fL RDW Coeff of Valod 14.2 (11.5-14.5) % Plt Count 493 H (130-400) K/uL MPV 9.4 (9.4-12.3) fL Immature Gran % (Auto) 0.5 % Neut % (Auto) 77.1 % Lymph % (Auto) 13.4 % [place] % (Auto) 7.7 % Eos % (Auto) 0.7 % Baso % (Auto) 0.6 % Neut # (Auto) 9.55 H (1.4-6.5) K/uL Lymph # (Auto) 1.66 (1.2-3.4) K/uL [place] # (Auto) 0.95 H (0.24-0.82) K/uL Eos # (Auto) 0.09 (0-0.50) K/uL Baso # (Auto) 0.07 (0-0.2) K/uL Immature Gran # (Auto) 0.06 H (0.00-0.02) K/uL PT 11.0 (9.0-12.0) Seconds INR 1.0 (0.9-1.1) APTT 22.6 (21.0-31.0) Seconds PTT Ratio 0.8 Sodium 135 L (136-145) mmol/L Potassium 4.8 (3.5-5.1) mmol/L Chloride 102 (98-107) mmol/L Carbon Dioxide 24 (21-32) mmol/L Anion Gap 9 (3-11) BUN 25 H (6-23) mg/dl Creatinine 1.00 (0.6-1.2) mg/dl Est Cr Clr Drug Dosing 37.4 ml/min Est GFR ( Amer) 59.5 ml/min Est GFR (Non-Af Amer) 51.3 ml/min BUN/Creatinine Ratio 25.0 H (10-20) Glucose 117 H (70-99(Fasting)) mg/dl Calcium 8.9 (8.5-10.1) mg/dl Magnesium 1.6 L (1.7-2.4) mg/dl Total Bilirubin 0.4 (0.2-1.0) mg/dl AST 24 (13-39) U/L ALT 16 (7-52) U/L Alkaline Phosphatase 47 (34-104) U/L Troponin I High Sens 25.2 H (0-14) pg/ml Total Protein 6.7 (6.0-8.3) gm/dl Albumin 3.3 L (3.4-5.0) gm/dl Globulin 3.4 (2.5-4.0) gm/dl Albumin/Globulin Ratio 1.0 (0.9-2) Lipase 38 (11-82) U/L Procalcitonin (0-0.5) ng/ml TSH (0.300-4.500) uIu/ml Free T4 (0.61-1.60) ng/dl Urine Color Urine Appearance (Clear) Urine pH (4.5-7.5) Ur Specific [place] (1.000-1.030) Urine Protein (Negative) Urine Glucose (UA) (Negative) Urine Ketones (Negative) Urine Blood (Negative) Urine Nitrite (Negative) Urine Bilirubin (Negative) Urine Urobilinogen (Negative) Ur Leukocyte Esterase (Negative) Urine WBC (Auto) (0-5) /hpf Urine RBC (Auto) (0-4) /hpf U Hyaline Cast (Auto) (0-5) /lpf U Epithel Cells (Auto) (0-5) /lpf Urine Bacteria (Auto) (Negative) SARS-CoV-2, RNA, NAAT (NEGATIVE) 08/02/22 08/02/22 08/02/22 Range/Units 05:50 05:50 06:25 WBC (4.8-10.8) K/ul RBC (3.93-5.22) M/uL Hgb (12.0-16.0) g/dl Hct (34.1-44.9) % MCV (80.0-100.0) fL MCH (25.0-34.0) pg MCHC (32.0-36.0) g/dL RDW Std Deviation (36.4-46.3) fL RDW Coeff of Valdo (11.5-14.5) % Plt Count (130-400) K/uL MPV (9.4-12.3) fL Immature Gran % (Auto) % Neut % (Auto) % Lymph % (Auto) % [place] % (Auto) % Eos % (Auto) % Baso % (Auto) % Neut # (Auto) (1.4-6.5) K/uL Lymph # (Auto) (1.2-3.4) K/uL [place] # (Auto) (0.24-0.82) K/uL Eos # (Auto) (0-0.50) K/uL Baso # (Auto) (0-0.2) K/uL Immature Gran # (Auto) (0.00-0.02) K/uL PT (9.0-12.0) Seconds INR (0.9-1.1) APTT (21.0-31.0) Seconds PTT Ratio Sodium (136-145) mmol/L Potassium (3.5-5.1) mmol/L Chloride (98-107) mmol/L Carbon Dioxide (21-32) mmol/L Anion Gap (3-11) BUN (6-23) mg/dl Creatinine (0.6-1.2) mg/dl Est Cr Clr Drug Dosing ml/min Est GFR ( Amer) ml/min Est GFR (Non-Af Amer) ml/min BUN/Creatinine Ratio (10-20) Glucose (70-99(Fasting)) mg/dl Calcium (8.5-10.1) mg/dl Magnesium (1.7-2.4) mg/dl Total Bilirubin (0.2-1.0) mg/dl AST (13-39) U/L ALT (7-52) U/L Alkaline Phosphatase (34-104) U/L Troponin I High Sens (0-14) pg/ml Total Protein (6.0-8.3) gm/dl Albumin (3.4-5.0) gm/dl Globulin (2.5-4.0) gm/dl Albumin/Globulin Ratio (0.9-2) Lipase (11-82) U/L Procalcitonin < 0.05 (0-0.5) ng/ml TSH 5.609 H (0.300-4.500) uIu/ml Free T4 1.22 (0.61-1.60) ng/dl Urine Color Urine Appearance (Clear) Urine pH (4.5-7.5) Ur Specific [place] (1.000-1.030) Urine Protein (Negative) Urine Glucose (UA) (Negative) Urine Ketones (Negative) Urine Blood (Negative) Urine Nitrite (Negative) Urine Bilirubin (Negative) Urine Urobilinogen (Negative) Ur Leukocyte Esterase (Negative) Urine WBC (Auto) (0-5) /hpf Urine RBC (Auto) (0-4) /hpf U Hyaline Cast (Auto) (0-5) /lpf U Epithel Cells (Auto) (0-5) /lpf Urine Bacteria (Auto) (Negative) SARS-CoV-2, RNA, NAAT NEGATIVE (NEGATIVE) 08/02/22 Range/Units 07:34 WBC (4.8-10.8) K/ul RBC (3.93-5.22) M/uL Hgb (12.0-16.0) g/dl Hct (34.1-44.9) % MCV (80.0-100.0) fL MCH (25.0-34.0) pg MCHC (32.0-36.0) g/dL RDW Std Deviation (36.4-46.3) fL RDW Coeff of Valdo (11.5-14.5) % Plt Count (130-400) K/uL MPV (9.4-12.3) fL Immature Gran % (Auto) % Neut % (Auto) % Lymph % (Auto) % [place] % (Auto) % Eos % (Auto) % Baso % (Auto) % Neut # (Auto) (1.4-6.5) K/uL Lymph # (Auto) (1.2-3.4) K/uL [place] # (Auto) (0.24-0.82) K/uL Eos # (Auto) (0-0.50) K/uL Baso # (Auto) (0-0.2) K/uL Immature Gran # (Auto) (0.00-0.02) K/uL PT (9.0-12.0) Seconds INR (0.9-1.1) APTT (21.0-31.0) Seconds PTT Ratio Sodium (136-145) mmol/L Potassium (3.5-5.1) mmol/L Chloride (98-107) mmol/L Carbon Dioxide (21-32) mmol/L Anion Gap (3-11) BUN (6-23) mg/dl Creatinine (0.6-1.2) mg/dl Est Cr Clr Drug Dosing ml/min Est GFR ( Amer) ml/min Est GFR (Non-Af Amer) ml/min BUN/Creatinine Ratio (10-20) Glucose (70-99(Fasting)) mg/dl Calcium (8.5-10.1) mg/dl Magnesium (1.7-2.4) mg/dl Total Bilirubin (0.2-1.0) mg/dl AST (13-39) U/L ALT (7-52) U/L Alkaline Phosphatase (34-104) U/L Troponin I High Sens (0-14) pg/ml Total Protein (6.0-8.3) gm/dl Albumin (3.4-5.0) gm/dl Globulin (2.5-4.0) gm/dl Albumin/Globulin Ratio (0.9-2) Lipase (11-82) U/L Procalcitonin (0-0.5) ng/ml TSH (0.300-4.500) uIu/ml Free T4 (0.61-1.60) ng/dl Urine Color Yellow Urine Appearance Clear (Clear) Urine pH 5.0 (4.5-7.5) Ur Specific [place] 1.021 (1.000-1.030) Urine Protein Trace H (Negative) Urine Glucose (UA) Negative (Negative) Urine Ketones Trace H (Negative) Urine Blood Negative (Negative) Urine Nitrite Negative (Negative) Urine Bilirubin Negative (Negative) Urine Urobilinogen Negative (Negative) Ur Leukocyte Esterase 1+ H (Negative) Urine WBC (Auto) 5-10 H (0-5) /hpf Urine RBC (Auto) 0-4 (0-4) /hpf U Hyaline Cast (Auto) 0 (0-5) /lpf U Epithel Cells (Auto) 20-30 H (0-5) /lpf Urine Bacteria (Auto) 1+ H (Negative) SARS-CoV-2, RNA, NAAT (NEGATIVE) Administered Medications Apixaban (Apixaban 5 Mg Tablet) 5 mg PO BID SHILOH Stop: 09/04/22 20:59 Last Admin: 08/08/22 20:39 Dose: 5 mg Documented By: Admin: 08/08/22 08:33 Dose: 5 mg Documented By: Admin: 08/07/22 21:46 Dose: 5 mg Documented By: Admin: 08/07/22 07:22 Dose: 5 mg Documented By: Admin: 08/06/22 20:05 Dose: 5 mg Documented By: Admin: 08/06/22 09:16 Dose: 5 mg Documented By: Admin: 08/05/22 20:42 Dose: 5 mg Documented By: MARISEL Colchicine (Colchicine 0.6 Mg Tab) 0.6 mg PO QD@08 SHILOH Stop: 09/06/22 07:59 Last Admin: 08/08/22 11:47 Dose: Not Given Documented By: Admin: 08/07/22 07:22 Dose: 0.6 mg Documented By: Cyanocobalamin (Cyanocobalamin (B-12) 500 Mcg Tablet) 1,000 mcg PO DAILY SHILOH Stop: 09/01/22 10:59 Last Admin: 08/08/22 08:32 Dose: 1,000 mcg Documented By: Admin: 08/07/22 07:22 Dose: 1,000 mcg Documented By: Admin: 08/06/22 09:16 Dose: 1,000 mcg Documented By: Admin: 08/05/22 08:05 Dose: 1,000 mcg Documented By: Admin: 08/04/22 08:19 Dose: 1,000 mcg Documented By: Admin: 08/03/22 08:56 Dose: 1,000 mcg Documented By: Admin: 08/02/22 12:00 Dose: 1,000 mcg Documented By: GLORIA Escitalopram Oxalate (Escitalopram Oxalate 10 Mg Tab) 10 mg PO DAILY SHILOH Stop: 09/01/22 10:59 Last Admin: 08/08/22 08:33 Dose: 10 mg Documented By: Admin: 08/07/22 07:22 Dose: 10 mg Documented By: Admin: 08/06/22 09:16 Dose: 10 mg Documented By: Admin: 08/05/22 08:05 Dose: 10 mg Documented By: Admin: 08/04/22 09:43 Dose: 10 mg Documented By: Admin: 08/03/22 09:12 Dose: 10 mg Documented By: Admin: 08/02/22 12:00 Dose: 10 mg Documented By: GLORIA Hydroxyzine HCl (Hydroxyzine Hcl 10 Mg Tab) 10 mg PO HS SHILOH Stop: 09/01/22 20:59 Last Admin: 08/08/22 20:39 Dose: 10 mg Documented By: Admin: 08/07/22 21:47 Dose: 10 mg Documented By: EEColton Admin: 08/06/22 20:05 Dose: 10 mg Documented By: Admin: 08/05/22 20:46 Dose: 10 mg Documented By: Admin: 08/04/22 20:27 Dose: 10 mg Documented By: Admin: 08/03/22 21:54 Dose: 10 mg Documented By: Admin: 08/02/22 19:53 Dose: 10 mg Documented By: DANA Promethazine HCl 6.25 mg/ (Sodium Chloride) 50.25 mls @ 201 mls/hr IV Q6H PRN PRN Reason: Nausea And Vomiting Stop: 09/04/22 23:37 Last Infusion: 08/07/22 09:17 Dose: 0 mls/hr Documented By: Admin: 08/07/22 09:02 Dose: 201 mls/hr Documented By: TG Levothyroxine Sodium (Levothyroxine Sodium 137 Mcg Tablet) 137 mcg PO DAILYBB SHILOH Stop: 09/02/22 06:29 Last Admin: 08/08/22 05:45 Dose: 137 mcg Documented By: Admin: 08/07/22 06:12 Dose: 137 mcg Documented By: Admin: 08/06/22 06:24 Dose: 137 mcg Documented By: Admin: 08/05/22 06:18 Dose: 137 mcg Documented By: Admin: 08/04/22 05:47 Dose: 137 mcg Documented By: Admin: 08/03/22 05:35 Dose: 137 mcg Documented By: DANA Magnesium Oxide (Magnesium Oxide 400 Mg Tab) 400 mg PO DAILY@1100 SHILOH Stop: 09/01/22 12:59 Last Admin: 08/08/22 11:48 Dose: 400 mg Documented By: Admin: 08/07/22 07:22 Dose: 400 mg Documented By: Admin: 08/06/22 11:41 Dose: 400 mg Documented By: Admin: 08/05/22 10:46 Dose: 400 mg Documented By: Admin: 08/04/22 11:24 Dose: 400 mg Documented By: Admin: 08/03/22 10:34 Dose: 400 mg Documented By: Admin: 08/02/22 12:48 Dose: 400 mg Documented By: GLORIA Metoprolol Succinate (Metoprolol Succ 25mg Ext Rel Tab) 25 mg PO BID SHILOH Stop: 09/07/22 10:59 Last Admin: 08/08/22 20:39 Dose: 25 mg Documented By: Admin: 08/08/22 11:47 Dose: Not Given Documented By: ARV Prednisone (Prednisone 20 Mg Tab) 20 mg PO DAILY SHILOH Stop: 08/10/22 09:01 Last Admin: 08/08/22 11:48 Dose: 20 mg Documented By: ARV Psyllium Hydrophilic Mucilloid (Psyllium Or Guar Gum Fiber Powder Packet) 1 pkt PO DAILY SHILOH Stop: 09/02/22 08:59 Last Admin: 08/08/22 08:33 Dose: 1 pkt Documented By: Admin: 08/07/22 07:23 Dose: Not Given Documented By: Admin: 08/06/22 09:15 Dose: Not Given Documented By: Admin: 08/05/22 08:05 Dose: 1 pkt Documented By: Admin: 08/04/22 08:20 Dose: 1 pkt Documented By: Admin: 08/03/22 08:56 Dose: 1 pkt Documented By: GLORIA Vitamin D (Cholecalciferol 1,000 Units 25 Mcg Tab) 1,000 units PO DAILY SHILOH Stop: 09/02/22 08:59 Last Admin: 08/08/22 08:32 Dose: 1,000 units Documented By: Admin: 08/07/22 07:22 Dose: 1,000 units Documented By: Admin: 08/06/22 09:16 Dose: 1,000 units Documented By: Admin: 08/05/22 08:05 Dose: 1,000 units Documented By: Admin: 08/04/22 08:19 Dose: 1,000 units Documented By: Admin: 08/03/22 08:56 Dose: 1,000 units Documented By: GLORIA Discontinued Medications Colchicine (Colchicine 0.6 Mg Tab) 0.6 mg PO BID SHILOH Stop: 09/01/22 13:29 Last Admin: 08/06/22 09:16 Dose: 0.6 mg Documented By: Admin: 08/05/22 20:42 Dose: 0.6 mg Documented By: Admin: 08/05/22 08:06 Dose: 0.6 mg Documented By: Admin: 08/04/22 20:27 Dose: 0.6 mg Documented By: Admin: 08/04/22 08:19 Dose: 0.6 mg Documented By: Admin: 08/03/22 21:54 Dose: 0.6 mg Documented By: Admin: 08/03/22 08:56 Dose: 0.6 mg Documented By: Admin: 08/02/22 19:53 Dose: 0.6 mg Documented By: Admin: 08/02/22 13:59 Dose: 0.6 mg Documented By: GLORIA Doxycycline Hyclate (Doxycycline Hyclate 100 Mg Cap) 100 mg PO BID SHILOH Stop: 08/09/22 10:44 Last Admin: 08/08/22 08:32 Dose: 100 mg Documented By: Admin: 08/07/22 21:47 Dose: 100 mg Documented By: Admin: 08/07/22 07:21 Dose: 100 mg Documented By: Admin: 08/06/22 20:05 Dose: 100 mg Documented By: Admin: 08/06/22 09:16 Dose: 100 mg Documented By: Admin: 08/05/22 20:43 Dose: 100 mg Documented By: Admin: 08/05/22 08:06 Dose: 100 mg Documented By: Admin: 08/04/22 20:27 Dose: 100 mg Documented By: Admin: 08/04/22 09:43 Dose: 100 mg Documented By: Admin: 08/03/22 21:55 Dose: 100 mg Documented By: Admin: 08/03/22 08:56 Dose: 100 mg Documented By: Admin: 08/02/22 19:53 Dose: 100 mg Documented By: Admin: 08/02/22 11:45 Dose: 100 mg Documented By: GLORIA Enoxaparin Sodium (Enoxaparin 80 Mg/0.8 Ml Syr) 70 mg SQ Q12H SHILOH Stop: 09/02/22 13:59 Last Admin: 08/05/22 02:39 Dose: 70 mg Documented By: Admin: 08/04/22 13:06 Dose: 70 mg Documented By: Admin: 08/04/22 02:13 Dose: 70 mg Documented By: Admin: 08/03/22 14:18 Dose: 70 mg Documented By: GLORIA Heparin Sodium (Porcine) (Heparin Sod (Porcine) 1000 Unit/Ml) 1 units IV NOW ONE Stop: 08/02/22 09:00 Last Admin: 08/02/22 09:12 Dose: 3,000 units Documented By: YANET Co-signed By: LÓPEZ Heparin Sodium (Porcine) (Heparin Sod (Porcine) 1000 Unit/Ml) 2,000 units IV NOW ONE Stop: 08/02/22 16:53 Last Admin: 08/02/22 17:11 Dose: 2,000 units Documented By: GLORIA Co-signed By: JENNIFER Sodium Chloride (Nss 1000ml) 250 mls @ 999 mls/hr IV .Q16M ONE Stop: 08/02/22 07:08 Last Infusion: 08/02/22 08:31 Dose: 0 mls/hr Documented By: Admin: 08/02/22 07:01 Dose: 999 mls/hr Documented By: YANET Magnesium Sulfate/Dextrose (Magnesium Sulfate / D5w) 1 gm in 100 mls @ 100 mls/hr IV Q1H [facility]IL[facility] Stop: 08/02/22 09:17 Last Infusion: 08/02/22 10:45 Dose: 0 mls/hr Documented By: Admin: 08/02/22 09:11 Dose: 100 mls/hr Documented By: Infusion: 08/02/22 08:49 Dose: 100 mls/hr Documented By: Admin: 08/02/22 07:49 Dose: 100 mls/hr Documented By: YANET Sodium Chloride (Nss 1000ml) 1,000 mls @ 75 mls/hr IV .[id number] [facility] Stop: 08/03/22 08:44 Last Infusion: 08/02/22 15:47 Dose: 0 mls/hr Documented By: Infusion: 08/02/22 10:45 Dose: 75 mls/hr Documented By: Admin: 08/02/22 09:11 Dose: 125 mls/hr Documented By: YANET Heparin Sodium/Dextrose (Heparin Sodium/Dextrose) 25,000 units in 500 mls @ 18 mls/hr IV .Q24H SHILOH; Protocol Stop: 09/01/22 08:59 Last Titration: 08/03/22 13:37 Dose: 0 units/hr, 0 mls/hr Documented By: GLORIA Co-signed By: ENS Admin: 08/03/22 09:13 Dose: 900 units/hr, 18 mls/hr Documented By: GLORIA Co-signed By: MILADYS Titration: 08/03/22 09:13 Dose: 900 units/hr, 18 mls/hr Documented By: GLORIA Co-signed By: MILADYS Titration: 08/03/22 06:37 Dose: 900 units/hr, 18 mls/hr Documented By: MNM Co-signed By: DEXTER Titration: 08/03/22 00:09 Dose: 850 units/hr, 17 mls/hr Documented By: MNColton Co-signed By: JT Titration: 08/02/22 16:50 Dose: 800 units/hr, 16 mls/hr Documented By: GLORIA Co-signed By: WS Admin: 08/02/22 09:11 Dose: 700 units/hr, 14 mls/hr Documented By: YANET Co-signed By: LÓPEZ Ceftriaxone Sodium 2,000 mg/ (Dextrose) 70 mls @ 140 mls/hr IV Q24H SHILOH Stop: 08/09/22 10:44 Last Infusion: 08/08/22 13:55 Dose: 0 mls/hr Documented By: Admin: 08/08/22 11:52 Dose: 140 mls/hr Documented By: Infusion: 08/07/22 12:00 Dose: 0 mls/hr Documented By: Admin: 08/07/22 11:20 Dose: 140 mls/hr Documented By: Infusion: 08/06/22 12:11 Dose: 0 mls/hr Documented By: Admin: 08/06/22 11:41 Dose: 140 mls/hr Documented By: Infusion: 08/05/22 11:20 Dose: 0 mls/hr Documented By: Admin: 08/05/22 10:46 Dose: 140 mls/hr Documented By: Infusion: 08/04/22 11:24 Dose: 0 mls/hr Documented By: Admin: 08/04/22 10:33 Dose: 140 mls/hr Documented By: Infusion: 08/03/22 11:07 Dose: 0 mls/hr Documented By: Admin: 08/03/22 10:31 Dose: 140 mls/hr Documented By: Infusion: 08/02/22 12:30 Dose: 0 mls/hr Documented By: Admin: 08/02/22 11:45 Dose: 140 mls/hr Documented By: GLORIA Magnesium Sulfate/Dextrose (Magnesium Sulfate / D5w) 1 gm in 100 mls @ 50 mls/hr IV Q2H SHILOH Stop: 08/06/22 23:14 Last Infusion: 08/07/22 00:32 Dose: 0 mls/hr Documented By: Admin: 08/06/22 22:14 Dose: 50 mls/hr Documented By: Infusion: 08/06/22 22:02 Dose: 50 mls/hr Documented By: Admin: 08/06/22 20:02 Dose: 50 mls/hr Documented By: Magnesium Sulfate/Dextrose (Magnesium Sulfate / D5w) 1 gm in 100 mls @ 50 mls/hr IV Q2H SHILOH Stop: 08/08/22 20:59 Last Infusion: 08/08/22 22:55 Dose: 0 mls/hr Documented By: Admin: 08/08/22 20:36 Dose: 50 mls/hr Documented By: Infusion: 08/08/22 20:00 Dose: 50 mls/hr Documented By: Admin: 08/08/22 18:00 Dose: 50 mls/hr Documented By: AMY Metoprolol Succinate (Metoprolol Succ 25mg Ext Rel Tab) 12.5 mg PO QAM SHILOH Stop: 09/03/22 09:59 Last Admin: 08/05/22 08:04 Dose: 12.5 mg Documented By: Admin: 08/04/22 10:33 Dose: 12.5 mg Documented By: HORTENCIA Metoprolol Succinate (Metoprolol Succ 25mg Ext Rel Tab) 12.5 mg PO BID SHILOH Stop: 09/04/22 20:59 Last Admin: 08/07/22 07:21 Dose: 12.5 mg Documented By: Admin: 08/06/22 20:05 Dose: 12.5 mg Documented By: Admin: 08/06/22 09:16 Dose: 12.5 mg Documented By: Admin: 08/05/22 20:43 Dose: 12.5 mg Documented By: AMP Metoprolol Succinate (Metoprolol Succ 25mg Ext Rel Tab) 12.5 mg PO QPM SHILOH Stop: 09/06/22 20:59 Last Admin: 08/07/22 21:45 Dose: 12.5 mg Documented By: SHANDRA Metoprolol Succinate (Metoprolol Succ 25mg Ext Rel Tab) 12.5 mg PO NOW ONE Stop: 08/07/22 10:16 Last Admin: 08/07/22 10:55 Dose: 12.5 mg Documented By: Metoprolol Tartrate (Metoprolol Tartrate 1 Mg/Ml Vial) 5 mg IV Q5M PRN PRN Reason: Tachycardia Stop: 09/01/22 06:39 Last Admin: 08/02/22 07:43 Dose: 5 mg Documented By: YANET Metoprolol Tartrate (Metoprolol Tartrate 25 Mg Tab) 12.5 mg PO BID SHILOH Stop: 09/01/22 20:59 Last Admin: 08/04/22 08:19 Dose: 12.5 mg Documented By: Admin: 08/03/22 21:55 Dose: 12.5 mg Documented By: Admin: 08/03/22 08:56 Dose: 12.5 mg Documented By: Admin: 08/02/22 19:53 Dose: 12.5 mg Documented By: DANA Metoprolol Tartrate (Metoprolol Tartrate 1 Mg/Ml Vial) 5 mg IV NOW STA Stop: 08/06/22 16:19 Last Admin: 08/06/22 16:49 Dose: 5 mg Documented By: Miscellaneous (Fenofibrate 67mg-Order Awaiting Action) 1 each N/A QS [facility] Stop: 09/01/22 15:59 Last Admin: 08/05/22 08:04 Dose: Not Given Documented By: Admin: 08/05/22 01:48 Dose: Not Given Documented By: Admin: 08/04/22 14:26 Dose: Not Given Documented By: Admin: 08/04/22 08:19 Dose: Not Given Documented By: Admin: 08/04/22 00:07 Dose: Not Given Documented By: Admin: 08/03/22 11:07 Dose: Not Given Documented By: Admin: 08/03/22 08:54 Dose: Not Given Documented By: Admin: 08/03/22 00:08 Dose: Not Given Documented By: Admin: 08/02/22 12:48 Dose: Not Given Documented By: SKS Imaging Data Radiologist's Impression: Chest X-Ray 08/02/22 06:07 SINGLE VIEW CHEST CLINICAL HISTORY: Atypical chest pain. FINDINGS: An AP, portable, upright chest radiograph is compared to study dated 07/01/2022 and correlated with chest CT dated 11/17/2012. The examination is degraded by portable technique and patient rotation. A hiatal hernia is suspected and new from previous. The heart is enlarged noting atherosclerotic calcification of the thoracic aorta. The pulmonary vasculature is noncongested. Chronic interstitial thickening is similar to previous. There are small pleural effusions, right larger than left with dependent consolidation. No pneumothorax is seen. The skeletal structures are osteopenic. The bony thorax is grossly intact. Degenerative change is seen in the shoulders and spine. IMPRESSION: 1. Cardiomegaly without radiographic evidence of congestive failure. 2. A hiatal hernia is suspected and new from previous. 3. Right large left pleural effusions with dependent consolidation. This could represent atelectasis versus pneumonia/aspiration pneumonitis. Clinical correla tion will be required and radiographic follow-up to resolution is recommended. ACT 112: Negative or not required by law. Electronically signed by: Nuno Bennett M.D. 08/02/2022 6:45 AM Blood Pressure Blood Pressure Findings: Low blood pressure Blood Pressure Disposition: further management by hospitalist Discharge Plan Visit Data Chief Complaint: Cardiac Assessment Stated Complaint: CHEST PAIN/DIAPHORETIC ED Provider: Alpa Barrow Discharge Problem: Atrial fibrillation with rapid ventricular response Patient Disposition: Admitted As Inpatient Discharge Instructions Interventions: ED Discharge Assessment Last Done: 08/02/22 10:00
[2022-08-02] MEDS: cefTRIAXone SODIUM 2,000 MG in DEXTROSE 5% 50 ML IV SCH (11:45)
[2022-08-02] MEDS: DOXYCYCLINE HYCLATE 100 MG CAP PO SCH ×2 (11:45→19:53)
[2022-08-02] MEDS: CYANOCOBALAMIN (B-12) 500 MCG TABLET PO SCH (12:00)
[2022-08-02] MEDS: ESCITALOPRAM OXALATE 10 MG TAB PO SCH (12:00)
--- NOTE | 2022-08-02 12:13 | CT Scan Report ---
CT SCAN OF THE CHEST WITHOUT IV CONTRAST CLINICAL HISTORY: Pleural effusion. Atypical chest pain. COMPARISON STUDY: Chest x-ray dated 08/02/2022. Chest CT dated 11/17/2012. Abdominal CT dated 04/06/20. TECHNIQUE: CT scan of the thorax was performed from the thoracic inlet to the upper abdomen. Images are reviewed in the axial, sagittal, and coronal planes. IV contrast was not administered for this ex amination as per the referring clinician. A dose lowering technique was utilized adhering to the [facility] reena KENNEY. CT DOSE: 180.29 mGy.cm FINDINGS: Thyroid: Atrophic. Thoracic aorta: No intramural hematoma is identified. There is advanced atherosclerotic calcification of the thoracic aorta. There is mild aneurysmal dilatation of the ascending thoracic aorta, which me asures up to 4.4 cm in diameter. The remainder of the thoracic aorta is normal in caliber and the arc h demonstrates variant 3-vessel anatomy. 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 Heart: The heart is enlarged. There is a large pericardial effusion. There is only mild pericardial t hickening. The coronary arteries are densely calcified. Lungs and pleural spaces: There are small right and trace left pleural effusions with dependent conso lidation. Mediastinum: There is no mediastinal lymphadenopathy. Gina: Not well assessed without IV contrast. Axillae: There is no axillary lymphadenopathy. Upper abdomen: There are are calcifications in the right hepatic lobe. Large cysts were seen at this site on the 2013 examination comments may represent treatment-related change. Partially visualized up per abdominal viscera is otherwise within normal limits. Skeletal structures: The skeletal structures are osteopenic. Advanced arthritic change is seen in the shoulders. Degenerative change and hyperkyphosis is noted in the thoracic spine. No lytic or blastic bony lesions are seen. IMPRESSION: 1. There is a large and simple appearing pericardial effusion, which is new from the 04/06/[address] scan. There is only mild pericardial thickening. Clinical correlation will be required. If the re is clinical concern for dissection a CT angiogram of the chest should be obtained. Consider cardio logy assessment. 2. Small right and trace left pleural effusions with dependent consolidation. This likely represents atelectasis and clinical correlation will be required. 3. Cardiomegaly and advanced coronary artery calcification. 4. Mild aneurysmal dilatation of the ascending thoracic aorta. 5. Additional findings as above. ACT 112: Negative or not required by law. Electronically signed by: Nuno Bennett M.D. 08/02/2022 12:11 PM
[2022-08-02] MEDS: MAGNESIUM OXIDE 400 MG TAB PO SCH (12:48)
--- NOTE | 2022-08-02 12:49 | Cardiology Consultation ---
Date of Consultation August 02, 2022 Assessment & Plan (1) Paroxysmal atrial fibrillation: (2) Tachycardia-bradycardia syndrome: (3) Pneumonia: (4) Pleural effusion on right: (5) Pericardial effusion: Plan 86-year-old female admitted with paroxysmal atrial fibrillation, pleuritic chest discomfort, and right-sided pleural effusion with possible pneumonia. Fair rate control without AV debbie blocking agents currently. Prior ECGs demonstrating sinus bradycardia. Continue to monitor telemetry. Consider addition of low- dose metoprolol pending clinical course. CT of the chest demonstrating a new, large pericardial effusion. Recommend 2D echocardiogram. Add colchicine 0.6 mg twice daily. Avoid NSAIDs currently due to need for ongoing anticoagulation in the setting of atrial fibrillation and recent TIA. Antibiotics and treatment of underlying pneumonia as per internal medicine. History of Present Illness Reason for Consultation: Atrial fibrillation with rapid ventricular response Requesting Physician: Dr. Jesus Attending Physician: Jose Jesus MD History of Present Illness 86-year-old female present to the emergency department with complaints of chest heaviness and dizziness. Poor historian. Recently hospitalized secondary to TIA in late June. Prescribed dual antiplatelet therapy during hospitalization. ECG on admission revealed atrial fibrillation with rapid ventricular response. Heart rate remains mildly elevated. Notes minimal left- sided chest discomfort. No diaphoresis, nausea, or vomiting. Denies lightheadedness or dizziness currently. Admits to cough with clear sputum production. States she was sweaty and soaked through her close prior to arrival in the ER. Denies any sick contacts. No orthopnea, PND, or lower extremity edema. Chest x-ray demonstrating right-sided pleural effusion and consolidation. Allergies Allergy/AdvReac Type Severity Reaction Status Date / Time oxycodone Allergy Unknown UKN Verified 08/02/22 08:53 simvastatin Allergy Unknown UKN Verified 08/02/22 08:53 rosuvastatin AdvReac Unknown upset Verified 08/02/22 08:53 stomach Home Medications Medication Instructions Recorded Confirmed Type aspirin 81 mg tablet,delayed 81 mg PO HS 03/13/21 08/02/22 History release (Marciano Low Dose Aspirin) cholecalciferol (vitamin D3) 25 25 mcg PO DAILY 03/13/21 08/02/22 History mcg (1,000 unit) tablet (Vitamin D3) cyanocobalamin (vitamin B-12) 1,000 mcg PO DAILY 03/13/21 08/02/22 History 1,000 mcg tablet (Vitamin B-12) psyllium seed (sugar) oral powder 1 ea PO DAILY 03/13/21 08/02/22 History (Metamucil (sugar) oral powder) escitalopram oxalate 10 mg tablet 10 mg PO DAILY 04/06/21 08/02/22 History levothyroxine 137 mcg tablet 137 mcg PO DAILYBB 04/06/21 08/02/22 History lisinopril 5 mg tablet (Zestril) 5 mg PO HS #30 tabs 05/13/22 08/02/22 Rx magnesium oxide 400 mg PO DAILY #30 tabs 05/13/22 08/02/22 Rx hydroxyzine HCl 10 mg tablet 10 mg PO HS 07/01/22 08/02/22 History fenofibrate micronized 67 mg 67 mg PO DAILY 08/02/22 08/02/22 History capsule Patient History Medical History Carotid artery stenosis, asymptomatic Diastolic dysfunction Hyperlipidemia Hypertension Hypothyroidism (11/15/12) Nonrheumatic mitral valve regurgitation Persistent left SVC (superior vena cava) Thoracic aortic aneurysm Thrombophlebitis History of extensive, requiring vein ablation, s/p previous anticoagulation treatment Surgical History History of cataract surgery History of hysterectomy History of repair of rotator cuff Family History Father Hypertension Stroke Mother Hypertension Social History Smoking Status: Never smoker Hx Alcohol Use: Yes Alcohol type: wine Hx Substance Use: No Preferred Language: [place] Communication Ability: Effective Pullman Clerk Required: No Beliefs That Will Affect Care: None marital status: Current Living Situation: Spouse How many Children do You have: 2 Other Information That Helps Us Care for You: No Feels Safe at Home: Yes Safety Concerns: Feels Safe At This Time Assistive Devices: Glasses Review of Systems Review of Systems: All systems reviewed & are unremarkable except as noted in Subjective Physical Exam Constitutional: well developed and well nourished; no acute distress Respiratory: + abnormal respiratory effort, no respiratory distress, no labored breathing and no retractions Auscultation: + diminished lung sounds (Right base) and + rales (Right base); no rhonchi and no wheezes Cardiovascular: Rate/Rhythm: + tachycardic and + irregularly irregular Heart Sounds: normal S1, normal S2 and + murmur (1/6 midsystolic murmur heard best at the right second costal space.) Vessels: radial pulses present; no JVD and no carotid bruit Gastrointestinal (Abdomen): Inspection/Auscultation: normal bowel sounds; abdomen not distended Percussion/Palpation: abdomen soft; abdomen nontender, no guarding and abdomen not rigid Neurologic: CN's II-XI intact bilaterally and moves all extremities Results & Data ([facility]) Vital Signs (Past 12 Hours) Vital Signs Temp Pulse Pulse Resp BP BP Pulse Ox 08/02/22 10:54 92 H 08/02/22 10:00 08/02/22 10:20 36.3 C L 94 H 20 125/83 94 08/02/22 09:30 86 25 H 93 08/02/22 09:30 114/78 08/02/22 09:00 110 H 18 93 08/02/22 09:00 95/63 L 08/02/22 08:30 92 H 7 L 93 08/02/22 08:30 101/61 08/02/22 08:16 92/59 L 08/02/22 08:16 96 H 21 95 08/02/22 08:15 119 H 9 L 94 08/02/22 08:12 95/51 L 08/02/22 08:12 103 H 21 93 08/02/22 08:09 108 H 12 08/02/22 08:03 93 H 17 92 08/02/22 08:01 107 H 21 92 08/02/22 08:00 96 H 0 L 95 08/02/22 07:46 100/75 08/02/22 07:46 125 H 24 93 08/02/22 07:45 117 H 17 95 08/02/22 07:39 118/55 L 08/02/22 07:39 142 H 13 95 08/02/22 07:38 143 H 08/02/22 07:15 118 H 20 95 08/02/22 07:15 113/76 08/02/22 07:00 136 H 23 94 08/02/22 07:00 105/67 08/02/22 07:43 120 H 118/55 L 08/02/22 06:45 126 H 24 94/66 L 96 08/02/22 06:30 124 H 19 103/79 95 08/02/22 06:22 138 H 17 94/79 L 94 08/02/22 06:16 127 H 17 99/71 L 96 08/02/22 06:14 95 08/02/22 06:07 124 H 20 94 08/02/22 05:59 36.8 C 124 H 20 99/71 L 95 O2 Del Method 08/02/22 10:54 08/02/22 10:00 Room Air 08/02/22 10:20 Room Air 08/02/22 09:30 08/02/22 09:30 08/02/22 09:00 08/02/22 09:00 08/02/22 08:30 08/02/22 08:30 08/02/22 08:16 08/02/22 08:16 08/02/22 08:15 08/02/22 08:12 08/02/22 08:12 08/02/22 08:09 08/02/22 08:03 08/02/22 08:01 08/02/22 08:00 08/02/22 07:46 08/02/22 07:46 08/02/22 07:45 08/02/22 07:39 08/02/22 07:39 08/02/22 07:38 08/02/22 07:15 08/02/22 07:15 08/02/22 07:00 08/02/22 07:00 08/02/22 07:43 08/02/22 06:45 08/02/22 06:30 08/02/22 06:22 08/02/22 06:16 08/02/22 06:14 Room Air 08/02/22 06:07 Room Air 08/02/22 05:59 Room Air Diagnostic Findings 2D echocardiogram 07/01/2022: Sinus bradycardia 50 bpm present during study. Moderate concentric left ventricular hypertrophy. Left ventricular ejection fraction 60-65%. Aortic valve sclerosis without stenosis. Moderate left atrial enlargement. Intact interatrial septum.
[2022-08-02] MEDS: COLCHICINE 0.6 MG TAB PO SCH ×2 (13:59→19:53)
--- NOTE | 2022-08-02 15:02 | History & Physical Report ---
Date of Service August 02, 2022 Assessment & Plan (1) Paroxysmal atrial fibrillation: (2) Pericardial effusion: (3) Pleural effusion on right: (4) Pneumonia: Plan: Presented with chest discomfort and palpitation which woke her up from the sleep EKG in the ED showed A. fib with RVR CT chest shows large pericardial effusion along with bilateral pleural effusion with dependent consolidation High-sensitivity 25 and 21; no significant delta difference. Pro-Dannie less than 0.05 Echo shows EF of 60 to 65% with left atrium dilation. Moderate circumferential pericardial effusion present. Plan; For A. fib with RVR; started on metoprolol tartrate 12.5 twice daily (cardiology recommends low-dose metoprolol) with holding parameters as patient has history of sinus bradycardia. Currently on heparin drip. For pericardial effusion; patient is started on colchicine 0.6 mg twice daily by cardiology Started on ceftriaxone and doxycycline for pneumonia; will provide 5 to 7-day course. Monitor on telemetry (5) Hypothyroidism: Plan: TSH- 5.609 free T4- 1.22. Continue current dose. (6) Hypertension: Plan: Lisinopril on hold given hypotension on presentation. Plan Full code DVT heparin Admission and Anticipated Discharge Date Admission Date: August 02, 2022 History of Present Illness Chief Complaint: Chest discomfort Primary Care Provider: Saturnino Keene, Past medical history of hyperlipidemia, hypothyroidism, hypertension, thoracic aortic aneurysm, history of extensive thrombophlebitis requiring vein ablation and anticoagulation treatment in the past Last admission on 08/01-08/02 for strokelike symptoms. Was started on 3 weeks of dual antiplatelet with aspirin and Plavix. Patient woke up with chest discomfort on her left side which is associated with sweating spells and palpitations. Also endorses upper respiratory tract symptoms which include rhinorrhea and occasional cough Denies chest pain, fever, chills, abdominal pain or urinary symptoms. No dizziness or lightheadedness. No nausea, vomiting. On presentation to the ED, patient was found to be hypotensive; afebrile and saturating well on room air. EKG showed A. fib with RVR. Chest x-ray showed cardiomegaly and possible right lower lobe consolidation. Patient was given IV metoprolol which decreased her ventricular rate in the range of 100 110s; started on heparin drip. Patient was then admitted to telemetry floor. Allergies Allergy/AdvReac Type Severity Reaction Status Date / Time oxycodone Allergy Unknown UKN Verified 08/02/22 08:53 simvastatin Allergy Unknown UKN Verified 08/02/22 08:53 rosuvastatin AdvReac Unknown upset Verified 08/02/22 08:53 stomach Home Medications Medication Instructions Recorded Confirmed Type aspirin 81 mg tablet,delayed 81 mg PO HS 03/13/21 08/02/22 History release (Marciano Low Dose Aspirin) cholecalciferol (vitamin D3) 25 25 mcg PO DAILY 03/13/21 08/02/22 History mcg (1,000 unit) tablet (Vitamin D3) cyanocobalamin (vitamin B-12) 1,000 mcg PO DAILY 03/13/21 08/02/22 History 1,000 mcg tablet (Vitamin B-12) psyllium seed (sugar) oral powder 1 ea PO DAILY 03/13/21 08/02/22 History (Metamucil (sugar) oral powder) escitalopram oxalate 10 mg tablet 10 mg PO DAILY 04/06/21 08/02/22 History levothyroxine 137 mcg tablet 137 mcg PO DAILYBB 04/06/21 08/02/22 History lisinopril 5 mg tablet (Zestril) 5 mg PO HS #30 tabs 05/13/22 08/02/22 Rx magnesium oxide 400 mg PO DAILY #30 tabs 05/13/22 08/02/22 Rx hydroxyzine HCl 10 mg tablet 10 mg PO HS 07/01/22 08/02/22 History fenofibrate micronized 67 mg 67 mg PO DAILY 08/02/22 08/02/22 History capsule Past Med/Surg History Medical History Carotid artery stenosis, asymptomatic Diastolic dysfunction Hyperlipidemia Hypertension Hypothyroidism (11/15/12) Nonrheumatic mitral valve regurgitation Persistent left SVC (superior vena cava) Thoracic aortic aneurysm Thrombophlebitis History of extensive, requiring vein ablation, s/p previous anticoagulation treatment Surgical History History of cataract surgery History of hysterectomy History of repair of rotator cuff Family History Father Hypertension Stroke Mother Hypertension Social History Smoking Status: Never smoker Hx Alcohol Use: Yes Alcohol type: wine Hx Substance Use: No Preferred Language: Turkish Communication Ability: Effective Cash On Delivery Clerk Required: No Beliefs That Will Affect Care: None marital status: Current Living Situation: Spouse How many Children do You have: 2 Other Information That Helps Us Care for You: No Feels Safe at Home: Yes Safety Concerns: Feels Safe At This Time Assistive Devices: Glasses Review of Systems Review of Systems: All systems reviewed & are unremarkable except as noted in Subjective Physical Exam Physical Exam: Constitutional: WD/WN, vitals as above, NAD, sitting up in bed, pleasant, conversing easily Respiratory: normal respiratory effort, lungs clear to auscultation, no wheeze, rales, rhonchi. Normal insp/exp effort, no accessory muscle use Cardiovascular: Regular, tachycardic, no murmur, no edema Vessels: no JVD or carotid bruit Chest: Decreased breath sound at right lower base. Abdomen: normal bowel sounds, soft, nontender, no hepatosplenomegaly Musculoskeletal: no cyanosis or clubbing, extremities motor strength 5/5 Skin: no rashes, warm and dry normal turgor Neurologic: PERRL, EOMI, accommodation nl, no face palsy, no dysarthria CN's II- XI intact bilaterally and moves all extremities Psychiatric: A+Ox3, euthymic affect Lymphatic: no cervical or axillary lymphadenopathy : deferred Results & Data Results & Data ([facility]) Vital Signs (Past 12 Hours) Vital Signs Temp Pulse Pulse Resp BP BP Pulse Ox 08/02/22 10:54 92 H 08/02/22 10:00 08/02/22 10:20 36.3 C L 94 H 20 125/83 94 08/02/22 09:30 86 25 H 93 08/02/22 09:30 114/78 08/02/22 09:00 110 H 18 93 08/02/22 09:00 95/63 L 08/02/22 08:30 92 H 7 L 93 08/02/22 08:30 101/61 08/02/22 08:16 92/59 L 08/02/22 08:16 96 H 21 95 08/02/22 08:15 119 H 9 L 94 08/02/22 08:12 95/51 L 08/02/22 08:12 103 H 21 93 08/02/22 08:09 108 H 12 08/02/22 08:03 93 H 17 92 08/02/22 08:01 107 H 21 92 08/02/22 08:00 96 H 0 L 95 08/02/22 07:46 100/75 08/02/22 07:46 125 H 24 93 08/02/22 07:45 117 H 17 95 08/02/22 07:39 118/55 L 08/02/22 07:39 142 H 13 95 08/02/22 07:38 143 H 08/02/22 07:15 118 H 20 95 08/02/22 07:15 113/76 08/02/22 07:00 136 H 23 94 08/02/22 07:00 105/67 08/02/22 07:43 120 H 118/55 L 08/02/22 06:45 126 H 24 94/66 L 96 08/02/22 06:30 124 H 19 103/79 95 08/02/22 06:22 138 H 17 94/79 L 94 08/02/22 06:16 127 H 17 99/71 L 96 08/02/22 06:14 95 08/02/22 06:07 124 H 20 94 08/02/22 05:59 36.8 C 124 H 20 99/71 L 95 O2 Del Method 08/02/22 10:54 08/02/22 10:00 Room Air 08/02/22 10:20 Room Air 08/02/22 09:30 08/02/22 09:30 08/02/22 09:00 08/02/22 09:00 08/02/22 08:30 08/02/22 08:30 08/02/22 08:16 08/02/22 08:16 08/02/22 08:15 08/02/22 08:12 08/02/22 08:12 08/02/22 08:09 08/02/22 08:03 08/02/22 08:01 08/02/22 08:00 08/02/22 07:46 08/02/22 07:46 08/02/22 07:45 08/02/22 07:39 08/02/22 07:39 08/02/22 07:38 08/02/22 07:15 08/02/22 07:15 08/02/22 07:00 08/02/22 07:00 08/02/22 07:43 08/02/22 06:45 08/02/22 06:30 08/02/22 06:22 08/02/22 06:16 08/02/22 06:14 Room Air 08/02/22 06:07 Room Air 08/02/22 05:59 Room Air
[2022-08-02 16:43] LABS: Partial Thromboplastin Ratio 1.3; Partial Thromboplastin Time 36.6 Seconds (21.0-31.0)
[2022-08-02] MEDS: METOPROLOL TARTRATE 25 MG TAB PO SCH (19:53)
[2022-08-02] MEDS: hydrOXYzine HCl 10 MG TAB PO SCH (19:53)
[2022-08-02] MEDS ORDERED: lisinopril 5 MG TAB PO SCH (21:00)
[2022-08-02] MEDS ORDERED: ASPIRIN 81 MG ECTAB PO SCH (21:00)
[2022-08-02 23:49] LABS: Partial Thromboplastin Ratio 1.6; Partial Thromboplastin Time 43.1 Seconds (21.0-31.0)
[2022-08-03] MEDS: LEVOTHYROXINE SODIUM 137 MCG TABLET PO SCH (05:35)
[2022-08-03 06:00] LABS: Basophils # (auto) 0.07 K/uL (0-0.2); Basophils % (auto) 0.8 %; Eosinophils % (auto) 1.1 %; Hematocrit (blood only) 33.1 % (34.1-44.9); Immature Granulocytes # (auto) 0.04 K/uL (0.00-0.02); Immature Granulocytes % (auto) 0.4 %; Lymphocytes # (auto) 1.77 K/uL (1.2-3.4); Lymphocytes % (auto) 19.4 %; Mean Corpuscular Hemoglobin 28.8 pg (25.0-34.0); Mean Corpuscular Hgb Conc 33.2 g/dL (32.0-36.0); Mean Corpuscular Volume 86.6 fL (80.0-100.0); Mean Platelet Volume 8.6 fL (9.4-12.3); Monocytes # (auto) 1.09 K/uL (0.24-0.82); Neutrophils # (auto) 6.05 K/uL (1.4-6.5); Neutrophils % (auto) 66.3 %; Platelet Count 416 K/uL (130-400); RDW Coefficient of Variation 14.5 % (11.5-14.5); RDW Standard Deviation 45.6 fL (36.4-46.3); Red Blood Count 3.82 M/uL (3.93-5.22); White Blood Count 9.12 K/ul (4.8-10.8)
[2022-08-03 06:08] LABS: Partial Thromboplastin Ratio 1.5; Partial Thromboplastin Time 41.9 Seconds (21.0-31.0)
[2022-08-03 06:22] LABS: BUN Creatinine Ratio 25.3 (10-20); Calcium 8.4 mg/dl (8.5-10.1); Creatinine Clr Calc Pharmacy 45.5 ml/min; Est GFR (African American) 79.1 ml/min; Est GFR (Non-African American) 68.3 ml/min; Potassium 4.1 mmol/L (3.5-5.1)
--- NOTE | 2022-08-03 07:13 | Electrocardiogram Report ---
Test Reason : Blood Pressure : / mmHG Vent. Rate : 091 BPM Atrial Rate : 133 BPM P-R Int : 000 ms QRS Dur : 092 ms QT Int : 340 ms P-R-T Axes : 000 -06 217 degrees QTc Int : 418 ms Atrial fibrillation Low voltage QRS Abnormal ECG When compared with ECG of 02-AUG-2022 06:14, Inverted T waves have replaced nonspecific T wave abnormality in Lateral leads Confirmed by Denver Prajapati ([id number]) on 08/03/2022 7:13:19 AM Referred By: REFERRED SELF Confirmed By:Lorenzo Prajapati
[2022-08-03] MEDS: CHOLECALCIFEROL 1,000 UNITS 25 MCG TAB PO SCH (08:56)
[2022-08-03] MEDS: METOPROLOL TARTRATE 25 MG TAB PO SCH ×2 (08:56→21:55)
[2022-08-03] MEDS: PSYLLIUM or GUAR GUM FIBER POWDER PACKET PO SCH (08:56)
[2022-08-03] MEDS: DOXYCYCLINE HYCLATE 100 MG CAP PO SCH ×2 (08:56→21:55)
[2022-08-03] MEDS: CYANOCOBALAMIN (B-12) 500 MCG TABLET PO SCH (08:56)
[2022-08-03] MEDS: COLCHICINE 0.6 MG TAB PO SCH ×2 (08:56→21:54)
[2022-08-03] MEDS: ESCITALOPRAM OXALATE 10 MG TAB PO SCH (09:12)
[2022-08-03] MEDS: HEPARIN SODIUM/DEXTROSE 25,000 UNITS/500 ML BAG IV SCH (09:13)
[2022-08-03] MEDS: cefTRIAXone SODIUM 2,000 MG in DEXTROSE 5% 50 ML IV SCH (10:31)
[2022-08-03] MEDS: MAGNESIUM OXIDE 400 MG TAB PO SCH (10:34)
--- NOTE | 2022-08-03 10:52 | Hospitalist Progress Note ---
Date of Service August 03, 2022 Assessment & Plan (1) Paroxysmal atrial fibrillation: (2) Pericardial effusion: (3) Pleural effusion on right: (4) Pneumonia: Plan: Presented with chest discomfort and palpitation which woke her up from the sleep EKG in the ED showed A. fib with RVR CT chest shows large pericardial effusion along with bilateral pleural effusion with dependent consolidation High-sensitivity 25 and 21; no significant delta difference. Pro-Dannie less than 0.05 Echo shows EF of 60 to 65% with left atrium dilation. Moderate circumferential pericardial effusion present. No evidence of cardiac tamponade. Plan; For A. fib with RVR; on metoprolol tartrate 12.5 twice daily (cardiology recommends low-dose metoprolol) with holding parameters as patient has history of sinus bradycardia. Currently on heparin drip. For pericardial effusion; patient is started on colchicine 0.6 mg twice daily by cardiology Started on ceftriaxone and doxycycline for pneumonia; will provide 5 to 7-day course. Monitor on telemetry (5) Hypothyroidism: Plan: TSH- 5.609 free T4- 1.22. Continue current dose. (6) Hypertension: Plan: Lisinopril on hold given hypotension on presentation. Plan Full code DVT heparin Admission and Anticipated Discharge Date Admission Date: August 02, 2022 Subjective Telemetry reviewed; patient continues to be in atrial fibrillation with ventricular rate 80s to 90s. She reports intermittent chest pain and exertional dyspnea. Review of Systems Review of Systems: All systems reviewed & are unremarkable except as noted in Subjective Physical Exam Physical Exam: Constitutional: WD/WN, vitals as above, NAD, sitting up in bed, pleasant, conversing easily Respiratory: Decreased breath sound at right lower base. no wheeze, rales, rhonchi. Normal insp/exp effort, no accessory muscle use Cardiovascular: Irregular, tachycardic, no murmur, no edema Vessels: no JVD or carotid bruit Abdomen: normal bowel sounds, soft, nontender, no hepatosplenomegaly Musculoskeletal: no cyanosis or clubbing, extremities motor strength 5/5 Skin: no rashes, warm and dry normal turgor Neurologic: PERRL, EOMI, accommodation nl, no face palsy, no dysarthria CN's II- XI intact bilaterally and moves all extremities Psychiatric: A+Ox3, euthymic affect Lymphatic: no cervical or axillary lymphadenopathy : deferred Results & Data Results & Data ([facility]) Vital Signs (Past 12 Hours) Vital Signs Temp Pulse Pulse Resp BP Pulse Ox O2 Del Method 08/03/22 09:49 83 08/03/22 08:00 Room Air 08/03/22 07:44 36.3 C L 86 18 115/75 95 Room Air 08/03/22 03:48 36.8 C 90 18 124/77 91 Room Air 08/02/22 22:56 37.4 C 112 H 18 124/76 91 Room Air Laboratory Results Laboratory Results WBC 9.12 K/ul (4.8-10.8) 08/03/22 05:42 RBC 3.82 M/uL (3.93-5.22) L 08/03/22 05:42 Hgb 11.0 g/dl (12.0-16.0) L 08/03/22 05:42 Hct 33.1 % (34.1-44.9) L 08/03/22 05:42 MCV 86.6 fL (80.0-100.0) 08/03/22 05:42 MCH 28.8 pg (25.0-34.0) 08/03/22 05:42 MCHC 33.2 g/dL (32.0-36.0) 08/03/22 05:42 RDW Std Deviation 45.6 fL (36.4-46.3) 08/03/22 05:42 RDW Coeff of Valdo 14.5 % (11.5-14.5) 08/03/22 05:42 Plt Count 416 K/uL (130-400) H 08/03/22 05:42 MPV 8.6 fL (9.4-12.3) L 08/03/22 05:42 Immature Gran % (Auto) 0.4 % 08/03/22 05:42 Neut % (Auto) 66.3 % 08/03/22 05:42 Lymph % (Auto) 19.4 % 08/03/22 05:42 [place] % (Auto) 12.0 % 08/03/22 05:42 Eos % (Auto) 1.1 % 08/03/22 05:42 Baso % (Auto) 0.8 % 08/03/22 05:42 Neut # (Auto) 6.05 K/uL (1.4-6.5) 08/03/22 05:42 Lymph # (Auto) 1.77 K/uL (1.2-3.4) 08/03/22 05:42 [place] # (Auto) 1.09 K/uL (0.24-0.82) H 08/03/22 05:42 Eos # (Auto) 0.10 K/uL (0-0.50) 08/03/22 05:42 Baso # (Auto) 0.07 K/uL (0-0.2) 08/03/22 05:42 Immature Gran # (Auto) 0.04 K/uL (0.00-0.02) H 08/03/22 05:42 PT 11.0 Seconds (9.0-12.0) 08/02/22 05:50 INR 1.0 (0.9-1.1) 08/02/22 05:50 APTT 41.9 Seconds (21.0-31.0) H 08/03/22 05:42 PTT Ratio 1.5 08/03/22 05:42 Sodium 132 mmol/L (136-145) L 08/03/22 05:42 Potassium 4.1 mmol/L (3.5-5.1) 08/03/22 05:42 Chloride 101 mmol/L (98-107) 08/03/22 05:42 Carbon Dioxide 25 mmol/L (21-32) 08/03/22 05:42 Anion Gap 6 (3-11) 08/03/22 05:42 BUN 20 mg/dl (6-23) 08/03/22 05:42 Creatinine 0.79 mg/dl (0.6-1.2) 08/03/22 05:42 Est Cr Clr Drug Dosing 45.5 ml/min 08/03/22 05:42 Est GFR ( Amer) 79.1 ml/min 08/03/22 05:42 Est GFR (Non-Af Amer) 68.3 ml/min 08/03/22 05:42 BUN/Creatinine Ratio 25.3 (10-20) H 08/03/22 05:42 Glucose 96 mg/dl (70-99(Fasting)) 08/03/22 05:42 Calcium 8.4 mg/dl (8.5-10.1) L 08/03/22 05:42 Magnesium 1.6 mg/dl (1.7-2.4) L 08/02/22 05:50 Total Bilirubin 0.4 mg/dl (0.2-1.0) 08/02/22 05:50 AST 24 U/L (13-39) 08/02/22 05:50 ALT 16 U/L (7-52) 08/02/22 05:50 Alkaline Phosphatase 47 U/L (34-104) 08/02/22 05:50 Troponin I High Sens 19.6 pg/ml (0-14) H 08/02/22 16:11 Total Protein 6.7 gm/dl (6.0-8.3) 08/02/22 05:50 Albumin 3.3 gm/dl (3.4-5.0) L 08/02/22 05:50 Globulin 3.4 gm/dl (2.5-4.0) 08/02/22 05:50 Albumin/Globulin Ratio 1.0 (0.9-2) 08/02/22 05:50 Lipase 38 U/L (11-82) 08/02/22 05:50 Procalcitonin < 0.05 ng/ml (0-0.5) 08/02/22 05:50 TSH 5.609 uIu/ml (0.300-4.500) H 08/02/22 05:50 Free T4 1.22 ng/dl (0.61-1.60) 08/02/22 05:50 Urine Color Yellow 08/02/22 07:34 Urine Appearance Clear (Clear) 08/02/22 07:34 Urine pH 5.0 (4.5-7.5) 08/02/22 07:34 Ur Specific [place] 1.021 (1.000-1.030) 08/02/22 07:34 Urine Protein Trace (Negative) H 08/02/22 07:34 Urine Glucose (UA) Negative (Negative) 08/02/22 07:34 Urine Ketones Trace (Negative) H 08/02/22 07:34 Urine Blood Negative (Negative) 08/02/22 07:34 Urine Nitrite Negative (Negative) 08/02/22 07:34 Urine Bilirubin Negative (Negative) 08/02/22 07:34 Urine Urobilinogen Negative (Negative) 08/02/22 07:34 Ur Leukocyte Esterase 1+ (Negative) H 08/02/22 07:34 Urine WBC (Auto) 5-10 /hpf (0-5) H 08/02/22 07:34 Urine RBC (Auto) 0-4 /hpf (0-4) 08/02/22 07:34 U Hyaline Cast (Auto) 0 /lpf (0-5) 08/02/22 07:34 U Epithel Cells (Auto) 20-30 /lpf (0-5) H 08/02/22 07:34 Urine Bacteria (Auto) 1+ (Negative) H 08/02/22 07:34 Influ A Molecular Assay Negative (Negative) 08/02/22 09:40 Influ B Molecular Assay Negative (Negative) 08/02/22 09:40 SARS-CoV-2, RNA, NAAT NEGATIVE (NEGATIVE) 08/02/22 06:25 Impressions Chest X-Ray 08/02/22 06:07 SINGLE VIEW CHEST CLINICAL HISTORY: Atypical chest pain. FINDINGS: An AP, portable, upright chest radiograph is compared to study dated 07/01/2022 and correlated with chest CT dated 11/17/2012. The examination is degraded by portable technique and patient rotation. A hiatal hernia is suspected and new from previous. The heart is enlarged noting atherosclerotic calcification of the thoracic aorta. The pulmonary vasculature is noncongested. Chronic interstitial thickening is similar to previous. There are small pleural effusions, right larger than left with dependent consolidation. No pneumothorax is seen. The skeletal structures are osteopenic. The bony thorax is grossly intact. Degenerative change is seen in the shoulders and spine. IMPRESSION: 1. Cardiomegaly without radiographic evidence of congestive failure. 2. A hiatal hernia is suspected and new from previous. 3. Right large left pleural effusions with dependent consolidation. This could represent atelectasis versus pneumonia/aspiration pneumonitis. Clinical correlation will be required and radiographic follow-up to resolution is recommended. ACT 112: Negative or not required by law. Electronically signed by: Nuno Bennett M.D. 08/02/2022 6:[address] 08/02/22 09:30 CT SCAN OF THE CHEST WITHOUT IV CONTRAST CLINICAL HISTORY: Pleural effusion. Atypical chest pain. COMPARISON STUDY: Chest x-ray dated 08/02/2022. Chest CT dated 11/17/2012. Abdominal CT dated 04/06/2021. TECHNIQUE: CT scan of the thorax was performed from the thoracic inlet to the upper abdomen. Images are reviewed in the axial, sagittal, and coronal planes. IV contrast was not administered for this examination as per the referring clinician. A dose lowering technique was utilized adhering to the principles of ALARA. CT DOSE: 180.29 mGy.cm FINDINGS: Thyroid: Atrophic. Thoracic aorta: No intramural hematoma is identified. There is advanced atherosclerotic calcification of the thoracic aorta. There is mild aneurysmal dilatation of the ascending thoracic aorta, which measures up to 4.4 cm in diameter. The remainder of the thoracic aorta is normal in caliber and the arch demonstrates variant 3-vessel anatomy. 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 Heart: The heart is enlarged. There is a large pericardial effusion. There is only mild pericardial thickening. The coronary arteries are densely calcified. Lungs and pleural spaces: There are small right and trace left pleural effusions with dependent consolidation. Mediastinum: There is no mediastinal lymphadenopathy. Gina: Not well assessed without IV contrast. Axillae: There is no axillary lymphadenopathy. Upper abdomen: There are are calcifications in the right hepatic lobe. Large cysts were seen at this site on the 2013 examination comments may represent treatment-related change. Partially visualized upper abdominal viscera is otherwise within normal limits. Skeletal structures: The skeletal structures are osteopenic. Advanced arthritic change is seen in the shoulders. Degenerative change and hyperkyphosis is noted in the thoracic spine. No lytic or blastic bony lesions are seen. IMPRESSION: 1. There is a large and simple appearing pericardial effusion, which is new from the 04/06/[address] scan. There is only mild pericardial thickening. Clinical correlation will be required. If there is clinical concern for dissection a CT angiogram of the chest should be obtained. Consider cardiology assessment. 2. Small right and trace left pleural effusions with dependent consolidation. This likely represents atelectasis and clinical correlation will be required. 3. Cardiomegaly and advanced coronary artery calcification. 4. Mild aneurysmal dilatation of the ascending thoracic aorta. 5. Additional findings as above. ACT 112: Negative or not required by law. Electronically signed by: Nuno Bennett M.D. 08/02/2022 12:11 PM
--- NOTE | 2022-08-03 11:59 | Cardiology Progress Note ---
Date of Service August 03, 2022 Assessment & Plan (1) Paroxysmal atrial fibrillation: (2) Tachycardia-bradycardia syndrome: (3) Pneumonia: (4) Pleural effusion on right: (5) Pericardial effusion: Plan 86-year-old female admitted with paroxysmal atrial fibrillation, pleuritic chest discomfort, and right-sided pleural effusion with associated pneumonia. Fair rate control without AV debbie blocking agents currently. Prior ECGs demonstrating sinus bradycardia. Continue to monitor telemetry and observation. No need for AV debbie blocking agent currently. CT of the chest demonstrating a new, large pericardial effusion. 2D echocardiogram without evidence of tamponade. Patient tolerating colchicine. NSAIDs currently avoided due to need for ongoing anticoagulation in the setting of recent TIA and atrial fibrillation. Likely transition patient from IV heparin to heparin as we approach discharge pending assessment of insurance coverage. Antibiotics and treatment of underlying pneumonia as per internal medicine. Admission and Anticipated Discharge Date Admission Date: August 02, 2022 Subjective Patient seen examined the bedside. Feeling better today. Reports minimal left- sided chest discomfort primarily with cough and belching. No orthopnea, PND, or edema. Denies palpitations, lightheadedness, or dizziness. Notes clear rhinorr hea and mild clear sputum production. No signs/symptoms of GI/ blood loss. No focal weakness or slurred speech. Review of Systems Review of Systems: All systems reviewed & are unremarkable except as noted in Subjective Physical Exam Constitutional: well nourished; no acute distress Respiratory: normal respiratory effort; no respiratory distress, no labored breathing and no retractions Auscultation: + diminished lung sounds (Right base) and + rales (Right base); no rhonchi and no wheezes Cardiovascular: Rate/Rhythm: + irregularly irregular Heart Sounds: normal S1, normal S2 and + murmur (1/6 midsystolic murmur heard best at the right second costal space) Gastrointestinal (Abdomen): Inspection/Auscultation: abdomen normal to inspection and normal bowel sounds; abdomen not distended Percussion/Palpation: abdomen soft; abdomen nontender, no guarding and abdomen not rigid Neurologic: CN's II-XI intact bilaterally and moves all extremities Results & Data ([facility]) Vital Signs (Past 12 Hours) Vital Signs Temp Pulse Pulse Resp BP Pulse Ox O2 Del Method 08/03/22 09:49 83 08/03/22 08:00 Room Air 08/03/22 07:44 36.3 C L 86 18 115/75 95 Room Air 08/03/22 03:48 36.8 C 90 18 124/77 91 Room Air
[2022-08-03 12:47] LABS: Partial Thromboplastin Ratio 1.2; Partial Thromboplastin Time 34.3 Seconds (21.0-31.0)
[2022-08-03] MEDS: ENOXAPARIN 80 MG/0.8 ML SYR SQ SCH (14:18)
[2022-08-03 15:33] LABS: Adenovirus PCR Not Detected (NotDetected); Bordetella parapertussis PCR Not Detected (NotDetected); Bordetella pertussis PCR Not Detected (NotDetected); Chlamydia pneumoniae PCR Not Detected (NotDetected); Coronavirus 229E PCR Not Detected (NotDetected); Coronavirus CoV-2 (COVID19)PCR Not Detected (NotDetected); Coronavirus HKU1 PCR Not Detected (NotDetected); Coronavirus NL63 PCR Not Detected (NotDetected); Coronavirus OC43PCR Not Detected (NotDetected); Human Metapneumovirus PCR Not Detected (NotDetected); Influenza A PCR Not Detected (NotDetected); Influenza B PCR Not Detected (NotDetected); Mycoplasma pneumoniae PCR Not Detected (NotDetected); Parainfluenza Virus 1 PCR Not Detected (NotDetected); Parainfluenza Virus 2 PCR Not Detected (NotDetected); Parainfluenza Virus 3 PCR Not Detected (NotDetected); Parainfluenza Virus 4 PCR Not Detected (NotDetected); Respiratory Syncytial VirusPCR Not Detected (NotDetected); Rhinovirus/Enterovirus PCR Not Detected (NotDetected)
[2022-08-03] MEDS: hydrOXYzine HCl 10 MG TAB PO SCH (21:54)
[2022-08-04] MEDS: ENOXAPARIN 80 MG/0.8 ML SYR SQ SCH ×2 (02:13→13:06)
[2022-08-04] MEDS: LEVOTHYROXINE SODIUM 137 MCG TABLET PO SCH (05:47)
[2022-08-04] MEDS: METOPROLOL TARTRATE 25 MG TAB PO SCH (08:19)
[2022-08-04] MEDS: COLCHICINE 0.6 MG TAB PO SCH ×2 (08:19→20:27)
[2022-08-04] MEDS: CHOLECALCIFEROL 1,000 UNITS 25 MCG TAB PO SCH (08:19)
[2022-08-04] MEDS: CYANOCOBALAMIN (B-12) 500 MCG TABLET PO SCH (08:19)
[2022-08-04] MEDS: PSYLLIUM or GUAR GUM FIBER POWDER PACKET PO SCH (08:20)
[2022-08-04 08:48] LABS: Basophils # (auto) 0.06 K/uL (0-0.2); Basophils % (auto) 0.6 %; Eosinophils # (auto) 0.14 K/uL (0-0.50); Eosinophils % (auto) 1.5 %; Hematocrit (blood only) 38.2 % (34.1-44.9); Hemoglobin 12.2 g/dl (12.0-16.0); Immature Granulocytes # (auto) 0.06 K/uL (0.00-0.02); Immature Granulocytes % (auto) 0.6 %; Lymphocytes % (auto) 15.6 %; Mean Corpuscular Hemoglobin 28.5 pg (25.0-34.0); Mean Corpuscular Hgb Conc 31.9 g/dL (32.0-36.0); Mean Corpuscular Volume 89.3 fL (80.0-100.0); Mean Platelet Volume 9.1 fL (9.4-12.3); Monocytes # (auto) 0.82 K/uL (0.24-0.82); Monocytes % (auto) 8.5 %; Neutrophils # (auto) 7.06 K/uL (1.4-6.5); Neutrophils % (auto) 73.2 %; Platelet Count 475 K/uL (130-400); RDW Coefficient of Variation 14.4 % (11.5-14.5); RDW Standard Deviation 46.2 fL (36.4-46.3); Red Blood Count 4.28 M/uL (3.93-5.22); White Blood Count 9.64 K/ul (4.8-10.8)
[2022-08-04 09:08] LABS: BUN Creatinine Ratio 19.7 (10-20); C Reactive Protein 10.82 mg/dl (0-0.5); Calcium 8.9 mg/dl (8.5-10.1); Creatinine Clr Calc Pharmacy 48.2 ml/min; Est GFR (African American) 82.9 ml/min; Est GFR (Non-African American) 71.5 ml/min; Potassium 4.3 mmol/L (3.5-5.1)
--- NOTE | 2022-08-04 09:41 | Cardiology Progress Note ---
Date of Service August 04, 2022 Assessment & Plan (1) Paroxysmal atrial fibrillation: (2) Tachycardia-bradycardia syndrome: (3) Pneumonia: (4) Pleural effusion on right: (5) Pericardial effusion: Plan 86-year-old female admitted with paroxysmal/new onset atrial fibrillation, pl euritic chest discomfort, and right-sided pleural effusion with associated pneumonia. Echocardiogram with moderately large pericardial effusion 1. Atrial fibrillation: Heart rates and blood pressure somewhat variable since admission but rates generally controlled. Suspect patient will require low-dose beta-little i.e. metoprolol succinate 12.5 mg daily for ongoing rate control. Patient notes blood pressure is elevated at times since last hospitalization. No hypotension. Blood pressures are slowly climbing I suspect as pericardial effusion improved Plan transition anticoagulation to Eliquis pending review of echocardiogram 2. Pericardial effusion clinically improved with less pleuritic discomfort. No evidence of tamponade on exam minimal pulses paradoxus. Limited echo ordered today. Continue colchicine. Patient with some diarrhea possibly secondary to antibiotics versus colchicine we will continue as patient tolerates. Avoiding nonsteroidals given planned use of anticoagulant 3. Hypertension: Patient off lisinopril due to low blood pressures on presentation. We will follow, add low-dose metoprolol succinate 12.5 mg/day 4. TIA: Transient aphasia 07/02/2022. Patient on dual antiplatelet therapy for 1 month will transition to Eliquis given presence of atrial fibrillation. Mild chronic gait instability Admission and Anticipated Discharge Date Admission Date: August 02, 2022 Subjective Patient was seen and examined, chart, medications, telemetry reviewed. Patient up in bathroom this morning. No worsening chest pain or shortness of breath with only minimal pleuritic discomfort on deep inspiration. Symptoms improved. Complaints this morning of diarrhea or loose stools. No fevers or chills. No edema. Patient unaware of irregular heartbeat or racing heart rhythms Minimal unsteadiness with ambulation. No dizziness or lightheadedness Telemetry atrial fibrillation rates 80s to 110. Rare PVCs and no pauses. Review of Systems Review of Systems: All systems reviewed & are unremarkable except as noted in Subjective Physical Exam Constitutional: well nourished; no acute distress Eyes: PERRL, conjunctivae normal, anicteric sclerae Neck: trachea midline, no thyromegaly Respiratory: normal respiratory effort; no respiratory distress, no labored breathing and no retractions Auscultation: + diminished lung sounds (Right base) and + rales (Right base); no rhonchi and no wheezes Cardiovascular: Rate/Rhythm: + irregularly irregular Heart Sounds: normal S1, normal S2 and + murmur (1/6 midsystolic murmur heard best at the right second costal space); no cardiac rub Gastrointestinal (Abdomen): Inspection/Auscultation: abdomen normal to inspection and normal bowel sounds; abdomen not distended Percussion/Palpation: abdomen soft; abdomen nontender, no guarding and abdomen not rigid Neurologic: CN's II-XI intact bilaterally and moves all extremities Results & Data ([facility]) Vital Signs (Past 12 Hours) Vital Signs Temp Pulse Pulse Resp BP Pulse Ox O2 Del Method 08/04/22 07:40 36.2 C L 88 20 116/75 93 Room Air 08/04/22 03:24 36.7 C 94 H 18 138/78 93 Room Air 08/03/22 22:22 117 H 08/03/22 23:32 36.6 C 100 H 18 115/76 91 Room Air 08/03/22 21:56 115 H 152/86 H Laboratory Results Laboratory Results - last 24 hr 08/03/22 08/03/22 08/04/22 12:24 13:00 07:57 WBC 9.64 RBC 4.28 Hgb 12.2 Hct 38.2 MCV 89.3 MCH 28.5 MCHC 31.9 L RDW Std Deviation 46.2 RDW Coeff of Valdo 14.4 Plt Count 475 H MPV 9.1 L Immature Gran % (Auto) 0.6 Neut % (Auto) 73.2 Lymph % (Auto) 15.6 [place] % (Auto) 8.5 Eos % (Auto) 1.5 Baso % (Auto) 0.6 Neut # (Auto) 7.06 H Lymph # (Auto) 1.50 [place] # (Auto) 0.82 Eos # (Auto) 0.14 Baso # (Auto) 0.06 Immature Gran # (Auto) 0.06 H ESR APTT 34.3 H PTT Ratio 1.2 Sodium Potassium Chloride Carbon Dioxide Anion Gap BUN Creatinine Est Cr Clr Drug Dosing Est GFR ( Amer) Est GFR (Non-Af Amer) BUN/Creatinine Ratio Glucose Calcium C-Reactive Protein Adenovirus (PCR) Not Detected B. pertussis DNA (PCR) Not Detected B.parapertussis DNA PCR Not Detected C. pneumoniae DNA (PCR) Not Detected Coronavirus OC43 (PCR) Not Detected Coronavirus HKU1 (PCR) Not Detected Coronavirus 229E (PCR) Not Detected SARS-CoV-2 (PCR) Not Detected Coronavirus NL63 (PCR) Not Detected Human Metapneumovir PCR Not Detected Influenza Type A (PCR) Not Detected Influenza Type B (PCR) Not Detected M. pneumoniae (PCR) Not Detected Parainfluenza 1 (PCR) Not Detected Parainfluenza 2 (PCR) Not Detected Parainfluenza 3 (PCR) Not Detected Parainfluenza 4 (PCR) Not Detected RSV (PCR) Not Detected Entero/Rhino (PCR) Not Detected 08/04/22 08/04/22 07:57 07:57 WBC RBC Hgb Hct MCV MCH MCHC RDW Std Deviation RDW Coeff of Valdo Plt Count MPV Immature Gran % (Auto) Neut % (Auto) Lymph % (Auto) [place] % (Auto) Eos % (Auto) Baso % (Auto) Neut # (Auto) Lymph # (Auto) [place] # (Auto) Eos # (Auto) Baso # (Auto) Immature Gran # (Auto) ESR 62 H APTT PTT Ratio Sodium 135 L Potassium 4.3 Chloride 100 Carbon Dioxide 27 Anion Gap 8 BUN 15 Creatinine 0.76 Est Cr Clr Drug Dosing 48.2 Est GFR ( Amer) 82.9 Est GFR (Non-Af Amer) 71.5 BUN/Creatinine Ratio 19.7 Glucose 89 Calcium 8.9 C-Reactive Protein 10.82 H Adenovirus (PCR) B. pertussis DNA (PCR) B.parapertussis DNA PCR C. pneumoniae DNA (PCR) Coronavirus OC43 (PCR) Coronavirus HKU1 (PCR) Coronavirus 229E (PCR) SARS-CoV-2 (PCR) Coronavirus NL63 (PCR) Human Metapneumovir PCR Influenza Type A (PCR) Influenza Type B (PCR) M. pneumoniae (PCR) Parainfluenza 1 (PCR) Parainfluenza 2 (PCR) Parainfluenza 3 (PCR) Parainfluenza 4 (PCR) RSV (PCR) Entero/Rhino (PCR)
[2022-08-04] MEDS: ESCITALOPRAM OXALATE 10 MG TAB PO SCH (09:43)
[2022-08-04] MEDS: DOXYCYCLINE HYCLATE 100 MG CAP PO SCH ×2 (09:43→20:27)
[2022-08-04] MEDS: METOPROLOL SUCC 25MG EXT REL TAB PO SCH (10:33)
[2022-08-04] MEDS: cefTRIAXone SODIUM 2,000 MG in DEXTROSE 5% 50 ML IV SCH (10:33)
[2022-08-04] MEDS: MAGNESIUM OXIDE 400 MG TAB PO SCH (11:24)
--- NOTE | 2022-08-04 12:17 | Hospitalist Progress Note ---
Date of Service August 04, 2022 Assessment & Plan (1) Paroxysmal atrial fibrillation: (2) Pericardial effusion: (3) Pleural effusion on right: (4) Pneumonia: Plan: Presented with chest discomfort and palpitation which woke her up from the sleep EKG in the ED showed A. fib with RVR CT chest shows large pericardial effusion along with bilateral pleural effusion with dependent consolidation High-sensitivity 25 and 21; no significant delta difference. Pro-Dannie less than 0.05 Respiratory viral panel negative. Echo shows EF of 60 to 65% with left atrium dilation. Moderate circumferential pericardial effusion present. No evidence of cardiac tamponade. Follow-up echo shows decrease in the pericardial effusion. Plan; For A. fib with RVR; on metoprolol succinate 12.5 once daily. Currently on Lovenox for anticoagulation; switched to Eliquis on discharge. For pericardial effusion; patient is started on colchicine 0.6 mg twice daily by cardiology. Follow-up echo shows decrease in the pericardial effusion. Monitor for diarrhea. Started on ceftriaxone and doxycycline for pneumonia; will provide 5 to 7-day course. Monitor on telemetry (5) Hypothyroidism: Plan: TSH- 5.609 free T4- 1.22. Continue current dose. (6) Hypertension: Plan: Lisinopril on hold given hypotension on presentation. Started on metoprolol succinate 12.5. Plan Full code DVT lovenox Admission and Anticipated Discharge Date Admission Date: August 02, 2022 Subjective Patient seen and examined at bedside. She reports 2 episode of diarrhea today; watery in nature. Telemetry shows A. fib with ventricular rate in 90s to 100 Review of Systems Review of Systems: All systems reviewed & are unremarkable except as noted in Subjective Physical Exam Physical Exam: Constitutional: WD/WN, vitals as above, NAD, sitting up in bed, pleasant, conversing easily Respiratory: Decreased breath sound at right lower base. no wheeze, rales, rhonchi. Normal insp/exp effort, no accessory muscle use Cardiovascular: Irregular, tachycardic, no murmur, no edema Vessels: no JVD or carotid bruit Abdomen: normal bowel sounds, soft, nontender, no hepatosplenomegaly Musculoskeletal: no cyanosis or clubbing, extremities motor strength 5/5 Skin: no rashes, warm and dry normal turgor Neurologic: PERRL, EOMI, accommodation nl, no face palsy, no dysarthria CN's II- XI intact bilaterally and moves all extremities Psychiatric: A+Ox3, euthymic affect Lymphatic: no cervical or axillary lymphadenopathy : deferred Results & Data Results & Data ([facility]) Vital Signs (Past 12 Hours) Vital Signs Temp Pulse Resp BP Pulse Ox O2 Del Method 08/04/22 11:49 36.5 C 91 H 18 121/83 94 Room Air 08/04/22 07:40 36.2 C L 88 20 116/75 93 Room Air 08/04/22 03:24 36.7 C 94 H 18 138/78 93 Room Air Laboratory Results Laboratory Results WBC 9.64 K/ul (4.8-10.8) 08/04/22 07:57 RBC 4.28 M/uL (3.93-5.22) 08/04/22 07:57 Hgb 12.2 g/dl (12.0-16.0) 08/04/22 07:57 Hct 38.2 % (34.1-44.9) 08/04/22 07:57 MCV 89.3 fL (80.0-100.0) 08/04/22 07:57 MCH 28.5 pg (25.0-34.0) 08/04/22 07:57 MCHC 31.9 g/dL (32.0-36.0) L 08/04/22 07:57 RDW Std Deviation 46.2 fL (36.4-46.3) 08/04/22 07:57 RDW Coeff of [place]do 14.4 % (11.5-14.5) 08/04/22 07:57 Plt Count 475 K/uL (130-400) H 08/04/22 07:57 MPV 9.1 fL (9.4-12.3) L 08/04/22 07:57 Immature Gran % (Auto) 0.6 % 08/04/22 07:57 Neut % (Auto) 73.2 % 08/04/22 07:57 Lymph % (Auto) 15.6 % 08/04/22 07:57 [place] % (Auto) 8.5 % 08/04/22 07:57 Eos % (Auto) 1.5 % 08/04/22 07:57 Baso % (Auto) 0.6 % 08/04/22 07:57 Neut # (Auto) 7.06 K/uL (1.4-6.5) H 08/04/22 07:57 Lymph # (Auto) 1.50 K/uL (1.2-3.4) 08/04/22 07:57 [place] # (Auto) 0.82 K/uL (0.24-0.82) 08/04/22 07:57 Eos # (Auto) 0.14 K/uL (0-0.50) 08/04/22 07:57 Baso # (Auto) 0.06 K/uL (0-0.2) 08/04/22 07:57 Immature Gran # (Auto) 0.06 K/uL (0.00-0.02) H 08/04/22 07:57 ESR 62 mm/hr (0-30) H 08/04/22 07:57 PT 11.0 Seconds (9.0-12.0) 08/02/22 05:50 INR 1.0 (0.9-1.1) 08/02/22 05:50 APTT 34.3 Seconds (21.0-31.0) H 08/03/22 12:24 PTT Ratio 1.2 08/03/22 12:24 Sodium 135 mmol/L (136-145) L 08/04/22 07:57 Potassium 4.3 mmol/L (3.5-5.1) 08/04/22 07:57 Chloride 100 mmol/L (98-107) 08/04/22 07:57 Carbon Dioxide 27 mmol/L (21-32) 08/04/22 07:57 Anion Gap 8 (3-11) 08/04/22 07:57 BUN 15 mg/dl (6-23) 08/04/22 07:57 Creatinine 0.76 mg/dl (0.6-1.2) 08/04/22 07:57 Est Cr Clr Drug Dosing 48.2 ml/min 08/04/22 07:57 Est GFR ( Amer) 82.9 ml/min 08/04/22 07:57 Est GFR (Non-Af Amer) 71.5 ml/min 08/04/22 07:57 BUN/Creatinine Ratio 19.7 (10-20) 08/04/22 07:57 Glucose 89 mg/dl (70-99(Fasting)) 08/04/22 07:57 Calcium 8.9 mg/dl (8.5-10.1) 08/04/22 07:57 Magnesium 1.6 mg/dl (1.7-2.4) L 08/02/22 05:50 Total Bilirubin 0.4 mg/dl (0.2-1.0) 08/02/22 05:50 AST 24 U/L (13-39) 08/02/22 05:50 ALT 16 U/L (7-52) 08/02/22 05:50 Alkaline Phosphatase 47 U/L (34-104) 08/02/22 05:50 Troponin I High Sens 19.6 pg/ml (0-14) H 08/02/22 16:11 C-Reactive Protein 10.82 mg/dl (0-0.5) H 08/04/22 07:57 Total Protein 6.7 gm/dl (6.0-8.3) 08/02/22 05:50 Albumin 3.3 gm/dl (3.4-5.0) L 08/02/22 05:50 Globulin 3.4 gm/dl (2.5-4.0) 08/02/22 05:50 Albumin/Globulin Ratio 1.0 (0.9-2) 08/02/22 05:50 Lipase 38 U/L (11-82) 08/02/22 05:50 Procalcitonin < 0.05 ng/ml (0-0.5) 08/02/22 05:50 TSH 5.609 uIu/ml (0.300-4.500) H 08/02/22 05:50 Free T4 1.22 ng/dl (0.61-1.60) 08/02/22 05:50 Urine Color Yellow 08/02/22 07:34 Urine Appearance Clear (Clear) 08/02/22 07:34 Urine pH 5.0 (4.5-7.5) 08/02/22 07:34 Ur Specific [employer] 1.021 (1.000-1.030) 08/02/22 07:34 Urine Protein Trace (Negative) H 08/02/22 07:34 Urine Glucose (UA) Negative (Negative) 08/02/22 07:34 Urine Ketones Trace (Negative) H 08/02/22 07:34 Urine Blood Negative (Negative) 08/02/22 07:34 Urine Nitrite Negative (Negative) 08/02/22 07:34 Urine Bilirubin Negative (Negative) 08/02/22 07:34 Urine Urobilinogen Negative (Negative) 08/02/22 07:34 Ur Leukocyte Esterase 1+ (Negative) H 08/02/22 07:34 Urine WBC (Auto) 5-10 /hpf (0-5) H 08/02/22 07:34 Urine RBC (Auto) 0-4 /hpf (0-4) 08/02/22 07:34 U Hyaline Cast (Auto) 0 /lpf (0-5) 08/02/22 07:34 U Epithel Cells (Auto) 20-30 /lpf (0-5) H 08/02/22 07:34 Urine Bacteria (Auto) 1+ (Negative) H 08/02/22 07:34 Adenovirus (PCR) Not Detected (NotDetected) 08/03/22 13:00 B. pertussis DNA (PCR) Not Detected (NotDetected) 08/03/22 13:00 B.parapertussis DNA PCR Not Detected (NotDetected) 08/03/22 13:00 C. pneumoniae DNA (PCR) Not Detected (NotDetected) 08/03/22 13:00 Coronavirus OC43 (PCR) Not Detected (NotDetected) 08/03/22 13:00 Coronavirus HKU1 (PCR) Not Detected (NotDetected) 08/03/22 13:00 Coronavirus 229E (PCR) Not Detected (NotDetected) 08/03/22 13:00 SARS-CoV-2 (PCR) Not Detected (NotDetected) 08/03/22 13:00 Coronavirus NL63 (PCR) Not Detected (NotDetected) 08/03/22 13:00 Human Metapneumovir PCR Not Detected (NotDetected) 08/03/22 13:00 Influenza Type A (PCR) Not Detected (NotDetected) 08/03/22 13:00 Influ A Molecular Assay Negative (Negative) 08/02/22 09:40 Influenza Type B (PCR) Not Detected (NotDetected) 08/03/22 13:00 Influ B Molecular Assay Negative (Negative) 08/02/22 09:40 M. pneumoniae (PCR) Not Detected (NotDetected) 08/03/22 13:00 Parainfluenza 1 (PCR) Not Detected (NotDetected) 08/03/22 13:00 Parainfluenza 2 (PCR) Not Detected (NotDetected) 08/03/22 13:00 Parainfluenza 3 (PCR) Not Detected (NotDetected) 08/03/22 13:00 Parainfluenza 4 (PCR) Not Detected (NotDetected) 08/03/22 13:00 RSV (PCR) Not Detected (NotDetected) 08/03/22 13:00 Entero/Rhino (PCR) Not Detected (NotDetected) 08/03/22 13:00 SARS-CoV-2, RNA, NAAT NEGATIVE (NEGATIVE) 08/02/22 06:25 Impressions Chest X-Ray 08/02/22 06:07 SINGLE VIEW CHEST CLINICAL HISTORY: Atypical chest pain. FINDINGS: An AP, portable, upright chest radiograph is compared to study dated 07/01/2022 and correlated with chest CT dated 11/17/2012. The examination is degraded by portable technique and patient rotation. A hiatal hernia is suspected and new from previous. The heart is enlarged noting atherosclerotic calcification of the thoracic aorta. The pulmonary vasculature is noncongested. Chronic interstitial thickening is similar to previous. There are small pleural effusions, right larger than left with dependent consolidation. No pneumothorax is seen. The skeletal structures are osteopenic. The bony thorax is grossly intact. Degenerative change is seen in the shoulders and spine. IMPRESSION: 1. Cardiomegaly without radiographic evidence of congestive failure. 2. A hiatal hernia is suspected and new from previous. 3. Right large left pleural effusions with dependent consolidation. This could represent atelectasis versus pneumonia/aspiration pneumonitis. Clinical correlation will be required and radiographic follow-up to resolution is recommended. ACT 112: Negative or not required by law. Electronically signed by: Nuno Bennett M.D. 08/02/2022 6:[address] 08/02/22 09:30 CT SCAN OF THE CHEST WITHOUT IV CONTRAST CLINICAL HISTORY: Pleural effusion. Atypical chest pain. COMPARISON STUDY: Chest x-ray dated 08/02/2022. Chest CT dated 11/17/2012. Abdominal CT dated 04/06/2021. TECHNIQUE: CT scan of the thorax was performed from the thoracic inlet to the upper abdomen. Images are reviewed in the axial, sagittal, and coronal planes. IV contrast was not administered for this examination as per the referring clinician. A dose lowering technique was utilized adhering to the principles of ALARA. CT DOSE: 180.29 mGy.cm FINDINGS: Thyroid: Atrophic. Thoracic aorta: No intramural hematoma is identified. There is advanced atherosclerotic calcification of the thoracic aorta. There is mild aneurysmal dilatation of the ascending thoracic aorta, which measures up to 4.4 cm in diameter. The remainder of the thoracic aorta is normal in caliber and the arch demonstrates variant 3-vessel anatomy. 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 Heart: The heart is enlarged. There is a large pericardial effusion. There is only mild pericardial thickening. The coronary arteries are densely calcified. Lungs and pleural spaces: There are small right and trace left pleural effusions with dependent consolidation. Mediastinum: There is no mediastinal lymphadenopathy. Gina: Not well assessed without IV contrast. Axillae: There is no axillary lymphadenopathy. Upper abdomen: There are are calcifications in the right hepatic lobe. Large cysts were seen at this site on the 2013 examination comments may represent treatment-related change. Partially visualized upper abdominal viscera is otherwise within normal limits. Skeletal structures: The skeletal structures are osteopenic. Advanced arthritic change is seen in the shoulders. Degenerative change and hyperkyphosis is noted in the thoracic spine. No lytic or blastic bony lesions are seen. IMPRESSION: 1. There is a large and simple appearing pericardial effusion, which is new from the 04/06/[address] scan. There is only mild pericardial thickening. Clinical correlation will be required. If there is clinical concern for dissection a CT angiogram of the chest should be obtained. Consider cardiology assessment. 2. Small right and trace left pleural effusions with dependent consolidation. This likely represents atelectasis and clinical correlation will be required. 3. Cardiomegaly and advanced coronary artery calcification. 4. Mild aneurysmal dilatation of the ascending thoracic aorta. 5. Additional findings as above. ACT 112: Negative or not required by law. Electronically signed by: Nuno Bennett M.D. 08/02/2022 12:11 PM
[2022-08-04] MEDS: hydrOXYzine HCl 10 MG TAB PO SCH (20:27)
[2022-08-05] MEDS: ENOXAPARIN 80 MG/0.8 ML SYR SQ SCH (02:39)
[2022-08-05] MEDS: LEVOTHYROXINE SODIUM 137 MCG TABLET PO SCH (06:18)
[2022-08-05 07:24] LABS: Basophils # (auto) 0.06 K/uL (0-0.2); Basophils % (auto) 0.9 %; Eosinophils # (auto) 0.21 K/uL (0-0.50); Eosinophils % (auto) 3.3 %; Immature Granulocytes # (auto) 0.03 K/uL (0.00-0.02); Immature Granulocytes % (auto) 0.5 %; Lymphocytes # (auto) 1.45 K/uL (1.2-3.4); Lymphocytes % (auto) 22.5 %; Mean Corpuscular Hemoglobin 28.6 pg (25.0-34.0); Mean Corpuscular Hgb Conc 32.4 g/dL (32.0-36.0); Mean Corpuscular Volume 88.3 fL (80.0-100.0); Mean Platelet Volume 8.7 fL (9.4-12.3); Monocytes # (auto) 0.59 K/uL (0.24-0.82); Monocytes % (auto) 9.1 %; Neutrophils # (auto) 4.11 K/uL (1.4-6.5); Neutrophils % (auto) 63.7 %; Platelet Count 400 K/uL (130-400); RDW Standard Deviation 45.3 fL (36.4-46.3); Red Blood Count 4.19 M/uL (3.93-5.22); White Blood Count 6.45 K/ul (4.8-10.8)
[2022-08-05 07:50] LABS: Albumin Level 3.1 gm/dl (3.4-5.0); BUN Creatinine Ratio 21.7 (10-20); Bilirubin,Total 0.4 mg/dl (0.2-1.0); Calcium 8.7 mg/dl (8.5-10.1); Creatinine Clr Calc Pharmacy 60.7 ml/min; Est GFR (African American) 96.3 ml/min; Est GFR (Non-African American) 83.1 ml/min; Globulin 3.2 gm/dl (2.5-4.0); Total Protein 6.3 gm/dl (6.0-8.3)
[2022-08-05] MEDS: METOPROLOL SUCC 25MG EXT REL TAB PO SCH ×2 (08:04→20:43)
[2022-08-05] MEDS: ESCITALOPRAM OXALATE 10 MG TAB PO SCH (08:05)
[2022-08-05] MEDS: CYANOCOBALAMIN (B-12) 500 MCG TABLET PO SCH (08:05)
[2022-08-05] MEDS: CHOLECALCIFEROL 1,000 UNITS 25 MCG TAB PO SCH (08:05)
[2022-08-05] MEDS: PSYLLIUM or GUAR GUM FIBER POWDER PACKET PO SCH (08:05)
[2022-08-05] MEDS: DOXYCYCLINE HYCLATE 100 MG CAP PO SCH ×2 (08:06→20:43)
[2022-08-05] MEDS: COLCHICINE 0.6 MG TAB PO SCH ×2 (08:06→20:42)
--- NOTE | 2022-08-05 10:42 | Cardiology Progress Note ---
Date of Service August 05, 2022 Assessment & Plan (1) Paroxysmal atrial fibrillation: (2) Tachycardia-bradycardia syndrome: (3) Pneumonia: (4) Pleural effusion on right: (5) Pericardial effusion: Plan 86-year-old female admitted with paroxysmal/new onset atrial fibrillation, pl euritic chest discomfort, and right-sided pleural effusion with associated pneumonia. Echocardiogram with moderately large pericardial effusion 1. Atrial fibrillation: Heart rates and blood pressure somewhat variable since admission but rates generally controlled. Plan increase metoprolol succinate to 12.5 mg twice per day. Last dose of Lovenox 0239 this morning. Would recommend stopping and transitioning to Eliquis with evening dose this evening if approved by discharge formulary 2. Pericardial effusion clinically improved, reduced in size on echocardiogram Continue colchicine. 3. Hypertension: Patient off lisinopril due to low blood pressures on presentation. We will continue to follow as beta-little titrated up 4. TIA: Transient aphasia 07/02/2022. Patient on dual antiplatelet therapy for 1 month will transition to Eliquis given presence of atrial fibrillation. Mild chronic gait instability consider physical therapy/rehab Admission and Anticipated Discharge Date Admission Date: August 02, 2022 Subjective Patient seen and examined, chart, medications, telemetry reviewed. No acute complaints this morning. No pleuritic discomfort shortness of breath, dizziness, lightheadedness. No fevers chills or cough "Still do not feel as strong" No bleeding difficulties. Stools still loose but tolerable Telemetry reviewed persistent atrial fibrillation without pauses or bradycardia arrhythmias. Heart rate trending towards better control Review of Systems Review of Systems: All systems reviewed & are unremarkable except as noted in Subjective Physical Exam Constitutional: well nourished; no acute distress Eyes: PERRL, conjunctivae normal, anicteric sclerae Neck: trachea midline, no thyromegaly Respiratory: normal respiratory effort; no respiratory distress, no labored breathing and no retractions Auscultation: + diminished lung sounds (Right base) and + rales (Right base); no rhonchi and no wheezes Cardiovascular: Rate/Rhythm: + irregularly irregular Heart Sounds: normal S1, normal S2 and + murmur (1/6 midsystolic murmur heard best at the right second costal space); no cardiac rub Gastrointestinal (Abdomen): Inspection/Auscultation: abdomen normal to inspection and normal bowel sounds; abdomen not distended Percussion/Palpation: abdomen soft; abdomen nontender, no guarding and abdomen not rigid Neurologic: CN's II-XI intact bilaterally and moves all extremities Results & Data ([facility]) Vital Signs (Past 12 Hours) Vital Signs Temp Pulse Pulse Resp BP BP Pulse Ox 08/05/22 08:07 36.5 C 105 H 19 139/86 93 08/05/22 04:00 36.3 C L 98 H 16 152/84 H 94 08/04/22 23:00 85 08/04/22 23:00 36.7 C 98 H 16 147/92 H 94 O2 Del Method 08/05/22 08:07 Room Air 08/05/22 04:00 Room Air 08/04/22 23:00 08/04/22 23:00 Room Air
[2022-08-05] MEDS: MAGNESIUM OXIDE 400 MG TAB PO SCH (10:46)
[2022-08-05] MEDS: cefTRIAXone SODIUM 2,000 MG in DEXTROSE 5% 50 ML IV SCH (10:46)
[2022-08-05] MEDS: APIXABAN 5 MG TABLET PO SCH (20:42)
[2022-08-05] MEDS: hydrOXYzine HCl 10 MG TAB PO SCH (20:46)
--- NOTE | 2022-08-05 23:31 | Hospitalist Progress Note ---
Date of Service August 05, 2022 Assessment & Plan (1) Pericardial effusion: (2) Pleural effusion on right: (3) Pneumonia: Plan: Presented with chest discomfort and palpitation which woke her up from the sleep EKG in the ED showed A. fib with RVR CT chest shows large pericardial effusion along with bilateral pleural effusion with dependent consolidation High-sensitivity 25 and 21; no significant delta difference. Pro-Dannie less than 0.05 Respiratory viral panel negative. Echo shows EF of 60 to 65% with left atrium dilation. Moderate circumferential pericardial effusion present. No evidence of cardiac tamponade. Follow-up echo shows decrease in the pericardial effusion Cardiology on board Continue colchicine 0.6 mg twice daily. Continue ceftriaxone and doxycycline for possible pneumonia Clinically improved (4) Paroxysmal atrial fibrillation: Plan: Rate control with metoprolol 12.5 mg twice daily Therapeutic Lovenox was discontinued then transition to Eliquis tonight Check alva for Eliquis it will be $47 a for 30-day supply (will ask case management to give patient discount coupon) (5) Hypothyroidism: Plan: TSH- 5.609 free T4- 1.22. Continue levothyroxine current dose. (6) Hypertension: Plan: Lisinopril on hold given hypotension on presentation. Continue metoprolol succinate 12.5 BID Continue monitor BP Plan Full code DVT lovenox discontinued, transition to Eliquis tonight Admission and Anticipated Discharge Date Admission Date: August 02, 2022 Subjective Pt was seen and examined for follow up chest discomfort Seen in chair with no acute distress eating lunch Patient said that she feels a lot better She said that she is not having any pleuritic chest pain more But she said that she has not been walking around and she feels weak Denies any chest pain, palpitation, dizziness, shortness of breath. Review of Systems Review of Systems: All systems reviewed & are unremarkable except as noted in Subjective Physical Exam Physical Exam: General- No acute distress Head- atraumatic Eyes- PERRL, EOMI, ENT- oropharynx clear Neck- supple, no JVD Lungs- +diminished BS Heart- irregular rhythm; no murmur Abdomen- normal bowel sounds, soft, nontender Extremities- no calf tenderness, +LLE edema Neuro- alert, oriented x 3; PERRL, EOMI; no facial palsy; no dysarthria Skin- warm & dry Results & Data Results & Data ([facility]) Vital Signs (Past 12 Hours) Vital Signs Temp Pulse Resp BP Pulse Ox O2 Del Method 08/05/22 19:27 36.5 C 81 18 131/81 94 Room Air 08/05/22 19:35 Room Air 08/05/22 15:30 36.5 C 76 16 130/82 94 Room Air 08/05/22 11:56 36.5 C 96 H 18 157/82 H 98 Room Air
[2022-08-05] MEDS ORDERED: PROMETHAZINE HCL 6.25 MG in SODIUM CHLORIDE 0.9% 50 ML IV PRN (23:38)
[2022-08-06] MEDS: LEVOTHYROXINE SODIUM 137 MCG TABLET PO SCH (06:24)
[2022-08-06 07:16] LABS: BUN Creatinine Ratio 18.8 (10-20); Calcium 8.9 mg/dl (8.5-10.1); Creatinine Clr Calc Pharmacy 53.2 ml/min; Est GFR (Non-African American) 79.4 ml/min; Potassium 4.2 mmol/L (3.5-5.1)
[2022-08-06] MEDS: PSYLLIUM or GUAR GUM FIBER POWDER PACKET PO SCH (09:15)
[2022-08-06] MEDS: COLCHICINE 0.6 MG TAB PO SCH (09:16)
[2022-08-06] MEDS: APIXABAN 5 MG TABLET PO SCH ×2 (09:16→20:05)
[2022-08-06] MEDS: DOXYCYCLINE HYCLATE 100 MG CAP PO SCH ×2 (09:16→20:05)
[2022-08-06] MEDS: CYANOCOBALAMIN (B-12) 500 MCG TABLET PO SCH (09:16)
[2022-08-06] MEDS: CHOLECALCIFEROL 1,000 UNITS 25 MCG TAB PO SCH (09:16)
[2022-08-06] MEDS: ESCITALOPRAM OXALATE 10 MG TAB PO SCH (09:16)
[2022-08-06] MEDS: METOPROLOL SUCC 25MG EXT REL TAB PO SCH ×2 (09:16→20:05)
--- NOTE | 2022-08-06 10:52 | Cardiology Progress Note ---
Date of Service August 06, 2022 Assessment & Plan (1) Paroxysmal atrial fibrillation: (2) Tachycardia-bradycardia syndrome: (3) Pneumonia: (4) Pleural effusion on right: (5) Pericardial effusion: Plan 86-year-old female admitted with paroxysmal/new onset atrial fibrillation, pl euritic chest discomfort, and right-sided pleural effusion with associated pneumonia. Echocardiogram with moderately large pericardial effusion 1. Atrial fibrillation: Continue current dose of metoprolol succinate 12.5 mg twice per day, Eliquis 2. Pericardial effusion clinically improved, reduced in size on echocardiogram Continue colchicine at reduced dose given diarrhea and GI complaints. 3. Hypertension: Patient off lisinopril due to low blood pressures on presentation. We will continue to follow as beta-little titrated up 4. TIA: Transient aphasia 07/02/2022. Patient on dual antiplatelet therapy for 1 month will transition to Eliquis given presence of atrial fibrillation. Mild chronic gait instability consider physical therapy/rehab 5. Diarrhea question due to colchicine versus antibiotic therapies. Consider C. difficile screen will reduce colchicine to daily Admission and Anticipated Discharge Date Admission Date: August 02, 2022 Subjective Patient seen and examined, chart, medications, telemetry reviewed. No cardiac implants GI issues appear to be more pronounced with nausea vomiting and diarrhea. No dizziness or lightheadedness no falls No chest pains or discomfort no pleuritic discomfort Physical Exam Constitutional: well nourished; no acute distress Eyes: PERRL, conjunctivae normal, anicteric sclerae Neck: trachea midline, no thyromegaly Respiratory: normal respiratory effort; no respiratory distress, no labored breathing and no retractions Auscultation: + diminished lung sounds (Right base) and + rales (Right base); no rhonchi and no wheezes Cardiovascular: Rate/Rhythm: + irregularly irregular Heart Sounds: normal S1, normal S2 and + murmur (1/6 midsystolic murmur heard best at the right second costal space); no cardiac rub Gastrointestinal (Abdomen): Inspection/Auscultation: abdomen normal to inspection and normal bowel sounds; abdomen not distended Percussi on/Palpation: abdomen soft; abdomen nontender, no guarding and abdomen not rigid Neurologic: CN's II-XI intact bilaterally and moves all extremities Results & Data ([facility]) Vital Signs (Past 12 Hours) Vital Signs Temp Pulse Pulse Resp BP Pulse Ox O2 Del Method 08/06/22 07:53 36.4 C L 96 H 16 129/73 96 Room Air 08/06/22 02:54 36.4 C L 98 H 18 131/81 96 Room Air 08/05/22 23:00 101 H 08/05/22 23:57 36.5 C 122 H 16 160/88 H 94 Room Air Laboratory Results Laboratory Results - last 24 hr 08/06/22 06:22 Sodium 133 L Potassium 4.2 Chloride 100 Carbon Dioxide 25 Anion Gap 8 BUN 13 Creatinine 0.69 Est Cr Clr Drug Dosing 53.2 Est GFR ( Amer) 92.0 Est GFR (Non-Af Amer) 79.4 BUN/Creatinine Ratio 18.8 Glucose 92 Calcium 8.9
[2022-08-06] MEDS: MAGNESIUM OXIDE 400 MG TAB PO SCH (11:41)
[2022-08-06] MEDS: cefTRIAXone SODIUM 2,000 MG in DEXTROSE 5% 50 ML IV SCH (11:41)
[2022-08-06] MEDS ORDERED: METOPROLOL TARTRATE 1 MG/ML VIAL IV STA (16:18)
[2022-08-06 17:27] LABS: Magnesium 1.5 mg/dl (1.7-2.4); Potassium 4.5 mmol/L (3.5-5.1)
[2022-08-06] MEDS: MAGNESIUM SULFATE / D5W 1 GM/100 ML BAG IV SCH ×2 (20:02→22:14)
[2022-08-06] MEDS: hydrOXYzine HCl 10 MG TAB PO SCH (20:05)
--- NOTE | 2022-08-06 20:11 | Hospitalist Progress Note ---
Date of Service August 06, 2022 Assessment & Plan (1) Pericardial effusion: (2) Pleural effusion on right: (3) Pneumonia: Plan: Presented with chest discomfort and palpitation which woke her up from the sleep EKG in the ED showed A. fib with RVR CT chest shows large pericardial effusion along with bilateral pleural effusion with dependent consolidation High-sensitivity 25 and 21; no significant delta difference. Pro-Dannie less than 0.05 Respiratory viral panel negative. Echo shows EF of 60 to 65% with left atrium dilation. Moderate circumferential pericardial effusion present. No evidence of cardiac tamponade. Follow-up echo shows decrease in the pericardial effusion Cardiology on board Continue colchicine 0.6 mg twice daily. Currently on ceftriaxone and doxycycline for possible pneumonia Consider to d/c ceftriaxone after tomorrow dose Clinically improved (4) Paroxysmal atrial fibrillation: Plan: Tele monitor showed afib with RVR Continue metoprolol 12.5 mg twice daily Will add IV lopressor prn Therapeutic Lovenox was discontinued then transition to Eliquis [facility] Check alva for Eliquis it will be $47 a for 30-day supply (will ask case management to give patient discount coupon) Pt said that she can afford it (5) Hypothyroidism: Plan: TSH- 5.609 free T4- 1.22. Continue levothyroxine current dose. (6) Hypertension: Plan: Lisinopril on hold given hypotension on presentation. Continue metoprolol succinate 12.5 BID Continue monitor BP Hypomagnesemia Possible related to diarrhea Mg 1.5 today Magnesium replaced Continue monitor Mg level Diarrhea Possible related to colchicine vs antibiotic Colchicine reduced to daily Consider to check stools for Cdiff if diarrhea persists Continue monitor electroytes Plan Full code DVT continue Eliquis Admission and Anticipated Discharge Date Admission Date: August 02, 2022 Subjective Pt was seen and examined for follow up Sitting in chair with no acute distress Pt said that she threw up last night She said that she has been having diarrhea Later in the afternoon she was found to be in afib with RVR Son was at bedside this afternoon and provided with updated and answered all his questions Denies any chest pain, palpitation, dizziness, shortness of breath. Review of Systems Review of Systems: All systems reviewed & are unremarkable except as noted in HPI & below Physical Exam Physical Exam: General- No acute distress Head- atraumatic Eyes- PERRL, EOMI, ENT- oropharynx clear Neck- supple, no JVD Lungs- +diminished BS Heart- irregular rhythm; no murmur Abdomen- normal bowel sounds, soft, nontender Extremities- no calf tenderness, +LLE edema Neuro- alert, oriented x 3; PERRL, EOMI; no facial palsy; no dysarthria Skin- warm & dry Results & Data Results & Data ([facility]) Vital Signs (Past 12 Hours) Vital Signs Temp Pulse Pulse Pulse Resp BP BP 08/06/22 08:11 122 H 08/06/22 18:10 122 H 08/06/22 16:52 136 H 132/95 08/06/22 16:49 136 H 132/95 08/06/22 15:38 37.0 C 95 H 19 08/06/22 12:14 36.5 C 104 H 19 137/81 BP Pulse Ox O2 Del Method 08/06/22 08:11 08/06/22 18:10 08/06/22 16:52 08/06/22 16:49 08/06/22 15:38 113/79 95 Room Air 08/06/22 12:14 96 Room Air
[2022-08-07] MEDS: LEVOTHYROXINE SODIUM 137 MCG TABLET PO SCH (06:12)
[2022-08-07] MEDS: METOPROLOL SUCC 25MG EXT REL TAB PO SCH (07:21)
[2022-08-07] MEDS: DOXYCYCLINE HYCLATE 100 MG CAP PO SCH ×2 (07:21→21:47)
[2022-08-07] MEDS: APIXABAN 5 MG TABLET PO SCH ×2 (07:22→21:46)
[2022-08-07] MEDS: CHOLECALCIFEROL 1,000 UNITS 25 MCG TAB PO SCH (07:22)
[2022-08-07] MEDS: ESCITALOPRAM OXALATE 10 MG TAB PO SCH (07:22)
[2022-08-07] MEDS: COLCHICINE 0.6 MG TAB PO SCH (07:22)
[2022-08-07] MEDS: MAGNESIUM OXIDE 400 MG TAB PO SCH (07:22)
[2022-08-07] MEDS: CYANOCOBALAMIN (B-12) 500 MCG TABLET PO SCH (07:22)
[2022-08-07] MEDS: PSYLLIUM or GUAR GUM FIBER POWDER PACKET PO SCH (07:23)
[2022-08-07 07:58] LABS: BUN Creatinine Ratio 18.5 (10-20); Calcium 9.2 mg/dl (8.5-10.1); Creatinine Clr Calc Pharmacy 45.5 ml/min; Est GFR (African American) 76.8 ml/min; Est GFR (Non-African American) 66.2 ml/min; Magnesium 1.9 mg/dl (1.7-2.4); Phosphorus 3.7 mg/dl (2.5-4.9); Potassium 4.2 mmol/L (3.5-5.1)
--- NOTE | 2022-08-07 10:13 | Cardiology Progress Note ---
Date of Service August 07, 2022 Assessment & Plan (1) Paroxysmal atrial fibrillation: (2) Tachycardia-bradycardia syndrome: (3) Pneumonia: (4) Pleural effusion on right: (5) Pericardial effusion: Plan 86-year-old female admitted with paroxysmal/new onset atrial fibrillation, ple uritic chest discomfort, and right-sided pleural effusion with associated pneumonia. Echocardiogram with moderately large pericardial effusion 1. Atrial fibrillation: Increase dose of metoprolol succinate 25 mg a.m., 12.5 mg p.m.day, Eliquis 2. Pericardial effusion clinically improved, reduced in size on echocardiogram Continue colchicine at reduced dose given diarrhea and GI complaints. Will reassess echocardiogram today if vision continues to diminish may need to discontinue colchicine given poor tolerance 3. Hypertension: Patient off lisinopril due to low blood pressures on pre sentation. We will continue to follow as beta-little titrated up 4. TIA: Transient aphasia 07/02/2022. Patient on dual antiplatelet therapy for 1 month will transition to Eliquis given presence of atrial fibrillation. Mild chronic gait instability consider physical therapy/rehab Admission and Anticipated Discharge Date Admission Date: August 02, 2022 Subjective Patient seen and examined, chart, medications, telemetry reviewed. No arrhythmias on telemetry other than persistent atrial fibrillation. Heart rates have been variable Patient nauseated once again this morning after administration of colchicine. No fevers or chills no tachypalpitations. Complains of generalized fatigue. Hemodynamically stable Review of Systems Review of Systems: All systems reviewed & are unremarkable except as noted in Subjective Physical Exam Constitutional: well nourished; no acute distress Eyes: PERRL, conjunctivae normal, anicteric sclerae Neck: trachea midline, no thyromegaly Respiratory: normal respiratory effort; no respiratory distress, no labored breathing and no retractions Auscultation: + diminished lung sounds (Right base) and + rales (Right base); no rhonchi and no wheezes Cardiovascular: Rate/Rhythm: + irregularly irregular Heart Sounds: normal S1, normal S2 and + murmur (1/6 midsystolic murmur heard best at the right second costal space); no cardiac rub Gastrointestinal (Abdomen): Inspection/Auscultation: abdomen normal to inspection and normal bowel sounds; abdomen not distended Percussion/Palpation: abdomen soft; abdomen nontender, no guarding and abdomen not rigid Neurologic: CN's II-XI intact bilaterally and moves all extremities Results & Data ([facility]) Vital Signs (Past 12 Hours) Vital Signs Temp Pulse Pulse Pulse Resp BP Pulse Ox 08/07/22 07:41 90 08/07/22 08:02 36 C L 90 16 130/71 96 08/07/22 03:33 36.6 C 86 16 133/88 96 08/06/22 23:54 36.5 C 98 H 16 130/78 93 08/07/22 00:50 104 H O2 Del Method 08/07/22 07:41 08/07/22 08:02 Room Air 08/07/22 03:33 Room Air 08/06/22 23:54 Room Air 08/07/22 00:50 Laboratory Results Laboratory Results - last 24 hr 08/06/22 08/07/22 16:39 06:39 Sodium 132 L Potassium 4.5 4.2 Chloride 98 Carbon Dioxide 27 Anion Gap 7 BUN 15 Creatinine 0.81 Est Cr Clr Drug Dosing 45.5 Est GFR ( Amer) 76.8 Est GFR (Non-Af Amer) 66.2 BUN/Creatinine Ratio 18.5 Glucose 99 Calcium 9.2 Phosphorus 3.7 Magnesium 1.5 L 1.9
[2022-08-07] MEDS ORDERED: METOPROLOL SUCC 25MG EXT REL TAB PO ONE (10:15)
[2022-08-07] MEDS: cefTRIAXone SODIUM 2,000 MG in DEXTROSE 5% 50 ML IV SCH (11:20)
--- NOTE | 2022-08-07 17:09 | Hospitalist Progress Note ---
Date of Service August 07, 2022 Assessment & Plan (1) Pericardial effusion: (2) Pleural effusion on right: (3) Pneumonia: Plan: Presented with chest discomfort and palpitation which woke her up from the sleep EKG in the ED showed A. fib with RVR CT chest shows large pericardial effusion along with bilateral pleural effusion with dependent consolidation High-sensitivity 25 and 21; no significant delta difference. Pro-Dannie less than 0.05 Respiratory viral panel negative. Echo shows EF of 60 to 65% with left atrium dilation. Moderate circumferential pericardial effusion present. No evidence of cardiac tamponade. Follow-up echo shows decrease in the pericardial effusion Cardiology on board Continue colchicine 0.6 mg twice daily. Currently on ceftriaxone and doxycycline for possible pneumonia Will complete 7 days course abx Clinically improved (4) Paroxysmal atrial fibrillation: Plan: tele monitor showed Afib with rate control today Metoprolol increased to 25 mg twice daily Therapeutic Lovenox was discontinued then transition to Eliquis tonight Check alva for Eliquis it will be $47 a for 30-day supply (will ask case management to give patient discount coupon) Pt said that she is able to afford it Continue monitor Pericardial effusion Echo shows EF of 60 to 65% with left atrium dilation. Moderate circumferential pericardial effusion present. No evidence of cardiac tamponade. Follow-up echo shows decrease in the pericardial effusion Cardiology on board Currently on colchicine but at reduced dose given diarrhea and GI complaints. cardiology plan to repeat echocardiogram today if vision continues to diminish may need to discontinue colchicine given poor tolerance (5) Hypothyroidism: Plan: TSH- 5.609 free T4- 1.22. Continue levothyroxine current dose. (6) Hypertension: Plan: Lisinopril on hold given hypotension on presentation. Continue metoprolol succinate 12.5 BID Continue monitor BP Hypomagnesemia Possible related to diarrhea Mg 1.9 today Continue monitor Mg level Diarrhea Possible related to colchicine vs antibiotic Colchicine reduced to daily Consider to check stools for Cdiff if diarrhea persists, diarrhea improves Continue monitor electrolytes Plan Full code DVT continue Eliquis disposition Plan to discharge home with Admission and Anticipated Discharge Date Admission Date: August 02, 2022 Subjective Pt was seen and examined for follow up Sitting in chair with no acute distress with son at bedside Pt said that she only had 2 episodes of diarrhea so far Telemonitor showed Afib with rate control Son was at bedside this afternoon and provided with updated and answered all his questions Denies any chest pain, palpitation, dizziness, shortness of breath. Review of Systems Review of Systems: All systems reviewed & are unremarkable except as noted in Subjective Physical Exam Physical Exam: General- No acute distress Head- atraumatic Eyes- PERRL, EOMI, ENT- oropharynx clear Neck- supple, no JVD Lungs- +diminished BS Heart- irregular rhythm; no murmur Abdomen- normal bowel sounds, soft, nontender Extremities- no calf tenderness, +LLE edema Neuro- alert, oriented x 3; PERRL, EOMI; no facial palsy; no dysarthria Skin- warm & dry Results & Data Results & Data ([facility]) Vital Signs (Past 12 Hours) Vital Signs Temp Pulse Pulse Pulse Resp BP Pulse Ox 08/07/22 15:55 36.7 C 97 H 16 128/77 94 08/07/22 15:00 103 H 08/07/22 10:45 36.7 C 83 17 121/74 94 08/07/22 07:41 90 08/07/22 08:02 36 C L 90 16 130/71 96 O2 Del Method 08/07/22 15:55 Room Air 08/07/22 15:00 08/07/22 10:45 Room Air 08/07/22 07:41 08/07/22 08:02 Room Air
--- NOTE | 2022-08-07 19:03 | Electrocardiogram Report ---
Test Reason : Blood Pressure : / mmHG Vent. Rate : 119 BPM Atrial Rate : 110 BPM P-R Int : 000 ms QRS Dur : 080 ms QT Int : 306 ms P-R-T Axes : 000 -02 187 degrees QTc Int : 430 ms Atrial fibrillation with rapid ventricular response T wave abnormality, consider lateral ischemia Abnormal ECG When compared with ECG of 03-AUG-2022 05:03, Criteria for Septal infarct are no longer Present Confirmed by Denver Prajapati ([id number]) on 08/07/2022 7:03:15 PM Referred By: REFERRED SELF Confirmed By:Lorenzo Prajapati
[2022-08-07] MEDS ORDERED: METOPROLOL SUCC 25MG EXT REL TAB PO SCH (21:00)
[2022-08-07] MEDS: hydrOXYzine HCl 10 MG TAB PO SCH (21:47)
[2022-08-08] MEDS: LEVOTHYROXINE SODIUM 137 MCG TABLET PO SCH (05:45)
[2022-08-08] MEDS: DOXYCYCLINE HYCLATE 100 MG CAP PO SCH (08:32)
[2022-08-08] MEDS: CHOLECALCIFEROL 1,000 UNITS 25 MCG TAB PO SCH (08:32)
[2022-08-08] MEDS: CYANOCOBALAMIN (B-12) 500 MCG TABLET PO SCH (08:32)
[2022-08-08] MEDS: ESCITALOPRAM OXALATE 10 MG TAB PO SCH (08:33)
[2022-08-08] MEDS: APIXABAN 5 MG TABLET PO SCH ×2 (08:33→20:39)
[2022-08-08] MEDS: PSYLLIUM or GUAR GUM FIBER POWDER PACKET PO SCH (08:33)
[2022-08-08 09:58] LABS: BUN Creatinine Ratio 19.4 (10-20); Calcium 9.1 mg/dl (8.5-10.1); Creatinine Clr Calc Pharmacy 55.1 ml/min; Est GFR (African American) 92.9 ml/min; Est GFR (Non-African American) 80.2 ml/min; Magnesium 1.6 mg/dl (1.7-2.4); Potassium 4.3 mmol/L (3.5-5.1)
--- NOTE | 2022-08-08 10:43 | Cardiology Progress Note ---
Date of Service August 08, 2022 Assessment & Plan (1) Paroxysmal atrial fibrillation: (2) Tachycardia-bradycardia syndrome: (3) Pneumonia: (4) Pleural effusion on right: (5) Pericardial effusion: Plan 86-year-old female admitted with paroxysmal/new onset atrial fibrillation, ple uritic chest discomfort, and right-sided pleural effusion with associated pneumonia. Echocardiogram with moderately large pericardial effusion 1. Atrial fibrillation: We will increase metoprolol succinate to 25 mg twice per day 2. Pericardial effusion clinically improved, reduced in size on echocardiogram Does not appear to be tolerating colchicine we will discontinue. We will give short course of prednisone 20 mg daily x3 days 3. Hypertension: Patient off lisinopril due to low blood pressures on presentation. We will continue to follow as beta-little titrated up 4. TIA: Transient aphasia 07/02/2022. Patient on dual antiplatelet therapy for 1 month will transition to Eliquis given presence of atrial fibrillation. Mild chronic gait instability consider physical therapy/rehab 5. Hyponatremia 6. Diarrhea question antibiotics versus colchicine. Colchicine discontinued Admission and Anticipated Discharge Date Admission Date: August 02, 2022 Subjective Patient seen and examined, chart, medications, telemetry reviewed. Complains of loose stools again this morning. No nausea or vomiting. No abdominal pain no pleuritic pain Echo yesterday reveals stable pericardial effusion without tamponade Blood pressures trending upward slightly Heart rate controlled predominantly Physical Exam Constitutional: well nourished; no acute distress Eyes: PERRL, conjunctivae normal, anicteric sclerae Neck: trachea midline, no thyromegaly Respiratory: normal respiratory effort; no respiratory distress, no labored breathing and no retractions Auscultation: + diminished lung sounds (Right base) and + rales (Right base); no rhonchi and no wheezes Cardiovascular: Rate/Rhythm: + irregularly irregular Heart Sounds: normal S1, normal S2 and + murmur (1/6 midsystolic murmur heard best at the right second costal space); no cardiac rub Gastrointestinal (Abdomen): Inspection/Auscultation: abdomen normal to inspection and normal bowel sounds; abdomen not distended Percussion/Palpation: abdomen soft; abdomen nontender, no guarding and abdomen not rigid Neurologic: CN's II-XI intact bilaterally and moves all extremities Results & Data ([facility]) Vital Signs (Past 12 Hours) Vital Signs Temp Pulse Pulse Pulse Resp BP Pulse Ox 08/08/22 07:43 36.4 C L 91 H 20 147/73 H 95 08/08/22 07:00 84 08/08/22 02:51 36.3 C L 92 H 18 156/85 H 91 08/07/22 23:31 36.4 C L 107 H 18 148/81 H 92 O2 Del Method 08/08/22 07:43 Room Air 08/08/22 07:00 08/08/22 02:51 Room Air 08/07/22 23:31 Room Air
[2022-08-08] MEDS: COLCHICINE 0.6 MG TAB PO SCH (11:47)
[2022-08-08] MEDS: METOPROLOL SUCC 25MG EXT REL TAB PO SCH ×2 (11:47→20:39)
[2022-08-08] MEDS: MAGNESIUM OXIDE 400 MG TAB PO SCH (11:48)
[2022-08-08] MEDS: predniSONE 20 MG TAB PO SCH (11:48)
[2022-08-08] MEDS: cefTRIAXone SODIUM 2,000 MG in DEXTROSE 5% 50 ML IV SCH (11:52)
--- NOTE | 2022-08-08 16:51 | Hospitalist Progress Note ---
Date of Service August 08, 2022 Assessment & Plan (1) Pericardial effusion: (2) Pleural effusion on right: (3) Pneumonia: Plan: Presented with chest discomfort and palpitation which woke her up from the sleep EKG in the ED showed A. fib with RVR CT chest shows large pericardial effusion along with bilateral pleural effusion with dependent consolidation High-sensitivity 25 and 21; no significant delta difference. Pro-Dannie less than 0.05 Respiratory viral panel negative. Echo shows EF of 60 to 65% with left atrium dilation. Moderate circumferential pericardial effusion present. No evidence of cardiac tamponade. Follow-up echo shows decrease in the pericardial effusion Cardiology on board Was initially placed on colchicine; follow-up echo showed improvement in the pericardial effusion. Patient is started on prednisone 20 mg for 3 days. Completed ceftriaxone and doxycycline course for 6 days (4) Paroxysmal atrial fibrillation: Plan: tele monitor showed Afib with rate control today Metoprolol increased to 25 mg twice daily Therapeutic Lovenox was discontinued then transition to Eliquis Check alva for Eliquis it will be $47 a for 30-day supply Pt said that she is able to afford it Continue monitor (5) Hypothyroidism: Plan: TSH- 5.609 free T4- 1.22. Continue levothyroxine current dose. (6) Hypertension: Plan: Lisinopril on hold given hypotension on presentation. Continue metoprolol succinate 25 mg twice daily Continue monitor BP Hypomagnesemia Possible related to diarrhea Mg 1.6 today Continue monitor Mg level Diarrhea Possible related to colchicine vs antibiotic Colchicine and antibiotic discontinued Monitor for now. Plan Full code DVT continue Eliquis disposition Plan to discharge home with Admission and Anticipated Discharge Date Admission Date: August 02, 2022 Subjective Patient seen and examined at bedside. She reports loose bowel movement today. She says that she has low appetite. Review of Systems Review of Systems: All systems reviewed & are unremarkable except as noted in Subjective Physical Exam Physical Exam: Constitutional: WD/WN, vitals as above, NAD, sitting up in bed, pleasant, conversing easily Respiratory: Decreased breath sound at right lower base. no wheeze, rales, rhonchi. Normal insp/exp effort, no accessory muscle use Cardiovascular: Irregular, tachycardic, no murmur, no edema Vessels: no JVD or carotid bruit Abdomen: normal bowel sounds, soft, nontender, no hepatosplenomegaly Musculoskeletal: no cyanosis or clubbing, extremities motor strength 5/5 Skin: no rashes, warm and dry normal turgor Neurologic: PERRL, EOMI, accommodation nl, no face palsy, no dysarthria CN's II- XI intact bilaterally and moves all extremities Psychiatric: A+Ox3, euthymic affect Lymphatic: no cervical or axillary lymphadenopathy : deferred Results & Data Results & Data ([facility]) Vital Signs (Past 12 Hours) Vital Signs Temp Pulse Pulse Resp BP BP Pulse Ox 08/08/22 16:01 36.5 C 101 H 16 148/84 H 94 08/08/22 15:00 83 08/08/22 12:28 36.4 C L 99 H 17 154/93 H 96 08/08/22 07:43 36.4 C L 91 H 20 147/73 H 95 08/08/22 07:00 84 O2 Del Method 08/08/22 16:01 Room Air 08/08/22 15:00 08/08/22 12:28 Room Air 08/08/22 07:43 Room Air 08/08/22 07:00 Laboratory Results Laboratory Results WBC 6.45 K/ul (4.8-10.8) 08/05/22 07:01 RBC 4.19 M/uL (3.93-5.22) 08/05/22 07:01 Hgb 12.0 g/dl (12.0-16.0) 08/05/22 07:01 Hct 37.0 % (34.1-44.9) 08/05/22 07:01 MCV 88.3 fL (80.0-100.0) 08/05/22 07:01 MCH 28.6 pg (25.0-34.0) 08/05/22 07:01 MCHC 32.4 g/dL (32.0-36.0) 08/05/22 07:01 RDW Std Deviation 45.3 fL (36.4-46.3) 08/05/22 07:01 RDW Coeff of Valdo 14.0 % (11.5-14.5) 08/05/22 07:01 Plt Count 400 K/uL (130-400) 08/05/22 07:01 MPV 8.7 fL (9.4-12.3) L 08/05/22 07:01 Immature Gran % (Auto) 0.5 % 08/05/22 07:01 Neut % (Auto) 63.7 % 08/05/22 07:01 Lymph % (Auto) 22.5 % 08/05/22 07:01 [place] % (Auto) 9.1 % 08/05/22 07:01 Eos % (Auto) 3.3 % 08/05/22 07:01 Baso % (Auto) 0.9 % 08/05/22 07:01 Neut # (Auto) 4.11 K/uL (1.4-6.5) 08/05/22 07:01 Lymph # (Auto) 1.45 K/uL (1.2-3.4) 08/05/22 07:01 [place] # (Auto) 0.59 K/uL (0.24-0.82) 08/05/22 07:01 Eos # (Auto) 0.21 K/uL (0-0.50) 08/05/22 07:01 Baso # (Auto) 0.06 K/uL (0-0.2) 08/05/22 07:01 Immature Gran # (Auto) 0.03 K/uL (0.00-0.02) H 08/05/22 07:01 ESR 62 mm/hr (0-30) H 08/04/22 07:57 PT 11.0 Seconds (9.0-12.0) 08/02/22 05:50 INR 1.0 (0.9-1.1) 08/02/22 05:50 APTT 34.3 Seconds (21.0-31.0) H 08/03/22 12:24 PTT Ratio 1.2 08/03/22 12:24 Sodium 131 mmol/L (136-145) L 08/08/22 08:31 Potassium 4.3 mmol/L (3.5-5.1) 08/08/22 08:31 Chloride 96 mmol/L (98-107) L 08/08/22 08:31 Carbon Dioxide 28 mmol/L (21-32) 08/08/22 08:31 Anion Gap 7 (3-11) 08/08/22 08:31 BUN 13 mg/dl (6-23) 08/08/22 08:31 Creatinine 0.67 mg/dl (0.6-1.2) 08/08/22 08:31 Est Cr Clr Drug Dosing 55.1 ml/min 08/08/22 08:31 Est GFR ( Amer) 92.9 ml/min 08/08/22 08:31 Est GFR (Non-Af Amer) 80.2 ml/min 08/08/22 08:31 BUN/Creatinine Ratio 19.4 (10-20) 08/08/22 08:31 Glucose 127 mg/dl (70-99(Fasting)) H 08/08/22 08:31 Calcium 9.1 mg/dl (8.5-10.1) 08/08/22 08:31 Phosphorus 3.7 mg/dl (2.5-4.9) 08/07/22 06:39 Magnesium 1.6 mg/dl (1.7-2.4) L 08/08/22 08:31 Total Bilirubin 0.4 mg/dl (0.2-1.0) 08/05/22 07:01 AST 29 U/L (13-39) 08/05/22 07:01 ALT 21 U/L (7-52) 08/05/22 07:01 Alkaline Phosphatase 45 U/L (34-104) 08/05/22 07:01 Troponin I High Sens 19.6 pg/ml (0-14) H 08/02/22 16:11 C-Reactive Protein 10.82 mg/dl (0-0.5) H 08/04/22 07:57 Total Protein 6.3 gm/dl (6.0-8.3) 08/05/22 07:01 Albumin 3.1 gm/dl (3.4-5.0) L 08/05/22 07:01 Globulin 3.2 gm/dl (2.5-4.0) 08/05/22 07:01 Albumin/Globulin Ratio 1.0 (0.9-2) 08/05/22 07:01 Lipase 38 U/L (11-82) 08/02/22 05:50 Procalcitonin < 0.05 ng/ml (0-0.5) 08/02/22 05:50 TSH 5.609 uIu/ml (0.300-4.500) H 08/02/22 05:50 Free T4 1.22 ng/dl (0.61-1.60) 08/02/22 05:50 Urine Color Yellow 08/02/22 07:34 Urine Appearance Clear (Clear) 08/02/22 07:34 Urine pH 5.0 (4.5-7.5) 08/02/22 07:34 Ur Specific [place] 1.021 (1.000-1.030) 08/02/22 07:34 Urine Protein Trace (Negative) H 08/02/22 07:34 Urine Glucose (UA) Negative (Negative) 08/02/22 07:34 Urine Ketones Trace (Negative) H 08/02/22 07:34 Urine Blood Negative (Negative) 08/02/22 07:34 Urine Nitrite Negative (Negative) 08/02/22 07:34 Urine Bilirubin Negative (Negative) 08/02/22 07:34 Urine Urobilinogen Negative (Negative) 08/02/22 07:34 Ur Leukocyte Esterase 1+ (Negative) H 08/02/22 07:34 Urine WBC (Auto) 5-10 /hpf (0-5) H 08/02/22 07:34 Urine RBC (Auto) 0-4 /hpf (0-4) 08/02/22 07:34 U Hyaline Cast (Auto) 0 /lpf (0-5) 08/02/22 07:34 U Epithel Cells (Auto) 20-30 /lpf (0-5) H 08/02/22 07:34 Urine Bacteria (Auto) 1+ (Negative) H 08/02/22 07:34 Adenovirus (PCR) Not Detected (NotDetected) 08/03/22 13:00 B. pertussis DNA (PCR) Not Detected (NotDetected) 08/03/22 13:00 B.parapertussis DNA PCR Not Detected (NotDetected) 08/03/22 13:00 C. pneumoniae DNA (PCR) Not Detected (NotDetected) 08/03/22 13:00 Coronavirus OC43 (PCR) Not Detected (NotDetected) 08/03/22 13:00 Coronavirus HKU1 (PCR) Not Detected (NotDetected) 08/03/22 13:00 Coronavirus 229E (PCR) Not Detected (NotDetected) 08/03/22 13:00 SARS-CoV-2 (PCR) Not Detected (NotDetected) 08/03/22 13:00 Coronavirus NL63 (PCR) Not Detected (NotDetected) 08/03/22 13:00 Human Metapneumovir PCR Not Detected (NotDetected) 08/03/22 13:00 Influenza Type A (PCR) Not Detected (NotDetected) 08/03/22 13:00 Influ A Molecular Assay Negative (Negative) 08/02/22 09:40 Influenza Type B (PCR) Not Detected (NotDetected) 08/03/22 13:00 Influ B Molecular Assay Negative (Negative) 08/02/22 09:40 M. pneumoniae (PCR) Not Detected (NotDetected) 08/03/22 13:00 Parainfluenza 1 (PCR) Not Detected (NotDetected) 08/03/22 13:00 Parainfluenza 2 (PCR) Not Detected (NotDetected) 08/03/22 13:00 Parainfluenza 3 (PCR) Not Detected (NotDetected) 08/03/22 13:00 Parainfluenza 4 (PCR) Not Detected (NotDetected) 08/03/22 13:00 RSV (PCR) Not Detected (NotDetected) 08/03/22 13:00 Entero/Rhino (PCR) Not Detected (NotDetected) 08/03/22 13:00 SARS-CoV-2, RNA, NAAT NEGATIVE (NEGATIVE) 08/02/22 06:25 Impressions Chest X-Ray 08/02/22 06:07 SINGLE VIEW CHEST CLINICAL HISTORY: Atypical chest pain. FINDINGS: An AP, portable, upright chest radiograph is compared to study dated 07/01/2022 and correlated with chest CT dated 11/17/2012. The examination is degraded by portable technique and patient rotation. A hiatal hernia is suspected and new from previous. The heart is enlarged noting atherosclerotic calcification of the thoracic aorta. The pulmonary vasculature is noncongested. Chronic interstitial thickening is similar to previous. There are small pleural effusions, right larger than left with dependent consolidation. No pneumothorax is seen. The skeletal structures are osteopenic. The bony thorax is grossly intact. Degenerative change is seen in the shoulders and spine. IMPRESSION: 1. Cardiomegaly without radiographic evidence of congestive failure. 2. A hiatal hernia is suspected and new from previous. 3. Right large left pleural effusions with dependent consolidation. This could represent atelectasis versus pneumonia/aspiration pneumonitis. Clinical correlation will be required and radiographic follow-up to resolution is recommended. ACT 112: Negative or not required by law. Electronically signed by: Nuno Bennett M.D. 08/02/2022 6:[address] 08/02/22 09:30 CT SCAN OF THE CHEST WITHOUT IV CONTRAST CLINICAL HISTORY: Pleural effusion. Atypical chest pain. COMPARISON STUDY: Chest x-ray dated 08/02/2022. Chest CT dated 11/17/2012. Abdominal CT dated 04/06/2021. TECHNIQUE: CT scan of the thorax was performed from the thoracic inlet to the upper abdomen. Images are reviewed in the axial, sagittal, and coronal planes. IV contrast was not administered for this examination as per the referring clinician. A dose lowering technique was utilized adhering to the principles of ALARA. CT DOSE: 180.29 mGy.cm FINDINGS: Thyroid: Atrophic. Thoracic aorta: No intramural hematoma is identified. There is advanced atherosclerotic calcification of the thoracic aorta. There is mild aneurysmal dilatation of the ascending thoracic aorta, which measures up to 4.4 cm in diameter. The remainder of the thoracic aorta is normal in caliber and the arch demonstrates variant 3-vessel anatomy. 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 Heart: The heart is enlarged. There is a large pericardial effusion. There is only mild pericardial thickening. The coronary arteries are densely calcified. Lungs and pleural spaces: There are small right and trace left pleural effusions with dependent consolidation. Mediastinum: There is no mediastinal lymphadenopathy. Gina: Not well assessed without IV contrast. Axillae: There is no axillary lymphadenopathy. Upper abdomen: There are are calcifications in the right hepatic lobe. Large cysts were seen at this site on the 2013 examination comments may represent treatment-related change. Partially visualized upper abdominal viscera is otherwise within normal limits. Skeletal structures: The skeletal structures are osteopenic. Advanced arthritic change is seen in the shoulders. Degenerative change and hyperkyphosis is noted in the thoracic spine. No lytic or blastic bony lesions are seen. IMPRESSION: 1. There is a large and simple appearing pericardial effusion, which is new from the 04/06/[address] scan. There is only mild pericardial thickening. Clinical correlation will be required. If there is clinical concern for dissection a CT angiogram of the chest should be obtained. Consider cardiology assessment. 2. Small right and trace left pleural effusions with dependent consolidation. This likely represents atelectasis and clinical correlation will be required. 3. Cardiomegaly and advanced coronary artery calcification. 4. Mild aneurysmal dilatation of the ascending thoracic aorta. 5. Additional findings as above. ACT 112: Negative or not required by law. Electronically signed by: Nuno Bennett M.D. 08/02/2022 12:11 PM
[2022-08-08] MEDS: MAGNESIUM SULFATE / D5W 1 GM/100 ML BAG IV SCH ×2 (18:00→20:36)
[2022-08-08] MEDS: hydrOXYzine HCl 10 MG TAB PO SCH (20:39)
[2022-08-09] MEDS: LEVOTHYROXINE SODIUM 137 MCG TABLET PO SCH (06:33)
[2022-08-09 06:57] LABS: Basophils # (auto) 0.07 K/uL (0-0.2); Basophils % (auto) 0.8 %; Eosinophils # (auto) 0.05 K/uL (0-0.50); Eosinophils % (auto) 0.6 %; Hematocrit (blood only) 35.8 % (34.1-44.9); Hemoglobin 11.8 g/dl (12.0-16.0); Immature Granulocytes # (auto) 0.04 K/uL (0.00-0.02); Immature Granulocytes % (auto) 0.5 %; Lymphocytes # (auto) 1.53 K/uL (1.2-3.4); Lymphocytes % (auto) 17.5 %; Mean Corpuscular Hemoglobin 28.7 pg (25.0-34.0); Mean Corpuscular Volume 87.1 fL (80.0-100.0); Mean Platelet Volume 8.7 fL (9.4-12.3); Monocytes # (auto) 0.71 K/uL (0.24-0.82); Monocytes % (auto) 8.1 %; Neutrophils # (auto) 6.35 K/uL (1.4-6.5); Neutrophils % (auto) 72.5 %; Platelet Count 389 K/uL (130-400); RDW Standard Deviation 44.7 fL (36.4-46.3); Red Blood Count 4.11 M/uL (3.93-5.22); White Blood Count 8.75 K/ul (4.8-10.8)
[2022-08-09 07:39] LABS: BUN Creatinine Ratio 20.9 (10-20); Creatinine Clr Calc Pharmacy 54.8 ml/min; Est GFR (African American) 92.9 ml/min; Est GFR (Non-African American) 80.2 ml/min; Potassium 4.4 mmol/L (3.5-5.1)
[2022-08-09] MEDS: METOPROLOL SUCC 25MG EXT REL TAB PO SCH ×2 (08:20→19:26)
[2022-08-09] MEDS: predniSONE 20 MG TAB PO SCH (08:20)
[2022-08-09] MEDS: CYANOCOBALAMIN (B-12) 500 MCG TABLET PO SCH (08:21)
[2022-08-09] MEDS: CHOLECALCIFEROL 1,000 UNITS 25 MCG TAB PO SCH (08:21)
[2022-08-09] MEDS: APIXABAN 5 MG TABLET PO SCH ×2 (08:21→19:25)
[2022-08-09] MEDS: ESCITALOPRAM OXALATE 10 MG TAB PO SCH (08:21)
[2022-08-09] MEDS: PSYLLIUM or GUAR GUM FIBER POWDER PACKET PO SCH (08:24)
[2022-08-09] MEDS: MAGNESIUM OXIDE 400 MG TAB PO SCH (11:45)
--- NOTE | 2022-08-09 13:16 | Cardiology Progress Note ---
Date of Service August 09, 2022 Assessment & Plan (1) Paroxysmal atrial fibrillation: (2) Tachycardia-bradycardia syndrome: (3) Pneumonia: (4) Pleural effusion on right: (5) Pericardial effusion: Plan 86-year-old female admitted with paroxysmal/new onset atrial fibrillation, ple uritic chest discomfort, and right-sided pleural effusion with associated pneumonia. Echocardiogram with moderately large pericardial effusion 1. Atrial fibrillation: We will increase metoprolol succinate to 25 mg twice per day 2. Pericardial effusion clinically improved, reduced in size on echocardiogram Does not appear to be tolerating colchicine we will discontinue. We will give short course of prednisone 20 mg daily x3 days 3. Hypertension: Patient off lisinopril due to low blood pressures on presentation. We will continue to follow as beta-little titrated up 4. TIA: Transient aphasia 07/02/2022. Patient on dual antiplatelet therapy for 1 month will transition to Eliquis given presence of atrial fibrillation. Mild chronic gait instability consider physical therapy/rehab 5. Hyponatremia 6. Diarrhea question antibiotics versus colchicine. Colchicine discontinued 08/09/2022 Cardiac status stable Plan as before continue metoprolol succinate 25 mg twice per day with good heart rate control Pericardial effusion appears to be stable to improving. Colchicine contraindicated due to intolerance. Brief course of prednisone x3 days given Anticoagulation with Eliquis. No aspirin for now Admission and Anticipated Discharge Date Admission Date: August 02, 2022 Subjective Patient seen and examined, chart, medications, telemetry reviewed. Feels improved with less GI issues this morning. No dizziness or lightheadedness. Telemetry reveals atrial fibrillation with controlled ventricular response rate Review of Systems Review of Systems: All systems reviewed & are unremarkable except as noted in Subjective Physical Exam Constitutional: well nourished; no acute distress Eyes: PERRL, conjunctivae normal, anicteric sclerae Neck: trachea midline, no thyromegaly Respiratory: normal respiratory effort; no respiratory distress, no labored breathing and no retractions Auscultation: + diminished lung sounds (Right base) and + rales (Right base); no rhonchi and no wheezes Cardiovascular: Rate/Rhythm: + irregularly irregular Heart Sounds: normal S1, normal S2 and + murmur (1/6 midsystolic murmur heard best at the right second costal space); no cardiac rub Gastrointestinal (Abdomen): Inspection/Auscultation: abdomen normal to inspection and normal bowel sounds; abdomen not distended Percussion/Palpation: abdomen soft; abdomen nontender, no guarding and abdomen not rigid Neurologic: CN's II-XI intact bilaterally and moves all extremities Results & Data ([facility]) Vital Signs (Past 12 Hours) Vital Signs Temp Pulse Pulse Pulse Resp BP Pulse Ox 08/09/22 11:56 36.3 C L 77 17 133/79 96 08/09/22 07:35 36.3 C L 75 18 136/77 94 08/09/22 07:00 82 08/09/22 04:50 36.4 C L 82 16 145/92 H 94 O2 Del Method 08/09/22 11:56 Room Air 08/09/22 07:35 Room Air 08/09/22 07:00 08/09/22 04:50 Room Air Laboratory Results Laboratory Results - last 24 hr 08/09/22 08/09/22 06:39 06:39 WBC 8.75 RBC 4.11 Hgb 11.8 L Hct 35.8 MCV 87.1 MCH 28.7 MCHC 33.0 RDW Std Deviation 44.7 RDW Coeff of Valdo 14.0 Plt Count 389 MPV 8.7 L Immature Gran % (Auto) 0.5 Neut % (Auto) 72.5 Lymph % (Auto) 17.5 [place] % (Auto) 8.1 Eos % (Auto) 0.6 Baso % (Auto) 0.8 Neut # (Auto) 6.35 Lymph # (Auto) 1.53 Barry # (Auto) 0.71 Eos # (Auto) 0.05 Baso # (Auto) 0.07 Immature Gran # (Auto) 0.04 H Sodium 131 L Potassium 4.4 Chloride 97 L Carbon Dioxide 28 Anion Gap 6 BUN 14 Creatinine 0.67 Est Cr Clr Drug Dosing 54.8 Est GFR ( Amer) 92.9 Est GFR (Non-Af Amer) 80.2 BUN/Creatinine Ratio 20.9 H Glucose 85 Calcium 9.0 Magnesium 2.0
--- NOTE | 2022-08-09 14:16 | Hospitalist Progress Note ---
Date of Service August 09, 2022 Assessment & Plan (1) Pericardial effusion: (2) Pleural effusion on right: (3) Pneumonia: Plan: Presented with chest discomfort and palpitation which woke her up from the sleep EKG in the ED showed A. fib with RVR CT chest shows large pericardial effusion along with bilateral pleural effusion with dependent consolidation High-sensitivity 25 and 21; no significant delta difference. Pro-Dannie less than 0.05 Respiratory viral panel negative. Echo shows EF of 60 to 65% with left atrium dilation. Moderate circumferential pericardial effusion present. No evidence of cardiac tamponade. Follow-up echo shows decrease in the pericardial effusion Cardiology on board Was initially placed on colchicine; follow-up echo showed improvement in the pericardial effusion. Patient is started on prednisone 20 mg for 3 days. Completed ceftriaxone and doxycycline course for 6 days (4) Paroxysmal atrial fibrillation: Plan: tele monitor showed Afib with rate control today Metoprolol increased to 25 mg twice daily Therapeutic Lovenox was discontinued then transition to Eliquis Check alva for Eliquis it will be $47 a for 30-day supply Pt said that she is able to afford it Continue monitor (5) Hypothyroidism: Plan: TSH- 5.609 free T4- 1.22. Continue levothyroxine current dose. (6) Hypertension: Plan: Lisinopril on hold given hypotension on presentation. Continue metoprolol succinate 25 mg twice daily Continue monitor BP Hypomagnesemia Possible related to diarrhea Mg 2.0 Continue monitor Mg level Diarrhea Possible related to colchicine vs antibiotic Colchicine and antibiotic discontinued Monitor for now. Plan Full code DVT continue Eliquis disposition Plan to discharge home with Admission and Anticipated Discharge Date Admission Date: August 02, 2022 Subjective Patient seen and examined at bedside. She reports 2 episode of diarrhea this morning. Overall, she feels better compared to previous day. Telemetry shows a flutter with ventricular rate in 80s to 90s. Review of Systems Review of Systems: All systems reviewed & are unremarkable except as noted in Subjective Physical Exam Physical Exam: Constitutional: WD/WN, vitals as above, NAD, sitting up in bed, pleasant, conversing easily Respiratory: Decreased breath sound at right lower base. no wheeze, rales, rhonchi. Normal insp/exp effort, no accessory muscle use Cardiovascular: Irregular, tachycardic, no murmur, no edema Vessels: no JVD or carotid bruit Abdomen: normal bowel sounds, soft, nontender, no hepatosplenomegaly Musculoskeletal: no cyanosis or clubbing, extremities motor strength 5/5 Skin: no rashes, warm and dry normal turgor Neurologic: PERRL, EOMI, accommodation nl, no face palsy, no dysarthria CN's II- XI intact bilaterally and moves all extremities Psychiatric: A+Ox3, euthymic affect Lymphatic: no cervical or axillary lymphadenopathy : deferred Results & Data Results & Data ([facility]) Vital Signs (Past 12 Hours) Vital Signs Temp Pulse Pulse Pulse Resp BP Pulse Ox 08/09/22 11:56 36.3 C L 77 17 133/79 96 08/09/22 07:35 36.3 C L 75 18 136/77 94 08/09/22 07:00 82 08/09/22 04:50 36.4 C L 82 16 145/92 H 94 O2 Del Method 08/09/22 11:56 Room Air 08/09/22 07:35 Room Air 08/09/22 07:00 08/09/22 04:50 Room Air Laboratory Results Laboratory Results WBC 8.75 K/ul (4.8-10.8) 08/09/22 06:39 RBC 4.11 M/uL (3.93-5.22) 08/09/22 06:39 Hgb 11.8 g/dl (12.0-16.0) L 08/09/22 06:39 Hct 35.8 % (34.1-44.9) 08/09/22 06:39 MCV 87.1 fL (80.0-100.0) 08/09/22 06:39 MCH 28.7 pg (25.0-34.0) 08/09/22 06:39 MCHC 33.0 g/dL (32.0-36.0) 08/09/22 06:39 RDW Std Deviation 44.7 fL (36.4-46.3) 08/09/22 06:39 RDW Coeff of Valdo 14.0 % (11.5-14.5) 08/09/22 06:39 Plt Count 389 K/uL (130-400) 08/09/22 06:39 MPV 8.7 fL (9.4-12.3) L 08/09/22 06:39 Immature Gran % (Auto) 0.5 % 08/09/22 06:39 Neut % (Auto) 72.5 % 08/09/22 06:39 Lymph % (Auto) 17.5 % 08/09/22 06:39 [place] % (Auto) 8.1 % 08/09/22 06:39 Eos % (Auto) 0.6 % 08/09/22 06:39 Baso % (Auto) 0.8 % 08/09/22 06:39 Neut # (Auto) 6.35 K/uL (1.4-6.5) 08/09/22 06:39 Lymph # (Auto) 1.53 K/uL (1.2-3.4) 08/09/22 06:39 [place] # (Auto) 0.71 K/uL (0.24-0.82) 08/09/22 06:39 Eos # (Auto) 0.05 K/uL (0-0.50) 08/09/22 06:39 Baso # (Auto) 0.07 K/uL (0-0.2) 08/09/22 06:39 Immature Gran # (Auto) 0.04 K/uL (0.00-0.02) H 08/09/22 06:39 ESR 62 mm/hr (0-30) H 08/04/22 07:57 PT 11.0 Seconds (9.0-12.0) 08/02/22 05:50 INR 1.0 (0.9-1.1) 08/02/22 05:50 APTT 34.3 Seconds (21.0-31.0) H 08/03/22 12:24 PTT Ratio 1.2 08/03/22 12:24 Sodium 131 mmol/L (136-145) L 08/09/22 06:39 Potassium 4.4 mmol/L (3.5-5.1) 08/09/22 06:39 Chloride 97 mmol/L (98-107) L 08/09/22 06:39 Carbon Dioxide 28 mmol/L (21-32) 08/09/22 06:39 Anion Gap 6 (3-11) 08/09/22 06:39 BUN 14 mg/dl (6-23) 08/09/22 06:39 Creatinine 0.67 mg/dl (0.6-1.2) 08/09/22 06:39 Est Cr Clr Drug Dosing 54.8 ml/min 08/09/22 06:39 Est GFR ( Amer) 92.9 ml/min 08/09/22 06:39 Est GFR (Non-Af Amer) 80.2 ml/min 08/09/22 06:39 BUN/Creatinine Ratio 20.9 (10-20) H 08/09/22 06:39 Glucose 85 mg/dl (70-99(Fasting)) 08/09/22 06:39 Calcium 9.0 mg/dl (8.5-10.1) 08/09/22 06:39 Phosphorus 3.7 mg/dl (2.5-4.9) 08/07/22 06:39 Magnesium 2.0 mg/dl (1.7-2.4) 08/09/22 06:39 Total Bilirubin 0.4 mg/dl (0.2-1.0) 08/05/22 07:01 AST 29 U/L (13-39) 08/05/22 07:01 ALT 21 U/L (7-52) 08/05/22 07:01 Alkaline Phosphatase 45 U/L (34-104) 08/05/22 07:01 Troponin I High Sens 19.6 pg/ml (0-14) H 08/02/22 16:11 C-Reactive Protein 10.82 mg/dl (0-0.5) H 08/04/22 07:57 Total Protein 6.3 gm/dl (6.0-8.3) 08/05/22 07:01 Albumin 3.1 gm/dl (3.4-5.0) L 08/05/22 07:01 Globulin 3.2 gm/dl (2.5-4.0) 08/05/22 07:01 Albumin/Globulin Ratio 1.0 (0.9-2) 08/05/22 07:01 Lipase 38 U/L (11-82) 08/02/22 05:50 Procalcitonin < 0.05 ng/ml (0-0.5) 08/02/22 05:50 TSH 5.609 uIu/ml (0.300-4.500) H 08/02/22 05:50 Free T4 1.22 ng/dl (0.61-1.60) 08/02/22 05:50 Urine Color Yellow 08/02/22 07:34 Urine Appearance Clear (Clear) 08/02/22 07:34 Urine pH 5.0 (4.5-7.5) 08/02/22 07:34 Ur Specific [place] 1.021 (1.000-1.030) 08/02/22 07:34 Urine Protein Trace (Negative) H 08/02/22 07:34 Urine Glucose (UA) Negative (Negative) 08/02/22 07:34 Urine Ketones Trace (Negative) H 08/02/22 07:34 Urine Blood Negative (Negative) 08/02/22 07:34 Urine Nitrite Negative (Negative) 08/02/22 07:34 Urine Bilirubin Negative (Negative) 08/02/22 07:34 Urine Urobilinogen Negative (Negative) 08/02/22 07:34 Ur Leukocyte Esterase 1+ (Negative) H 08/02/22 07:34 Urine WBC (Auto) 5-10 /hpf (0-5) H 08/02/22 07:34 Urine RBC (Auto) 0-4 /hpf (0-4) 08/02/22 07:34 U Hyaline Cast (Auto) 0 /lpf (0-5) 08/02/22 07:34 U Epithel Cells (Auto) 20-30 /lpf (0-5) H 08/02/22 07:34 Urine Bacteria (Auto) 1+ (Negative) H 08/02/22 07:34 Adenovirus (PCR) Not Detected (NotDetected) 08/03/22 13:00 B. pertussis DNA (PCR) Not Detected (NotDetected) 08/03/22 13:00 B.parapertussis DNA PCR Not Detected (NotDetected) 08/03/22 13:00 C. pneumoniae DNA (PCR) Not Detected (NotDetected) 08/03/22 13:00 Coronavirus OC43 (PCR) Not Detected (NotDetected) 08/03/22 13:00 Coronavirus HKU1 (PCR) Not Detected (NotDetected) 08/03/22 13:00 Coronavirus 229E (PCR) Not Detected (NotDetected) 08/03/22 13:00 SARS-CoV-2 (PCR) Not Detected (NotDetected) 08/03/22 13:00 Coronavirus NL63 (PCR) Not Detected (NotDetected) 08/03/22 13:00 Human Metapneumovir PCR Not Detected (NotDetected) 08/03/22 13:00 Influenza Type A (PCR) Not Detected (NotDetected) 08/03/22 13:00 Influ A Molecular Assay Negative (Negative) 08/02/22 09:40 Influenza Type B (PCR) Not Detected (NotDetected) 08/03/22 13:00 Influ B Molecular Assay Negative (Negative) 08/02/22 09:40 M. pneumoniae (PCR) Not Detected (NotDetected) 08/03/22 13:00 Parainfluenza 1 (PCR) Not Detected (NotDetected) 08/03/22 13:00 Parainfluenza 2 (PCR) Not Detected (NotDetected) 08/03/22 13:00 Parainfluenza 3 (PCR) Not Detected (NotDetected) 08/03/22 13:00 Parainfluenza 4 (PCR) Not Detected (NotDetected) 08/03/22 13:00 RSV (PCR) Not Detected (NotDetected) 08/03/22 13:00 Entero/Rhino (PCR) Not Detected (NotDetected) 08/03/22 13:00 SARS-CoV-2, RNA, NAAT NEGATIVE (NEGATIVE) 08/02/22 06:25 Impressions Chest X-Ray 08/02/22 06:07 SINGLE VIEW CHEST CLINICAL HISTORY: Atypical chest pain. FINDINGS: An AP, portable, upright chest radiograph is compared to study dated 07/01/2022 and correlated with chest CT dated 11/17/2012. The examination is degraded by portable technique and patient rotation. A hiatal hernia is suspected and new from previous. The heart is enlarged noting atherosclerotic calcification of the thoracic aorta. The pulmonary vasculature is noncongested. Chronic interstitial thickening is similar to previous. There are small pleural effusions, right larger than left with dependent consolidation. No pneumothorax is seen. The skeletal structures are osteopenic. The bony thorax is grossly intact. Degenerative change is seen in the shoulders and spine. IMPRESSION: 1. Cardiomegaly without radiographic evidence of congestive failure. 2. A hiatal hernia is suspected and new from previous. 3. Right large left pleural effusions with dependent consolidation. This could represent atelectasis versus pneumonia/aspiration pneumonitis. Clinical correlation will be required and radiographic follow-up to resolution is recommended. ACT 112: Negative or not required by law. Electronically signed by: Nuno Bennett M.D. 08/02/2022 6:[address] 08/02/22 09:30 CT SCAN OF THE CHEST WITHOUT IV CONTRAST CLINICAL HISTORY: Pleural effusion. Atypical chest pain. COMPARISON STUDY: Chest x-ray dated 08/02/2022. Chest CT dated 11/17/2012. Abdominal CT dated 04/06/2021. TECHNIQUE: CT scan of the thorax was performed from the thoracic inlet to the upper abdomen. Images are reviewed in the axial, sagittal, and coronal planes. IV contrast was not administered for this examination as per the referring clinician. A dose lowering technique was utilized adhering to the principles of ALARA. CT DOSE: 180.29 mGy.cm FINDINGS: Thyroid: Atrophic. Thoracic aorta: No intramural hematoma is identified. There is advanced atherosclerotic calcification of the thoracic aorta. There is mild aneurysmal dilatation of the ascending thoracic aorta, which measures up to 4.4 cm in diameter. The remainder of the thoracic aorta is normal in caliber and the arch demonstrates variant 3-vessel anatomy. 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 Heart: The heart is enlarged. There is a large pericardial effusion. There is only mild pericardial thickening. The coronary arteries are densely calcified. Lungs and pleural spaces: There are small right and trace left pleural effusions with dependent consolidation. Mediastinum: There is no mediastinal lymphadenopathy. Gina: Not well assessed without IV contrast. Axillae: There is no axillary lymphadenopathy. Upper abdomen: There are are calcifications in the right hepatic lobe. Large cysts were seen at this site on the 2013 examination comments may represent treatment-related change. Partially visualized upper abdominal viscera is otherwise within normal limits. Skeletal structures: The skeletal structures are osteopenic. Advanced arthritic change is seen in the shoulders. Degenerative change and hyperkyphosis is noted in the thoracic spine. No lytic or blastic bony lesions are seen. IMPRESSION: 1. There is a large and simple appearing pericardial effusion, which is new from the 04/06/[address] scan. There is only mild pericardial thickening. Clinical correlation will be required. If there is clinical concern for dissection a CT angiogram of the chest should be obtained. Consider cardiology assessment. 2. Small right and trace left pleural effusions with dependent consolidation. This likely represents atelectasis and clinical correlation will be required. 3. Cardiomegaly and advanced coronary artery calcification. 4. Mild aneurysmal dilatation of the ascending thoracic aorta. 5. Additional findings as above. ACT 112: Negative or not required by law. Electronically signed by: Nuno Bennett M.D. 08/02/2022 12:11 PM
[2022-08-09] MEDS: hydrOXYzine HCl 10 MG TAB PO SCH (19:26)
[2022-08-10] MEDS: LEVOTHYROXINE SODIUM 137 MCG TABLET PO SCH (05:46)
[2022-08-10] MEDS: PSYLLIUM or GUAR GUM FIBER POWDER PACKET PO SCH (07:44)
[2022-08-10] MEDS: CHOLECALCIFEROL 1,000 UNITS 25 MCG TAB PO SCH (07:45)
[2022-08-10] MEDS: ESCITALOPRAM OXALATE 10 MG TAB PO SCH (07:46)
[2022-08-10] MEDS: predniSONE 20 MG TAB PO SCH (07:46)
[2022-08-10] MEDS: CYANOCOBALAMIN (B-12) 500 MCG TABLET PO SCH (07:46)
[2022-08-10 07:47] LABS: BUN Creatinine Ratio 31.7 (10-20); Calcium 9.4 mg/dl (8.5-10.1); Est GFR (African American) 94.8 ml/min; Est GFR (Non-African American) 81.8 ml/min; Magnesium 1.7 mg/dl (1.7-2.4); Potassium 4.4 mmol/L (3.5-5.1)
[2022-08-10] MEDS: METOPROLOL SUCC 25MG EXT REL TAB PO SCH (07:47)
[2022-08-10] MEDS: APIXABAN 5 MG TABLET PO SCH (07:47)
[2022-08-10] MEDS: MAGNESIUM OXIDE 400 MG TAB PO SCH (10:34)
--- NOTE | 2022-08-10 14:03 | Discharge Summary ---
Date of Service August 10, 2022 Admission HPI Per Admitting Provider Past medical history of hyperlipidemia, hypothyroidism, hypertension, thoracic aortic aneurysm, history of extensive thrombophlebitis requiring vein ablation and anticoagulation treatment in the past Last admission on 08/01-08/02 for strokelike symptoms. Was started on 3 weeks of dual antiplatelet with aspirin and Plavix. Patient woke up with chest discomfort on her left side which is associated with sweating spells and palpitations. Also endorses upper respiratory tract symptoms which include rhinorrhea and occasional cough Denies chest pain, fever, chills, abdominal pain or urinary symptoms. No dizziness or lightheadedness. No nausea, vomiting. On presentation to the ED, patient was found to be hypotensive; afebrile and saturating well on room air. EKG showed A. fib with RVR. Chest x-ray showed ca rdiomegaly and possible right lower lobe consolidation. Patient was given IV metoprolol which decreased her ventricular rate in the range of 100 110s; started on heparin drip. Patient was then admitted to telemetry floor Admission Exam Per Admitting Provider Constitutional: WD/WN, vitals as above, NAD, sitting up in bed, pleasant, conversing easily Respiratory: normal respiratory effort, lungs clear to auscultation, no wheeze, rales, rhonchi. Normal insp/exp effort, no accessory muscle use Cardiovascular: Regular, tachycardic, no murmur, no edema Vessels: no JVD or carotid bruit Chest: Decreased breath sound at right lower base. Abdomen: normal bowel sounds, soft, nontender, no hepatosplenomegaly Musculoskeletal: no cyanosis or clubbing, extremities motor strength 5/5 Skin: no rashes, warm and dry normal turgor Neurologic: PERRL, EOMI, accommodation nl, no face palsy, no dysarthria CN's II- XI intact bilaterally and moves all extremities Psychiatric: A+Ox3, euthymic affect Lymphatic: no cervical or axillary lymphadenopathy : deferred Principal Diagnosis (1) Pericardial effusion: (2) Pleural effusion on right: (3) Pneumonia: (4) Paroxysmal atrial fibrillation Discharge Exam Constitutional: WD/WN, vitals as above, NAD, sitting up in bed, pleasant, conversing easily Respiratory: Decreased breath sound at right lower base. no wheeze, rales, rhonchi. Normal insp/exp effort, no accessory muscle use Cardiovascular: Irregular, tachycardic, no murmur, no edema Vessels: no JVD or carotid bruit Abdomen: normal bowel sounds, soft, nontender, no hepatosplenomegaly Musculoskeletal: no cyanosis or clubbing, extremities motor strength 5/5 Skin: no rashes, warm and dry normal turgor Neurologic: PERRL, EOMI, accommodation nl, no face palsy, no dysarthria CN's II- XI intact bilaterally and moves all extremities Psychiatric: A+Ox3, euthymic affect Lymphatic: no cervical or axillary lymphadenopathy : deferred Discharge Data Allergies Allergy/AdvReac Type Severity Reaction Status Date / Time oxycodone Allergy Unknown UKN Verified 08/02/22 08:53 simvastatin Allergy Unknown UKN Verified 08/02/22 08:53 rosuvastatin AdvReac Unknown upset Verified 08/02/22 08:53 stomach Consultations 08/02/22 09:10 Consult Cardiology Routine 08/02/22 09:42 ED Decision to Admit Stat Ordered Studies 08/02/22 09:30 CT chest diagnostic wo con Stat Hospital Course (1) Pericardial effusion: (2) Atrial fibrillation with rapid ventricular response: (3) Pneumonia: (4) Paroxysmal atrial fibrillation: Plan Patient is a 86-year-old female with past medical history of hypertension, hypothyroidism, hyperlipidemia who presented to the hospital with chest discomfort on her left side with sweating spells and palpitation. Patient reported symptoms of aspiration recheck infection prior to the onset of chest pain. In the ED, patient was found to be hypotensive; otherwise vital stable. EKG showed A. fib with RVR. Patient was started on heparin drip. CT chest was done which showed large pericardial effusion. Cardiology was consulted and echocardiogram was done. Echocardiogram confirmed the finding of pericardial effusion; no evidence of cardiac tamponade was seen. Patient was started on colchicine as per cardiology recommendation. Patient was also treated with antibiotic for pneumonia. Patient had multiple episode of diarrhea while on colchicine. Her subsequent limited echo showed decrease in her pericardial effusion. Patient was given 3 days of prednisone during the hospitalization. She also completed treatment for pneumonia. She was started on metoprolol 25 mg twice daily and Eliquis for atrial fibrillation. Patient was discharged on those medication with instruction to follow-up with her primary care doctor and cardiology. Their discharge instruction were given to her as well. Total Time Total Time Spent Total Time Spent (In Minutes): 35 Total Time Includes: Examination of the Patient, Discharge Planning, Medication Reconciliation, Communication With Other Providers and Other Discharge Plan Discharge Items Patient Disposition: Home - Self-Care Reason For Visit: ATRIAL FIBRILLATION WITH RVR Discharge Diagnosis: (1) Pericardial effusion: (2) Pleural effusion on right: (3) Pneumonia Activity: Resume your previous activity Non-emergency contact: Primary Care Provider Call non-emergency contact if: you have any medication questions and your symptoms worsen Follow-up/Referrals: Saturnino Keene DO [Primary Care Provider] - (Date & Time 08/12/2022 3:10 PM Provider Pharmacist [address] [place] [address] [place] [address] Date & Time 08/12/2022 3:40 PM Provider Saturnino Keene DO [facility] [address] [place] [address] ) Diet: Regular Addtl Attending Provider Instructions: You were admitted to the hospital with pneumonia, pericardial effusion (fluid surrounding your heart) and atrial fibrillation. For pneumonia, you completed antibiotic course during the hospitalization. For pericardial effusion, you have completed course of colchicine and prednisone during the hospitalization. For atrial fibrillation, you are started on metoprolol 25 mg twice daily and Eliquis (blood thinner) twice daily. Prescription is sent to your pharmacy. Please start the medications starting tonight. All other medication as same as before. You have follow-up with your primary care doctor on 08/12/2022 at 3:10 PM. You will need follow up with Cardiology in 2 to 3 weeks time. Pending Studies at Discharge: No Stand-Alone Forms: My [facility] [place], Smoking Cessation Medications and DC Order Prescriptions: New Eliquis 5 mg tablet 5 mg PO BID Qty: 60 0RF metoprolol succinate [Toprol XL] 25 mg tablet extended release 24 hr 25 mg PO BID Qty: 60 0RF Continued hydroxyzine HCl 10 mg tablet 10 mg PO HS aspirin [Marciano Low Dose Aspirin] 81 mg Tablet,Delayed Release (Dr/Ec) 81 mg PO HS cholecalciferol (vitamin D3) [Vitamin D3] 25 mcg (1,000 unit) Tablet 25 mcg PO DAILY cyanocobalamin (vitamin B-12) [Vitamin B-12] 1,000 mcg Tablet 1,000 mcg PO DAILY Metamucil (sugar) Powder 1 ea PO DAILY Rx Instructions: mix 1 scoop in 8 oz of fluid and drink levothyroxine 137 mcg tablet 137 mcg PO DAILYBB escitalopram oxalate 10 mg tablet 10 mg PO DAILY lisinopril [Zestril] 5 mg Tablet 5 mg PO HS Qty: 30 1RF magnesium oxide 400 mg magnesium Tablet 400 mg PO DAILY Qty: 30 0RF fenofibrate micronized 67 mg capsule 67 mg PO DAILY Discharge Orders: Discharge Order (Routine); Ordered 08/10/22 Ordered By: Jose Jesus Admission Data Admit Date/Time: 08/02/22 09:10 Attending Provider: Jose Jesus Admit Provider: Jose Jesus Primary Care Provider: Saturnino Keene Other Providers: Collin Kennedy Amrit Other Interventions: Discharge Summary Assessment (RN) Last Done: 08/10/22 12:55
== END 2022-08-10 15:13 | disposition home health service (06) | DRG 308 ==
LOC: ED 06:05 → SUATTDRO 09:10 → 2S 09:10

== ENCOUNTER 2023-01-08 18:48 | Inpatient (IN) ==
--- NOTE | 2023-01-08 18:53 | Emergency Department Note ---
Impression & Plan Brain TIA, Expressive aphasia ED Provider Note NAME: COLUMBA GORE AGE: 87 SEX: F : 1935 ARRIVES VIA: Ambulance INFORMANT: Patient, EMS ED PROVIDER(S): Rk Yen DO CHIEF COMPLAINT: CVA HPI: Patient is an 87-year-old female who presents ER with past medical history of previous CVAs, CHF with diastolic dysfunction, hypertension, hypothyroidism, and paroxysmal A-fib on Eliquis. Around 8 PM tonight she was talking to her and started having trouble getting her words out. Following this EMS was called. This is consistent with her previous CVAs. Upon arrival of EMS she had expressive aphasia. She had no other deficits. Stroke alert was called and she was brought in. Upon arrival per EMS her symptoms have nearly resolved. Patient denies any and any change in vision. Does admit to a headache on the left side. No weakness or numbness in the arms or legs. PAST MEDICAL HISTORY:See Below PAST SURGICAL HISTORY:See Below FAMILY HISTORY:See Below SOCIAL HISTORY:See Below HOME MEDICATIONS:See Below ALLERGIES:See Below VITALS:See Below PHYSICAL EXAMINATION: GENERAL: Sitting up in bed, alert, well appearing, well nourished, no distress, non-toxic EYE EXAM: normal conjunctiva. PERRL and EOM's intact. OROPHARYNX: no exudate, no erythema, lips, buccal mucosa, and tongue normal and mucous membranes are moist NECK: supple, no nuchal rigidity, no adenopathy, non-tender LUNGS: Clear to auscultation. Normal chest wall mechanics HEART: no murmurs, S1 normal and S2 normal ABDOMEN: abdomen soft, non-tender, normo-active bowel sounds, no masses, no rebound or guarding. UPPER EXTREMITIES: upper extremities are grossly normal. LOWER EXTREMITIES: No pitting edema. NEURO EXAM: Normal sensorium, cranial nerves II-XII intact, normal speech, no weakness of arms, no weakness of legs. No drift. Finger to nose intact. Gross sensation intact. MEDICAL DECISION MAKING: Patient is an 87-year-old female who presents ER for above-stated complaint. IV was established blood work was obtained. External records were reviewed. Labs show no significant leukocytosis or anemia. INR unremarkable. BMP with LFTs bilirubin and troponin was negative. Magnesium was slightly low at 1.6. COVID- negative. CT angios of the head and neck were negative. Her neuro exam was completely intact. She was oriented to person place. Symptoms appear to have i mproved significantly. She did take her Eliquis this morning. She is not a TNK candidate. She was updated at bedside. Stroke alert was initially called and following the reads I did not talk with her she as she improved significantly clinically and took her Eliquis/NOAC this morning and is not a TNK candidate based on this. Triage Nursing notes reviewed. Limited review of prior medical records performed Vital Signs: reviewed and remarkable for no significant abnormalities Differential diagnosis: Differential Diagnosis includes but is not limited to ischemic Stroke, hemorrhagic stroke, bells palsy, mass, neoplasm, migraine headache, seizure, subarachnoid hemorrhage, TIA, and transient global amnesia. ER treatment provided: See below Diagnostics interpreted by me include EKG and cardiac monitoring as listed below: -Cardiac Monitoring: An order was placed for continuous cardiac monitoring. The monitor shows a rate of 70 with sinus rhythm. -ECG: A-fib rate 83 Normal axis No PVCs Septal Q waves -Laboratory studies:Interpreted by me as stated above in MDM and shown below. Imaging studies: Xrays: As interpreted by me: Portable AP upright 1 view of the chest shows no pneumonia CTs show: CT angios of the head and neck as described above per radiology showed no acute pathology Consultation(s): Discussed with the hospitalist for further evaluation manageme nt and treatment with Dr. Arredondo. Procedures:none Critical Care: None Past Med/Surg History Medical History Atrial fibrillation with rapid ventricular response Carotid artery stenosis, asymptomatic Diastolic dysfunction Hyperlipidemia Hypertension Hypothyroidism (11/15/12) Nonrheumatic mitral valve regurgitation Pericardial effusion Persistent left SVC (superior vena cava) Pleural effusion Pleural effusion on right Pneumonia Tachycardia-bradycardia syndrome Thoracic aortic aneurysm Thrombophlebitis History of extensive, requiring vein ablation, s/p previous anticoagulation treatment Surgical History History of cataract surgery History of hysterectomy History of repair of rotator cuff Family History Father Hypertension Stroke Mother Hypertension Social History Smoking Status: Never smoker Hx Alcohol Use: Yes Alcohol type: wine Hx Substance Use: No Preferred Language: Bahamian Communication Ability: Effective Cash Poster Required: No Beliefs That Will Affect Care: None marital status: Current Living Situation: Spouse How many Children do You have: 2 Feels Safe at Home: Yes Assistive Devices: None Allergies Allergies Allergy/AdvReac Type Severity Reaction Status Date / Time oxycodone Allergy Unknown UKN Verified 01/08/23 20:39 simvastatin Allergy Unknown UKN Verified 01/08/23 20:39 rosuvastatin AdvReac Unknown upset Verified 01/08/23 20:39 stomach Home Meds Home Medications Medication Instructions Recorded Confirmed aspirin 81 mg tablet,delayed 81 mg PO HS 03/13/21 01/08/23 release (Marciano Low Dose Aspirin) cholecalciferol (vitamin D3) 25 25 mcg PO DAILY 03/13/21 01/08/23 mcg (1,000 unit) tablet (Vitamin D3) cyanocobalamin (vitamin B-12) 1,000 mcg PO DAILY 03/13/21 01/08/23 1,000 mcg tablet (Vitamin B-12) psyllium seed (sugar) oral powder 1 ea PO DAILY 03/13/21 01/08/23 (Metamucil (sugar) oral powder) escitalopram oxalate 10 mg tablet 10 mg PO DAILY 04/06/21 01/08/23 levothyroxine 137 mcg tablet 137 mcg PO DAILYBB 04/06/21 01/08/23 furosemide 20 mg tablet (Lasix) 40 mg PO DAILY 11/26/22 01/08/23 gabapentin 100 mg capsule 100 mg PO BID 11/26/22 01/08/23 hydroxyzine HCl 10 mg tablet 10 mg PO HS 11/26/22 01/08/23 magnesium oxide 250 mg PO DAILY 11/26/22 01/08/23 acetaminophen 500 mg tablet 1,000 mg PO Q6H PRN Pain 01/08/23 01/08/23 (Tylenol Extra Strength) Previous Rx's Medication Instructions Recorded apixaban 5 mg tablet (Eliquis) 5 mg PO BID #60 tabs 08/05/22 metoprolol succinate 25 mg 25 mg PO BID #60 tabs 08/10/22 tablet,extended release 24 hr (Toprol XL) Results & Data (ED) Vital Signs Vital Signs - 24 hr 01/08/23 19:03 01/08/23 19:06 01/08/23 19:07 Temperature 36.5 C Temperature Source Oral Pulse Rate 85 92 H Pulse Rate from SpO2 Sensor 98 H Respiratory Rate 18 18 Blood Pressure 185/93 H Blood Pressure Mean 123 Pulse Oximetry 97 96 Oxygen Delivery Method Room Air Sepsis Recent Fever Within 48 Hours No Sepsis New/Unexplained Change in Mental Status No Sepsis Action Taken by Nursing No Action Required 01/08/23 19:31 01/08/23 19:49 01/08/23 19:49 Temperature Temperature Source Pulse Rate 83 72 Pulse Rate from SpO2 Sensor 75 Respiratory Rate 18 21 Blood Pressure 152/85 H 164/90 H Blood Pressure Mean 107 114 Pulse Oximetry 97 96 Oxygen Delivery Method Sepsis Recent Fever Within 48 Hours Sepsis New/Unexplained Change in Mental Status Sepsis Action Taken by Nursing 01/08/23 20:00 Temperature Temperature Source Pulse Rate Pulse Rate from SpO2 Sensor Respiratory Rate Blood Pressure 164/92 H Blood Pressure Mean 116 Pulse Oximetry Oxygen Delivery Method Sepsis Recent Fever Within 48 Hours Sepsis New/Unexplained Change in Mental Status Sepsis Action Taken by Nursing Laboratory Data 01/08/23 19:04 01/08/23 19:04 Lab Results 01/08/23 01/08/23 01/08/23 Range/Units 19:04 19:04 19:04 WBC 8.04 (4.8-10.8) K/ul RBC 4.60 (4.20-5.40) M/uL Hgb 14.0 (12.0-16.0) g/dl Hct 42.3 (37.0-47.0) % MCV 92.0 (80.0-100.0) fL MCH 30.4 (25.0-34.0) pg MCHC 33.1 (32.0-36.0) g/dL RDW Std Deviation 46.7 H (36.4-46.3) fL RDW Coeff of Valdo 13.9 (11.5-14.5) % Plt Count 200 (130-400) K/uL MPV 9.3 L (9.4-12.4) fL Immature Gran % (Auto) 0.2 % Neut % (Auto) 62.9 % Lymph % (Auto) 24.9 % [place]oughton % (Auto) 9.7 % Eos % (Auto) 1.6 % Baso % (Auto) 0.7 % Neut # (Auto) 5.05 (1.40-6.50) K/uL Lymph # (Auto) 2.00 (1.2-3.4) K/uL [place] # (Auto) 0.78 H (0.11-0.59) K/uL Eos # (Auto) 0.13 (0-0.50) K/uL Baso # (Auto) 0.06 (0-0.2) K/uL Immature Gran # (Auto) 0.02 (0.01-0.20) K/uL PT 11.9 (9.0-12.0) Seconds INR 1.1 (0.9-1.1) APTT 28.2 (21.0-31.0) Seconds PTT Ratio 1.0 Sodium 136 (136-145) mmol/L Potassium 4.2 (3.5-5.1) mmol/L Chloride 101 (98-107) mmol/L Carbon Dioxide 32 (21-32) mmol/L Anion Gap 3 (3-11) BUN 22 (6-23) mg/dl Creatinine 0.95 (0.6-1.2) mg/dl Est Cr Clr Drug Dosing 34.9 ml/min Est GFR ( Amer) 62.9 ml/min Est GFR (Non-Af Amer) 54.2 ml/min BUN/Creatinine Ratio 23.2 H (10-20) Glucose 92 (70-99(Fasting)) mg/dl POC Glucose (70-99) mg/dl Calcium 8.7 (8.6-10.3) mg/dl Magnesium 1.6 L (1.7-2.4) mg/dl Total Bilirubin 0.5 (0.2-1.0) mg/dl AST 17 (13-39) U/L ALT 9 (7-52) U/L Alkaline Phosphatase 49 (34-104) U/L Troponin I High Sens 8.3 (0-14) pg/ml Total Protein 6.1 (6.0-8.3) gm/dl Albumin 3.5 (3.4-5.0) gm/dl Globulin 2.6 (2.5-4.0) gm/dl Albumin/Globulin Ratio 1.3 (0.9-2) SARS-CoV-2, RNA, NAAT (NEGATIVE) 01/08/23 01/08/23 01/08/23 Range/Units 19:06 19:25 20:37 WBC (4.8-10.8) K/ul RBC (4.20-5.40) M/uL Hgb (12.0-16.0) g/dl Hct (37.0-47.0) % MCV (80.0-100.0) fL MCH (25.0-34.0) pg MCHC (32.0-36.0) g/dL RDW Std Deviation (36.4-46.3) fL RDW Coeff of Valdo (11.5-14.5) % Plt Count (130-400) K/uL MPV (9.4-12.4) fL Immature Gran % (Auto) % Neut % (Auto) % Lymph % (Auto) % H[place] % (Auto) % Eos % (Auto) % Baso % (Auto) % Neut # (Auto) (1.40-6.50) K/uL Lymph # (Auto) (1.2-3.4) K/uL [place] # (Auto) (0.11-0.59) K/uL Eos # (Auto) (0-0.50) K/uL Baso # (Auto) (0-0.2) K/uL Immature Gran # (Auto) (0.01-0.20) K/uL PT (9.0-12.0) Seconds INR (0.9-1.1) APTT (21.0-31.0) Seconds PTT Ratio Sodium (136-145) mmol/L Potassium (3.5-5.1) mmol/L Chloride (98-107) mmol/L Carbon Dioxide (21-32) mmol/L Anion Gap (3-11) BUN (6-23) mg/dl Creatinine (0.6-1.2) mg/dl Est Cr Clr Drug Dosing ml/min Est GFR ( Amer) ml/min Est GFR (Non-Af Amer) ml/min BUN/Creatinine Ratio (10-20) Glucose (70-99(Fasting)) mg/dl POC Glucose 97 (70-99) mg/dl Calcium (8.6-10.3) mg/dl Magnesium (1.7-2.4) mg/dl Total Bilirubin (0.2-1.0) mg/dl AST (13-39) U/L ALT (7-52) U/L Alkaline Phosphatase (34-104) U/L Troponin I High Sens (0-14) pg/ml Total Protein (6.0-8.3) gm/dl Albumin (3.4-5.0) gm/dl Globulin (2.5-4.0) gm/dl Albumin/Globulin Ratio (0.9-2) SARS-CoV-2, RNA, NAAT NEGATIVE NEGATIVE (NEGATIVE) Administered Medications Magnesium Sulfate/Dextrose (Magnesium Sulfate / D5w) 1 gm in 100 mls @ 50 mls/hr IV Q2H SHILOH Stop: 01/09/23 00:14 Last Admin: 01/08/23 21:06 Dose: 50 mls/hr Documented By: YANET Sodium Chloride (Nss 1000ml) 1,000 mls @ 60 mls/hr IV .[id number] ONE Stop: 01/09/23 12:44 Last Admin: 01/08/23 21:06 Dose: 60 mls/hr Documented By: YANET Discontinued Medications Acetaminophen (Acetaminophen 325 Mg Tab) 650 mg PO NOW STA Stop: 01/08/23 20:57 Last Admin: 01/08/23 21:04 Dose: 650 mg Documented By: YANET Ioversol (Optiray 320 500ml) 118 ml IV ONCE ONE Stop: 01/08/23 18:58 Last Admin: 01/08/23 18:57 Dose: 118 ml Documented By: SERGIO Imaging Data Radiologist's Impression: Head CT 01/08/23 18:46 Exam(s): CT HEAD Without Contrast EXAM: CT Head Without Intravenous Contrast CLINICAL HISTORY: Reason for exam: neuro deficit, acute stroke suspected. TECHNIQUE: Axial computed tomography images of the head/brain without intravenous contrast. CTDI is 36.19 mGy and DLP is 691.05 mGy-cm. Automated exposure control was utilized for the study. A dose lowering technique was utilized adhering to the principles of ALARA. COMPARISON: None FINDINGS: Brain: No acute infarct or hemorrhage identified. No extra-axial fluid collection. No mass effect or midline shift. Scattered areas of hypoattenuation in the supratentorial white matter likely represent chronic small vessel ischemic changes. No calcification in the left basal ganglia. Ventricles and sulci: Prominence of the ventricles and sulci is likely secondary to cerebral volume loss. Bones: Hyperostosis frontalis interna. No bony lesion or acute fracture. Subcutaneous tissues: Normal. Sinuses: Mild mucosal thickening in the maxillary sinuses. Mastoid air cells: Normal. Orbits: Bilateral lens implants. Other: Atherosclerotic calcifications in the intracranial vasculature. IMPRESSION: 1. No acute intracranial abnormality. 2. Chronic small vessel ischemic changes and cerebral volume loss. Electronically signed by: Carito Fleming M.D. 01/08/23 19:30 PM Head CTA 01/08/23 18:46 Exam(s): CTA HEAD With Contrast IV Amt: 118ml EXAM: CT Head With Intravenous Contrast CLINICAL HISTORY: Reason for exam: neuro deficit, acute stroke suspected. TECHNIQUE: Axial computed tomographic images of the head with intravenous contrast. CTDI is 29.7 mGy and DLP is 14.85 mGy-cm. Automated exposure control was utilized for the study. A dose lowering technique was utilized adhering to the principles of ALARA. CONTRAST: Patient received 118ml of IV contrast COMPARISON: CTA head and 07/01/2022 FINDINGS: Right internal carotid artery: Atherosclerotic calcifications of the distal right ICA without significant stenosis. No aneurysm. 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 Probable stable azygos GISEL, normal variant. Right middle cerebral artery: Unremarkable. No occlusion or significant stenosis. No aneurysm. Right posterior cerebral artery: Unremarkable. No occlusion or significant stenosis. No aneurysm. Right vertebral artery: Unremarkable as visualized. Left internal carotid artery: Atherosclerotic calcifications of the distal left ICA without significant stenosis. No aneurysm. Left anterior cerebral artery: See above. Left middle cerebral artery: Unremarkable. No occlusion or significant stenosis. No aneurysm. Left posterior cerebral artery: Unremarkable. No occlusion or significant stenosis. No aneurysm. Left vertebral artery: Minimal atherosclerotic calcification in the V4 segment of the left vertebral artery. No significant stenosis. Basilar artery: Unremarkable. No occlusion or significant stenosis. No aneurysm. Sinuses: Mild mucosal thickening in the maxillary sinuses. IMPRESSION: No significant stenosis, occlusion, or aneurysm in the central or large intracranial arteries. Electronically signed by: Carito Fleming M.D. 01/08/23 19:37 PM Neck CTA 01/08/23 18:46 Exam(s): CTA NECK With Contrast IV Amt: 118ml EXAM: CT Neck With Intravenous Contrast CLINICAL HISTORY: Reason for exam: neuro deficit, acute stroke suspected. TECHNIQUE: Routine carotid CT protocol was performed with intravenous contrast. NASCET criteria using the distal ICAs for comparison were used for evaluation of stenoses. CTDI is 11.47 mGy and DLP is 443.79 mGy-cm. Automated exposure control was utilized for the study. A dose lowering technique was utilized adhering to the principles of ALARA. CONTRAST: Patient received 118ml of IV contrast COMPARISON: CTA neck on 07/01/2022 FINDINGS: VASCULATURE: Right common carotid artery: Unremarkable. No occlusion or significant stenosis. No dissection. Right internal carotid artery: Atherosclerotic calcifications of the right carotid bulb and proximal right ICA without significant stenosis. No dissection. Right external carotid artery: Unremarkable. No occlusion. Right vertebral artery: Unremarkable. No occlusion or significant stenosis. No dissection. Left common carotid artery: Unremarkable. No occlusion or significant stenosis. No dissection. Left internal carotid artery: Atherosclerotic calcifications of the left carotid bulb and proximal left ICA without significant stenosis. No dissection. Left external carotid artery: Unremarkable. No occlusion. Left vertebral artery: Dominant left vertebral artery. No occlusion or significant stenosis. No dissection. Aorta: Atherosclerotic changes in the aorta and origins of the great vessels. Aberrant right occlusion artery. NECK: Bones/joints: Degenerative changes of the spine. Soft tissues: Unremarkable. Lung apices: Clear. CAROTID STENOSIS REFERENCE USING NASCET CRITERIA: % ICA stenosis = (1 - narrowest ICA diameter/diameter of distal cervical ICA) x 100. Mild - <50% stenosis. Moderate - 50-69% stenosis. Severe - 70-94% stenosis. Near occlusion - 95-99% stenosis. Occluded - 100% stenosis. IMPRESSION: No significant stenosis, occlusion, or dissection. Electronically signed by: Carito Fleming M.D. 01/08/23 19:34 PM Discharge Plan Visit Data Chief Complaint: Stroke Alert Stated Complaint: STROKE ALERT ED Provider: Rk Yen Discharge Problem: Brain TIA, Expressive aphasia Forms Stand Alone Forms: My [facility] Prescriptions Prescriptions: No Action furosemide [Lasix] 20 mg tablet 40 mg PO DAILY gabapentin 100 mg capsule 100 mg PO BID hydroxyzine HCl 10 mg tablet 10 mg PO HS magnesium oxide 400 mg magnesium tablet 250 mg PO DAILY acetaminophen [Tylenol Extra Strength] 500 mg Tablet 1,000 mg PO Q6H PRN (Reason: Pain) aspirin [Marciano Low Dose Aspirin] 81 mg Tablet,Delayed Release (Dr/Ec) 81 mg PO HS cholecalciferol (vitamin D3) [Vitamin D3] 25 mcg (1,000 unit) Tablet 25 mcg PO DAILY cyanocobalamin (vitamin B-12) [Vitamin B-12] 1,000 mcg Tablet 1,000 mcg PO DAILY Metamucil (sugar) Powder 1 ea PO DAILY Rx Instructions: mix 1 scoop in 8 oz of fluid and drink levothyroxine 137 mcg tablet 137 mcg PO DAILYBB escitalopram oxalate 10 mg tablet 10 mg PO DAILY Eliquis 5 mg tablet 5 mg PO BID Qty: 60 0RF metoprolol succinate [Toprol XL] 25 mg tablet extended release 24 hr 25 mg PO BID Qty: 60 0RF Referrals Referrals: Saturnino Keene DO [Primary Care Provider] -
[2023-01-08] MEDS ORDERED: OPTIRAY 320 500ml IV ONE (18:57)
[2023-01-08 19:25] LABS: INR 1.1 (0.9-1.1); Partial Thromboplastin Time 28.2 Seconds (21.0-31.0); Prothrombin Time 11.9 Seconds (9.0-12.0)
--- NOTE | 2023-01-08 19:31 | CT Scan Report ---
Exam(s): CT HEAD Without Contrast EXAM: CT Head Without Intravenous Contrast CLINICAL HISTORY: Reason for exam: neuro deficit, acute stroke suspected. TECHNIQUE: Axial computed tomography images of the head/brain without intravenous contrast. CTDI is 36.19 mGy and DLP is 691.05 mGy-cm. Automated exposure control was utilized for the study. A dose lowering technique was utilized adhering to the principles of ALARA. COMPARISON: None FINDINGS: Brain: No acute infarct or hemorrhage identified. No extra-axial fluid collection. No mass effect or midline shift. Scattered areas of hypoattenuation in the supratentorial white matter likely represent chronic small vessel ischemic changes. No calcification in the left basal ganglia. Ventricles and sulci: Prominence of the ventricles and sulci is likely secondary to cerebral volume loss. Bones: Hyperostosis frontalis interna. No bony lesion or acute fracture. Subcutaneous tissues: Normal. Sinuses: Mild mucosal thickening in the maxillary sinuses. Mastoid air cells: Normal. Orbits: Bilateral lens implants. Other: Atherosclerotic calcifications in the intracranial vasculature. IMPRESSION: 1. No acute intracranial abnormality. 2. Chronic small vessel ischemic changes and cerebral volume loss. Electronically signed by: Carito Fleming M.D. 01/08/23 19:30 PM
--- NOTE | 2023-01-08 19:34 | CT Scan Report ---
Exam(s): CTA NECK With Contrast IV Amt: 118ml EXAM: CT Neck With Intravenous Contrast CLINICAL HISTORY: Reason for exam: neuro deficit, acute stroke suspected. TECHNIQUE: Routine carotid CT protocol was performed with intravenous contrast. NASCET criteria using the distal ICAs for comparison were used for evaluation of stenoses. CTDI is 11.47 mGy and DLP is 443.79 mGy-cm. Automated exposure control was utilized for the study. A dose lowering technique was utilized adhering to the principles of ALARA. CONTRAST: Patient received 118ml of IV contrast COMPARISON: CTA neck on 07/01/2022 FINDINGS: VASCULATURE: Right common carotid artery: Unremarkable. No occlusion or significant stenosis. No dissection. Right internal carotid artery: Atherosclerotic calcifications of the right carotid bulb and proximal right ICA without significant stenosis. No dissection. Right external carotid artery: Unremarkable. No occlusion. Right vertebral artery: Unremarkable. No occlusion or significant stenosis. No dissection. Left common carotid artery: Unremarkable. No occlusion or significant stenosis. No dissection. Left internal carotid artery: Atherosclerotic calcifications of the left carotid bulb and proximal left ICA without significant stenosis. No dissection. Left external carotid artery: Unremarkable. No occlusion. Left vertebral artery: Dominant left vertebral artery. No occlusion or significant stenosis. No dissection. Aorta: Atherosclerotic changes in the aorta and origins of the great vessels. Aberrant right occlusion artery. NECK: Bones/joints: Degenerative changes of the spine. Soft tissues: Unremarkable. Lung apices: Clear. CAROTID STENOSIS REFERENCE USING NASCET CRITERIA: % ICA stenosis = (1 - narrowest ICA diameter/diameter of distal cervical ICA) x 100. Mild - <50% stenosis. Moderate - 50-69% stenosis. Severe - 70-94% stenosis. Near occlusion - 95-99% stenosis. Occluded - 100% stenosis. IMPRESSION: No significant stenosis, occlusion, or dissection. Electronically signed by: Carito Fleming M.D. 01/08/23 19:34 PM
[2023-01-08 19:35] LABS: Albumin Globulin Ratio 1.3 (0.9-2); Albumin Level 3.5 gm/dl (3.4-5.0); BUN Creatinine Ratio 23.2 (10-20); Bilirubin,Total 0.5 mg/dl (0.2-1.0); Calcium 8.7 mg/dl (8.6-10.3); Creatinine Clr Calc Pharmacy 34.9 ml/min; Est GFR (African American) 62.9 ml/min; Est GFR (Non-African American) 54.2 ml/min; Globulin 2.6 gm/dl (2.5-4.0); Magnesium 1.6 mg/dl (1.7-2.4); Potassium 4.2 mmol/L (3.5-5.1); Total Protein 6.1 gm/dl (6.0-8.3)
--- NOTE | 2023-01-08 19:38 | CT Scan Report ---
Exam(s): CTA HEAD With Contrast IV Amt: 118ml EXAM: CT Head With Intravenous Contrast CLINICAL HISTORY: Reason for exam: neuro deficit, acute stroke suspected. TECHNIQUE: Axial computed tomographic images of the head with intravenous contrast. CTDI is 29.7 mGy and DLP is 14.85 mGy-cm. Automated exposure control was utilized for the study. A dose lowering technique was utilized adhering to the principles of ALARA. CONTRAST: Patient received 118ml of IV contrast COMPARISON: CTA head and 07/01/2022 FINDINGS: Right internal carotid artery: Atherosclerotic calcifications of the distal right ICA without significant stenosis. No aneurysm. 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 Probable stable azygos GISEL, normal variant. Right middle cerebral artery: Unremarkable. No occlusion or significant stenosis. No aneurysm. Right posterior cerebral artery: Unremarkable. No occlusion or significant stenosis. No aneurysm. Right vertebral artery: Unremarkable as visualized. Left internal carotid artery: Atherosclerotic calcifications of the distal left ICA without significant stenosis. No aneurysm. Left anterior cerebral artery: See above. Left middle cerebral artery: Unremarkable. No occlusion or significant stenosis. No aneurysm. Left posterior cerebral artery: Unremarkable. No occlusion or significant stenosis. No aneurysm. Left vertebral artery: Minimal atherosclerotic calcification in the V4 segment of the left vertebral artery. No significant stenosis. Basilar artery: Unremarkable. No occlusion or significant stenosis. No aneurysm. Sinuses: Mild mucosal thickening in the maxillary sinuses. IMPRESSION: No significant stenosis, occlusion, or aneurysm in the central or large intracranial arteries. Electronically signed by: Carito Fleming M.D. 01/08/23 19:37 PM
[2023-01-08 19:41] LABS: Troponin I High Sensitivity 8.3 pg/ml (0-14)
[2023-01-08] MEDS ORDERED: SODIUM CHLORIDE 0.9% 1000ML 1,000 ML IV ONE (20:05)
--- NOTE | 2023-01-08 20:41 | History & Physical Report ---
Date of Service January 08, 2023 Assessment & Plan (1) Dysarthria: (2) TIA (transient ischemic attack): (3) Paroxysmal atrial fibrillation: (4) Hypertension: (5) Hypomagnesemia: Plan This is an 87-year-old female who has a significant past medical history of paroxysmal afibrillation anticoagulated on apixaban, history of TIA, HTN, HLD, hypothyroidism, APRIL, left carotid artery stenosis asymptomatic, history of saphenous vein phlebitis, persistent left SVC, nonrheumatic mitral valve regurgitation, history of TIA, history of pericarditis, history of aneurysm of ascending aorta, IBS, degenerative disc disease who presents to ED after difficulty speaking prior to arrival. TIA Strokelike symptoms Hypertensive emergency Atrial fibrillation Hypomagnesemia -Head CT:1. No acute intracranial abnormality.2. Chronic small vessel ischemic changes and cerebral volume loss. -CTA head/neck: No significant stenosis, occlusion, or aneurysm in the central or large intracranial arteries. HPI, SH and physical exam was performed by myself and discussed with attending Dr. Jimenez. Please see his addendum regarding detailed assessment and plan. History of Present Illness Chief Complaint: Difficulty speaking prior to arrival. Primary Care Provider: Saturnino Keene, This is an 87-year-old female who has a significant past medical history of paroxysmal afibrillation anticoagulated on apixaban, history of TIA, HTN, HLD, hypothyroidism, APRIL, left carotid artery stenosis asymptomatic, history of saphenous vein phlebitis, persistent left SVC, nonrheumatic mitral valve regurgitation, history of TIA, history of pericarditis, history of aneurysm of ascending aorta, IBS, degenerative disc disease who presents to ED after difficulty speaking prior to arrival. Symptoms started at approximately 6:00 when she was sitting on the couch and had difficulty speaking. She states that she was getting words out but was not making sense. Her witnessed events. EMS was summoned and she was made a stroke alert. stated the patient did not have any facial droop, extremity weakness or incontinence. Patient also admits to having a left-sided headache. She has history of prior TIA in June 2022. At that time she was placed on Plavix for 21 days and then aspirin therapy solo. She did undergo echocardiogram at that time which revealed EF 60 to 65%, moderate concentric LVH, aortic valve sclerosis mild, left atrium moderately dilated. Currently her symptoms have completely resolved. She still has mild left frontal headache. She also has a little bit of swelling to the right eye which started 2 days ago. She denies any itchy watery eyes. She denies any recent illness, fever, chills, sweats, lightheadedness, dizziness, chest pain, shortness of breath, nausea, vomiting, abdominal pain, change in bowel or urinary habits. In ED patient underwent head CT which was negative for acute infarct but did reveal chronic microvascular ischemic change. CTA of head and neck was also negative for any stenosis. Lab work did reveal mild hypomagnesemia but was otherwise unremarkable. Allergies Allergy/AdvReac Type Severity Reaction Status Date / Time oxycodone Allergy Unknown UKN Verified 01/08/23 20:39 simvastatin Allergy Unknown UKN Verified 01/08/23 20:39 rosuvastatin AdvReac Unknown upset Verified 01/08/23 20:39 stomach Home Medications Medication Instructions Recorded Confirmed Type aspirin 81 mg tablet,delayed 81 mg PO HS 03/13/21 01/08/23 History release (Marciano Low Dose Aspirin) cholecalciferol (vitamin D3) 25 25 mcg PO DAILY 03/13/21 01/08/23 History mcg (1,000 unit) tablet (Vitamin D3) cyanocobalamin (vitamin B-12) 1,000 mcg PO DAILY 03/13/21 01/08/23 History 1,000 mcg tablet (Vitamin B-12) psyllium seed (sugar) oral powder 1 ea PO DAILY 03/13/21 01/08/23 History (Metamucil (sugar) oral powder) escitalopram oxalate 10 mg tablet 10 mg PO DAILY 04/06/21 01/08/23 History levothyroxine 137 mcg tablet 137 mcg PO DAILYBB 04/06/21 01/08/23 History apixaban 5 mg tablet (Eliquis) 5 mg PO BID #60 tabs 08/05/22 01/08/23 Rx metoprolol succinate 25 mg 25 mg PO BID #60 tabs 08/10/22 01/08/23 Rx tablet,extended release 24 hr (Toprol XL) furosemide 20 mg tablet (Lasix) 40 mg PO DAILY 11/26/22 01/08/23 History gabapentin 100 mg capsule 100 mg PO BID 11/26/22 01/08/23 History hydroxyzine HCl 10 mg tablet 10 mg PO HS 11/26/22 01/08/23 History magnesium oxide 250 mg PO DAILY 11/26/22 01/08/23 History acetaminophen 500 mg tablet 1,000 mg PO Q6H PRN Pain 01/08/23 01/08/23 History (Tylenol Extra Strength) Past Med/Surg History Medical History Atrial fibrillation with rapid ventricular response Carotid artery stenosis, asymptomatic Diastolic dysfunction Hyperlipidemia Hypertension Hypothyroidism (11/15/12) Nonrheumatic mitral valve regurgitation Pericardial effusion Persistent left SVC (superior vena cava) Pleural effusion Pleural effusion on right Pneumonia Tachycardia-bradycardia syndrome Thoracic aortic aneurysm Thrombophlebitis History of extensive, requiring vein ablation, s/p previous anticoagulation treatment Surgical History History of cataract surgery History of hysterectomy History of repair of rotator cuff Family History Father Hypertension Stroke Mother Hypertension Social History Smoking Status: Never smoker Hx Alcohol Use: Yes Alcohol type: wine Hx Substance Use: No Preferred Language: Japanese Communication Ability: Effective Secondary Special 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 Required: No Beliefs That Will Affect Care: None marital status: Current Living Situation: Spouse How many Children do You have: 2 Other Information That Helps Us Care for You: No Feels Safe at Home: Yes Safety Concerns: Feels Safe At This Time Assistive Devices: Glasses Review of Systems Review of Systems: All systems reviewed & are unremarkable except as noted in HPI & below Physical Exam Physical Exam: Constitutional: WD/WN, vitals as above, NAD, sitting up in bed, pleasant, conversing easily Head: Normocephalic, Atraumatic Eyes: PERRL, conjunctivae normal, anicteric sclerae ENMT: external ear and nose normal, oropharynx normal Neck: trachea midline, no thyromegaly normal visual inspection Respiratory: normal respiratory effort, lungs clear to auscultation, no wheeze, rales, rhonchi. Normal insp/exp effort, no accessory muscle use Cardiovascular: IRR/IRR, no murmur, no edema Vessels: no JVD or carotid bruit Chest: normal inspection of chest Abdomen: normal bowel sounds, soft, nontender, no hepatosplenomegaly Musculoskeletal: no cyanosis or clubbing, extremities motor strength 5/5 Skin: no rashes, warm and dry normal turgor Neurologic: PERRL, EOMI, accommodation nl, no face palsy, no dysarthria CN's II-XI intact bilaterally and moves all extremities Psychiatric: A+Ox3, euthymic affect Lymphatic: no cervical or axillary lymphadenopathy : deferred Results & Data Results & Data Vital Signs (Past 12 Hours) Vital Signs Temp Pulse Resp BP Pulse Ox O2 Del Method 01/08/23 20:00 164/92 H 01/08/23 19:49 72 21 96 01/08/23 19:49 164/90 H 01/08/23 19:31 83 18 152/85 H 97 01/08/23 19:07 92 H 01/08/23 19:06 18 96 01/08/23 19:03 36.5 C 85 18 185/93 H 97 Room Air Diagnostic Findings Head CT 01/08/23 18:46 Exam(s): CT HEAD Without Contrast EXAM: CT Head Without Intravenous Contrast CLINICAL HISTORY: Reason for exam: neuro deficit, acute stroke suspected. TECHNIQUE: Axial computed tomography images of the head/brain without intravenous contrast. CTDI is 36.19 mGy and DLP is 691.05 mGy-cm. Automated exposure control was utilized for the study. A dose lowering technique was utilized adhering to the principles of ALARA. COMPARISON: None FINDINGS: Brain: No acute infarct or hemorrhage identified. No extra-axial fluid collection. No mass effect or midline shift. Scattered areas of hypoattenuation in the supratentorial white matter likely represent chronic small vessel ischemic changes. No calcification in the left basal ganglia. Ventricles and sulci: Prominence of the ventricles and sulci is likely secondary to cerebral volume loss. Bones: Hyperostosis frontalis interna. No bony lesion or acute fracture. Subcutaneous tissues: Normal. Sinuses: Mild mucosal thickening in the maxillary sinuses. Mastoid air cells: Normal. Orbits: Bilateral lens implants. Other: Atherosclerotic calcifications in the intracranial vasculature. IMPRESSION: 1. No acute intracranial abnormality. 2. Chronic small vessel ischemic changes and cerebral volume loss. Electronically signed by: Carito Fleming M.D. 01/08/23 19:30 PM Head CTA 01/08/23 18:46 Exam(s): CTA HEAD With Contrast IV Amt: 118ml EXAM: CT Head With Intravenous Contrast CLINICAL HISTORY: Reason for exam: neuro deficit, acute stroke suspected. TECHNIQUE: Axial computed tomographic images of the head with intravenous contrast. CTDI is 29.7 mGy and DLP is 14.85 mGy-cm. Automated exposure control was utilized for the study. A dose lowering technique was utilized adhering to the principles of ALARA. CONTRAST: Patient received 118ml of IV contrast COMPARISON: CTA head and 07/01/2022 FINDINGS: Right internal carotid artery: Atherosclerotic calcifications of the distal right ICA without significant stenosis. No aneurysm. 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 Probable stable azygos GISEL, normal variant. Right middle cerebral artery: Unremarkable. No occlusion or significant stenosis. No aneurysm. Right posterior cerebral artery: Unremarkable. No occlusion or significant stenosis. No aneurysm. Right vertebral artery: Unremarkable as visualized. Left internal carotid artery: Atherosclerotic calcifications of the distal left ICA without significant stenosis. No aneurysm. Left anterior cerebral artery: See above. Left middle cerebral artery: Unremarkable. No occlusion or significant stenosis. No aneurysm. Left posterior cerebral artery: Unremarkable. No occlusion or significant stenosis. No aneurysm. Left vertebral artery: Minimal atherosclerotic calcification in the V4 segment of the left vertebral artery. No significant stenosis. Basilar artery: Unremarkable. No occlusion or significant stenosis. No aneurysm. Sinuses: Mild mucosal thickening in the maxillary sinuses. IMPRESSION: No significant stenosis, occlusion, or aneurysm in the central or large intracranial arteries. Electronically signed by: Carito Fleming M.D. 01/08/23 19:37 PM Neck CTA 01/08/23 18:46 Exam(s): CTA NECK With Contrast IV Amt: 118ml EXAM: CT Neck With Intravenous Contrast CLINICAL HISTORY: Reason for exam: neuro deficit, acute stroke suspected. TECHNIQUE: Routine carotid CT protocol was performed with intravenous contrast. NASCET criteria using the distal ICAs for comparison were used for evaluation of stenoses. CTDI is 11.47 mGy and DLP is 443.79 mGy-cm. Automated exposure control was utilized for the study. A dose lowering technique was utilized adhering to the principles of ALARA. CONTRAST: Patient received 118ml of IV contrast COMPARISON: CTA neck on 07/01/2022 FINDINGS: VASCULATURE: Right common carotid artery: Unremarkable. No occlusion or significant stenosis. No dissection. Right internal carotid artery: Atherosclerotic calcifications of the right carotid bulb and proximal right ICA without significant stenosis. No dissection. Right external carotid artery: Unremarkable. No occlusion. Right vertebral artery: Unremarkable. No occlusion or significant stenosis. No dissection. Left common carotid artery: Unremarkable. No occlusion or significant stenosis. No dissection. Left internal carotid artery: Atherosclerotic calcifications of the left carotid bulb and proximal left ICA without significant stenosis. No dissection. Left external carotid artery: Unremarkable. No occlusion. Left vertebral artery: Dominant left vertebral artery. No occlusion or significant stenosis. No dissection. Aorta: Atherosclerotic changes in the aorta and origins of the great vessels. Aberrant right occlusion artery. NECK: Bones/joints: Degenerative changes of the spine. Soft tissues: Unremarkable. Lung apices: Clear. CAROTID STENOSIS REFERENCE USING NASCET CRITERIA: % ICA stenosis = (1 - narrowest ICA diameter/diameter of distal cervical ICA) x 100. Mild - <50% stenosis. Moderate - 50-69% stenosis. Severe - 70-94% stenosis. Near occlusion - 95-99% stenosis. Occluded - 100% stenosis. IMPRESSION: No significant stenosis, occlusion, or dissection. Electronically signed by: Carito Fleming M.D. 01/08/23 19:34 PM Medications Administered Medication List Discontinued Medications Ioversol (Optiray 320 500ml) 118 ml IV ONCE ONE Stop: 01/08/23 18:58 Last Admin: 01/08/23 18:57 Dose: 118 ml Documented By: SERGIO ECG Rate (beats per minute): 83 Rhythm: atrial fibrillation COVID-19 Results Results COVID-19 Adm Lab Results: RBC 4.60 M/uL (4.20-5.40) 01/08/23 WBC 8.04 K/ul (4.8-10.8) 01/08/23 Hgb 14.0 g/dl (12.0-16.0) 01/08/23 Hct 42.3 % (37.0-47.0) 01/08/23 Plt Count 200 K/uL (130-400) 01/08/23 Neutrophils (%) (Auto) 62.9 % 01/08/23 Lymphocytes (%) (Auto) 24.9 % 01/08/23 Monocytes # (Auto) 0.78 K/uL (0.11-0.59) H 01/08/23 Eosinophils # (Auto) 0.13 K/uL (0-0.50) 01/08/23 Immature Granulocyte % (Auto) 0.2 % 01/08/23 Neutrophils # (Auto) 5.05 K/uL (1.40-6.50) 01/08/23 Lymphocytes # (Auto) 2.00 K/uL (1.2-3.4) 01/08/23 Monocytes # (Auto) 0.78 K/uL (0.11-0.59) H 01/08/23 Eosinophils # (Auto) 0.13 K/uL (0-0.50) 01/08/23 Basophils # (Auto) 0.06 K/uL (0-0.2) 01/08/23 Immature Granulocyte # (Auto) 0.02 K/uL (0.01-0.20) 3 Na 136 mmol/L (136-145) 01/08/23 K 4.2 mmol/L (3.5-5.1) 01/08/23 Cl 101 mmol/L (98-107) 01/08/23 CO2 32 mmol/L (21-32) 01/08/23 Anion Gap 3 (3-11) 01/08/23 BUN 22 mg/dl (6-23) 01/08/23 Creatinine 0.95 mg/dl (0.6-1.2) 01/08/23 BUN/Creatinine Ratio 23.2 (10-20) H 01/08/23 Glucose Level 92 mg/dl (70-99(Fasting)) 01/08/23 Ca 8.7 mg/dl (8.6-10.3) 01/08/23 Total Bilirubin 0.5 mg/dl (0.2-1.0) 01/08/23 AST/SGOT 17 U/L (13-39) 01/08/23 ALT/SGPT 9 U/L (7-52) 01/08/23 Alkaline Phosphatase 49 U/L (34-104) 01/08/23 Total Protein 6.1 gm/dl (6.0-8.3) 01/08/23 Albumin 3.5 gm/dl (3.4-5.0) 01/08/23 Globulin 2.6 gm/dl (2.5-4.0) 01/08/23 Albumin/Globulin Ratio 1.3 (0.9-2) 01/08/23 PTT 28.2 Seconds (21.0-31.0) 01/08/23 INR 1.1 (0.9-1.1) 01/08/23 Triglycerides Level Pending 01/09/23 SARS-CoV-2, RNA, NAAT NEGATIVE (NEGATIVE) 01/08/23 Chest X-Ray 01/08/23 Code Status & VTE Plan Code Status Full code Supervising Physician Co-Signing Physician Notes IM ATTENDING : Patient seen and examined. History obtained from patient, family, and records. Preceding documentation by Ms. Lucy Davalos PA-C reviewed. FINAL ASSESSMENT AND PLAN as follows : Recurrent TIA Presentation similar to 2021 confinement History A-fib, rate controlled on Eliquis History statin intolerance ? Possible aspirin failure (Patient discharged on aspirin Plavix combo for 3 weeks last year.) hypertension, slightly elevated hx PVD moderate mitral regurgitation hypothyroidism, TSH from last year slight elevated APRIL (CPAP intolerance hx DVT as per records status post anticoagulation. Medical telemetry Plavix 1 dose now for possible aspirin failure Continue Eliquis Consider trial of low-dose statin if patient agreeable MRI brain Neurology consult Re: Recurrent TIA Permissive hypertension for now Recheck TSH DVT prophylaxis. Eliquis Full code Patient requesting updates from providers. Silas Mckenna, contact #[phone] Text document was generated using [email or web address] voice recognition software. It may contain grammatical or spelling errors. Kindly contact undersigned for clarification of any documentation item in question.
[2023-01-08 20:53] LABS: Basophils # (auto) 0.06 K/uL (0-0.2); Basophils % (auto) 0.7 %; Eosinophils # (auto) 0.13 K/uL (0-0.50); Eosinophils % (auto) 1.6 %; Hematocrit (blood only) 42.3 % (37.0-47.0); Immature Granulocytes # (auto) 0.02 K/uL (0.01-0.20); Immature Granulocytes % (auto) 0.2 %; Lymphocytes % (auto) 24.9 %; Mean Corpuscular Hemoglobin 30.4 pg (25.0-34.0); Mean Corpuscular Hgb Conc 33.1 g/dL (32.0-36.0); Mean Platelet Volume 9.3 fL (9.4-12.4); Monocytes # (auto) 0.78 K/uL (0.11-0.59); Monocytes % (auto) 9.7 %; Neutrophils # (auto) 5.05 K/uL (1.40-6.50); Neutrophils % (auto) 62.9 %; Platelet Count 200 K/uL (130-400); RDW Coefficient of Variation 13.9 % (11.5-14.5); RDW Standard Deviation 46.7 fL (36.4-46.3); White Blood Count 8.04 K/ul (4.8-10.8)
[2023-01-08] MEDS ORDERED: ACETAMINOPHEN 325 MG TAB PO STA (20:56)
[2023-01-08] MEDS: MAGNESIUM SULFATE / D5W 1 GM/100 ML BAG IV SCH ×2 (21:06→23:05)
[2023-01-08] MEDS ORDERED: CLOPIDOGREL BISULFATE 75 MG TAB PO STA (21:47)
[2023-01-08] MEDS ORDERED: PROMETHAZINE HCL 6.25 MG in SODIUM CHLORIDE 0.9% 50 ML IV PRN (21:58)
[2023-01-08] MEDS ORDERED: ACETAMINOPHEN 325 MG TAB PO PRN (22:47)
[2023-01-08] MEDS: ASPIRIN 81 MG ECTAB PO SCH (23:05)
[2023-01-08] MEDS: APIXABAN 5 MG TABLET PO SCH (23:44)
--- NOTE | 2023-01-09 00:55 | Magnetic Resonance Report ---
Exam(s): MRI HEAD Without Contrast EXAM: MR Head Without Intravenous Contrast CLINICAL HISTORY: Reason for exam: tia. TECHNIQUE: Magnetic resonance images of the head/brain without intravenous contrast in multiple planes. COMPARISON: No relevant prior studies available. FINDINGS: Brain: Abnormal T2 signal in the deep cerebral white matter is consistent with small vessel ischemic/degenerative changes. The cerebral and cerebellar sulci are prominent consistent with brain atrophy. No hemorrhage. Ventricles: Unremarkable. No ventriculomegaly. Bones/joints: Unremarkable. Sinuses: Unremarkable as visualized. No acute sinusitis. Mastoid air cells: Unremarkable as visualized. No mastoid effusion. Orbits: Unremarkable as visualized. IMPRESSION: 1. Small vessel ischemic/degenerative changes. 2. Cerebral and cerebellar atrophy. Electronically signed by: Espinoza Gupta MD 01/09/23 00:54 AM
[2023-01-09 06:45] LABS: Thyroid Stimulating Hormone 5.694 uIu/ml (0.300-4.500)
[2023-01-09] MEDS: LEVOTHYROXINE SODIUM 137 MCG TABLET PO SCH (06:58)
[2023-01-09 07:12] LABS: Basophils # (auto) 0.05 K/uL (0-0.2); Basophils % (auto) 0.8 %; Eosinophils # (auto) 0.16 K/uL (0-0.50); Eosinophils % (auto) 2.5 %; Hemoglobin 14.8 g/dl (12.0-16.0); Immature Granulocytes # (auto) 0.02 K/uL (0.01-0.20); Immature Granulocytes % (auto) 0.3 %; Lymphocytes % (auto) 31.1 %; Mean Corpuscular Hemoglobin 30.5 pg (25.0-34.0); Mean Corpuscular Hgb Conc 33.6 g/dL (32.0-36.0); Mean Corpuscular Volume 90.5 fL (80.0-100.0); Mean Platelet Volume 9.5 fL (9.4-12.4); Monocytes # (auto) 0.59 K/uL (0.11-0.59); Monocytes % (auto) 9.2 %; Neutrophils # (auto) 3.61 K/uL (1.40-6.50); Neutrophils % (auto) 56.1 %; Platelet Count 210 K/uL (130-400); RDW Coefficient of Variation 13.9 % (11.5-14.5); RDW Standard Deviation 46.3 fL (36.4-46.3); Red Blood Count 4.86 M/uL (4.20-5.40); White Blood Count 6.43 K/ul (4.8-10.8)
[2023-01-09 07:19] LABS: T4 Free Thyroxine 1.07 ng/dl (0.61-1.60)
--- NOTE | 2023-01-09 07:50 | XRay Report ---
XR chest 1V portable HISTORY: neuro deficit, acute stroke suspected COMPARISON: Chest 11/27/2022. FINDINGS: No pneumothorax. No pleural effusions. The cardiac silhouette remains mildly enlarged. Is a tortuous thoracic aorta again noted. No new focal lung consolidations to suggest a pneumonia. No yobany dence for pulmonary edema. Degenerative changes again noted within the shoulders. IMPRESSION: Mild cardiac megaly. Otherwise, no acute process within the chest. ACT 112: Negative or not required by law. Electronically signed by: Albert Webb M.D. 01/09/2023 7:48 AM
[2023-01-09] MEDS: PSYLLIUM or GUAR GUM FIBER POWDER PACKET PO SCH (08:06)
[2023-01-09] MEDS: APIXABAN 5 MG TABLET PO SCH ×2 (08:08→21:33)
[2023-01-09] MEDS: CYANOCOBALAMIN (B-12) 500 MCG TABLET PO SCH (08:08)
[2023-01-09] MEDS: GABAPENTIN 100 MG CAP PO SCH ×2 (08:08→21:33)
[2023-01-09] MEDS: ESCITALOPRAM OXALATE 10 MG TAB PO SCH (08:08)
[2023-01-09 08:28] LABS: Calcium 8.9 mg/dl (8.6-10.3); Magnesium 2.1 mg/dl (1.7-2.4); Potassium 3.9 mmol/L (3.5-5.1)
[2023-01-09 08:34] LABS: BUN Creatinine Ratio 25.8 (10-20); Chol HDL Ratio 3.7 (0-5); Creatinine Clr Calc Pharmacy 50.2 ml/min; Est GFR (African American) 92.7 ml/min
[2023-01-09] MEDS ORDERED: METOPROLOL SUCC 25MG EXT REL TAB PO SCH (09:00)
--- NOTE | 2023-01-09 17:57 | Neurology Consultation ---
Date of Consultation January 09, 2023 Assessment & Plan (1) Stroke-like symptoms: Impression: The patient had an episode of expressive speech difficulty which was resolved in 30 minutes yesterday evening. Brain MRI, CT angiogram of the head and neck were unremarkable. The patient has been symptom-free since then. She had similar episode 6 months ago, with negative work-up including MRI and EEG. The patient has been on Eliquis and aspirin for atrial fibrillation and small vessel disease. She has been symptom-free since admission. Transient ischemic attack is in differential. Apparently, the patient has been having some cognitive problems recently, which might contribute to the patient's speech dist urbance episode. There are no convincing additional symptoms to suggest partial seizures. Recommendations: We will keep the patient on Eliquis and low-dose daily aspirin as before. We will monitor cardiac rhythm as well as blood pressure during hospital stay. The patient has history of allergic reaction and intolerance to different statins. Will not consider another trial at this time but we do recommend diet modification. If the patient stays symptom-free, then she can be discharged home tomorrow. Follow-up at neurology clinic in a month. I will contact with [facility] to set up an appointment. (2) Paroxysmal atrial fibrillation: Impression: Patient has been on Eliquis and compliant. Plan As seen above. Thank you for the consultation. History of Present Illness Reason for Consultation: Aphasic episode Requesting Physician: Kelli Fisher DO Attending Physician: Kelli Fisher DO History of Present Illness The patient is a 87-year-old female, who was brought to emergency department after the patient had expressive speech difficulty yesterday evening, which lasted for 30 minutes. According to , the patient was able to ambulate, without additional neurological symptoms including weakness, numbness, dizziness, facial asymmetry, twitching, eye deviation, but the patient was slightly confused. Symptoms resolved in 30 minutes gradually. In emergency department, the patient had a CT angiograph of the head and neck, which did not show hemodynamically significant stenosis or occlusion. Brain MRI showed chronic small vessel disease related ischemic changes but no acute pathology. Apparently, the patient was hospitalized in June 2022, with similar speech disturbance, which lasted for many hours. At that time, EEG was unremarkable and brain MRI was negative for cerebrovascular accident. The patient was discharged home on double antiplatelet treatment, then was diagnosed with paroxysmal atrial fibrillation, and was switched on Eliquis with low-dose aspirin. The patient has not been on lipid-lowering treatment at this time. Blood pressure was higher than her usual level. The patient has stayed symptom- free since admission. According to , the patient gets some cognitive problems in evening hours recently more than usual, but she has not had any speech disturbance since June 2022. She was complaining of frontal headache yesterday which has been improved. The patient denies having history of migraines or frequent headaches. She has no persistent temporal tenderness or jaw claudication. I have reviewed the patient's chart and visualized imaging studies personally. I have answered the patient's questions in detail. Allergies Allergy/AdvReac Type Severity Reaction Status Date / Time oxycodone Allergy Unknown UKN Verified 01/08/23 20:39 simvastatin Allergy Unknown UKN Verified 01/08/23 20:39 rosuvastatin AdvReac Unknown upset Verified 01/08/23 20:39 stomach Home Medications Medication Instructions Recorded Confirmed Type aspirin 81 mg tablet,delayed 81 mg PO HS 03/13/21 01/08/23 History release (Marciano Low Dose Aspirin) cholecalciferol (vitamin D3) 25 25 mcg PO DAILY 03/13/21 01/08/23 History mcg (1,000 unit) tablet (Vitamin D3) cyanocobalamin (vitamin B-12) 1,000 mcg PO DAILY 03/13/21 01/08/23 History 1,000 mcg tablet (Vitamin B-12) psyllium seed (sugar) oral powder 1 ea PO DAILY 03/13/21 01/08/23 History (Metamucil (sugar) oral powder) escitalopram oxalate 10 mg tablet 10 mg PO DAILY 04/06/21 01/08/23 History levothyroxine 137 mcg tablet 137 mcg PO DAILYBB 04/06/21 01/08/23 History apixaban 5 mg tablet (Eliquis) 5 mg PO BID #60 tabs 08/05/22 01/08/23 Rx metoprolol succinate 25 mg 25 mg PO BID #60 tabs 08/10/22 01/08/23 Rx tablet,extended release 24 hr (Toprol XL) furosemide 20 mg tablet (Lasix) 40 mg PO DAILY 11/26/22 01/08/23 History gabapentin 100 mg capsule 100 mg PO BID 11/26/22 01/08/23 History hydroxyzine HCl 10 mg tablet 10 mg PO HS 11/26/22 01/08/23 History magnesium oxide 250 mg PO DAILY 11/26/22 01/08/23 History acetaminophen 500 mg tablet 1,000 mg PO Q6H PRN Pain 01/08/23 01/08/23 History (Tylenol Extra Strength) Patient History Medical History Atrial fibrillation with rapid ventricular response Carotid artery stenosis, asymptomatic Diastolic dysfunction Hyperlipidemia Hypertension Hypothyroidism (11/15/12) Nonrheumatic mitral valve regurgitation Pericardial effusion Persistent left SVC (superior vena cava) Pleural effusion Pleural effusion on right Pneumonia Tachycardia-bradycardia syndrome Thoracic aortic aneurysm Thrombophlebitis History of extensive, requiring vein ablation, s/p previous anticoagulation treatment Surgical History History of cataract surgery History of hysterectomy History of repair of rotator cuff Family History Father Hypertension Stroke Mother Hypertension Social History Smoking Status: Never smoker Hx Alcohol Use: Yes Alcohol type: wine Hx Substance Use: No Preferred Language: Burkinan Communication Ability: Effective Microarray Specialist Required: No Beliefs That Will Affect Care: None marital status: Current Living Situation: Spouse How many Children do You have: 2 Other Information That Helps Us Care for You: No Feels Safe at Home: Yes Safety Concerns: Feels Safe At This Time Assistive Devices: Glasses Review of Systems Review of Systems: All systems reviewed & are unremarkable except as noted in HPI & below Physical Exam Physical Exam: General Examination: Constitutional: Well developed person in no acute distress. HENT: Normal exam with inspection. CV: Hearth rhythm is irregular. Neck: Supple, slight left carotid bruits. Lungs: Non-labored and comfortable breathing. Abdomen: Soft, non-tender, non-distended. Skin: No rash or ecchymosis. Extremities: No edema or cyanosis NEUROLOGICAL EXAMINATION: Mental Status: Alert and oriented to place, person and time. Cranial Nerves: II-XII are intact. No nystagmus. Funduscopy: Normal looking optic discs. Motor: 5-/5 in all extremities without asymmetry. Tone: Normal without spasticity or rigidity. Sensory: Intact to all sensory modalities except decreased vibratory sensation in feet. Coordination: No dysmetria with FTN testing. Speech: Fluent. Comprehension is intact. Gait: Slightly wide-based. No ataxia or abnormal walking pattern. Musculoskeletal: Normal muscle bulk, no atrophy. DTRs: 1+ all. There is no Babinski. Results & Data Vital Signs (Past 12 Hours) Vital Signs Temp Pulse Pulse Resp BP Pulse Ox O2 Del Method 01/09/23 17:07 36.5 C 72 17 147/93 H 96 Room Air 01/09/23 16:30 76 01/09/23 12:25 60 01/09/23 12:31 36.4 C L 69 18 156/76 H 95 Room Air 01/09/23 10:33 87 20 154/73 H 97 Room Air 01/09/23 07:08 65 20 181/98 H 96 Room Air 01/09/23 06:56 51 L Laboratory Results Laboratory Results - last 24 hr 01/08/23 01/08/23 01/08/23 19:04 19:04 19:04 WBC 8.04 RBC 4.60 Hgb 14.0 Hct 42.3 MCV 92.0 MCH 30.4 MCHC 33.1 RDW Std Deviation 46.7 H RDW Coeff of Valdo 13.9 Plt Count 200 MPV 9.3 L Immature Gran % (Auto) 0.2 Neut % (Auto) 62.9 Lymph % (Auto) 24.9 [place] % (Auto) 9.7 Eos % (Auto) 1.6 Baso % (Auto) 0.7 Neut # (Auto) 5.05 Lymph # (Auto) 2.00 [place] # (Auto) 0.78 H Eos # (Auto) 0.13 Baso # (Auto) 0.06 Immature Gran # (Auto) 0.02 PT 11.9 INR 1.1 APTT 28.2 PTT Ratio 1.0 Sodium 136 Potassium 4.2 Chloride 101 Carbon Dioxide 32 Anion Gap 3 BUN 22 Creatinine 0.95 Est Cr Clr Drug Dosing 34.9 Est GFR ( Amer) 62.9 Est GFR (Non-Af Amer) 54.2 BUN/Creatinine Ratio 23.2 H Glucose 92 POC Glucose Calcium 8.7 Magnesium 1.6 L Total Bilirubin 0.5 AST 17 ALT 9 Alkaline Phosphatase 49 Troponin I High Sens 8.3 Total Protein 6.1 Albumin 3.5 Globulin 2.6 Albumin/Globulin Ratio 1.3 Triglycerides Cholesterol LDL Cholesterol, Calc VLDL Cholesterol, Calc HDL Cholesterol Cholesterol/HDL Ratio TSH Free T4 SARS-CoV-2, RNA, NAAT 01/08/23 01/08/23 01/08/23 19:06 19:25 20:37 WBC RBC Hgb Hct MCV MCH MCHC RDW Std Deviation RDW Coeff of Valdo Plt Count MPV Immature Gran % (Auto) Neut % (Auto) Lymph % (Auto) [place] % (Auto) Eos % (Auto) Baso % (Auto) Neut # (Auto) Lymph # (Auto) [place] # (Auto) Eos # (Auto) Baso # (Auto) Immature Gran # (Auto) PT INR APTT PTT Ratio Sodium Potassium Chloride Carbon Dioxide Anion Gap BUN Creatinine Est Cr Clr Drug Dosing Est GFR ( Amer) Est GFR (Non-Af Amer) BUN/Creatinine Ratio Glucose POC Glucose 97 Calcium Magnesium Total Bilirubin AST ALT Alkaline Phosphatase Troponin I High Sens Total Protein Albumin Globulin Albumin/Globulin Ratio Triglycerides Cholesterol LDL Cholesterol, Calc VLDL Cholesterol, Calc HDL Cholesterol Cholesterol/HDL Ratio TSH Free T4 SARS-CoV-2, RNA, NAAT NEGATIVE NEGATIVE 01/09/23 01/09/23 01/09/23 05:34 05:34 05:34 WBC 6.43 RBC 4.86 Hgb 14.8 Hct 44.0 MCV 90.5 MCH 30.5 MCHC 33.6 RDW Std Deviation 46.3 RDW Coeff of Valdo 13.9 Plt Count 210 MPV 9.5 Immature Gran % (Auto) 0.3 Neut % (Auto) 56.1 Lymph % (Auto) 31.1 [place] % (Auto) 9.2 Eos % (Auto) 2.5 Baso % (Auto) 0.8 Neut # (Auto) 3.61 Lymph # (Auto) 2.00 [place] # (Auto) 0.59 Eos # (Auto) 0.16 Baso # (Auto) 0.05 Immature Gran # (Auto) 0.02 PT INR APTT PTT Ratio Sodium 140 Potassium 3.9 Chloride 105 Carbon Dioxide 26 Anion Gap 9 BUN 17 Creatinine 0.66 Est Cr Clr Drug Dosing 50.2 Est GFR ( Amer) 92.7 Est GFR (Non-Af Amer) 80.0 BUN/Creatinine Ratio 25.8 H Glucose 84 POC Glucose Calcium 8.9 Magnesium 2.1 Total Bilirubin AST ALT Alkaline Phosphatase Troponin I High Sens Total Protein Albumin Globulin Albumin/Globulin Ratio Triglycerides 75 Cholesterol 164 LDL Cholesterol, Calc 105 VLDL Cholesterol, Calc 15 HDL Cholesterol 44 Cholesterol/HDL Ratio 3.7 TSH 5.694 H Free T4 1.07 SARS-CoV-2, RNA, NAAT Diagnostic Findings Chest X-Ray 01/08/23 18:46 XR chest 1V portable HISTORY: neuro deficit, acute stroke suspected COMPARISON: Chest 11/27/2022. FINDINGS: No pneumothorax. No pleural effusions. The cardiac silhouette remains mildly enlarged. Is a tortuous thoracic aorta again noted. No new focal lung consolidations to suggest a pneumonia. No evidence for pulmonary edema. Degenerative changes again noted within the shoulders. IMPRESSION: Mild cardiac megaly. Otherwise, no acute process within the chest. ACT 112: Negative or not required by law. Electronically signed by: Albert Webb M.D. 01/09/2023 7:[address] 01/08/23 18:46 Exam(s): CT HEAD Without Contrast EXAM: CT Head Without Intravenous Contrast CLINICAL HISTORY: Reason for exam: neuro deficit, acute stroke suspected. TECHNIQUE: Axial computed tomography images of the head/brain without intravenous contrast. CTDI is 36.19 mGy and DLP is 691.05 mGy-cm. Automated exposure control was utilized for the study. A dose lowering technique was utilized adhering to the principles of ALARA. COMPARISON: None FINDINGS: Brain: No acute infarct or hemorrhage identified. No extra-axial fluid collection. No mass effect or midline shift. Scattered areas of hypoattenuation in the supratentorial white matter likely represent chronic small vessel ischemic changes. No calcification in the left basal ganglia. Ventricles and sulci: Prominence of the ventricles and sulci is likely secondary to cerebral volume loss. Bones: Hyperostosis frontalis interna. No bony lesion or acute fracture. Subcutaneous tissues: Normal. Sinuses: Mild mucosal thickening in the maxillary sinuses. Mastoid air cells: Normal. Orbits: Bilateral lens implants. Other: Atherosclerotic calcifications in the intracranial vasculature. IMPRESSION: 1. No acute intracranial abnormality. 2. Chronic small vessel ischemic changes and cerebral volume loss. Electronically signed by: Carito Fleming M.D. 01/08/23 19:30 PM Head CTA 01/08/23 18:46 Exam(s): CTA HEAD With Contrast IV Amt: 118ml EXAM: CT Head With Intravenous Contrast CLINICAL HISTORY: Reason for exam: neuro deficit, acute stroke suspected. TECHNIQUE: Axial computed tomographic images of the head with intravenous contrast. CTDI is 29.7 mGy and DLP is 14.85 mGy-cm. Automated exposure control was utilized for the study. A dose lowering technique was utilized adhering to the principles of ALARA. CONTRAST: Patient received 118ml of IV contrast COMPARISON: CTA head and 07/01/2022 FINDINGS: Right internal carotid artery: Atherosclerotic calcifications of the distal right ICA without significant stenosis. No aneurysm. 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 Probable stable azygos GISEL, normal variant. Right middle cerebral artery: Unremarkable. No occlusion or significant stenosis. No aneurysm. Right posterior cerebral artery: Unremarkable. No occlusion or significant stenosis. No aneurysm. Right vertebral artery: Unremarkable as visualized. Left internal carotid artery: Atherosclerotic calcifications of the distal left ICA without significant stenosis. No aneurysm. Left anterior cerebral artery: See above. Left middle cerebral artery: Unremarkable. No occlusion or significant stenosis. No aneurysm. Left posterior cerebral artery: Unremarkable. No occlusion or significant stenosis. No aneurysm. Left vertebral artery: Minimal atherosclerotic calcification in the V4 segment of the left vertebral artery. No significant stenosis. Basilar artery: Unremarkable. No occlusion or significant stenosis. No aneurysm. Sinuses: Mild mucosal thickening in the maxillary sinuses. IMPRESSION: No significant stenosis, occlusion, or aneurysm in the central or large intracranial arteries. Electronically signed by: Carito Fleming M.D. 01/08/23 19:37 PM Neck CTA 01/08/23 18:46 Exam(s): CTA NECK With Contrast IV Amt: 118ml EXAM: CT Neck With Intravenous Contrast CLINICAL HISTORY: Reason for exam: neuro deficit, acute stroke suspected. TECHNIQUE: Routine carotid CT protocol was performed with intravenous contrast. NASCET criteria using the distal ICAs for comparison were used for evaluation of stenoses. CTDI is 11.47 mGy and DLP is 443.79 mGy-cm. Automated exposure control was utilized for the study. A dose lowering technique was utilized adhering to the principles of ALARA. CONTRAST: Patient received 118ml of IV contrast COMPARISON: CTA neck on 07/01/2022 FINDINGS: VASCULATURE: Right common carotid artery: Unremarkable. No occlusion or significant stenosis. No dissection. Right internal carotid artery: Atherosclerotic calcifications of the right carotid bulb and proximal right ICA without significant stenosis. No dissection. Right external carotid artery: Unremarkable. No occlusion. Right vertebral artery: Unremarkable. No occlusion or significant stenosis. No dissection. Left common carotid artery: Unremarkable. No occlusion or significant stenosis. No dissection. Left internal carotid artery: Atherosclerotic calcifications of the left carotid bulb and proximal left ICA without significant stenosis. No dissection. Left external carotid artery: Unremarkable. No occlusion. Left vertebral artery: Dominant left vertebral artery. No occlusion or significant stenosis. No dissection. Aorta: Atherosclerotic changes in the aorta and origins of the great vessels. Aberrant right occlusion artery. NECK: Bones/joints: Degenerative changes of the spine. Soft tissues: Unremarkable. Lung apices: Clear. CAROTID STENOSIS REFERENCE USING NASCET CRITERIA: % ICA stenosis = (1 - narrowest ICA diameter/diameter of distal cervical ICA) x 100. Mild - <50% stenosis. Moderate - 50-69% stenosis. Severe - 70-94% stenosis. Near occlusion - 95-99% stenosis. Occluded - 100% stenosis. IMPRESSION: No significant stenosis, occlusion, or dissection. Electronically signed by: Carito Fleming M.D. 01/08/23 19:34 PM Brain MRI 01/09/23 00:20 Exam(s): MRI HEAD Without Contrast EXAM: MR Head Without Intravenous Contrast CLINICAL HISTORY: Reason for exam: tia. TECHNIQUE: Magnetic resonance images of the head/brain without intravenous contrast in multiple planes. COMPARISON: No relevant prior studies available. FINDINGS: Brain: Abnormal T2 signal in the deep cerebral white matter is consistent with small vessel ischemic/degenerative changes. The cerebral and cerebellar sulci are prominent consistent with brain atrophy. No hemorrhage. Ventricles: Unremarkable. No ventriculomegaly. Bones/joints: Unremarkable. Sinuses: Unremarkable as visualized. No acute sinusitis. Mastoid air cells: Unremarkable as visualized. No mastoid effusion. Orbits: Unremarkable as visualized. IMPRESSION: 1. Small vessel ischemic/degenerative changes. 2. Cerebral and cerebellar atrophy. Electronically signed by: Espinoza Gupta MD 01/09/23 00:54 AM
--- NOTE | 2023-01-09 19:27 | Hospitalist Progress Note ---
Date of Service January 09, 2023 Assessment & Plan (1) TIA (transient ischemic attack): (2) Paroxysmal atrial fibrillation: (3) Hypertension: (4) Hypomagnesemia: Plan This is an 87-year-old female who has a significant past medical history of paroxysmal afibrillation anticoagulated on apixaban, history of TIA, HTN, HLD, hypothyroidism, APRIL, left carotid artery stenosis asymptomatic, history of saphenous vein phlebitis, persistent left SVC, nonrheumatic mitral valve regurgitation, history of TIA, history of pericarditis, history of aneurysm of ascending aorta, IBS, degenerative disc disease who presents to ED after difficulty speaking prior to arrival. Workup overnight included brain MRI revealing small vessel ischemic/degenerative changes and cerebral and cerebellar atrophy. CTA head and neck with no significant stenosis, occlusion or aneurysm EKG revealed afib with no ST changes that would suggest acute ischemia. Persistent atrial fibrillation on telemetry review overnight. She underwent an echo in August revealing an improvement in pericardial effus ion and preserved EF. Will repeat echo at this time. PT/OT and speech evaluated and she has no concerning focal deficits as a result of her symptoms She remains on ASA and apixaban per home regimen. Per neurology we will continue these without changes for now and continue to monitor her clinical progress one more night. As her blood pressure was elevated yesterday, it is possible this may have had something to do with her transient symptoms Currently BP is around goal. Cont current medical management. DO Isidro Grande Hospitalist Admission and Anticipated Discharge Date Admission Date: January 08, 2023 Subjective 87 yo F presented with TIA symptoms Symptoms of dysarthria have resolved today She reports a left sided headache that she felt travel down her left side That has resolved today She is tolerating PO and mentating clearly is at bedside All in all her and patient states the episode yesterday lasted about one hour This was preceeded by some memory loss issues earlier yesterday, also. Review of Systems Review of Systems: All systems were reviewed and negative except as indicated on HPI above. Physical Exam Physical Exam: CONSTITUTIONAL: WNWD, vitals as above, generally well-appearing, NAD EYES: normal conjunctivae, no scleral icterus ENT: external ear and nose normal, MMM NECK: trachea midline RESPIRATORY: clear to auscultation bilaterally, no crackles, rales or wheezes, normal respiratory effort CARDIOVASCULAR: regular rate and rhythm, S1 and 2 heard without murmurs, gallops or rubs, no JVD, no peripheral edema CHEST: inspection of chest was normal GASTROINTESTINAL: soft, nontender, MMM MUSCULOSKELETAL: strength 5/5 throughout, head is normocephalic and atraumatic SKIN: warm and dry NEUROLOGIC: EOMI, pupils are equal and round bilaterally, CN 2-12 grossly intact, no sensory deficit, normal cognition, normal speech, no tremor PSYCHIATRIC: alert cooperative and oriented to person, place and time. Euthymic mood, makes good eye contact, language grossly intact, recent and remote memory grossly intact. Results & Data Results & Data Vital Signs (Past 12 Hours) Vital Signs Temp Pulse Pulse Resp BP Pulse Ox O2 Del Method 01/09/23 17:07 36.5 C 72 17 147/93 H 96 Room Air 01/09/23 16:30 76 01/09/23 12:25 60 01/09/23 12:31 36.4 C L 69 18 156/76 H 95 Room Air 01/09/23 10:33 87 20 154/73 H 97 Room Air Laboratory Results Short CBC 01/08/23 01/09/23 Range/Units 19:04 05:34 WBC 8.04 6.43 (4.8-10.8) K/ul Hgb 14.0 14.8 (12.0-16.0) g/dl Hct 42.3 44.0 (37.0-47.0) % Plt Count 200 210 (130-400) K/uL BMP 01/08/23 01/09/23 19:04 05:34 Sodium 136 140 Potassium 4.2 3.9 Chloride 101 105 Carbon Dioxide 32 26 BUN 22 17 Creatinine 0.95 0.66 Glucose 92 84 Calcium 8.7 8.9 Liver Function 01/08/23 Range/Units 19:04 Total Bilirubin 0.5 (0.2-1.0) mg/dl AST 17 (13-39) U/L ALT 9 (7-52) U/L Alkaline Phosphatase 49 (34-104) U/L Albumin 3.5 (3.4-5.0) gm/dl Diagnostic Findings Chest X-Ray 01/08/23 18:46 XR chest 1V portable HISTORY: neuro deficit, acute stroke suspected COMPARISON: Chest 11/27/2022. FINDINGS: No pneumothorax. No pleural effusions. The cardiac silhouette remains mildly enlarged. Is a tortuous thoracic aorta again noted. No new focal lung consolidations to suggest a pneumonia. No evidence for pulmonary edema. Degenerative changes again noted within the shoulders. IMPRESSION: Mild cardiac megaly. Otherwise, no acute process within the chest. ACT 112: Negative or not required by law. Electronically signed by: Albert Webb M.D. 01/09/2023 7:48 AM Medications Administered Current Inpatient Medications Acetaminophen (Acetaminophen 325 Mg Tab) 650 mg PO Q4H PRN PRN Reason: Pain or Fever Stop: 02/07/23 22:46 Apixaban (Apixaban 5 Mg Tablet) 5 mg PO BID SHILOH Stop: 02/07/23 22:46 Last Admin: 01/09/23 08:08 Dose: 5 mg Aspirin (Aspirin 81 Mg Ectab) 81 mg PO HS SHILOH Stop: 02/07/23 22:46 Last Admin: 01/08/23 23:05 Dose: 81 mg Cyanocobalamin (Cyanocobalamin (B-12) 500 Mcg Tablet) 1,000 mcg PO DAILY SHILOH Stop: 02/08/23 08:59 Last Admin: 01/09/23 08:08 Dose: 1,000 mcg Escitalopram Oxalate (Escitalopram Oxalate 10 Mg Tab) 10 mg PO DAILY SHILOH Stop: 02/08/23 08:59 Last Admin: 01/09/23 08:08 Dose: 10 mg Gabapentin (Gabapentin 100 Mg Cap) 100 mg PO BID SHILOH Stop: 02/08/23 08:59 Last Admin: 01/09/23 08:08 Dose: 100 mg Promethazine HCl 6.25 mg/ (Sodium Chloride) 50.25 mls @ 201 mls/hr IV Q6H PRN PRN Reason: Nausea And Vomiting Stop: 02/07/23 21:57 Levothyroxine Sodium (Levothyroxine Sodium 137 Mcg Tablet) 137 mcg PO DAILYBB SHILOH Stop: 02/08/23 06:29 Last Admin: 01/09/23 06:58 Dose: 137 mcg Metoprolol Succinate (Metoprolol Succ 25mg Ext Rel Tab) 25 mg PO DAILY SHILOH Stop: 02/08/23 08:59 Last Admin: 01/09/23 08:08 Dose: 25 mg Psyllium Hydrophilic Mucilloid (Psyllium Or Guar Gum Fiber Powder Packet) 1 pkt PO DAILY SHILOH Stop: 02/08/23 08:59 Last Admin: 01/09/23 08:06 Dose: 1 pkt
[2023-01-09] MEDS: ASPIRIN 81 MG ECTAB PO SCH (21:33)
--- NOTE | 2023-01-09 21:35 | Electrocardiogram Report ---
Test Reason : Blood Pressure : / mmHG Vent. Rate : 083 BPM Atrial Rate : 000 BPM P-R Int : 000 ms QRS Dur : 082 ms QT Int : 344 ms P-R-T Axes : 000 -10 193 degrees QTc Int : 404 ms Poor data quality, interpretation may be adversely affected Atrial fibrillation Low voltage QRS Septal infarct (cited on or before 08-JAN-2023) Inferior infarct , age undetermined Abnormal ECG When compared with ECG of 05-SEP-2022 08:36, Questionable change in initial forces of Anterior leads Confirmed by Too Casper ([id number]) on 01/09/2023 9:34:50 PM Referred By: REFERRED SELF Confirmed By:Too Casper
[2023-01-10] MEDS ORDERED: METOPROLOL SUCC 25MG EXT REL TAB PO SCH (03:30)
[2023-01-10] MEDS: LEVOTHYROXINE SODIUM 137 MCG TABLET PO SCH (03:38)
[2023-01-10 07:45] LABS: Basophils # (auto) 0.06 K/uL (0-0.2); Basophils % (auto) 0.8 %; Eosinophils # (auto) 0.19 K/uL (0-0.50); Eosinophils % (auto) 2.4 %; Hematocrit (blood only) 46.8 % (37.0-47.0); Hemoglobin 15.4 g/dl (12.0-16.0); Immature Granulocytes # (auto) 0.03 K/uL (0.01-0.20); Immature Granulocytes % (auto) 0.4 %; Lymphocytes # (auto) 1.95 K/uL (1.2-3.4); Lymphocytes % (auto) 24.8 %; Mean Corpuscular Hemoglobin 29.9 pg (25.0-34.0); Mean Corpuscular Hgb Conc 32.9 g/dL (32.0-36.0); Mean Corpuscular Volume 90.9 fL (80.0-100.0); Mean Platelet Volume 9.1 fL (9.4-12.4); Monocytes # (auto) 0.66 K/uL (0.11-0.59); Monocytes % (auto) 8.4 %; Neutrophils # (auto) 4.98 K/uL (1.40-6.50); Neutrophils % (auto) 63.2 %; Platelet Count 204 K/uL (130-400); RDW Coefficient of Variation 13.6 % (11.5-14.5); RDW Standard Deviation 45.7 fL (36.4-46.3); Red Blood Count 5.15 M/uL (4.20-5.40); White Blood Count 7.87 K/ul (4.8-10.8)
[2023-01-10 08:03] LABS: Calcium 9.3 mg/dl (8.6-10.3); Creatinine Clr Calc Pharmacy 46.9 ml/min; Est GFR (African American) 86.4 ml/min; Est GFR (Non-African American) 74.6 ml/min; Potassium 4.1 mmol/L (3.5-5.1)
[2023-01-10] MEDS: PSYLLIUM or GUAR GUM FIBER POWDER PACKET PO SCH (08:58)
[2023-01-10] MEDS: ESCITALOPRAM OXALATE 10 MG TAB PO SCH (08:58)
[2023-01-10] MEDS: CYANOCOBALAMIN (B-12) 500 MCG TABLET PO SCH (08:58)
[2023-01-10] MEDS: GABAPENTIN 100 MG CAP PO SCH (08:59)
[2023-01-10] MEDS: APIXABAN 5 MG TABLET PO SCH (08:59)
[2023-01-10] MEDS ORDERED: FUROSEMIDE 40 MG TAB PO SCH (09:00)
--- NOTE | 2023-01-10 14:06 | Neurology Progress Note ---
Date of Service January 10, 2023 Assessment & Plan (1) Stroke-like symptoms: Plan: Impression: The patient had an episode of expressive speech difficulty which was resolved in 30 minutes. Brain MRI, CT angiogram of the head and neck were unremarkable. The patient has been symptom-free since then. She had similar episode 6 months ago, with negative work-up including MRI and EEG. The patient has been on Eliquis and aspirin for atrial fibrillation and small vessel disease. She has been symptom-free since admission. Transient ischemic attack is in differential. Apparently, the patient has been having some cognitive problems recently, which might contribute to the patient's speech disturbance episode. There are no convincing additional symptoms to suggest partial seizures. Recommendations: We will keep the patient on Eliquis and low-dose daily aspirin as before. We will monitor cardiac rhythm as well as blood pressure during hospital stay. The patient has history of allergic reaction and intolerance to different statins. Will not consider another trial at this time but we do recommend diet modification. Management of hypertension. Goal blood pressure is below 140/85. The patient is neurologically stable to discharge home. Follow-up at neurology clinic in a month. I have contacted with [facility] neurology to set up an appointment. (2) Paroxysmal atrial fibrillation: Plan: Impression: Patient has been on Eliquis and compliant. Admission and Anticipated Discharge Date Admission Date: January 08, 2023 Subjective The patient has been symptom-free since admission. She denies any recurrence of word finding difficulty, speech disturbance, or any other neurological symptoms. She has not had any seizure or seizure-like activities. Review of Systems Review of Systems: All systems reviewed & are unremarkable except as noted in Subjective Physical Exam Physical Exam: General Examination: Constitutional: Well developed person in no acute distress. HENT: Normal exam with inspection. CV: Hearth rhythm is irregular. Neck: Supple, slight left carotid bruits. Lungs: Non-labored and comfortable breathing. Abdomen: Soft, non-tender, non-distended. Skin: No rash or ecchymosis. Extremities: No edema or cyanosis NEUROLOGICAL EXAMINATION: Mental Status: Alert and oriented to place, person and time. Cranial Nerves: II-XII are intact. No nystagmus. Funduscopy: Normal looking optic discs. Motor: 5-/5 in all extremities without asymmetry. Tone: Normal without spasticity or rigidity. Sensory: Intact to all sensory modalities except decreased vibratory sensation in feet. Coordination: No dysmetria with FTN testing. Speech: Fluent. Comprehension is intact. Gait: Slightly wide-based. No ataxia or abnormal walking pattern. Musculoskeletal: Normal muscle bulk, no atrophy. DTRs: 1+ all. There is no Babinski. Results & Data Vital Signs (Past 12 Hours) Vital Signs Temp Pulse Pulse Resp BP Pulse Ox Pulse Ox 01/10/23 11:49 36.4 C L 72 18 137/88 96 01/10/23 10:42 95 01/10/23 08:15 36.9 C 102 H 18 162/97 H 97 01/10/23 07:14 74 01/10/23 02:44 36.6 C 79 18 160/101 H 99 O2 Del Method O2 Del Method 01/10/23 11:49 Room Air 01/10/23 10:42 Room Air 01/10/23 08:15 Room Air 01/10/23 07:14 01/10/23 02:44 Room Air Laboratory Results Laboratory Results - last 24 hr 01/10/23 01/10/23 07:17 07:17 WBC 7.87 RBC 5.15 Hgb 15.4 Hct 46.8 MCV 90.9 MCH 29.9 MCHC 32.9 RDW Std Deviation 45.7 RDW Coeff of Valdo 13.6 Plt Count 204 MPV 9.1 L Immature Gran % (Auto) 0.4 Neut % (Auto) 63.2 Lymph % (Auto) 24.8 [place] % (Auto) 8.4 Eos % (Auto) 2.4 Baso % (Auto) 0.8 Neut # (Auto) 4.98 Lymph # (Auto) 1.95 [place] # (Auto) 0.66 H Eos # (Auto) 0.19 Baso # (Auto) 0.06 Immature Gran # (Auto) 0.03 Sodium 139 Potassium 4.1 Chloride 105 Carbon Dioxide 27 Anion Gap 7 BUN 19 Creatinine 0.73 Est Cr Clr Drug Dosing 46.9 Est GFR ( Amer) 86.4 Est GFR (Non-Af Amer) 74.6 BUN/Creatinine Ratio 26.0 H Glucose 85 Calcium 9.3 Diagnostic Findings Chest X-Ray 01/08/23 18:46 XR chest 1V portable HISTORY: neuro deficit, acute stroke suspected COMPARISON: Chest 11/27/2022. FINDINGS: No pneumothorax. No pleural effusions. The cardiac silhouette remains mildly enlarged. Is a tortuous thoracic aorta again noted. No new focal lung consolidations to suggest a pneumonia. No evidence for pulmonary edema. Degenerative changes again noted within the shoulders. IMPRESSION: Mild cardiac megaly. Otherwise, no acute process within the chest. ACT 112: Negative or not required by law. Electronically signed by: Albert Webb M.D. 01/09/2023 7:[address] 01/08/23 18:46 Exam(s): CT HEAD Without Contrast EXAM: CT Head Without Intravenous Contrast CLINICAL HISTORY: Reason for exam: neuro deficit, acute stroke suspected. TECHNIQUE: Axial computed tomography images of the head/brain without intravenous contrast. CTDI is 36.19 mGy and DLP is 691.05 mGy-cm. Automated exposure control was utilized for the study. A dose lowering technique was utilized adhering to the principles of ALARA. COMPARISON: None FINDINGS: Brain: No acute infarct or hemorrhage identified. No extra-axial fluid collection. No mass effect or midline shift. Scattered areas of hypoattenuation in the supratentorial white matter likely represent chronic small vessel ischemic changes. No calcification in the left basal ganglia. Ventricles and sulci: Prominence of the ventricles and sulci is likely secondary to cerebral volume loss. Bones: Hyperostosis frontalis interna. No bony lesion or acute fracture. Subcutaneous tissues: Normal. Sinuses: Mild mucosal thickening in the maxillary sinuses. Mastoid air cells: Normal. Orbits: Bilateral lens implants. Other: Atherosclerotic calcifications in the intracranial vasculature. IMPRESSION: 1. No acute intracranial abnormality. 2. Chronic small vessel ischemic changes and cerebral volume loss. Electronically signed by: Carito Fleming M.D. 01/08/23 19:30 PM Head CTA 01/08/23 18:46 Exam(s): CTA HEAD With Contrast IV Amt: 118ml EXAM: CT Head With Intravenous Contrast CLINICAL HISTORY: Reason for exam: neuro deficit, acute stroke suspected. TECHNIQUE: Axial computed tomographic images of the head with intravenous contrast. CTDI is 29.7 mGy and DLP is 14.85 mGy-cm. Automated exposure control was utilized for the study. A dose lowering technique was utilized adhering to the principles of ALARA. CONTRAST: Patient received 118ml of IV contrast COMPARISON: CTA head and 07/01/2022 FINDINGS: Right internal carotid artery: Atherosclerotic calcifications of the distal right ICA without significant stenosis. No aneurysm. 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 Probable stable azygos GISEL, normal variant. Right middle cerebral artery: Unremarkable. No occlusion or significant stenosis. No aneurysm. Right posterior cerebral artery: Unremarkable. No occlusion or significant stenosis. No aneurysm. Right vertebral artery: Unremarkable as visualized. Left internal carotid artery: Atherosclerotic calcifications of the distal left ICA without significant stenosis. No aneurysm. Left anterior cerebral artery: See above. Left middle cerebral artery: Unremarkable. No occlusion or significant stenosis. No aneurysm. Left posterior cerebral artery: Unremarkable. No occlusion or significant stenosis. No aneurysm. Left vertebral artery: Minimal atherosclerotic calcification in the V4 segment of the left vertebral artery. No significant stenosis. Basilar artery: Unremarkable. No occlusion or significant stenosis. No aneurysm. Sinuses: Mild mucosal thickening in the maxillary sinuses. IMPRESSION: No significant stenosis, occlusion, or aneurysm in the central or large intracranial arteries. Electronically signed by: Carito Fleming M.D. 01/08/23 19:37 PM Neck CTA 01/08/23 18:46 Exam(s): CTA NECK With Contrast IV Amt: 118ml EXAM: CT Neck With Intravenous Contrast CLINICAL HISTORY: Reason for exam: neuro deficit, acute stroke suspected. TECHNIQUE: Routine carotid CT protocol was performed with intravenous contrast. NASCET criteria using the distal ICAs for comparison were used for evaluation of stenoses. CTDI is 11.47 mGy and DLP is 443.79 mGy-cm. Automated exposure control was utilized for the study. A dose lowering technique was utilized adhering to the principles of ALARA. CONTRAST: Patient received 118ml of IV contrast COMPARISON: CTA neck on 07/01/2022 FINDINGS: VASCULATURE: Right common carotid artery: Unremarkable. No occlusion or significant stenosis. No dissection. Right internal carotid artery: Atherosclerotic calcifications of the right carotid bulb and proximal right ICA without significant stenosis. No dissection. Right external carotid artery: Unremarkable. No occlusion. Right vertebral artery: Unremarkable. No occlusion or significant stenosis. No dissection. Left common carotid artery: Unremarkable. No occlusion or significant stenosis. No dissection. Left internal carotid artery: Atherosclerotic calcifications of the left carotid bulb and proximal left ICA without significant stenosis. No dissection. Left external carotid artery: Unremarkable. No occlusion. Left vertebral artery: Dominant left vertebral artery. No occlusion or significant stenosis. No dissection. Aorta: Atherosclerotic changes in the aorta and origins of the great vessels. Aberrant right occlusion artery. NECK: Bones/joints: Degenerative changes of the spine. Soft tissues: Unremarkable. Lung apices: Clear. CAROTID STENOSIS REFERENCE USING NASCET CRITERIA: % ICA stenosis = (1 - narrowest ICA diameter/diameter of distal cervical ICA) x 100. Mild - <50% stenosis. Moderate - 50-69% stenosis. Severe - 70-94% stenosis. Near occlusion - 95-99% stenosis. Occluded - 100% stenosis. IMPRESSION: No significant stenosis, occlusion, or dissection. Electronically signed by: Carito Fleming M.D. 01/08/23 19:34 PM Brain MRI 01/09/23 00:20 Exam(s): MRI HEAD Without Contrast EXAM: MR Head Without Intravenous Contrast CLINICAL HISTORY: Reason for exam: tia. TECHNIQUE: Magnetic resonance images of the head/brain without intravenous contrast in multiple planes. COMPARISON: No relevant prior studies available. FINDINGS: Brain: Abnormal T2 signal in the deep cerebral white matter is consistent with small vessel ischemic/degenerative changes. The cerebral and cerebellar sulci are prominent consistent with brain atrophy. No hemorrhage. Ventricles: Unremarkable. No ventriculomegaly. Bones/joints: Unremarkable. Sinuses: Unremarkable as visualized. No acute sinusitis. Mastoid air cells: Unremarkable as visualized. No mastoid effusion. Orbits: Unremarkable as visualized. IMPRESSION: 1. Small vessel ischemic/degenerative changes. 2. Cerebral and cerebellar atrophy. Electronically signed by: Espinoza Gupta MD 01/09/23 00:54 AM
--- NOTE | 2023-01-10 14:13 | Discharge Summary ---
Discharge Summary Date of Service January 10, 2023 Admission HPI Per Admitting Provider This is an 87-year-old female who has a significant past medical history of paroxysmal afibrillation anticoagulated on apixaban, history of TIA, HTN, HLD, hypothyroidism, APRIL, left carotid artery stenosis asymptomatic, history of saphenous vein phlebitis, persistent left SVC, nonrheumatic mitral valve regurgitation, history of TIA, history of pericarditis, history of aneurysm of ascending aorta, IBS, degenerative disc disease who presents to ED after difficulty speaking prior to arrival. Symptoms started at approximately 6:00 when she was sitting on the couch and had difficulty speaking. She states that she was getting words out but was not making sense. Her witnessed events. EMS was summoned and she was made a stroke alert. stated the patient did not have any facial droop, extremity weakness or incontinence. Patient also admits to having a left-sided headache. She has history of prior TIA in June 2022. At that time she was placed on Plavix for 21 days and then aspirin therapy solo. She did undergo echocardiogram at that time which revealed EF 60 to 65%, moderate concentric LVH, aortic valve sclerosis mild, left atrium moderately dilated. Currently her symptoms have completely resolved. She still has mild left frontal headache. She also has a little bit of swelling to the right eye which started 2 days ago. She denies any itchy watery eyes. She denies any recent illness, fever, chills, sweats, lightheadedness, dizziness, chest pain, shortness of breath, nausea, vomiting, abdominal pain, change in bowel or urinary habits. In ED patient underwent head CT which was negative for acute infarct but did reveal chronic microvascular ischemic change. CTA of head and neck was also negative for any stenosis. Lab work did reveal mild hypomagnesemia but was otherwise unremarkable. Principal Dx & Hospital Course #1 = Principal Diagnosis (1) TIA (transient ischemic attack): (2) Paroxysmal atrial fibrillation: (3) Hypertension: (4) Hypomagnesemia: Plan This is an 87-year-old female who has a significant past medical history of paroxysmal afibrillation anticoagulated on apixaban, history of TIA, HTN, HLD, hypothyroidism, APRIL, left carotid artery stenosis asymptomatic, history of saphenous vein phlebitis, persistent left SVC, nonrheumatic mitral valve regurgitation, history of TIA, history of pericarditis, history of aneurysm of ascending aorta, IBS, degenerative disc disease who presents to ED after d ifficulty speaking prior to arrival. Workup overnight included brain MRI revealing small vessel ischemic/degenerative changes and cerebral and cerebellar atrophy. CTA head and neck with no significant stenosis, occlusion or aneurysm EKG revealed afib with no ST changes that would suggest acute ischemia. Persistent atrial fibrillation on telemetry review overnight. She underwent an echo in August revealing an improvement in pericardial effusion and preserved EF. Will repeat echo at this time. PT/OT and speech evaluated and she has no concerning focal deficits as a result of her symptoms She remains on ASA and apixaban per home regimen. Per neurology we will continue these without changes for now and continue to monitor her clinical progress one more night. As her blood pressure was elevated yesterday, it is possible this may have had something to do with her transient symptoms Currently BP is around goal. Cont current medical management. DO [facility] Hospitalist Updated Medication List Medication Instructions Recorded Confirmed Type aspirin 81 mg tablet,delayed 81 mg PO HS 03/13/21 01/08/23 History release (Marciano Low Dose Aspirin) cholecalciferol (vitamin D3) 25 25 mcg PO DAILY 03/13/21 01/08/23 History mcg (1,000 unit) tablet (Vitamin D3) cyanocobalamin (vitamin B-12) 1,000 mcg PO DAILY 03/13/21 01/08/23 History 1,000 mcg tablet (Vitamin B-12) psyllium seed (sugar) oral powder 1 ea PO DAILY 03/13/21 01/08/23 History (Metamucil (sugar) oral powder) escitalopram oxalate 10 mg tablet 10 mg PO DAILY 04/06/21 01/08/23 History levothyroxine 137 mcg tablet 137 mcg PO DAILYBB 04/06/21 01/08/23 History apixaban 5 mg tablet (Eliquis) 5 mg PO BID #60 tabs 08/05/22 01/08/23 Rx metoprolol succinate 25 mg 25 mg PO BID #60 tabs 08/10/22 01/08/23 Rx tablet,extended release 24 hr (Toprol XL) furosemide 20 mg tablet (Lasix) 40 mg PO DAILY 11/26/22 01/08/23 History gabapentin 100 mg capsule 100 mg PO BID 11/26/22 01/08/23 History hydroxyzine HCl 10 mg tablet 10 mg PO HS 11/26/22 01/08/23 History magnesium oxide 250 mg PO DAILY 11/26/22 01/08/23 History acetaminophen 500 mg tablet 1,000 mg PO Q6H PRN Pain 01/08/23 01/08/23 History (Tylenol Extra Strength) Hospital Stay Data Consultations 01/08/23 20:01 ED Decision to Admit Stat 01/08/23 22:47 Consult Neurology Routine Diagnostic Imagining Performed 01/08/23 18:46 CT angio head w con Stat CT angio neck with con Stat CT head/brain wo con Stat 01/09/23 00:20 MR brain wo con Routine Pending Results Patient Have Any Pending Studies at Discharge: No Discharge Instructions Given to Patient (Per Discharging Provider) Please continue all medications as instructed on medication list below. Please note that Lasix 40mg daily was on your medication list to help treat high blood pressure. It seemed as though you may not consistently be taking this medication. Please review this and all your medications with your primary care physician within one week at discharge followup appointment. It was a pleasure taking care of you! Please call if you have any questions or problems. You can reach a [facility] hospitalist on duty at [facility] 24 hours a day by calling [phone]. Take care of yourself. Kelli Fisher, [facility]
== END 2023-01-10 15:10 | disposition home or self-care (01) | DRG 69 ==
LOC: ED 18:48 → EDINP 21:56 → 2N 22:43

== ENCOUNTER 2023-06-19 14:05 | Inpatient (IN) ==
[2023-06-19] MEDS ORDERED: OPTIRAY 320 500ml IV ONE (14:36)
--- NOTE | 2023-06-19 15:01 | CT Scan Report ---
UNENHANCED CT OF THE BRAIN; CT ANGIOGRAM OF THE BRAIN; CT ANGIOGRAM OF THE NECK CLINICAL HISTORY: Strokelike symptoms. COMPARISON STUDY: CT angiogram of the neck dated 06/05/2023. MRI of the brain dated 06/09/2023. TECHNIQUE: Unenhanced axial CT scan of the brain is performed. Subsequently, following the IV adminis tration of 116 of [address] 320, CT angiogram of the head and neck was performed from the aortic arch t o the vertex. Images are reviewed in the axial, sagittal, and coronal planes. 3-D MIPS images are cre ated and assessed. IV contrast was administered without complication. All measurements were calculate d based on NASCET criteria. A dose lowering technique was utilized adhering to the principles of ALA RA. CT DOSE: 1165.84 mGy.cm FINDINGS: Brain parenchyma: There is age-related involutional change noting [id number] subcortical and pe riventricular microangiopathic disease. There is subtle loss of pruitt-white matter differentiation pravin ng the left insular cortex. No hemorrhage or mass effect is seen. There is no evidence of enhancing m ass lesion on the angiogram phase images. The ventricles, sulci, and cisterns are prominent secondary to involutional change. No extra-axial fluid collection is seen. Thoracic aorta: There is atherosclerotic calcification of the thoracic aorta. Visualized portions of the thoracic aorta are normal in caliber. The aortic arch demonstrates 3-vessel variant anatomy. 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 Right carotid arterial system: The right common carotid artery is widely patent, as are the right int ernal and external carotid arteries. Calcified plaque is noted in the carotid bulb. Left carotid arterial system: The left common carotid artery is widely patent, as are the left development intern al and external carotid arteries. Atherosclerotic calcification is noted in the carotid bulb. Vertebral arteries: The vertebral arteries are widely patent bilaterally noting left-sided dominance. Subclavian arteries: Widely patent bilaterally. Intracranial vasculature: There is atherosclerotic calcification of the cavernous carotid and vertebr al arteries. The internal carotid arteries are patent at the skull base, as are the anterior cerebral arteries bilaterally. The right A1 segment is atretic. There is a single proximal anterior cerebral artery which bifurcates along the tentorium. The right middle cerebral artery is patent. There is com plete occlusion of an M2 branch of the left middle cerebral artery along the sylvian fissure seen on axial image #117. Hyperdense thrombus at this site on unenhanced image #51 of 128. The vertebrobasila r system and posterior cerebral arteries are widely patent. The left vertebral artery is dominant. No aneurysm is seen. Jugular veins: Patent bilaterally. Dural sinuses: Patent. Lung apices: A right pleural effusion is partially imaged. Partially visualized upper lobe lung paren chyma otherwise appears clear. Soft tissues: The visualized pharyngeal soft tissues are normal in appearance noting angiographic pha se technique. The oropharyngeal airway appears widely patent. The thyroid gland is atrophic and heter ogeneous. The salivary glands are normal in appearance. No cervical lymphadenopathy is seen. Skeletal structures: The skeletal structures are osteopenic. The calvarium appears intact. The cervic al spine is maintained noting multilevel spondylosis. No lytic or blastic lesion is seen. Orbits: The bony orbits are intact. Orbital contents are normal as visualized noting bilateral ocular lens implants. Sinuses and mastoids: There is mild mucosal thickening within the maxillary antra. The remaining para nasal sinuses are clear. There is a small left mastoid effusion. The right mastoid air cells are well pneumatized. IMPRESSION: 1. There is occlusion/thrombosis of a large M2 branch of the left middle cerebral artery along the sy lvian fissure. This represents a significant change from the 06/05/2023 examination and is consistent with acute stroke. 2. There is subtle loss of pruitt-white differentiation identified in the left insular cortex, likely r elated to acute ischemia. 3. No hemorrhage or mass effect is seen. 4. The trace subdural hematoma along the right convexity seen on 06/09/2023 has resolved. 5. Otherwise unremarkable CT angiogram of the brain. 6. Unremarkable CT angiogram of the neck. 7. Right pleural effusion. ACT 112: Negative or not required by law. Electronically signed by: Nuno Bennett M.D. 06/19/2023 3:00 PM
[2023-06-19 15:24] LABS: Hematocrit (blood only) 36.5 % (37.0-47.0); Hemoglobin 12.4 g/dl (12.0-16.0); Mean Corpuscular Volume 91.3 fL (80.0-100.0); Mean Platelet Volume 9.2 fL (9.4-12.4); Platelet Count 330 K/uL (130-400); RDW Coefficient of Variation 13.2 % (11.5-14.5); RDW Standard Deviation 44.4 fL (36.4-46.3); White Blood Count 4.33 K/ul (4.8-10.8)
[2023-06-19 15:25] LABS: iSTAT Blood Urea Nitrogen 17 mg/dl (7-18); iSTAT Carbon Dioxide < 5 mmol/L (24-31); iSTAT Chloride 95 mmol/L (101-112); iSTAT Creatinine 0.8 mg/dl (0.6-1.3); iSTAT Glucose 99 mg/dl (70-99); iSTAT Hematocrit 38 % (37-47); iSTAT Hemoglobin 12.9 g/dl (12.0-16.0); iSTAT Ionized Calcium 1.11 mmol/l (1.12-1.32); iSTAT Potassium 3.8 mmol/L (3.3-5.0); iSTAT Sodium 132 mmol/L (135-144)
--- NOTE | 2023-06-19 15:29 | XRay Report ---
XR chest 1V portable HISTORY: Stroke symptoms. COMPARISON: Chest 05/26/2023. FINDINGS: No pneumothorax. There is a small right pleural effusion. There is a right lower lobe airsp mariaelena opacity which is new from the prior study. Left lung is clear. The heart remains enlarged. No yobany dence for pulmonary edema. No acute fractures identified. IMPRESSION: 1. Interval development of a small right pleural effusion and right lower lobe airspace opacities. Th is may represent atelectasis or a pneumonia. 2. Stable cardiomegaly. ACT 112: Negative or not required by law. Electronically signed by: Albert Webb M.D. 06/19/2023 3:28 PM
--- NOTE | 2023-06-19 15:34 | Emergency Department Note ---
Impression & Plan Stroke ED Provider Note NAME: COLUMBA GORE AGE: 87 SEX: F ARRIVES VIA: Ambulance INFORMANT: Patient, ED PROVIDER(S): Lashaun Philip MD CHIEF COMPLAINT: Strokelike symptoms PLAN: Disposition: Admission Condition: Critical Outpatient prescription management: None MEDICAL DECISION MAKING: This is a 87-year-old female presenting for acute right-sided deficits. Previous subdurals x2, candidate for tPA despite her debilitating strokelike symptoms at this time and neuro exam. Will get CT/CTA. CTA reveals M2 occlusion. Likely with patient's debilitating condition, previous rehab status, poor candidate for thrombectomy however will have stroke neurologist discussed risk/benefits. Initially patient was to be full code with aggressive measures including intubation or CPR. However after learning of the M2 occlusion, son is changing his mind and respecting patient's living will. No longer requesting full code, requesting comfort measures instead. This is confirmed after discussion with stroke neurologist. Patient admitted for comfort measures at this time to hospitalist service. Triage Nursing notes reviewed and agree them. Additional history obtained from Prior medical records reviewed Vital Signs: reviewed and remarkable for no significant abnormalities Differential diagnosis: Stroke, hemorrhage ER treatment provided: Comfort measures Diagnostics interpreted by me: ECG: None Cardiac Monitoring: None Laboratory studies: See below Imaging studies: See below Consultation(s): None HPI: 87/F arrives for evaluation of acute right-sided deficits. Patient has had previous subdurals x2 in the past 4 weeks. She presents today for an abrupt change in mental status at around 1 PM, 2 hours prior to arrival. She was able to walk and talk earlier this afternoon. Abruptly at 1 PM she began having changes where she was having difficulty with moving her right upper and lower extremity. She has right facial droop. She began having difficulty with speech. The shelter called EMS and patient presented here. Upon arrival patient is obtunded, unable to answer questions, follows some commands with left-sided weakness and almost flaccid right upper and lower extremity. She has an obvious right facial droop. Son is with her at bedside and states that she has had this extensive history of subdural that began around 3 to 4 weeks ago. She then had an episode where she had similar right-sided/speech difficulties which resolved about 2 weeks ago. He mentions that her living will that states she does not want her up measures however at this time he wants her to be full code. I did advise her that she may need to be intubated soon based on her respiratory status. ROS: Unable to obtain due to AMS PAST MEDICAL HISTORY:See Below PAST SURGICAL HISTORY:See Below FAMILY HISTORY:See Below SOCIAL HISTORY:See Below HOME MEDICATIONS:See Below ALLERGIES:See Below VITALS:See Below PHYSICAL EXAMINATION: General: Obtunded, respiratory difficulty Head: Normocephalic and atraumatic Eyes: Unable to track, equal and reactive pupils bilaterally Ear, nose, throat: Normal external exam Neck: Supple Respiratory: Right-sided crackles, dyspnea Cardiovascular: RRR without murmur appreciated GI: soft, nontender, no guarding or rebound Extremities: pulses intact with good cap refills, Neuro: Patient is minimally alert, reactive to painful stimuli, flaccid right upper and lower extremity, right facial droop, left upper and lower extremity weakness Skin: Warm, dry, and intact ED COURSE: Times/Reassessments: Multiple reassessments reassessment every 5 to 10 minutes with family and patient. Initially patient was to be full code. Upon second assessment son is second-guessing his decision. Upon third reassessment patient is to be DNR. Upon fourth reassessment after CT results show large M2 occlusion, they will discuss with stroke neurology for possible thrombectomy. Upon for further assessment, patient continues to be obtunded, family is now comfortable with comfort measures at this time. They believe based on patient's current status that it would be against her best interest/her living well, to pursue her work measures such as thrombectomy. This discussion was aided by stroke neurologist, Dr. Baer. Procedures: None Critical Care Note: I have personally spent 45 minutes of critical care time in the direct management of this patient. This includes bedside care, interpretation of diagnostic studies, and testing, discussion with consultants, patient, and family members, and other required patient management activities. This 45 minutes is in excess of all separately billable procedures. Lashaun Philip MD Past Med/Surg History Medical History Atrial fibrillation with rapid ventricular response Carotid artery stenosis, asymptomatic Depression Diastolic dysfunction Hyperlipidemia Hypertension Hypothyroidism (11/15/12) Nonrheumatic mitral valve regurgitation Pericardial effusion Persistent left SVC (superior vena cava) Pleural effusion Pleural effusion on right Pneumonia Rib fracture Stroke-like symptoms Subdural hematoma Tachycardia-bradycardia syndrome Thoracic aortic aneurysm Thrombophlebitis History of extensive, requiring vein ablation, s/p previous anticoagulation treatment Surgical History History of cataract surgery History of hysterectomy History of repair of rotator cuff Family History Father , age 52 of an [place] Hypertension Stroke Myocardial infarction Mother , age 87 with dementia Hypertension Dementia Social History Smoking Status: Never smoker Second Hand Exposure: No; Do You Dip or Chew Tobacco: No; Hx Alcohol Use: No Hx Substance Use: No Preferred Language: Amharic Communication Ability: Effective School Lunch Monitor Required: No Beliefs That Will Affect Care: None marital status: Current Living Situation: Spouse current occupational status: retired 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 [employer] How many Children do You have: 2 Other Information That Helps Us Care for You: No Feels Safe at Home: Yes Safety Concerns: Feels Safe At This Time Assistive Devices: Walker Allergies Allergies Allergy/AdvReac Type Severity Reaction Status Date / Time oxycodone Allergy Unknown UKN Verified 01/08/23 20:39 simvastatin Allergy Unknown UKN Verified 01/08/23 20:39 rosuvastatin AdvReac Unknown upset Verified 01/08/23 20:39 stomach Home Meds Home Medications Medication Instructions Recorded Confirmed cholecalciferol (vitamin D3) 25 25 mcg PO DAILY 03/13/21 06/19/23 mcg (1,000 unit) tablet (Vitamin D3) cyanocobalamin (vitamin B-12) 1,000 mcg PO DAILY 03/13/21 06/19/23 1,000 mcg tablet (Vitamin B-12) psyllium seed (sugar) oral powder 1 ea PO DAILY 03/13/21 06/19/23 (Metamucil (sugar) oral powder) escitalopram oxalate 10 mg tablet 10 mg PO DAILY 04/06/21 06/19/23 levothyroxine 137 mcg tablet 137 mcg PO DAILYBB 04/06/21 06/19/23 gabapentin 100 mg capsule 100 mg PO BID 11/26/22 06/19/23 acetaminophen 500 mg tablet 1,000 mg PO Q6H PRN Pain 01/08/23 06/19/23 (Tylenol Extra Strength) ipratropium bromide 21 mcg (0.03 2 spray intranasal TID PRN rhinitis 06/05/23 06/19/23 %) nasal spray docusate sodium 100 mg capsule 100 mg PO BID 06/19/23 06/19/23 magnesium oxide 400 mg PO DAILY 06/19/23 06/19/23 Previous Rx's Medication Instructions Recorded apixaban 5 mg tablet (Eliquis) 5 mg PO BID #60 tabs 08/05/22 metoprolol succinate 25 mg 25 mg PO BID #60 tabs 08/10/22 tablet,extended release 24 hr (Toprol XL) nifedipine 30 mg tablet,extended 30 mg PO QAM #30 tabs 06/12/23 release 24 hr (Procardia XL) polymyxin B sulfate 10,000 1 drp ophthalmic (eye) QID #10 mL 06/12/23 unit-trimethoprim 1 mg/mL eye drops (Polytrim) Results & Data (ED) Vital Signs Vital Signs - 24 hr 06/19/23 14:05 06/19/23 14:43 06/19/23 15:00 Temperature 36.5 C Temperature Source Oral Pulse Rate 80 91 H 89 Pulse Rate from SpO2 Sensor 91 H Respiratory Rate 23 20 Respiratory Depth Normal Blood Pressure 114/78 125/69 Blood Pressure Mean 90 87 Pulse Oximetry 92 94 Oxygen Delivery Method Room Air Sepsis Recent Fever Within 48 Hours No Sepsis New/Unexplained Change in Mental Status Yes Sepsis Action Taken by Nursing Previously Notified 06/19/23 15:30 06/19/23 16:00 06/19/23 16:30 Temperature Temperature Source Pulse Rate 93 H 83 90 Pulse Rate from SpO2 Sensor 88 85 85 Respiratory Rate 23 21 21 Respiratory Depth Blood Pressure 116/70 115/61 121/71 Blood Pressure Mean 85 79 87 Pulse Oximetry 93 95 95 Oxygen Delivery Method Sepsis Recent Fever Within 48 Hours Sepsis New/Unexplained Change in Mental Status Sepsis Action Taken by Nursing 06/19/23 17:00 Temperature Temperature Source Pulse Rate 88 Pulse Rate from SpO2 Sensor 84 Respiratory Rate 24 Respiratory Depth Blood Pressure 123/70 Blood Pressure Mean 87 Pulse Oximetry 94 Oxygen Delivery Method Sepsis Recent Fever Within 48 Hours Sepsis New/Unexplained Change in Mental Status Sepsis Action Taken by Nursing Laboratory Data 06/19/23 15:04 06/19/23 15:04 Lab Results 06/19/23 06/19/23 06/19/23 Range/Units 15:04 15:04 15:04 WBC 4.33 L (4.8-10.8) K/ul RBC 4.00 L (4.20-5.40) M/uL Hgb 12.4 (12.0-16.0) g/dl POC Hgb (12.0-16.0) g/dl Hct 36.5 L (37.0-47.0) % POC Hct (37-47) % MCV 91.3 (80.0-100.0) fL MCH 31.0 (25.0-34.0) pg MCHC 34.0 (32.0-36.0) g/dL RDW Std Deviation 44.4 (36.4-46.3) fL RDW Coeff of Valdo 13.2 (11.5-14.5) % Plt Count 330 (130-400) K/uL MPV 9.2 L (9.4-12.4) fL PT 11.9 (9.0-12.0) Seconds INR 1.1 (0.9-1.1) APTT 31.7 H (21.0-31.0) Seconds PTT Ratio 1.1 POC Sodium (135-144) mmol/L Sodium 131 L (136-145) mmol/L POC Potassium (3.3-5.0) mmol/L Potassium 3.9 (3.5-5.1) mmol/L POC Chloride (101-112) mmol/L Chloride 96 L (98-107) mmol/L Carbon Dioxide 28 (21-32) mmol/L POC Total CO2 (24-31) mmol/L Anion Gap 7 (3-11) POC Anion Gap POC BUN (7-18) mg/dl BUN 19 (6-23) mg/dl Creatinine 0.83 (0.6-1.2) mg/dl POC Creatinine (0.6-1.3) mg/dl Est Cr Clr Drug Dosing 44.1 ml/min Est GFR ( Amer) 74.0 ml/min Est GFR (Non-Af Amer) 63.9 ml/min BUN/Creatinine Ratio 22.9 H (10-20) Glucose 102 H (70-99(Fasting)) mg/dl POC Glucose (other) (70-99) mg/dl Calcium 8.5 L (8.6-10.3) mg/dl POC Ioniz Calcium Mark (1.12-1.32) mmol/l Magnesium 1.9 (1.7-2.4) mg/dl Total Bilirubin 0.3 (0.2-1.0) mg/dl AST 31 (13-39) U/L ALT 32 (7-52) U/L Alkaline Phosphatase 70 (34-104) U/L Total Protein 6.2 (6.0-8.3) gm/dl Albumin 3.2 L (3.4-5.0) gm/dl Globulin 3.0 (2.5-4.0) gm/dl Albumin/Globulin Ratio 1.1 (0.9-2) 06/19/23 Range/Units 15:10 WBC (4.8-10.8) K/ul RBC (4.20-5.40) M/uL Hgb (12.0-16.0) g/dl POC Hgb 12.9 (12.0-16.0) g/dl Hct (37.0-47.0) % POC Hct 38 (37-47) % MCV (80.0-100.0) fL MCH (25.0-34.0) pg MCHC (32.0-36.0) g/dL RDW Std Deviation (36.4-46.3) fL RDW Coeff of Valdo (11.5-14.5) % Plt Count (130-400) K/uL MPV (9.4-12.4) fL PT (9.0-12.0) Seconds INR (0.9-1.1) APTT (21.0-31.0) Seconds PTT Ratio POC Sodium 132 L (135-144) mmol/L Sodium (136-145) mmol/L POC Potassium 3.8 (3.3-5.0) mmol/L Potassium (3.5-5.1) mmol/L POC Chloride 95 L (101-112) mmol/L Chloride (98-107) mmol/L Carbon Dioxide (21-32) mmol/L POC Total CO2 < 5 L* (24-31) mmol/L Anion Gap (3-11) POC Anion Gap TNP POC BUN 17 (7-18) mg/dl BUN (6-23) mg/dl Creatinine (0.6-1.2) mg/dl POC Creatinine 0.8 (0.6-1.3) mg/dl Est Cr Clr Drug Dosing ml/min Est GFR ( Amer) ml/min Est GFR (Non-Af Amer) ml/min BUN/Creatinine Ratio (10-20) Glucose (70-99(Fasting)) mg/dl POC Glucose (other) 99 (70-99) mg/dl Calcium (8.6-10.3) mg/dl POC Ioniz Calcium Mark 1.11 L (1.12-1.32) mmol/l Magnesium (1.7-2.4) mg/dl Total Bilirubin (0.2-1.0) mg/dl AST (13-39) U/L ALT (7-52) U/L Alkaline Phosphatase (34-104) U/L Total Protein (6.0-8.3) gm/dl Albumin (3.4-5.0) gm/dl Globulin (2.5-4.0) gm/dl Albumin/Globulin Ratio (0.9-2) Administered Medications Acetaminophen (Ofirmev) 1,000 mg in 100 mls @ 400 mls/hr IV Q8H PRN PRN Reason: pain Stop: 06/22/23 21:31 Last Infusion: 06/19/23 22:30 Dose: 0 mls/hr Documented By: Admin: 06/19/23 22:11 Dose: 400 mls/hr Documented By: BHAVIK Lorazepam (Lorazepam 2 Mg/1 Ml Vial) 0.5 mg IV Q4H PRN PRN Reason: Anxiety/Agitation Stop: 07/20/23 01:40 Last Admin: 06/20/23 02:20 Dose: 0.5 mg Documented By: DANILO Morphine Sulfate (Morphine Sulfate 4 Mg/Ml 1 Ml Carp\Vial) 3 mg IV Q4H PRN PRN Reason: Pain Stop: 07/04/23 06:54 Last Admin: 06/20/23 16:22 Dose: 3 mg Documented By: Admin: 06/20/23 07:41 Dose: 3 mg Documented By: VGH Polymyxin/Trimethoprim Sulfate (Trimethoprim/Polymyxin B) 1 drops OP QID SHILOH Stop: 07/19/23 21:44 Last Admin: 06/20/23 22:47 Dose: 1 drops Documented By: Admin: 06/20/23 18:30 Dose: 1 drops Documented By: Admin: 06/20/23 13:42 Dose: 1 drops Documented By: Admin: 06/20/23 07:43 Dose: 1 drops Documented By: Admin: 06/19/23 22:35 Dose: 1 drops Documented By: ED Discontinued Medications Ioversol (Optiray 320 500ml) 116 ml IV ONCE ONE Stop: 06/19/23 14:37 Last Admin: 06/19/23 14:36 Dose: 116 ml Documented By: EDK Imaging Data Radiologist's Impression: Chest X-Ray 06/19/23 14:23 XR chest 1V portable HISTORY: Stroke symptoms. COMPARISON: Chest 05/26/2023. FINDINGS: No pneumothorax. There is a small right pleural effusion. There is a right lower lobe airspace opacity which is new from the prior study. Left lung is clear. The heart remains enlarged. No evidence for pulmonary edema. No acute fractures identified. IMPRESSION: 1. Interval development of a small right pleural effusion and right lower lobe airspace opacities. This may represent atelectasis or a pneumonia. 2. Stable cardiomegaly. ACT 112: Negative or not required by law. Electronically signed by: Albert Webb M.D. 06/19/2023 3:[address] 06/19/23 14:[address] OF THE BRAIN; CT ANGIOGRAM OF THE BRAIN; CT ANGIOGRAM OF THE NECK CLINICAL HISTORY: Strokelike symptoms. COMPARISON STUDY: CT angiogram of the neck dated 06/05/2023. MRI of the brain dated 06/09/2023. TECHNIQUE: Unenhanced axial CT scan of the brain is performed. Subsequently, following the IV administration of 116 of Optiray 320, CT angiogram of the head and neck was performed from the aortic arch to the vertex. Images are reviewed in the axial, sagittal, and coronal planes. 3-D MIPS images are created and assessed. IV contrast was administered without complication. All measurements were calculated based on NASCET criteria. A dose lowering technique was utilized adhering to the principles of ALARA. CT DOSE: 1165.84 mGy.cm FINDINGS: Brain parenchyma: There is age-related involutional change noting mild-to- moderate subcortical and periventricular microangiopathic disease. There is subtle loss of pruitt-white matter differentiation along the left insular cortex. No hemorrhage or mass effect is seen. There is no evidence of enhancing mass lesion on the angiogram phase images. The ventricles, sulci, and cisterns are prominent secondary to involutional change. No extra-axial fluid collection is seen. Thoracic aorta: There is atherosclerotic calcification of the thoracic aorta. Visualized portions of the thoracic aorta are normal in caliber. The aortic arch demonstrates 3-vessel variant anatomy. 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 Right carotid arterial system: The right common carotid artery is widely patent, as are the right internal and external carotid arteries. Calcified plaque is noted in the carotid bulb. Left carotid arterial system: The left common carotid artery is widely patent, as are the left internal and external carotid arteries. Atherosclerotic calcification is noted in the carotid bulb. Vertebral arteries: The vertebral arteries are widely patent bilaterally noting left-sided dominance. Subclavian arteries: Widely patent bilaterally. Intracranial vasculature: There is atherosclerotic calcification of the cavernous carotid and vertebral arteries. The internal carotid arteries are patent at the skull base, as are the anterior cerebral arteries bilaterally. The right A1 segment is atretic. There is a single proximal anterior cerebral artery which bifurcates along the tentorium. The right middle cerebral artery is patent. There is complete occlusion of an M2 branch of the left middle cerebral artery along the sylvian fissure seen on axial image #117. Hyperdense thrombus at this site on unenhanced image #51 of 128. The vertebrobasilar system and posterior cerebral arteries are widely patent. The left vertebral artery is dominant. No aneurysm is seen. Jugular veins: Patent bilaterally. Dural sinuses: Patent. Lung apices: A right pleural effusion is partially imaged. Partially visualized upper lobe lung parenchyma otherwise appears clear. Soft tissues: The visualized pharyngeal soft tissues are normal in appearance noting angiographic phase technique. The oropharyngeal airway appears widely patent. The thyroid gland is atrophic and heterogeneous. The salivary glands are normal in appearance. No cervical lymphadenopathy is seen. Skeletal structures: The skeletal structures are osteopenic. The calvarium appears intact. The cervical spine is maintained noting multilevel spondylosis. No lytic or blastic lesion is seen. Orbits: The bony orbits are intact. Orbital contents are normal as visualized noting bilateral ocular lens implants. Sinuses and mastoids: There is mild mucosal thickening within the maxillary antra. The remaining paranasal sinuses are clear. There is a small left mastoid effusion. The right mastoid air cells are well pneumatized. IMPRESSION: 1. 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 This represents a significant change from the 06/05/2023 examination and is consistent with acute stroke. 2. There is subtle loss of pruitt-white differentiation identified in the left insular cortex, likely related to acute ischemia. 3. No hemorrhage or mass effect is seen. 4. The trace subdural hematoma along the right convexity seen on 06/09/2023 has resolved. 5. Otherwise unremarkable CT angiogram of the brain. 6. Unremarkable CT angiogram of the neck. 7. Right pleural effusion. ACT 112: Negative or not required by law. Electronically signed by: Nuno Bennett M.D. 06/19/2023 3:00 PM Head CTA 06/19/23 14:[address] OF THE BRAIN; CT ANGIOGRAM OF THE BRAIN; CT ANGIOGRAM OF THE NECK CLINICAL HISTORY: Strokelike symptoms. COMPARISON STUDY: CT angiogram of the neck dated 06/05/2023. MRI of the brain dated 06/09/2023. TECHNIQUE: Unenhanced axial CT scan of the brain is performed. Subsequently, following the IV administration of 116 of Optiray 320, CT angiogram of the head and neck was performed from the aortic arch to the vertex. Images are reviewed in the axial, sagittal, and coronal planes. 3-D MIPS images are created and assessed. IV contrast was administered without complication. All measurements were calculated based on NASCET criteria. A dose lowering technique was utilized adhering to the principles of ALARA. CT DOSE: 1165.84 mGy.cm FINDINGS: Brain parenchyma: There is age-related involutional change noting [id number] subcortical and periventricular microangiopathic disease. There is subtle loss of pruitt-white matter differentiation along the left insular cortex. No hemorrhage or mass effect is seen. There is no evidence of enhancing mass lesion on the angiogram phase images. The ventricles, sulci, and cisterns are prominent secondary to involutional change. No extra-axial fluid collection is seen. Thoracic aorta: There is atherosclerotic calcification of the thoracic aorta. Visualized portions of the thoracic aorta are normal in caliber. The aortic arch demonstrates 3-vessel variant anatomy. 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 Right carotid arterial system: The right common carotid artery is widely patent, as are the right internal and external carotid arteries. Calcified plaque is noted in the carotid bulb. Left carotid arterial system: The left common carotid artery is widely patent, as are the left internal and external carotid arteries. Atherosclerotic calcification is noted in the carotid bulb. Vertebral arteries: The vertebral arteries are widely patent bilaterally noting left-sided dominance. Subclavian arteries: Widely patent bilaterally. Intracranial vasculature: There is atherosclerotic calcification of the cave rnous carotid and vertebral arteries. The internal carotid arteries are patent at the skull base, as are the anterior cerebral arteries bilaterally. The right A1 segment is atretic. There is a single proximal anterior cerebral artery which bifurcates along the tentorium. The right middle cerebral artery is patent. There is complete occlusion of an M2 branch of the left middle cerebral artery along the sylvian fissure seen on axial image #117. Hyperdense thrombus at this site on unenhanced image #51 of 128. The vertebrobasilar system and posterior cerebral arteries are widely patent. The left vertebral artery is dominant. No aneurysm is seen. Jugular veins: Patent bilaterally. Dural sinuses: Patent. Lung apices: A right pleural effusion is partially imaged. Partially visualized upper lobe lung parenchyma otherwise appears clear. Soft tissues: The visualized pharyngeal soft tissues are normal in appearance noting angiographic phase technique. The oropharyngeal airway appears widely p atent. The thyroid gland is atrophic and heterogeneous. The salivary glands are normal in appearance. No cervical lymphadenopathy is seen. Skeletal structures: The skeletal structures are osteopenic. The calvarium appears intact. The cervical spine is maintained noting multilevel spondylosis. No lytic or blastic lesion is seen. Orbits: The bony orbits are intact. Orbital contents are normal as visualized noting bilateral ocular lens implants. Sinuses and mastoids: There is mild mucosal thickening within the maxillary antra. The remaining paranasal sinuses are clear. There is a small left mastoid effusion. The right mastoid air cells are well pneumatized. IMPRESSION: 1. 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 This represents a significant change from the 06/05/2023 examination and is consistent with acute stroke. 2. There is subtle loss of pruitt-white differentiation identified in the left insular cortex, likely related to acute ischemia. 3. No hemorrhage or mass effect is seen. 4. The trace subdural hematoma along the right convexity seen on 06/09/2023 has resolved. 5. Otherwise unremarkable CT angiogram of the brain. 6. Unremarkable CT angiogram of the neck. 7. Right pleural effusion. ACT 112: Negative or not required by law. Electronically signed by: Nuno Bennett M.D. 06/19/2023 3:00 PM Neck CTA 06/19/23 14:[address] OF THE BRAIN; CT ANGIOGRAM OF THE BRAIN; CT ANGIOGRAM OF THE NECK CLINICAL HISTORY: Strokelike symptoms. COMPARISON STUDY: CT angiogram of the neck dated 06/05/2023. MRI of the brain dated 06/09/2023. TECHNIQUE: Unenhanced axial CT scan of the brain is performed. Subsequently, following the IV administration of 116 of Optiray 320, CT angiogram of the head and neck was performed from the aortic arch to the vertex. Images are reviewed in the axial, sagittal, and coronal planes. 3-D MIPS images are created and assessed. IV contrast was administered without complication. All measurements were calculated based on NASCET criteria. A dose lowering technique was utilized adhering to the principles of ALARA. CT DOSE: 1165.84 mGy.cm FINDINGS: Brain parenchyma: There is age-related involutional change noting [id number] subcortical and periventricular microangiopathic disease. There is subtle loss of pruitt-white matter differentiation along the left insular cortex. No hemorrhage or mass effect is seen. There is no evidence of enhancing mass lesion on the angiogram phase images. The ventricles, sulci, and cisterns are prominent secondary to involutional change. No extra-axial fluid collection is seen. Thoracic aorta: There is atherosclerotic calcification of the thoracic aorta. Visualized portions of the thoracic aorta are normal in caliber. The aortic arch demonstrates 3-vessel variant anatomy. 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 Right carotid arterial system: The right common carotid artery is widely patent, as are the right internal and external carotid arteries. Calcified plaque is noted in the carotid bulb. Left carotid arterial system: The left common carotid artery is widely patent, as are the left internal and external carotid arteries. Atherosclerotic calcification is noted in the carotid bulb. Vertebral arteries: The vertebral arteries are widely patent bilaterally noting left-sided dominance. Subclavian arteries: Widely patent bilaterally. Intracranial vasculature: There is atherosclerotic calcification of the cavernous carotid and vertebral arteries. The internal carotid arteries are patent at the skull base, as are the anterior cerebral arteries bilaterally. The right A1 segment is atretic. There is a single proximal anterior cerebral artery which bifurcates along the tentorium. The right middle cerebral artery is patent. There is complete occlusion of an M2 branch of the left middle cerebral artery along the sylvian fissure seen on axial image #117. Hyperdense thrombus at this site on unenhanced image #51 of 128. The vertebrobasilar system and posterior cerebral arteries are widely patent. The left vertebral artery is dominant. No aneurysm is seen. Jugular veins: Patent bilaterally. Dural sinuses: Patent. Lung apices: A right pleural effusion is partially imaged. Partially visualized upper lobe lung parenchyma otherwise appears clear. Soft tissues: The visualized pharyngeal soft tissues are normal in appearance noting angiographic phase technique. The oropharyngeal airway appears widely patent. The thyroid gland is atrophic and heterogeneous. The salivary glands are normal in appearance. No cervical lymphadenopathy is seen. Skeletal structures: The skeletal structures are osteopenic. The calvarium appears intact. The cervical spine is maintained noting multilevel spondylosis. No lytic or blastic lesion is seen. Orbits: The bony orbits are intact. Orbital contents are normal as visualized noting bilateral ocular lens implants. Sinuses and mastoids: There is mild mucosal thickening within the maxillary antra. The remaining paranasal sinuses are clear. There is a small left mastoid effusion. The right mastoid air cells are well pneumatized. IMPRESSION: 1. 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 This represents a significant change from the 06/05/2023 examination and is consistent with acute stroke. 2. There is subtle loss of pruitt-white differentiation identified in the left insular cortex, likely related to acute ischemia. 3. No hemorrhage or mass effect is seen. 4. The trace subdural hematoma along the right convexity seen on 06/09/2023 has resolved. 5. Otherwise unremarkable CT angiogram of the brain. 6. Unremarkable CT angiogram of the neck. 7. Right pleural effusion. ACT 112: Negative or not required by law. Electronically signed by: Nuno Bennett M.D. 06/19/2023 3:00 PM Discharge Plan Visit Data Chief Complaint: Altered Mental Status Stated Complaint: MENTAL STATUS CHANGE ED Provider: Lashaun Philip Discharge Problem: Stroke Patient Disposition: Admitted As Inpatient Discharge Instructions Interventions: ED Discharge Assessment Last Done: 06/19/23 21:01
[2023-06-19 15:39] LABS: Albumin Globulin Ratio 1.1 (0.9-2); Albumin Level 3.2 gm/dl (3.4-5.0); BUN Creatinine Ratio 22.9 (10-20); Bilirubin,Total 0.3 mg/dl (0.2-1.0); Calcium 8.5 mg/dl (8.6-10.3); Creatinine Clr Calc Pharmacy 44.1 ml/min; Est GFR (Non-African American) 63.9 ml/min; Magnesium 1.9 mg/dl (1.7-2.4); Potassium 3.9 mmol/L (3.5-5.1); Total Protein 6.2 gm/dl (6.0-8.3)
[2023-06-19 15:58] LABS: INR 1.1 (0.9-1.1); Partial Thromboplastin Ratio 1.1; Partial Thromboplastin Time 31.7 Seconds (21.0-31.0); Prothrombin Time 11.9 Seconds (9.0-12.0)
--- NOTE | 2023-06-19 16:54 | History & Physical Report ---
Date of Service June 19, 2023 Assessment & Plan (1) Thrombosis of middle cerebral artery: (2) CVA (cerebral vascular accident): (3) Expressive aphasia: (4) Paroxysmal atrial fibrillation: Plan: Patient is 87 y/o F with PMH recent SDH, atrial fibrillation, expressive aphasia, HTN, hypothyroidism, depression presented to ER from rehab for right sided weakness, aphasia today. In ER was found to have occlusion/thrombosis of a large M2 branch of the left middle cerebral artery along the sylvian fissure on CT head. Tele neurology stroke was consulted. Thrombectomy was considered and after extensive conversation with family decision was made to make patient DNR/DNI and pursue comfort care measures IV Tylenol prn Comfort care measures Palliative care consult Will hold home oral meds currently, reassess tomorrow if able to take po DNR/DNI as per discussion with pt's , son Pt was seen and care coordinated with Dr Morrell. See addendum History of Present Illness Chief Complaint: Right sided weakness Primary Care Provider: [facility] Patient is 87 y/o F with PMH recent SDH, atrial fibrillation, expressive aphasia, HTN, hypothyroidism, depression presented to ER from rehab for right sided weakness, aphasia today. History obtained from inpatient chart review, family and ER staff secondary to patients current status. 05/26/2023 fall and SDH and was transferred to [facility]. Did not have change in SDH on serial CTs of the head at that time and apixaban, Plavix, aspirin were held and was discharged on 05/28/2023. She had completed 1 week of Keppra prophylaxis. Had repeat hospitalization 06/05/2023-06/12/23 at [facility] forhallucinations, expressive aphasia, left facial droop with mild associated dysarthria and was found to have SDH. During admission repeat CT head did not show any change in small subacute right subdural hematoma. She was treated for UTI and discharged to rehab with additional antibiotics and started on nifedipine for additional BP control. Family state patient was doing well and was participating in physical therapy. Today had sudden onset of right sided weakness and aphasia and was transferred to ER. In ER was found to have occlusion/thrombosis of a large M2 branch of the left middle cerebral artery along the sylvian fissure on CT head. Tele neurology stroke was consulted. Thrombectomy was considered and after extensive conversation with family decision was made to make patient DNR/DNI and pursue comfort care measures. Family report patient had covid-19 exposure and tested positive several days ago. Allergies Allergy/AdvReac Type Severity Reaction Status Date / Time oxycodone Allergy Unknown UKN Verified 01/08/23 20:39 simvastatin Allergy Unknown UKN Verified 01/08/23 20:39 rosuvastatin AdvReac Unknown upset Verified 01/08/23 20:39 stomach Home Medications Medication Instructions Recorded Confirmed Type cholecalciferol (vitamin D3) 25 25 mcg PO DAILY 03/13/21 06/19/23 History mcg (1,000 unit) tablet (Vitamin D3) cyanocobalamin (vitamin B-12) 1,000 mcg PO DAILY 03/13/21 06/19/23 History 1,000 mcg tablet (Vitamin B-12) psyllium seed (sugar) oral powder 1 ea PO DAILY 03/13/21 06/19/23 History (Metamucil (sugar) oral powder) escitalopram oxalate 10 mg tablet 10 mg PO DAILY 04/06/21 06/19/23 History levothyroxine 137 mcg tablet 137 mcg PO DAILYBB 04/06/21 06/19/23 History apixaban 5 mg tablet (Eliquis) 5 mg PO BID #60 tabs 08/05/22 06/19/23 Rx metoprolol succinate 25 mg 25 mg PO BID #60 tabs 08/10/22 06/19/23 Rx tablet,extended release 24 hr (Toprol XL) gabapentin 100 mg capsule 100 mg PO BID 11/26/22 06/19/23 History acetaminophen 500 mg tablet 1,000 mg PO Q6H PRN Pain 01/08/23 06/19/23 History (Tylenol Extra Strength) ipratropium bromide 21 mcg (0.03 2 spray intranasal TID PRN rhinitis 06/05/23 06/19/23 History %) nasal spray nifedipine 30 mg tablet,extended 30 mg PO QAM #30 tabs 06/12/23 06/19/23 Rx release 24 hr (Procardia XL) polymyxin B sulfate 10,000 1 drp ophthalmic (eye) QID #10 mL 06/12/23 06/19/23 Rx unit-trimethoprim 1 mg/mL eye drops (Polytrim) docusate sodium 100 mg capsule 100 mg PO BID 06/19/23 06/19/23 History magnesium oxide 400 mg PO DAILY 06/19/23 06/19/23 History Past Med/Surg History Medical History Atrial fibrillation with rapid ventricular response Carotid artery stenosis, asymptomatic Depression Diastolic dysfunction Hyperlipidemia Hypertension Hypothyroidism (11/15/12) Nonrheumatic mitral valve regurgitation Pericardial effusion Persistent left SVC (superior vena cava) Pleural effusion Pleural effusion on right Pneumonia Rib fracture Stroke-like symptoms Subdural hematoma Tachycardia-bradycardia syndrome Thoracic aortic aneurysm Thrombophlebitis History of extensive, requiring vein ablation, s/p previous anticoagulation treatment Surgical History History of cataract surgery History of hysterectomy History of repair of rotator cuff Family History Father , age 52 of an [place] Hypertension Stroke Myocardial infarction Mother , age 87 with dementia Hypertension Dementia Social History Smoking Status: Unknown if ever smoked Second Hand Exposure: No; Do You Dip or Chew Tobacco: No; Hx Alcohol Use: Yes Alcohol type: wine Alcohol Intake Frequency: Monthly or Less Hx Substance Use: No Preferred Language: Swedish Communication Ability: Effective Gum Maker Required: No Beliefs That Will Affect Care: None marital status: Current Living Situation: Spouse current occupational status: retired 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 [employer] How many Children do You have: 2 Feels Safe at Home: Yes Assistive Devices: Walker Review of Systems Review of Systems: Unobtainable due to cognitive status Physical Exam Physical Exam: PE per Dr Morrell Results & Data Results & Data Vital Signs (Past 12 Hours) Vital Signs Temp Pulse Resp BP Pulse Ox O2 Del Method 06/19/23 14:43 91 H 06/19/23 14:05 36.5 C 80 23 114/78 92 Room Air Laboratory Results Short CBC 06/19/23 Range/Units 15:04 WBC 4.33 L (4.8-10.8) K/ul Hgb 12.4 (12.0-16.0) g/dl Hct 36.5 L (37.0-47.0) % Plt Count 330 (130-400) K/uL BMP 06/19/23 15:04 Sodium 131 L Potassium 3.9 Chloride 96 L Carbon Dioxide 28 BUN 19 Creatinine 0.83 Glucose 102 H Calcium 8.5 L Liver Function 06/19/23 Range/Units 15:04 Total Bilirubin 0.3 (0.2-1.0) mg/dl AST 31 (13-39) U/L ALT 32 (7-52) U/L Alkaline Phosphatase 70 (34-104) U/L Albumin 3.2 L (3.4-5.0) gm/dl Diagnostic Findings Chest X-Ray 06/19/23 14:23 XR chest 1V portable HISTORY: Stroke symptoms. COMPARISON: Chest 05/26/2023. FINDINGS: No pneumothorax. There is a small right pleural effusion. There is a right lower lobe airspace opacity which is new from the prior study. Left lung is clear. The heart remains enlarged. No evidence for pulmonary edema. No acute fractures identified. IMPRESSION: 1. Interval development of a small right pleural effusion and right lower lobe airspace opacities. This may represent atelectasis or a pneumonia. 2. Stable cardiomegaly. ACT 112: Negative or not required by law. Electronically signed by: Albert Webb M.D. 06/19/2023 3:[address] 06/19/23 14:[address] OF THE BRAIN; CT ANGIOGRAM OF THE BRAIN; CT ANGIOGRAM OF THE NECK CLINICAL HISTORY: Strokelike symptoms. COMPARISON STUDY: CT angiogram of the neck dated 06/05/2023. MRI of the brain dated 06/09/2023. TECHNIQUE: Unenhanced axial CT scan of the brain is performed. Subsequently, following the IV administration of 116 of Optiray 320, CT angiogram of the head and neck was performed from the aortic arch to the vertex. Images are reviewed in the axial, sagittal, and coronal planes. 3-D MIPS images are created and assessed. IV contrast was administered without complication. All measurements were calculated based on NASCET criteria. A dose lowering technique was utilized adhering to the principles of ALARA. CT DOSE: 1165.84 mGy.cm FINDINGS: Brain parenchyma: There is age-related involutional change noting [id number] subcortical and periventricular microangiopathic disease. There is subtle loss of pruitt-white matter differentiation along the left insular cortex. No hemorrhage or mass effect is seen. There is no evidence of enhancing mass lesion on the angiogram phase images. The ventricles, sulci, and cisterns are prominent secondary to involutional change. No extra-axial fluid collection is seen. Thoracic aorta: There is atherosclerotic calcification of the thoracic aorta. Visualized portions of the thoracic aorta are normal in caliber. The aortic arch demonstrates 3-vessel variant anatomy. 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 Right carotid arterial system: The right common carotid artery is widely patent, as are the right internal and external carotid arteries. Calcified plaque is noted in the carotid bulb. Left carotid arterial system: The left common carotid artery is widely patent, as are the left internal and external carotid arteries. Atherosclerotic calcification is noted in the carotid bulb. Vertebral arteries: The vertebral arteries are widely patent bilaterally noting left-sided dominance. Subclavian arteries: Widely patent bilaterally. Intracranial vasculature: There is atherosclerotic calcification of the cavernous carotid and vertebral arteries. The internal carotid arteries are patent at the skull base, as are the anterior cerebral arteries bilaterally. The right A1 segment is atretic. There is a single proximal anterior cerebral artery which bifurcates along the tentorium. The right middle cerebral artery is patent. There is complete occlusion of an M2 branch of the left middle cerebral artery along the sylvian fissure seen on axial image #117. Hyperdense thrombus at this site on unenhanced image #51 of 128. The vertebrobasilar system and posterior cerebral arteries are widely patent. The left vertebral artery is dominant. No aneurysm is seen. Jugular veins: Patent bilaterally. Dural sinuses: Patent. Lung apices: A right pleural effusion is partially imaged. Partially visualized upper lobe lung parenchyma otherwise appears clear. Soft tissues: The visualized pharyngeal soft tissues are normal in appearance noting angiographic phase technique. The oropharyngeal airway appears widely patent. The thyroid gland is atrophic and heterogeneous. The salivary glands are normal in appearance. No cervical lymphadenopathy is seen. Skeletal structures: The skeletal structures are osteopenic. The calvarium appears intact. The cervical spine is maintained noting multilevel spondylosis. No lytic or blastic lesion is seen. Orbits: The bony orbits are intact. Orbital contents are normal as visualized noting bilateral ocular lens implants. Sinuses and mastoids: There is mild mucosal thickening within the maxillary antra. The remaining paranasal sinuses are clear. There is a small left mastoid effusion. The right mastoid air cells are well pneumatized. IMPRESSION: 1. 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 This represents a significant change from the 06/05/2023 examination and is consistent with acute stroke. 2. There is subtle loss of pruitt-white differentiation identified in the left insular cortex, likely related to acute ischemia. 3. No hemorrhage or mass effect is seen. 4. The trace subdural hematoma along the right convexity seen on 06/09/2023 has resolved. 5. Otherwise unremarkable CT angiogram of the brain. 6. Unremarkable CT angiogram of the neck. 7. Right pleural effusion. ACT 112: Negative or not required by law. Electronically signed by: Nuno Bennett M.D. 06/19/2023 3:00 PM Head CTA 06/19/23 14:[address] OF THE BRAIN; CT ANGIOGRAM OF THE BRAIN; CT ANGIOGRAM OF THE NECK CLINICAL HISTORY: Strokelike symptoms. COMPARISON STUDY: CT angiogram of the neck dated 06/05/2023. MRI of the brain dated 06/09/2023. TECHNIQUE: Unenhanced axial CT scan of the brain is performed. Subsequently, following the IV administration of 116 of Optiray 320, CT angiogram of the head and neck was performed from the aortic arch to the vertex. Images are reviewed in the axial, sagittal, and coronal planes. 3-D MIPS images are created and assessed. IV contrast was administered without complication. All measurements were calculated based on NASCET criteria. A dose lowering technique was utilized adhering to the principles of ALARA. CT DOSE: 1165.84 mGy.cm FINDINGS: Brain parenchyma: There is age-related involutional change noting [id number] subcortical and periventricular microangiopathic disease. There is subtle loss of pruitt-white matter differentiation along the left insular cortex. No hemorrhage or mass effect is seen. There is no evidence of enhancing mass lesion on the angiogram phase images. The ventricles, sulci, and cisterns are prominent secondary to involutional change. No extra-axial fluid collection is seen. Thoracic aorta: There is atherosclerotic calcification of the thoracic aorta. Visualized portions of the thoracic aorta are normal in caliber. The aortic arch demonstrates 3-vessel variant anatomy. 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 Right carotid arterial system: The right common carotid artery is widely patent, as are the right internal and external carotid arteries. Calcified plaque is noted in the carotid bulb. Left carotid arterial system: The left common carotid artery is widely patent, as are the left internal and external carotid arteries. Atherosclerotic calcification is noted in the carotid bulb. Vertebral arteries: The vertebral arteries are widely patent bilaterally noting left-sided dominance. Subclavian arteries: Widely patent bilaterally. Intracranial vasculature: There is atherosclerotic calcification of the cav ernous carotid and vertebral arteries. The internal carotid arteries are patent at the skull base, as are the anterior cerebral arteries bilaterally. The right A1 segment is atretic. There is a single proximal anterior cerebral artery which bifurcates along the tentorium. The right middle cerebral artery is patent. There is complete occlusion of an M2 branch of the left middle cerebral artery along the sylvian fissure seen on axial image #117. Hyperdense thrombus at this site on unenhanced image #51 of 128. The vertebrobasilar system and posterior cerebral arteries are widely patent. The left vertebral artery is dominant. No aneurysm is seen. Jugular veins: Patent bilaterally. Dural sinuses: Patent. Lung apices: A right pleural effusion is partially imaged. Partially visualized upper lobe lung parenchyma otherwise appears clear. Soft tissues: The visualized pharyngeal soft tissues are normal in appearance noting angiographic phase technique. The oropharyngeal airway appears widely patent. The thyroid gland is atrophic and heterogeneous. The salivary glands are normal in appearance. No cervical lymphadenopathy is seen. Skeletal structures: The skeletal structures are osteopenic. The calvarium appears intact. The cervical spine is maintained noting multilevel spondylosis. No lytic or blastic lesion is seen. Orbits: The bony orbits are intact. Orbital contents are normal as visualized noting bilateral ocular lens implants. Sinuses and mastoids: There is mild mucosal thickening within the maxillary antra. The remaining paranasal sinuses are clear. There is a small left mastoid effusion. The right mastoid air cells are well pneumatized. IMPRESSION: 1. 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 This represents a significant change from the 06/05/2023 examination and is consistent with acute stroke. 2. There is subtle loss of pruitt-white differentiation identified in the left insular cortex, likely related to acute ischemia. 3. No hemorrhage or mass effect is seen. 4. The trace subdural hematoma along the right convexity seen on 06/09/2023 has resolved. 5. Otherwise unremarkable CT angiogram of the brain. 6. Unremarkable CT angiogram of the neck. 7. Right pleural effusion. ACT 112: Negative or not required by law. Electronically signed by: Nuno Bennett M.D. 06/19/2023 3:00 PM Neck CTA 06/19/23 14:[address] OF THE BRAIN; CT ANGIOGRAM OF THE BRAIN; CT ANGIOGRAM OF THE NECK CLINICAL HISTORY: Strokelike symptoms. COMPARISON STUDY: CT angiogram of the neck dated 06/05/2023. MRI of the brain dated 06/09/2023. TECHNIQUE: Unenhanced axial CT scan of the brain is performed. Subsequently, following the IV administration of 116 of Optiray 320, CT angiogram of the head and neck was performed from the aortic arch to the vertex. Images are reviewed in the axial, sagittal, and coronal planes. 3-D MIPS images are created and assessed. IV contrast was administered without complication. All measurements were calculated based on NASCET criteria. A dose lowering technique was utilized adhering to the principles of ALARA. CT DOSE: 1165.84 mGy.cm FINDINGS: Brain parenchyma: There is age-related involutional change noting ygrr-sv-iuvhucef subcortical and periventricular microangiopathic disease. There is subtle loss of pruitt-white matter differentiation along the left insular cortex. No hemorrhage or mass effect is seen. There is no evidence of enhancing mass lesion on the angiogram phase images. The ventricles, sulci, and cisterns are prominent secondary to involutional change. No extra-axial fluid collection is seen. Thoracic aorta: There is atherosclerotic calcification of the thoracic aorta. Visualized portions of the thoracic aorta are normal in caliber. The aortic arch demonstrates 3-vessel variant anatomy. 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 Right carotid arterial system: The right common carotid artery is widely patent, as are the right internal and external carotid arteries. Calcified plaque is noted in the carotid bulb. Left carotid arterial system: The left common carotid artery is widely patent, as are the left internal and external carotid arteries. Atherosclerotic calcification is noted in the carotid bulb. Vertebral arteries: The vertebral arteries are widely patent bilaterally noting left-sided dominance. Subclavian arteries: Widely patent bilaterally. Intracranial vasculature: There is atherosclerotic calcification of the cavernous carotid and vertebral arteries. The internal carotid arteries are patent at the skull base, as are the anterior cerebral arteries bilaterally. The right A1 segment is atretic. There is a single proximal anterior cerebral artery which bifurcates along the tentorium. The right middle cerebral artery is patent. There is complete occlusion of an M2 branch of the left middle cerebral artery along the sylvian fissure seen on axial image #117. Hyperdense thrombus at this site on unenhanced image #51 of 128. The vertebrobasilar system and posterior cerebral arteries are widely patent. The left vertebral artery is dominant. No aneurysm is seen. Jugular veins: Patent bilaterally. Dural sinuses: Patent. Lung apices: A right pleural effusion is partially imaged. Partially visualized upper lobe lung parenchyma otherwise appears clear. Soft tissues: The visualized pharyngeal soft tissues are normal in appearance noting angiographic phase technique. The oropharyngeal airway appears widely patent. The thyroid gland is atrophic and heterogeneous. The salivary glands are normal in appearance. No cervical lymphadenopathy is seen. Skeletal structures: The skeletal structures are osteopenic. The calvarium appears intact. The cervical spine is maintained noting multilevel spondylosis. No lytic or blastic lesion is seen. Orbits: The bony orbits are intact. Orbital contents are normal as visualized noting bilateral ocular lens implants. Sinuses and mastoids: There is mild mucosal thickening within the maxillary antra. The remaining paranasal sinuses are clear. There is a small left mastoid effusion. The right mastoid air cells are well pneumatized. IMPRESSION: 1. 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 This represents a significant change from the 06/05/2023 examination and is consistent with acute stroke. 2. There is subtle loss of pruitt-white differentiation identified in the left insular cortex, likely related to acute ischemia. 3. No hemorrhage or mass effect is seen. 4. The trace subdural hematoma along the right convexity seen on 06/09/2023 has resolved. 5. Otherwise unremarkable CT angiogram of the brain. 6. Unremarkable CT angiogram of the neck. 7. Right pleural effusion. ACT 112: Negative or not required by law. Electronically signed by: Nuno Bennett M.D. 06/19/2023 3:00 PM Supervising Physician Co-Signing Physician Notes I have seen and discussed the case with the collaborating ZOEY. I agree with the above H&P. I have reviewed and confirmed the patients medical history, the findings on physical examination, and the patients diagnosis and treatment plan with Sandra GREER and agree with the information documented. In short, Ms Andres is an 87 year old woman with history notable for recent subdural hematoma, atrial fibrillation, HTN, hypothyroidism, depression, who was admitted for acute stroke and found to have large thrombosis of M2 branch of left MCA. A fter eval from [facility] consult, it was determined by family that transitioning patient to comfort care would be best option. VS initially hypertensive, now improved. Labs notable for hyponatremia, COVID +. Physical exam notable a frail elderly woman laying supine who appeared mildly uncomfortable. Eyes closed, did not follow commands--facial grimacing to name, otherwise unintelligble muttering. Family at bedside. Plan for large occlusive MCA stroke with recent subdural hematoma is to convert to comfort measures with palliative on consult. COVID +: contact precautions and supportive care. Rest of plan as above.
[2023-06-19] MEDS ORDERED: ONDANSETRON INJ 2 MG/ML 2 ML VIAL IV PRN (21:32)
[2023-06-19] MEDS ORDERED: ONDANSETRON 4 MG OD TAB SL PRN (21:32)
[2023-06-19] MEDS ORDERED: ACETAMINOPHEN 1,000 MG/100 ML VIAL IV PRN (21:32)
[2023-06-19] MEDS: TRIMETHOPRIM/POLYMYXIN B OP SCH (22:35)
[2023-06-20] MEDS: LORazepam 2 MG/1 ML VIAL IV PRN (02:20)
[2023-06-20] MEDS: MoRPHine SULFATE 4 MG/ML 1 ML CARP\\VIAL IV PRN ×2 (07:41→16:22)
[2023-06-20] MEDS: TRIMETHOPRIM/POLYMYXIN B OP SCH ×4 (07:43→22:47)
--- NOTE | 2023-06-20 09:42 | Hospitalist Progress Note ---
Date of Service June 20, 2023 Assessment & Plan (1) Thrombosis of middle cerebral artery: (2) CVA (cerebral vascular accident): (3) Expressive aphasia: (4) Paroxysmal atrial fibrillation: Plan: Patient is 87 y/o F with PMH recent SDH, atrial fibrillation, expressive aphasia, HTN, hypothyroidism, depression presented to ER from rehab for right sided weakness, aphasia. In ER was found to have occlusion/thrombosis of a large M2 branch of the left middle cerebral artery along the sylvian fissure on CT head. Tele neurology stroke was consulted. Thrombectomy was considered and after extensive conversation with family decision was made to make patient DNR/DNI and pursue comfort care measures IV Tylenol prn Comfort care measures morphine/ativan PRN Palliative care consult Will hold home oral meds currently, reassess tomorrow if able to take po DNR/DNI and son were at bedside who assisted with history and all questions were ansered. Kelli Fisher DO [facility] Hospitalist Admission and Anticipated Discharge Date Admission Date: June 19, 2023 Subjective 87 yo F presented with a stroke and was placed on comfort measures. she is breathing comfortably family is at bedside add urinary catheter pt obtunded Physical Exam Physical Exam: CONSTITUTIONAL: WNWD, vitals as above, obtunded EYES: normal conjunctivae, no scleral icterus, ENT: external ear and nose normal, NECK: trachea midline RESPIRATORY: clear to auscultation bilaterally, no crackles, rales or wheezes, normal respiratory effort CARDIOVASCULAR: regular rate and rhythm, S1 and 2 heard without murmurs, gallops or rubs, no JVD, no peripheral edema CHEST: inspection of chest was normal GASTROINTESTINAL: soft, nontender, ND, no guarding MUSCULOSKELETAL: obtunded SKIN: warm and dry NEUROLOGIC: obtunded PSYCHIATRIC: obtunded Results & Data Results & Data Vital Signs (Past 12 Hours) Vital Signs Temp Pulse Resp BP Pulse Ox O2 Del Method 06/19/23 21:45 Room Air 06/19/23 21:45 Room Air 06/19/23 21:45 36.4 C L 96 H 18 131/73 94 Room Air Laboratory Results Short CBC 06/19/23 Range/Units 15:04 WBC 4.33 L (4.8-10.8) K/ul Hgb 12.4 (12.0-16.0) g/dl Hct 36.5 L (37.0-47.0) % Plt Count 330 (130-400) K/uL BMP 06/19/23 15:04 Sodium 131 L Potassium 3.9 Chloride 96 L Carbon Dioxide 28 BUN 19 Creatinine 0.83 Glucose 102 H Calcium 8.5 L Liver Function 06/19/23 Range/Units 15:04 Total Bilirubin 0.3 (0.2-1.0) mg/dl AST 31 (13-39) U/L ALT 32 (7-52) U/L Alkaline Phosphatase 70 (34-104) U/L Albumin 3.2 L (3.4-5.0) gm/dl Medications Administered Current Inpatient Medications Acetaminophen (Ofirmev) 1,000 mg in 100 mls @ 400 mls/hr IV Q8H PRN PRN Reason: pain Stop: 06/22/23 21:31 Last Infusion: 06/19/23 22:30 Dose: Infused Lorazepam (Lorazepam 2 Mg/1 Ml Vial) 0.5 mg IV Q4H PRN PRN Reason: Anxiety/Agitation Stop: 07/20/23 01:40 Last Admin: 06/20/23 02:20 Dose: 0.5 mg Morphine Sulfate (Morphine Sulfate 4 Mg/Ml 1 Ml Carp\Vial) 3 mg IV Q4H PRN PRN Reason: Pain Stop: 07/04/23 06:54 Last Admin: 06/20/23 07:41 Dose: 3 mg Ondansetron HCl (Ondansetron Inj 2 Mg/Ml 2 Ml Vial) 4 mg IV Q4H PRN PRN Reason: Nausea &/or Vomiting Stop: 07/19/23 21:31 Ondansetron HCl (Ondansetron 4 Mg Od Tab) 4 mg SL Q4H PRN PRN Reason: Nausea &/or Vomiting Stop: 07/19/23 21:31 Polymyxin/Trimethoprim Sulfate (Trimethoprim/Polymyxin B) 1 drops OP QID SHILOH Stop: 07/19/23 21:44 Last Admin: 06/20/23 07:43 Dose: 1 drops
[2023-06-21] MEDS: MoRPHine SULFATE 4 MG/ML 1 ML CARP\\VIAL IV PRN ×2 (11:02→16:15)
[2023-06-21] MEDS: TRIMETHOPRIM/POLYMYXIN B OP SCH ×4 (11:03→20:26)
--- NOTE | 2023-06-21 17:23 | Hospitalist Progress Note ---
Date of Service June 21, 2023 Assessment & Plan (1) Thrombosis of middle cerebral artery: (2) CVA (cerebral vascular accident): (3) Expressive aphasia: (4) Paroxysmal atrial fibrillation: Plan: Patient is 87 y/o F with PMH recent SDH, atrial fibrillation, expressive aphasia, HTN, hypothyroidism, depression presented to ER from rehab for right sided weakness, aphasia. In ER was found to have occlusion/thrombosis of a large M2 branch of the left middle cerebral artery along the sylvian fissure on CT head. Tele neurology stroke was consulted. Thrombectomy was considered and after extensive conversation with family decision was made to make patient DNR/DNI and pursue comfort care measures IV Tylenol prn Comfort care measures morphine/ativan PRN Palliative care consult Will hold home oral meds currently, reassess tomorrow if able to take po Remains stable on comfort care-discussed with the family members DNR/DNI and son were at bedside who assisted with history and all questions were ansered. [facility] and [facility]ticipated Discharge Date Admission Date: June 19, 2023 Subjective 06/21/2023 The patient was seen and examined in medical floor in presence of the family members Remains on comfort care and stable No apparent distress at rest We will continue current care Physical Exam Physical Exam: Lying in bed comfortably No apparent distress at rest Constitutional: + ill appearing and average body habitus Eyes: PERRL, conjunctivae normal, anicteric sclerae ENMT: external ear and nose normal, oropharynx normal Neck: trachea midline, no thyromegaly Respiratory: no respiratory distress Auscultation: + diminished lung sounds Cardiovascular: Rate/Rhythm: regular rate and regular rhythm; not tachycardic Gastrointestinal (Abdomen): Inspection/Auscultation: normal bowel sounds; abdomen not distended Percussion/Palpation: abdomen soft Neurologic: Alert and awake. Minimally communicative Results & Data Results & Data Vital Signs (Past 12 Hours) Vital Signs O2 Del Method 06/21/23 10:00 Room Air
[2023-06-21] MEDS ORDERED: ATROPINE SULFATE 1% OP SOLN 5 ML BTL SL PRN (23:35)
[2023-06-21] MEDS: ATROPINE SULFATE 1% OP SOLN 5 ML BTL SL PRN (23:57)
[2023-06-22] MEDS: MoRPHine SULFATE 4 MG/ML 1 ML CARP\\VIAL IV PRN ×2 (07:54→18:02)
[2023-06-22] MEDS: ATROPINE SULFATE 1% OP SOLN 5 ML BTL SL PRN ×4 (07:54→21:22)
[2023-06-22] MEDS: TRIMETHOPRIM/POLYMYXIN B OP SCH ×4 (07:54→21:10)
--- NOTE | 2023-06-22 11:38 | Palliative Care Consultation ---
Date of Consultation June 22, 2023 Assessment & Plan (1) Dyspnea and respiratory abnormalities: Discussed with family. Will add a scheduled lower dose MS 2mg IV Q8h to improve comfort and ease her resp effort. I have modified the BTP med to q1h prn but kept dose unchanged at MS 3mg Family in agreement. All questions answered to their apparent satisfaction. (2) Comatose: (3) Palliative care by specialist: Met with pt/family. Provided overview of Palliative Medicine, a subspecialty that provides specialized medical care for people living with a serious illness by offering a focus on quality of life. Palliative Medicine is often conflated with hospice: I advised patient/family that Palliative and hospice can be partners but we are not the same. Palliative Medicine works to improve QOL through reduction of symptom burden/more control over their illness, for both the patient and family. Palliative medicine clinicians are board certified, specially-trained and another member of the patient's medical care team. We often provide an extra layer of support because our care is based on the needs of the patient, not the prognosis; as such, it's appropriate at any age/advancing stage of a serious illness and can be provided along with curative treatment. Palliative Medicine clinicians are also trained in advanced communication methodologies, to facilitate complex discussions about advanced illness planning, which are needed to help assure that the treatment choices mat ch the patient's goals, aka delivering Goal Concordant care. (4) Discussion about advance care planning held with family member: I met with and sons x2 in room at pt bedside face to face for 65min they are aware of her EOL changes; son shares "she had an amazing day yesterday, she was awake, and smiling at times with the whole family, it was great but by this morning she was clearly getting worse, her breathing started getting noticeably harder and she was moaning at times." We spoke about how there are instances when a person facing the end of life rallies, they seem to become "more stable" - may want to talk or even begin taking PO; this phenomenon is usually seen as a sudden burst of energy before . This period of perking up can be accompanied by such a notable change in mental clarity that is often referred to as terminal lucidity. This change in cognition and behavior goes against everything families learn about the physical signs that the end of life is near. It is important to note that evidence-based data is elusive, if nonexistent. Theories support that it may be a search for a final, strong connection. Also, as organs shut down, they can release a steroid like compound that briefly rouses the body - in the specific case of brain tumors, swelling occurs in the confined space of the skull. The edema shrinks as EOL care patients are weaned off food and drink, waking up the brain a bit. Families and caregivers may grasp at what seems to be a turnaround in our loved ones health and sigh with relief. However, the EOL Rally is a hallmark pre- sign. It is not uncommon for patients to show improvement before : they may want to talk, others may become restless or act as if they need to start preparing for a trip. Others will simply become more relaxed yet remain tuned in to what is going on around them. Still others will show signs of physical stability when, seconds before, they seemed on the verge of letting go. A rally can last for a few moments or even days. Short or long, these temporary improvements can have a profound effect on loved ones who are keeping bennett. Like a moment of clarity for someone who has dementia, a rally is one last opportunity to connect with a loved one. Each persons experience is unique and impossible to predict with total accuracy. Read more: https://[email or web address].Verivue//well/nhi-yumhrlo-tl-vvz-ki-vhvs-rallies.html Idania was well loved by her family, friends and community. 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 She was engaged in family activities and loved spending time with her children and grandchildren. We reviewed the EOL process and changes to expect. Discussed changes pt may move through in the dying process including but not limited to sleeping more, disorientation when awake, restlessness, diminished senses/inability to respond to stimulus although ability to be aware of them remains intact longer, changes in body temperatures, skin changes/mottling/cyanosis, respiratory pattern changes, oral secretions. Family verbalized understanding. The goal is to assure a peaceful . Son is a high information seeker, so additional dying process information provided: TEACHING THE FAMILY WHAT TO EXPECT WHEN THE PATIENT IS DYING (from Too Goncalves MD, PhD) Introduction: Family members look to the medical team to help them know what to expect when a loved one is dying. No matter the underlying causes, there is a common final pathway that most patients travel. 1. Social Withdrawal is normal for the dying patient as the person becomes less concerned about his or her surroundings. Separation begins first from the world no more interest in newspaper or television, then from people no more neighbors visiting, and finally from the children, grandchildren and perhaps even those persons most loved. With this withdrawal comes less of a need to communicate with others, even with close family. 2. Food: The patient will have a decreased need for food and drink as the body is preparing to . This is one of the hardest things for some family to accept. There is a gradual decrease in interest in eating and appetiteeven for their favorite foods. Interest may come and go. The patient is not starving to deaththis reflects the underlying disease. Liquids are preferred to solidsfollow the patients lead and do not force feed. 3. Sleep: The patient will spend more and more time sleeping; it may be difficult for them to keep their eyes open. This is a result of a change in the bodys metabolism as a result of the disease. Tell family to spend more time with the patient during those times when he/she is most alert; this might be the middle of the night. 4. Disorientation: The patient may become confused about time, place and the identity of people around him/her. He/she may see people who are not there, such as family members who have already . Sometimes patients describe welcoming or beckoning. While the patient may not be distressed, it is frequently distressing to family or health healthcare insurance sales agent. Gently orient the patient if he or she asks. There is no need to correct the patient if he or she is not distressed. 5. Restlessness: The patient may become restless and pull at the bed linens. These symptoms are also a change in the bodys metabolism. Talk calmly and assuredly with the patient so as not to startle or frighten them. If the patient is a danger to himself or others, you may prescribe sedating neuroleptics (e.g.chlorpromazine), or neuroleptics (e.g. haloperidol) in combination with benzodiazepines (e.g. lorazepam), to help the patient rest. 6. Decreased Senses: Clarity of hearing and vision may decrease. Soft lights in the room may prevent visual misinterpretations. Never assume that the patient cannot hear you, as hearing is the last of the five senses to be lost. 7. Incontinence of urine and bowel movements is often not a problem until is very near. Invite family to participate in direct care; the nurse can help place absorbent pads under the patient for more comfort and cleanliness, or a urinary catheter may be used. The amount of urine will decrease and the urine become darker as becomes near. 8. Physical Changes as approaches: a. The blood pressure decreases; the pulse may increase or decrease. c. The body temperature can fluctuate; fever is common. d. There is increased perspiration often with clamminess. e. The skin color changes: flushed with fever, bluish with cold. A pale yellowish pallor (not to be confused with jaundice) often accompanies approaching . f. Breathing changes also occur. Respirations may increase, decrease or become irregular; periods of no breathing (apnea) are common. g. Congestion will present as a rattling sound in the lungs and/or upper throat. This occurs because the patient is too weak to clear the throat or cough. The congestion can be affected by positioning, may be very loud, and sometimes just comes and goes. Anticholinergic medications (like scopolamine or glycopyrrolate) can help (see Fast Fact #109). Elevating the head of bed and swabbing the mouth with oral swabs give comfort and give the family something to do. h. The arms and legs may become cool to the touch. The hands and feet become purplish. The knees, ankles and elbows are blotchy. These symptoms are a result of decreased circulation. i. The patient will enter a coma before and not respond to verbal or tactile stimuli. HOW TO KNOW THAT HAS OCCURRED No breathing and heartbeat. Loss of control of bowel or bladder. No response to verbal commands or gentle shaking. Eyelids slightly open; eyes fixed on a certain spot. Jaw relaxed and mouth slightly open. Acknowledgement: This Fact Fact was adapted with permission from a family information handout (The Blue Sheet) given to families of [facility]. References 1. Gordo Arias, Nathalie Saleh. The terminal phase. In: Lenard Arnold, David [facility], Vikas Roy, eds. [employer] Textbook of Palliative Medicine. 2nd ed. [place], [place]: [employer]; 1998. 2. Johan J, Jamil C. Care of the dying patient: the last hours or days of life. BMJ. 2003; 326(3005):30-4. 3. Hira FD, renetta Redmond CF, Alexy LL. Competency in End of Life Care: the last hours of living. J Palliat Med. 2003; 6(4):605-613. 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 * Updated nursing and primary team Thank you for allowing us to participate in the ongoing care of this patient. Please don't hesitate to call or page with any additional concerns. Dr. Vesta Kent DNP Director, Palliative Care History of Present Illness Reason for Consultation: stroke, comfort care, family meeting Attending Physician: Azar Bynum MD History of Present Illness Idania is 87 y/o F with PMH recent SDH, atrial fibrillation, expressive aphasia, HTN, hypothyroidism, depression presented to ER from rehab for right sided weakness, aphasia. In ER was found to have occlusion/thrombosis of a large M2 branch of the left middle cerebral artery along the sylvian fissure on CT head. Tele neurology stroke was consulted. Thrombectomy was considered and after extensive conversation with family decision was made to make patient DNR/DNI and pursue comfort care measures Allergies Allergy/AdvReac Type Severity Reaction Status Date / Time oxycodone Allergy Unknown UKN Verified 01/08/23 20:39 simvastatin Allergy Unknown UKN Verified 01/08/23 20:39 rosuvastatin AdvReac Unknown upset Verified 01/08/23 20:39 stomach Home Medications Medication Instructions Recorded Confirmed Type cholecalciferol (vitamin D3) 25 25 mcg PO DAILY 03/13/21 06/19/23 History mcg (1,000 unit) tablet (Vitamin D3) cyanocobalamin (vitamin B-12) 1,000 mcg PO DAILY 03/13/21 06/19/23 History 1,000 mcg tablet (Vitamin B-12) psyllium seed (sugar) oral powder 1 ea PO DAILY 03/13/21 06/19/23 History (Metamucil (sugar) oral powder) escitalopram oxalate 10 mg tablet 10 mg PO DAILY 04/06/21 06/19/23 History levothyroxine 137 mcg tablet 137 mcg PO DAILYBB 04/06/21 06/19/23 History apixaban 5 mg tablet (Eliquis) 5 mg PO BID #60 tabs 08/05/22 06/19/23 Rx metoprolol succinate 25 mg 25 mg PO BID #60 tabs 08/10/22 06/19/23 Rx tablet,extended release 24 hr (Toprol XL) gabapentin 100 mg capsule 100 mg PO BID 11/26/22 06/19/23 History acetaminophen 500 mg tablet 1,000 mg PO Q6H PRN Pain 01/08/23 06/19/23 History (Tylenol Extra Strength) ipratropium bromide 21 mcg (0.03 2 spray intranasal TID PRN rhinitis 06/05/23 06/19/23 History %) nasal spray nifedipine 30 mg tablet,extended 30 mg PO QAM #30 tabs 06/12/23 06/19/23 Rx release 24 hr (Procardia XL) polymyxin B sulfate 10,000 1 drp ophthalmic (eye) QID #10 mL 06/12/23 06/19/23 Rx unit-trimethoprim 1 mg/mL eye drops (Polytrim) docusate sodium 100 mg capsule 100 mg PO BID 06/19/23 06/19/23 History magnesium oxide 400 mg PO DAILY 06/19/23 06/19/23 History Patient History Medical History Atrial fibrillation with rapid ventricular response Carotid artery stenosis, asymptomatic Depression Diastolic dysfunction Hyperlipidemia Hypertension Hypothyroidism (11/15/12) Nonrheumatic mitral valve regurgitation Pericardial effusion Persistent left SVC (superior vena cava) Pleural effusion Pleural effusion on right Pneumonia Rib fracture Stroke-like symptoms Subdural hematoma Tachycardia-bradycardia syndrome Thoracic aortic aneurysm Thrombophlebitis History of extensive, requiring vein ablation, s/p previous anticoagulation treatment Surgical History History of cataract surgery History of hysterectomy History of repair of rotator cuff Family History Father , age 52 of an CA Hypertension Stroke Myocardial infarction Mother , age 87 with dementia Hypertension Dementia Social History Smoking Status: Never smoker Second Hand Exposure: No; Do You Dip or Chew Tobacco: No; Hx Alcohol Use: No Hx Substance Use: No Preferred Language: Welsh Communication Ability: Unable Tipple Oiler Required: No Beliefs That Will Affect Care: None marital status: Current Living Situation: Spouse current occupational status: retired 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 variable resp rate with increased use of accessory muscles and abd breathing noted, mod JVD; occasional cough. color pale skin warm. no overt mottling. Results & Data Vital Signs (Past 12 Hours) Vital Signs O2 Del Method 06/22/23 07:35 Room Air Laboratory Results data reviewed Diagnostic Findings data reviewed PG Care Time/CCT Total # of Minutes Spent Total Time Spent: 135 Total Time Spent with Patient: Total time spent is greater than 50% in coordination of care (as documented) at patient's floor/unit and/or counseling patient: I spent 135 minutes overall addressing this case: 15 in medical data review/discussion with referring provider(s) and/or preparation for the visit 25 in direct interaction with the patient 65 Advance Care Planning/Goals of Care discussions as detailed above in note (must be >16min) 15 in subsequent review and synthesis of assessment and plan 15 in communicating with other providers regarding the patient's case: nursing, primary team Advanced Care Planning 17753 Advanced Care Planning 30 Min 77596 Advanced Care Planning Additional 30 [place] [address] IN/OBS CONSULT LVL 5,80M Patient Type New History Comprehensive Exam Comprehensive Medical Decision Making High Complexity Diagnoses Dyspnea and respiratory abnormalities R06.00; R06.89 Comatose R40.20 Palliative care by specialist Z51.5 Discussion about advance care planning held with family member Z71.0 Encounter for end of life care Z51.5 Thrombosis of middle cerebral artery I66.09 Additional Codes Advanced Care Planning - 09689 Advanced Care Planning 30 Min: 83178 Advanced Care Planning 30 Min ([id number]) Advanced Care Planning - 32198 Advanced Care Planning Additional 30 Min: 21722 Advanced Care Planning Additional 30 Min ([id number])
[2023-06-22] MEDS: MoRPHine SULFATE 2 MG/ML CARP IV SCH ×2 (13:13→21:20)
--- NOTE | 2023-06-22 16:51 | Hospitalist Progress Note ---
Date of Service June 22, 2023 Assessment & Plan (1) Thrombosis of middle cerebral artery: (2) CVA (cerebral vascular accident): (3) Expressive aphasia: (4) Paroxysmal atrial fibrillation: Plan: Patient is 87 y/o F with PMH recent SDH, atrial fibrillation, expressive aphasia, HTN, hypothyroidism, depression presented to ER from rehab for right sided weakness, aphasia. In ER was found to have occlusion/thrombosis of a large M2 branch of the left middle cerebral artery along the sylvian fissure on CT head. Tele neurology stroke was consulted. Thrombectomy was considered and after extensive conversation with family decision was made to make patient DNR/DNI and pursue comfort care measures IV Tylenol prn Comfort care measures morphine/ativan PRN Palliative care consult Will hold home oral meds currently, reassess tomorrow if able to take po Remains stable on comfort care-discussed with the family members Appreciate the palliative input and recommendation Remains unresponsive and opens eyes with commands only Discussed with the family members and will give her comfortable-she is not having any acute distress at this time DNR/DNI and son were at bedside who assisted with history and all questions were ansered. Azar Bynum MD [facility] Hospitalist Admission and Anticipated Discharge Date Admission Date: June 19, 2023 Subjective 06/21/2023 The patient was seen and examined in medical floor in presence of the family members Remains on comfort care and stable No apparent distress at rest We will continue current care 06/22/2023 The patient was seen and examined in medical floor Remains unresponsive Opens eyes with commands Physical Exam Physical Exam: Lying in bed comfortably No apparent distress at rest Constitutional: + ill appearing and average body habitus Eyes: PERRL, conjunctivae normal, anicteric sclerae ENMT: external ear and nose normal, oropharynx normal Neck: trachea midline, no thyromegaly Respiratory: no respiratory distress Auscultation: + diminished lung sounds Cardiovascular: Rate/Rhythm: regular rate and regular rhythm; not tachycardic Gastrointestinal (Abdomen): Inspection/Auscultation: normal bowel sounds; abdomen not distended Percussion/Palpation: abdomen soft Results & Data Results & Data Vital Signs (Past 12 Hours) Vital Signs O2 Del Method 06/22/23 07:35 Room Air
[2023-06-23] MEDS: MoRPHine SULFATE 2 MG/ML CARP IV SCH ×3 (05:25→21:19)
[2023-06-23] MEDS: ATROPINE SULFATE 1% OP SOLN 5 ML BTL SL PRN (08:35)
[2023-06-23] MEDS: TRIMETHOPRIM/POLYMYXIN B OP SCH ×4 (08:35→21:21)
[2023-06-23] MEDS: GLYCOPYRROLATE 0.2 MG/ML VIAL IV PRN ×2 (09:34→21:20)
--- NOTE | 2023-06-23 11:01 | Hospitalist Progress Note ---
Date of Service June 23, 2023 Assessment & Plan (1) Thrombosis of middle cerebral artery: (2) CVA (cerebral vascular accident): (3) Expressive aphasia: (4) Paroxysmal atrial fibrillation: Plan: Patient is 87 y/o F with PMH recent SDH, atrial fibrillation, expressive aphasia, HTN, hypothyroidism, depression presented to ER from rehab for right sided weakness, aphasia. In ER was found to have occlusion/thrombosis of a large M2 branch of the left middle cerebral artery along the sylvian fissure on CT head. Tele neurology stroke was consulted. Thrombectomy was considered and after extensive conversation with family decision was made to make patient DNR/DNI and pursue comfort care measures Comfort care measures Morphine/ativan PRN Remains stable on comfort care-discussed with the family members Appreciate the palliative input and recommendation Remains unresponsive and opens eyes with commands only Covid 19 Tested positive on admission 06/19/23 Continue isolation precautions per infectious control Discussed plan with youngest son at bedside. Admission and Anticipated Discharge Date Admission Date: June 19, 2023 Supervising Physician Co-Signing Physician Notes Attending addendum: The patient was seen and examined in medical floor Discussed with the family members and reassured that the patient will be kept comfortable. She remains stable without any apparent distress at rest Agree with assessment and plan as outlined above by ZOEY Arnold Dr, MD Subjective Seen and examined in 301-1 in presence of the youngest son. Remains on comfort care and stable. No apparent distress at rest. ROS unobtainable due to reduced consciousness. Review of Systems Review of Systems: Unobtainable due to reduced consciousness Physical Exam Physical Exam: Gen: WD/WN, NAD, resting in bed, A&Ox3 HEENT: Normocephalic, atraumatic Lung: +diminished breath sounds bilaterally Heart: tachycardic rate, regular rhythm Abdomen: Soft Extremities: no edema Skin: Warm, no rash Results & Data Results & Data Vital Signs (Past 12 Hours) Vital Signs Resp O2 Del Method 06/23/23 08:45 Room Air 06/23/23 08:37 17
[2023-06-23] MEDS: MoRPHine SULFATE 4 MG/ML 1 ML CARP\\VIAL IV PRN ×4 (14:14→19:15)
[2023-06-23] MEDS: LORazepam 2 MG/1 ML VIAL IV PRN (18:05)
[2023-06-24] MEDS: GLYCOPYRROLATE 0.2 MG/ML VIAL IV PRN ×2 (00:29→17:38)
[2023-06-24] MEDS: LORazepam 2 MG/1 ML VIAL IV PRN ×2 (00:30→14:27)
[2023-06-24] MEDS: MoRPHine SULFATE 4 MG/ML 1 ML CARP\\VIAL IV PRN ×7 (03:00→16:43)
[2023-06-24] MEDS: MoRPHine SULFATE 2 MG/ML CARP IV SCH ×2 (05:40→13:20)
[2023-06-24] MEDS: TRIMETHOPRIM/POLYMYXIN B OP SCH ×3 (07:41→16:11)
[2023-06-24] MEDS ORDERED: MoRPHine SULFATE 4 MG/ML 1 ML CARP\\VIAL IV PRN (14:24)
--- NOTE | 2023-06-24 14:41 | Hospitalist Progress Note ---
Date of Service June 24, 2023 Assessment & Plan (1) Thrombosis of middle cerebral artery: (2) CVA (cerebral vascular accident): (3) Expressive aphasia: (4) Paroxysmal atrial fibrillation: Plan: Patient is 87 y/o F with PMH recent SDH, atrial fibrillation, expressive aphasia, HTN, hypothyroidism, depression presented to ER from rehab for right sided weakness, aphasia. In ER was found to have occlusion/thrombosis of a large M2 branch of the left middle cerebral artery along the sylvian fissure on CT head. Tele neurology stroke was consulted. Thrombectomy was considered and after extensive conversation with family decision was made to make patient DNR/DNI and pursue comfort care measures Comfort care measures Morphine/ativan PRN Remains stable on comfort care-discussed with the family members Appreciate the palliative input and recommendation Remains unresponsive and opens eyes with commands only Continue with the comfort measures Covid 19 Tested positive on admission 06/19/23 Continue isolation precautions per infectious control Discussed plan with youngest son at bedside. Admission and Anticipated Discharge Date Admission Date: June 19, 2023 Subjective 06/21/2023 The patient was seen and examined in medical floor in presence of the family members Remains on comfort care and stable No apparent distress at rest We will continue current care 06/22/2023 The patient was seen and examined in medical floor Remains unresponsive Opens eyes with commands 06/24/2023 Patient was seen and examined in medical floor in presence of the family members Remains comfortable No apparent distress and limited physical exam as below We will continue with current comfort measures. Physical Exam Physical Exam: Lying in bed comfortably No apparent distress at rest Constitutional: + ill appearing and average body habitus Eyes: PERRL, conjunctivae normal, anicteric sclerae ENMT: external ear and nose normal, oropharynx normal Neck: trachea midline, no thyromegaly Respiratory: no respiratory distress Auscultation: + diminished lung sounds Cardiovascular: Rate/Rhythm: regular rate and regular rhythm; not tachycardic Gastrointestinal (Abdomen): Inspection/Auscultation: normal bowel sounds; abdomen not distended Percussion/Palpation: abdomen soft Results & Data Results & Data Vital Signs (Past 12 Hours) Vital Signs O2 Del Method 06/24/23 07:42 Room Air
--- NOTE | 2023-06-24 18:52 | Death Pronouncement Note ---
Date of Service June 24, 2023 Pronouncement Note Admission Date Admission Date: June 19, 2023 Date and Time of Date of : 06/24/23 Time of : 18:38 Contributing Factors (1) Thrombosis of middle cerebral artery: (2) CVA (cerebral vascular accident): (3) Expressive aphasia: (4) Paroxysmal atrial fibrillation: (5) COVID: (6) Dyspnea and respiratory abnormalities: Hospital Course Hospital Course: Patient is 87 y/o F with PMH recent SDH, atrial fibrillation, expressive aphasia, HTN, hypothyroidism, depression presented to ER from rehab for right sided weakness, aphasia. In ER was found to have occlusion/thrombosis of a large M2 branch of the left middle cerebral artery along the sylvian fissure on CT head. Tele neurology stroke was consulted. Thrombectomy was considered and after extensive conversation with family decision was made to make patient DNR/DNI and pursue comfort care measures Comfort care measures Morphine/ativan was given PRN Comfort care Appreciate palliative input and recommendation Covid 19 Tested positive on admission 06/19/23 Was on isolation precautions per infectious control Summary Additional details: Called to bedside with family members surrounding the bed. Pt without pulse, no respirations noted and no heart sounds on auscultation. Eyes were closed but manually opened to note fixed and dilated pupils. Family discussion that pt waited for to be out of the room to pass. Additional Data Confirmation of : no pulse, no respirations, no heart sounds and pupils fixed and dilated Additional persons at bedside: other (family) Attending physician: Azar Bynum MD Was code activated?: No
[2023-06-24] MEDS ORDERED: MoRPHine SULFATE 2 MG/ML CARP IV SCH (21:00)
--- NOTE | 2023-06-26 09:12 | Discharge Summary ---
Date of Service June 26, 2023 Admission HPI Per Admitting Provider Patient is 87 y/o F with PMH recent SDH, atrial fibrillation, expressive aphasia, HTN, hypothyroidism, depression presented to ER from rehab for right sided weakness, aphasia today. History obtained from inpatient chart review, family and ER staff secondary to patients current status. 05/26/2023 fall and SDH and was transferred to [facility]. Did not have change in SDH on serial CTs of the head at that time and apixaban, Plavix, aspirin were held and was discharged on 05/28/2023. She had completed 1 week of Keppra prophylaxis. Had repeat hospitalization 06/05/2023-06/12/23 at [facility] forhallucinations, expressive aphasia, left facial droop with mild associated dysarthria and was found to have SDH. During admission repeat CT head did not show any change in small subacute right subdural hematoma. She was treated for UTI and discharged to rehab with additional antibiotics and started on nifedipine for additional BP control. Family state patient was doing well and was participating in physical therapy. Today had sudden onset of right sided weakness and aphasia and was transferred to ER. In ER was found to have occlusion/thrombosis of a large M2 branch of the left middle cerebral artery along the sylvian fissure on CT head. Tele neurology stroke was consulted. Thrombectomy was considered and after extensive conversation with family decision was made to make patient DNR/DNI and pursue comfort care measures. Family report patient had covid-19 exposure and tested positive several days ago. Admission Exam Per Admitting Provider General: Obtunded, respiratory difficulty Head: Normocephalic and atraumatic Eyes: Unable to track, equal and reactive pupils bilaterally Ear, nose, throat: Normal external exam Neck: Supple Respiratory: Right-sided crackles, dyspnea Cardiovascular: RRR without murmur appreciated GI: soft, nontender, no guarding or rebound Extremities: pulses intact with good cap refills, Neuro: Patient is minimally alert, reactive to painful stimuli, flaccid right upper and lower extremity, right facial droop, left upper and lower extremity weakness Skin: Warm, dry, and intact Principal Diagnosis The Patient . Discharge Data Allergies Allergy/AdvReac Type Severity Reaction Status Date / Time oxycodone Allergy Unknown UKN Verified 01/08/23 20:39 simvastatin Allergy Unknown UKN Verified 01/08/23 20:39 rosuvastatin AdvReac Unknown upset Verified 01/08/23 20:39 stomach Consultations 06/19/23 16:54 ED Decision to Admit Stat 06/19/23 21:32 Consult Palliative Care Routine Ordered Studies 06/19/23 14:23 CT head/brain wo con Stat 06/19/23 14:24 CTA head w con [CT angio head w con] Stat CTA neck with con [CT angio neck with con] Stat Hospital Course (1) Thrombosis of middle cerebral artery: (2) CVA (cerebral vascular accident): (3) Expressive aphasia: (4) Paroxysmal atrial fibrillation: (5) COVID: (6) Dyspnea and respiratory abnormalities: Total Time Total Time Spent Total Time Spent (In Minutes): 20 minutes Discharge Plan Discharge Items Patient Disposition: Other Date/Time: 06/24/23 18:00
== END 2023-06-24 20:54 | disposition expired | DRG 64 ==
LOC: ED 14:05 → SUATTDRO 17:19 → EDINP 17:19 → 3E 21:01